=== PATIENT | male | born 1965 | race Hispanic/Latino ===

== ENCOUNTER 2024-09-29 14:13 | Inpatient (IN) | payer SELFPAY ==
[~2024-09-29] VITALS: Ht 167.6 cm; Wt 113.4 kg
[2024-09-29 15:19] LABS: BASOPHILS # (AUTO) 0.06 K/uL (0.00-0.20); BASOPHILS % (AUTO) 0.4 % (0.0-5.0); EOSINOPHILS # (AUTO) 0.06 K/uL (0.00-0.70); EOSINOPHILS % (AUTO) 0.4 % (0.0-8.0); IMMATURE GRANULOCYTE ABSOLUTE 0.35 K/uL (0-1); LYMPHOCYTES # (AUTO) 0.7 K/uL (1.0-4.8); LYMPHOCYTES % (AUTO) 3.8 % (21.0-51.0); MEAN CORPUSCULAR HEMOGLOBIN 33.6 pg (27.0-33.0); MEAN CORPUSCULAR HGB CONC 34.3 g/dL (32.0-36.0); MONOCYTES # (AUTO) 1.1 K/uL (0.1-1.0); MONOCYTES % (AUTO) 6.6 % (3.0-13.0); NEUTROPHILS # (AUTO) 14.7 K/uL (1.8-7.7); NEUTROPHILS % (AUTO) 86.7 % (40.0-77.0); PLATELET COUNT (AUTO) 152 K/uL (130-400); RED BLOOD CELL COUNT(AUTO) 3.57 MIL/uL (4.50-6.20); RED CELL DISTRIBUTION WIDTH 17.7 % (11.0-15.5); WHITE BLOOD COUNT (AUTO) 16.9 K/uL (4.8-10.8)
[2024-09-29 15:28] LABS: CREATININE 2.5 mg/dL (0.5-1.3); POTASSIUM 4.2 mmol/L (3.5-5.1)
[2024-09-29 15:32] LABS: ALBUMIN 2.2 g/dL (3.5-5.0); BILIRUBIN,TOTAL 6.4 mg/dL (0.2-1.0)
[2024-09-29 15:59] LABS: BAND NEUTROPHILS % (MANUAL) 10 % (0-2); EOSINOPHILS % (MANUAL) 1 % (1-6); LYMPHOCYTES % (MANUAL) 5 % (22-44); MAN.DIFF COMMENT-IMPRESSION MANUAL DIFFERENTIAL; MONOCYTES % (MANUAL) 8 % (2-9); PLATELET MORPHOLOGY COMMENT ADEQUATE; SEGMENTED NEUTROPHILS % 76 % (40-70); TOTAL CELLS COUNTED 100; WBC MORPHOLOGY CONSISTENT W/DIFF
--- NOTE | 2024-09-29 16:13 | ERN ---
General Chief Complaint: LOWER EXTREMITY EDEMA Stated Complaint: SWELLING Time Seen by MD: 14:17 Source: patient History of Present Illness Initial Comments PATIENT IS A 59-YEAR-OLD MALE COMING IN TO BE EVALUATED FOR ABDOMINAL DISTENTION. PATIENT STATES THAT HE WAS SENT OVER BY URGENT CARE FOR FURTHER EVALUATION OF ABDOMINAL DISTENTION AND SHORTNESS OF BREATH. Allergies: Coded Allergies: No Known Drug Allergies (Unverified Allergy, Unknown, 09/29/24) Past Medical History Past Medical History: Liver Disease Medical History Other: CIRROHSIS Past Surgical History: None ROS Dictation CONSTITUTIONAL: NO CHILLS, NO FEVER, NO WEAKNESS, NO DIAPHORESIS, NO MALAISE. HEAD/FACE: NO SIGNS OF TRAUMA. EENT: NO EYE PAIN, NO BLURRED VISION, NO TEARING, NO DOUBLE VISION, NO EAR PAIN, NO EAR DISCHARGE, NO NOSE PAIN, NO NASAL CONGESTION, NO THROAT PAIN, NO THROAT SWELLING, NO MOUTH PAIN. RESPIRATORY: NO COUGH, NO ORTHOPNEA, SOB, NO STRIDOR, NO WHEEZING. CARDIOVASCULAR: NO CHEST PAIN, NO EDEMA, NO PALPITATIONS, NO SYNCOPE. GASTROINTESTINAL/ABDOMINAL: ABDOMINAL PAIN, NO CONSTIPATION, NO DIARRHEA, NO NAUSEA, NO VOMITING. GENITOURINARY: NO ABNORMAL DISCHARGE, NO DYSURIA, NO FREQUENT URINATION, NO HEMATURIA. NO COMPLAINTS OF PAIN IN THE GENITALS. MUSCULOSKELETAL: NO BACK PAIN, NO GOUT, NO JOINT PAIN, NO JOINT SWELLING, NO MUSCLE PAIN, NO MUSCLE STIFFNESS, NO NECK PAIN. INTEGUMENTARY: NO CHANGE IN COLOR, NO CHANGE IN HAIR/NAILS, NO DRYNESS, NO LESION, NO LUMPS, NO RASH. NEUROLOGICAL/PSYCH: NO ANXIETY, NOT DEPRESSED, NO EMOTIONAL PROBLEM, NO HEADACHE, NO NUMBNESS, NO PRE-EXISTING DEFICIT, NO HISTORY OF SEIZURES, NO TREMORS, NO WEAKNESS. HEMATOLOGIC/LYMPHATIC: NOT ANEMIC, NO HISTORY OF BLOOD CLOTS, NO APPARENT BLEEDING, NO BRUISING, GLANDS NOT SWOLLEN. ALL SYSTEMS NEGATIVE, EXCEPT NOTED. Physical Exam Physical Exam Dictation VITAL SIGNS: REVIEWED. GENERAL APPEARANCE: ALERT, ORIENTED X3, NO ACUTE DISTRESS, OBESE. HEAD AND FACE: NON-TRAUMATIC. EYES: PERRL, PINK CONJUNCTIVAS, EYELID NO TRAUMA, ANTERIOR CHAMBER CLEAR. EARS: PINNAS INTACT AND NO SIGNS OF TRAUMA OR ERYTHEMA. EAR CANALS CLEAR AND NO DISCHARGE. TMS NO ERYTHEMA. NOSE: NO DISCHARGE, NO BLEEDING. OROPHARYNX: MOUTH NORMAL, TEETH NO CARIES, TONGUE PINK. PHARYNX CLEAR, NO ERYTHEMA. TONSILS NO EXUDATES, NO ABSCESSES NOTED. MUCOUS MEMBRANE MOIST. NECK: SUPPLE, NON-TENDER, NO THYROMEGALY, NO MASSES, NO JVD, NO BRUITS. BREAST: DEFERRED. CHEST: NO TENDERNESS, NO CREPITUS, NO PARADOXICAL MOVEMENT, NO RETRACTIONS. LUNGS: CLEAR, WELL-VENTILATED, SYMMETRIC, NO RALES, NO WHEEZING, NO RHONCHI, NO STRIDOR, GOOD BREATH SOUNDS BILATERALLY. HEART: REGULAR RATE, REGULAR RHYTHM, NO MURMUR, NO GALLOPS. VASCULAR: NO PERIPHERAL EDEMA. ABDOMEN: SOFT, POSITIVE BOWEL SOUNDS, DISTENDED, NO GUARDING, NTENDER, NO REBOUND, NO MASSES NO HEPATOMEGALY, NO SPLENOMEGALY, NO SILVA'S SIGN, NO HERNIAS. RECTAL: DEFERRED. GENITAL: DEFERRED. NEUROLOGICAL: NORMAL SPEECH, GROSS MOTOR FUNCTION INTACT, GROSS SENSORY FUNCTION INTACT. MUSCULOSKELETAL: NECK NONTENDER, FULL RANGE OF MOTION, BACK NONTENDER, FULL RANGE OF MOTION. EXTREMITIES: NONTENDER, FULL RANGE OF MOTION. SKIN: COLOR PINK, DRY, NO TURGOR, NO RASH, NO LACERATIONS, NO ABRASIONS, NO CONTUSIONS. LYMPHATICS: DEFERRED. Results Laboratory and Microbiology Lab and Micro Result Laboratory Tests Test 09/29/24 15:12 White Blood Count 16.9 K/uL (4.8-10.8) H Red Blood Count 3.57 MIL/uL (4.50-6.20) L Hemoglobin 12.0 g/dL (14.0-18.0) L Hematocrit 35.0 % (42-54) L Mean Corpuscular Volume 98.0 fL (79-99) Mean Corpuscular Hemoglobin 33.6 pg (27.0-33.0) H Mean Corpuscular Hemoglobin Concent 34.3 g/dL (32.0-36.0) Red Cell Distribution Width 17.7 % (11.0-15.5) H Platelet Count 152 K/uL (130-400) Mean Platelet Volume 9.6 fL (7.5-10.5) Immature Granulocyte % (Auto) 2.1 % (0-1) H Neutrophils (%) (Auto) 86.7 % (40.0-77.0) H Lymphocytes (%) (Auto) 3.8 % (21.0-51.0) L Monocytes (%) (Auto) 6.6 % (3.0-13.0) Eosinophils (%) (Auto) 0.4 % (0.0-8.0) Basophils (%) (Auto) 0.4 % (0.0-5.0) Neutrophils # (Auto) 14.7 K/uL (1.8-7.7) H Lymphocytes # (Auto) 0.7 K/uL (1.0-4.8) L Monocytes # (Auto) 1.1 K/uL (0.1-1.0) H Eosinophils # (Auto) 0.06 K/uL (0.00-0.70) Basophils # (Auto) 0.06 K/uL (0.00-0.20) Absolute Immature Granulocyte (auto 0.35 K/uL (0-1) Segmented Neutrophils % 76 % (40-70) H Band Neutrophils % 10 % (0-2) H Lymphocytes % (Manual) 5 % (22-44) L Monocytes % (Manual) 8 % (2-9) Eosinophils % (Manual) 1 % (1-6) Nucleated Red Blood Cells 0.0 % (0.0-0.19) Differential Comment MANUAL DIFFERENTIAL White Cell Morphology Comment CONSISTENT W/DIFF Platelet Morphology Comment ADEQUATE Red Blood Cell Morphology ANISO 1+ Sodium Level 133 mmol/L (136-145) L Potassium Level 4.2 mmol/L (3.5-5.1) Chloride Level 98 mmol/L (101-111) L Carbon Dioxide Level 22 mmol/L (21-32) Blood Urea Nitrogen 33 mg/dL (7-18) H Creatinine 2.5 mg/dL (0.5-1.3) H Glomerular Filtration Rate Calc 29 mL/min (>90) Random Glucose 113 mg/dL (70-105) H Total Calcium 8.6 mg/dL (8.5-10.1) Total Bilirubin 6.4 mg/dL (0.2-1.0) H Aspartate Amino Transf (AST/SGOT) 87 U/L (10-37) H Alanine Aminotransferase (ALT/SGPT) 29 U/L (12-78) Alkaline Phosphatase 175 U/L (50-136) H Total Protein 7.0 g/dL (6.0-8.3) Albumin 2.2 g/dL (3.5-5.0) L Labs Reviewed?: Yes MDM MDM: Differential diagnosis: Ascites, liver cirrhosis, shortness of breath Rationale: Tests considered and ordered secondary to shared decision making include: Previous outside records reviewed: Old ER visits. Risk of complication and/or morbidity or mortality of patient management: None Medications-Per medication reconciliation Need for hospitalization: Patient does meet criteria for hospitalization. Need for emergency major/minor surgery: No There are no social concerns with this patient. Prescription drug management Prescriptions will include symptomatic care Patient's prior external medical records from other ER visits were reviewed by me as indicated. Prior testing and results from previous visits were reviewed. Prior tests were taken into account with medical decision making and resource utilization, independent historian/historians were used to obtain complete medical history. I independently interpreted the test that were performed, results were reviewed by me and considered findings on radiology if ordered. Medical management and examination interpretation discussions were had by me with other qualified healthcare professionals as indicated for the patient's care. Patient is a 59-year-old gentleman coming in to be evaluated for abdominal distention shortness of breath. Patient has a history of liver cirrhosis in his here for paracentesis. Patient will be admitted under the care of hospitalist group for ongoing management. ED Course Orders Procedure Category Date Status Time Cbc With Differential LAB 09/29/24 Complete 14:31 Comprehensive LAB 09/29/24 Complete Metabolic Panel 14:31 Manual Differential LAB 09/29/24 Complete 15:12 Vital Signs Date Time Temp Pulse Resp B/P (MAP) Pulse Ox O2 Delivery O2 Flow Rate FiO2 09/29/24 14:15 98.6 101 20 153/84 98 Room Air* 0 21 09/29/24 14:15 97.2 104 18 175/86 99 Room Air 0 DX & DISP Disposition: Inpatient Decision to Admit Time: 17:17 Departure Impression: Primary Impression: Shortness of breath Additional Impressions: History of cirrhosis of liver, Ascites Condition: Stable Referrals: NONE (PCP) BRUNA PHILIP MD Sep 29, 2024 16:13
--- NOTE | 2024-09-29 16:38 | NUR ---
patient does not have home meds with him present at this time
[2024-09-29] MEDS ORDERED: ondanSETRON 4MG INJ IV PRN (17:30)
[2024-09-29] MEDS ORDERED: guaiFENesin-DM 200/20MG 10ML PO PRN (17:30)
[2024-09-29] MEDS ORDERED: NITROGLYCERIN 0.4 MG SL TAB SL PRN (17:30)
[2024-09-29] MEDS ORDERED: LACTULOSE 20 GM/30 ML UDCUP PO PRN ×2 (17:30→22:00)
[2024-09-29] MEDS: 0.9%NACL 1000ML 1,000 ML IV SCH (17:30)
[2024-09-29] MEDS ORDERED: hydrALAZine 20MG/ML VIAL IV PRN (17:30)
[2024-09-29] MEDS ORDERED: FAMOTIDINE 20MG VIAL IV PRN (17:30)
[2024-09-29] MEDS ORDERED: DiphenhydrAMINE HCL 50 MG/ML VIAL IV PRN (17:30)
[2024-09-29] MEDS ORDERED: cefTRIAXone 1G VIAL 2 GM in 0.9%NACL 100ML 100 ML IV SCH (17:30)
[2024-09-29] MEDS ORDERED: morPHINE 2 MG SYG IVP PRN (17:30)
[2024-09-29] MEDS ORDERED: MAG/ALUM/SIMETH 30 ML UDCUP PO PRN (17:30)
[2024-09-29] MEDS ORDERED: acetaMINOPHEN 325 MG TAB PO PRN ×2 (17:30)
[2024-09-29] MEDS ORDERED: GLUCAGON 1MG KIT 1 MG ML IM PRN (17:30)
[2024-09-29] MEDS ORDERED: DEXTROSE 50%-WATER 50 ML DISP.SYRIN IV PRN (17:30)
[2024-09-29] MEDS ORDERED: ketOROlac 15MG/ML VIAL (15MG/ML) IV PRN (17:30)
[2024-09-29] MEDS ORDERED: ZOLPidem TARTrate 5 MG TAB PO PRN (17:30)
[2024-09-29] MEDS: CEFTRIAXONE 2GM VIAL IVPB SCH (18:11)
--- NOTE | 2024-09-29 18:36 | NUR ---
REPORT GIVEN TO ANN OSWALD
--- NOTE | 2024-09-29 19:43 | HMCIMG ---
CHEST 1VW HISTORY: Congestion COMPARISON: None FINDINGS: A frontal projection of the chest was obtained. No acute pulmonary infiltrates is seen. The heart is borderline enlarged. Degenerative changes are seen. Elevation of right hemidiaphragm is seen. IMPRESSION: 1. No acute pulmonary infiltrate is seen.
--- NOTE | 2024-09-29 19:52 | HMCIMG ---
CT ABDOMEN/PELVIS W/O CONTRAST HISTORY: Ascites and cirrhosis COMPARISON: None TECHNIQUE: Multiple sequential axial images of the abdomen and pelvis were obtained from the dome of the diaphragm through symphysis pubis. Patient was not given contrast through intravenous route. Oral contrast was not given. FINDINGS: Tiny bilateral pleural effusions are seen. There is no evidence of parenchymal disease or pulmonary nodule of the visualized lower lungs. Degenerative changes of the thoracolumbar spine are present. The heart is not enlarged. Cirrhotic changes of the liver are noted. The liver has irregular contour. There is right hepatic mass measuring 9.2 x 8.1 cm. There is left renal atrophy. Liver measures 8.4 cm. Spleen is enlarged measuring 15 cm Spleen, adrenal glands and pancreas are unremarkable. There is no evidence of hydronephrosis bilaterally. No evidence of renal stone is seen. Fecal material is seen in the colon. There are normal size retroperitoneal and mesenteric lymph nodes. There is small ascites and anasarca. Atherosclerotic changes are present. Pelvic sidewalls are symmetric bilaterally. Bladder is well distended without wall thickening. IMPRESSION: 1. Cirrhotic liver with enlarged spleen . There is right hepatic mass measuring 9.2 x 8.1 cm. There is small ascites. Anasarca. CT was performed with one or more following dose reduction techniques: automated exposure control, adjustment of the mA and kv according to patient's size, or use of a iterative reconstruction technique.
[2024-09-29] MEDS: INSULIN humuLIN R 100 UNIT/ML 3ML SQ SCH (20:22)
[2024-09-29] MEDS: HEParin 5,000 UNIT VIAL SQ SCH (20:24)
--- NOTE | 2024-09-29 21:00 | NUR ---
MD VISIT FAIZAN AQUINO NATIONAL GUARD MEMBER TO SEE AND EXAMEN PATIENT AT BEDSIDE WITH ORDERS
--- NOTE | 2024-09-29 21:43 | HP ---
[facility] HISTORY AND PHYSICAL Date of Service: Sep 29, 2024 Time of Service: 21:25 PCP: Mona Durham in [place], Admitting: Dr Betancourt, Allergies: No Allergy Information Available, No Known Drug Allergies HISTORY OF PRESENT ILLNESS: [Patient is 59 years old male with a past medical history of liver cirrhosis, undiagnosed obstructive sleep apnea, who came to emergency department for evaluation of shortness of breaths on exertion, abdominal distention, bilateral lower extremities edema and swelling of scrotum. Patient stated that patient was in [facility] last Thanks2023 with similar symptoms but unfortunately doctors were not able to withdrawal any fluids from his belly. For the past about two three weeks patient become more short of breaths up to the point that yesterday and today he has been wheezing. He also has bilateral lower extremities edema plus four and scrotum swelling which went to the point that he is unable to walk anymore. Most recent vital signs temperature 99.1 pulse 97 respiration 20 blood pressure 135/82 patient is on room air satting 99%. WBC 16.9 hemoglobin 12 hematocrit 35 platelets 152. Sodium 133 potassium 4.2 CO2 22 BUN 33 creatinine 2.5 GFR 29 bilirubin 6.4 AST 87 ALT 29 albumin 2.[address] abdomen/pelvis shows cirrhosis liver with enlarged spleen. There is right hepatic mass measuring 9.2 x 8.1 cm. There small ascites. Anasarca. Chest x-ray showed no acute pulmonary infiltrate is seen. Patient will be admitted under hospitalist care for further evaluation/examination.] REVIEW OF SYSTEMS CONSTITUTIONAL: Denies fevers, chills, or night sweats. No unintentional weight loss reported. NEUROLOGICAL: Denies headache, amaurosis fugax, motor weakness, sensory deficit, vertigo/spinning sensation, gait abnormalities, or tremors. ENT: No hearing loss, otalgia, otorrhea, rhinitis, rhinorrhea, hoarseness, or sore throat. CARDIOVASCULAR: Denies any exertional angina, dyspnea on exertion, orthopnea, paroxysmal nocturnal dyspnea, palpitations, life-threatening arrhythmias, claudication. PULMONARY: Denies any cough, phlegm/sputum, hemoptysis, pleuritic chest pain. Complains of shortness of breath on exertion SLEEP: Denies morning headaches, daytime somnolence or napping. Denies difficulty falling asleep, staying asleep, waking from sleep. Denies knowledge of snoring. GASTROINTESTINAL: Denies any type of dysphagia to either liquids or solids. Denies nausea, vomiting, pyrosis, early satiety, diarrhea, constipation, or changes in stool consistency or caliber. Denies coffee-ground emesis, hematem esis, hematochezia, or melanotic stools. Complains of abdominal pain GENITOURINARY: Denies frequency, urgency, nocturia, hematuria or incontinence (Storage/Irritative symptoms.) Low urinary stream, straining to void, urinary intermittency or hesitancy, splitting of the voiding stream, terminal dribbling. ENDOCRINOLOGIC: Denies polyuria, polydipsia, polyphagia or heat/cold intolerances. HEMATOLOGIC: Denies thrombophilia/previous clots, or coagulopathy/bleeding disorders. ONCOLOGIC: Denies personal history of malignancy. DERMATOLOGIC: Denies rashes or pruritus. PSYCHIATRIC: Denies any suicidal or homicidal ideation. Denies hallucinations. PAST MEDICAL HISTORY: [ Liver cirrhosis, undiagnosed obstructive sleep apnea ] PAST SURGICAL HISTORY: [ None ] PAST SOCIAL HISTORY: [ Patient has a history of severe alcohol consumption 2 to 3 packs of beer a day. The patient denies smoking. Patient denies any drug illicit ] FAMILY HISTORY: [ Patient lives at home with the . Patient is independent ] Coded Allergies: No Known Drug Allergies (Unverified Allergy, Unknown, 09/29/24) PHYSICAL EXAM GENERAL APPEARANCE: The patient is awake, alert, and oriented, in no acute cardiopulmonary distress. NEUROLOGICAL: Cranial nerves II-XII grossly intact. Motor is 5/5 in bilateral upper and lower extremities proximal to distal. No sensory deficits. HEENT: Face is symmetric. Pupils are equal and reactive. Extraocular movements are intact. NECK: Supple. No JVD. No thyromegaly. No submental, submandibular, pre- /postauricular, occipital or supraclavicular lymphadenopathy. CHEST: Normal chest expansion. No Telemetry. LUNGS: Absence of any rales, rhonchi or any wheezing. CARDIOVASCULAR: Regular. S1 and S2 normal. No appreciable rubs, murmurs or gallops. ABDOMEN: Soft, nontender, and nondistended. There is no rebound, voluntary guarding, or rigidity. : Deferred. No Garnett. Severe scrotum swelling EXTREMITIES:and not cyanotic. No clubbing. Good capillary refill. Bilateral lower extremities edema plus four pitting SKIN: No skin breakdown. Vital Sign (Last 24 Hours) 09/29/24 16:00 Temp 99.1 Pulse 97 Resp 20 B/P (MAP) 135/82 Pulse Ox 99 O2 Delivery Room Air* O2 Flow Rate 0 FiO2 21 LABS: Laboratory: Test 09/29/24 20:16 09/29/24 15:12 Range/Units Whole Blood Glucose 102 70-110 MG/DL White Blood Count 16.9 H 4.8-10.8 K/uL Red Blood Count 3.57 L 4.50-6.20 MIL/uL Hemoglobin 12.0 L 14.0-18.0 g/dL Hematocrit 35.0 L 42-54 % Mean Corpuscular Volume 98.0 79-99 fL Mean Corpuscular Hemoglobin 33.6 H 27.0-33.0 pg Mean Corpuscular Hemoglobin Concent 34.3 32.0-36.0 g/dL Red Cell Distribution Width 17.7 H 11.0-15.5 % Platelet Count 152 130-400 K/uL Mean Platelet Volume 9.6 7.5-10.5 fL Immature Granulocyte % (Auto) 2.1 H 0-1 % Neutrophils (%) (Auto) 86.7 H 40.0-77.0 % Lymphocytes (%) (Auto) 3.8 L 21.0-51.0 % Monocytes (%) (Auto) 6.6 3.0-13.0 % Eosinophils (%) (Auto) 0.4 0.0-8.0 % Basophils (%) (Auto) 0.4 0.0-5.0 % Neutrophils # (Auto) 14.7 H 1.8-7.7 K/uL Lymphocytes # (Auto) 0.7 L 1.0-4.8 K/uL Monocytes # (Auto) 1.1 H 0.1-1.0 K/uL Eosinophils # (Auto) 0.06 0.00-0.70 K/uL Basophils # (Auto) 0.06 0.00-0.20 K/uL Absolute Immature Granulocyte (auto 0.35 0-1 K/uL Segmented Neutrophils % 76 H 40-70 % Band Neutrophils % 10 H 0-2 % Lymphocytes % (Manual) 5 L 22-44 % Monocytes % (Manual) 8 2-9 % Eosinophils % (Manual) 1 1-6 % Nucleated Red Blood Cells 0.0 0.0-0.19 % Differential Comment MANUAL DIFFERENTIAL White Cell Morphology Comment CONSISTENT W/DIFF Platelet Morphology Comment ADEQUATE Red Blood Cell Morphology ANISO 1+ Sodium Level 133 L 136-145 mmol/L Potassium Level 4.2 3.5-5.1 mmol/L Chloride Level 98 L 101-111 mmol/L Carbon Dioxide Level 22 21-32 mmol/L Blood Urea Nitrogen 33 H 7-18 mg/dL Creatinine 2.5 H 0.5-1.3 mg/dL Glomerular Filtration Rate Calc 29 >90 mL/min Random Glucose 113 H 70-105 mg/dL Total Calcium 8.6 8.5-10.1 mg/dL Total Bilirubin 6.4 H 0.2-1.0 mg/dL Aspartate Amino Transf (AST/SGOT) 87 H 10-37 U/L Alanine Aminotransferase (ALT/SGPT) 29 12-78 U/L Alkaline Phosphatase 175 H 50-136 U/L Total Protein 7.0 6.0-8.3 g/dL Albumin 2.2 L 3.5-5.0 g/dL Current Medications Medications (Trade) Dose Ordered Sig/Lionel Route PRN Reason Start Time Stop Time Status Last Admin Dose Admin Acetaminophen (TYLenol 325MG TAB) 650 mg Q4H PRN PO MILD PAIN (1-3) 09/29/24 17:30 10/29/24 17:29 Acetaminophen (TYLenol 325MG TAB) 650 mg Q6H PRN PO MILD PAIN (1-3) 09/29/24 17:30 09/29/24 17:41 DC Acetaminophen (TYLenol 325MG TAB) 650 mg Q6H PRN PO TEMPERATURE GREATER THAN 101.5 09/29/24 17:30 10/29/24 17:29 Al Hydroxide/Mg Hydroxide (MAALox PLUS 30ML) 30 ml Q6H PRN PO INDIGESTION 09/29/24 17:30 10/29/24 17:29 Ceftriaxone Sodium 2 gm/ Sodium Chloride 100 ml @ 200 mls/hr Q24H IV 09/29/24 17:30 09/29/24 17:44 DC Ceftriaxone Sodium (Rocephin 2gm Inj) 2 gm Q24H IVPB 09/29/24 18:00 10/09/24 17:59 09/29/24 18:11 2 GM Dextrose (D50w) 50 ml AD PRN IV HYPOGLYCEMIA PROTOCOL 09/29/24 17:30 10/29/24 17:29 Diphenhydramine HCl (BENAdryl INJ) 25 mg Q6H PRN IV SEVERE ITCHING/RASH 09/29/24 17:30 10/29/24 17:29 Famotidine (Pepcid 20mg Vial) 20 mg BID PRN IV NAUSEA/VOMITING 09/29/24 17:30 09/29/24 17:41 DC Famotidine (Pepcid 20mg Vial) 20 mg QODAY IV 09/30/24 09:00 10/30/24 08:59 Glucagon (Glucagon 1mg Kit) 1 mg AD PRN IM HYPOGLYCEMIA PROTOCOL 09/29/24 17:30 10/29/24 17:29 Guaifenesin/ Dextromethorphan (RobiTUSSin DM 200/20MG 10ML) 10 ml Q4H PRN PO COUGH 09/29/24 17:30 10/29/24 17:29 Heparin Sodium (Porcine) (HEParin 5,000 UNIT VIAL) 5,000 unit BID SQ 09/29/24 21:00 10/29/24 20:59 09/29/24 20:24 5,000 UNIT Hydralazine HCl (APRESOLine 20MG INJ) 10 mg Q6H PRN IV For:SBP above 160;DBP above 90 09/29/24 17:30 10/29/24 17:29 Insulin Human Regular (humuLIN R 100 UNIT/ML 3ML) INSULIN SLIDING SCAL... ACHS SQ 09/29/24 21:00 10/29/24 20:59 Ketorolac Tromethamine (toRADol) 15 mg Q8H PRN IV MODERATE PAIN (4-6) 09/29/24 17:30 10/04/24 17:29 Lactulose (Constulose 20gm/ 30ml Udcup) 20 gm BID PRN PO CONSTIPATION 09/29/24 17:30 10/29/24 17:29 Magnesium Sulfate 50 ml @ 0 mls/hr PROTOCOL PRN IV other 09/29/24 17:30 10/29/24 17:29 Morphine Sulfate (morPHINE 2MG SYG) 1 mg Q4H PRN IVP SEVERE PAIN (7-10) 09/29/24 17:30 10/06/24 17:29 Nitroglycerin (Nitrostat) 0.4 mg PROTOCOL PRN SL CHEST PAIN 09/29/24 17:30 10/29/24 17:29 Ondansetron HCl (zoFRAN 4MG INJ) 4 mg Q6H PRN IV NAUSEA/VOMITING 09/29/24 17:30 10/29/24 17:29 Sodium Chloride 1,000 ml @ 70 mls/hr [id number] IV 09/29/24 17:30 10/29/24 17:29 Zolpidem Tartrate (AmbIEN) 5 mg HS PRN PO INSOMNIA 09/29/24 17:30 10/29/24 17:29 DIAGNOSTICS / RADIOLOGY: [ ] ASSESSMENT: [ Acute hypoxic respiratory failure POA Severe liver cirrhosis requiring paracentesis POA Severe bilateral lower extremities edema POA Uncontrolled hypertension POA Acute kidney injury TNP POA Possible acute complicated cystitis POA Leukocytosis WBC 16.9 due to above POA Severe liver cirrhosis per CT abdomen/pelvis POA Right hepatic mass measuring 9.2 x 8.[address] abdomen/pelvis Small ascites per CT abdomen/pelvis POA Anasarca per CT abdomen/pelvis POA Multifactorial anemia POA Severe malnutrition POA Electrolyte imbalance hyponatremia Na 133 POA] PLAN: [ Admit to: Medical-surgical floor Consults: Commercial Lines Underwriter, field assembly supervisor, oncologist Antibiotics: Rocephin Tests: 2D echo, ultrasound scrotum, IR for thoracentesis NEURO: Minimize central acting medications as possible. Fall Precautions. Well lighted room through the day and minimize interruptions through the night to prevent acute delirium. PULMONARY: Chest x-ray negative Supplemental 02 as needed BiPAP as necessary, for respiratory distress Titrate Fio2 to keep Spo2 > or = 90% DuoNebs and CPT as needed IS hourly while awake for pulmonary hygiene Out of bed to chair as tolerated VAP Bundle Maintain aspiration precautions at all times CARDIOVASCULAR: 2D echo pending Follow hemodynamics. Vital signs per facility protocol GI & NUTRITION: CT abdomen/pelvis shows cirrhotic liver with enlarged spleen. There is right hepatic mass measuring 9.2 x 8.1 cm. There small ascites. Anasarca IR thoracentesis pending Continue nutritional support Aspirations precautions Prokinetic agents and laxatives as needed KIDNEYS & ELECTROLYTES: Strict monitoring of intake and output Daily weights Avoid nephrotoxic agents Monitor electrolytes and replace as needed Goal urine output of 30mL/hr or 0.5mL/kg/hr Medications to be dosed according to renal function. Avoid contrast if possible ENDOCRINE: Maintain blood glucose between 100-180 at all times. Insulin sliding scale for blood glucose management Hypoglycemia and hyperglycemia protocol in place INFECTIOUS DISEASE: Trend temperature, WBC and procalcitonin level Follow cultures, deescalate antibiotics as soon as possible. Panculture if new onset fever HEMATOLOGY & COAGULATION: Monitor H&H. Keep Hgb > 7 Transfuse 1 unit of PRBC for Hgb < 7 Transfuse 1 pack of platelets of platelets < 20, 000 Watch for any signs and symptoms of bleeding SKIN: Ultrasound scrotum pending Pressure ulcer prevention per facility protocol Specialty mattress as needed Treatment plan discussed with patient and family at the bedside Medications to be reconciled once obtained by patient and/or family and available to be reconciled in computer p.r.n. medication for pain nausea and vomiting Questions were answered We will continue to monitor the patient closely Field Specialist for disposition Rehab: PT/OT GI: PPI DVT: SCD's Code Status: Full Resuscitation Disposition: TBD Prognosis: Guarded ] ADVANCED CARE PLANNING 1. Which of the following were discussed? Hospice Care - Yes / No Therapeutic options - Yes / No Advance Directives - Yes / No Other discussions - 2. Discussed with who? Patient and at the bedside 3. Voluntary nature of this service was explained to the patient? Yes / No 4. Amount of time spent - _ more than 35 minutes 5. Reviewed by Physician? (if this service was performed by NPP) Yes / No ATTESTATION BY PHYSICIAN I have seen and examined the patient. I reviewed the documentation, medical decision making, and treatment plan as noted by the mid-level provider above. I agree with the findings and plan of care. NAVI BETANCOURT MD, [employer] PRODUCTION WORKER Sep 29, 2024 21:42
[2024-09-29] MEDS: furoSEMIDE 40MG VIAL IV SCH (22:27)
[2024-09-30] VITALS (18 sets, daily range): BP systolic 105–145; BP diastolic 57–75; PULSE 77–99; RESP 17–20; TEMP 98.1–100.1; O2SAT 99–100
--- NOTE | 2024-09-30 00:47 | HMCIMG ---
US SCROTUM & CONTENTS HISTORY: No additional history given. COMPARISON: None TECHNIQUE: Duplex scrotal ultrasound study was performed. FINDINGS: The right testes measures 3.4 x 2 x 2.2 cm. The left testes measures 3.4 x 2.2 x 2.1 cm. No evidence of intratesticular mass or abnormal calcification is seen. Normal flow is demonstrated in the testes and epididymides bilaterally. No hydroceles or varicocele is seen. There is scrotal wall edema with right measuring 2.4 cm and left measuring 2.6 cm in thickness. IMPRESSION: 1. No evidence of intratesticular mass is seen. 2. Normal flow is demonstrated of both testes. Scrotal wall swelling. Scrotal wall swelling
[2024-09-30 05:50] LABS: BASOPHILS # (AUTO) 0.06 K/uL (0.00-0.20); BASOPHILS % (AUTO) 0.4 % (0.0-5.0); EOSINOPHILS # (AUTO) 0.15 K/uL (0.00-0.70); EOSINOPHILS % (AUTO) 1.1 % (0.0-8.0); HEMATOCRIT 30.7 % (42-54); IMMATURE GRANULOCYTE ABSOLUTE 0.23 K/uL (0-1); LYMPHOCYTES # (AUTO) 0.6 K/uL (1.0-4.8); LYMPHOCYTES % (AUTO) 4.6 % (21.0-51.0); MEAN CORPUSCULAR HEMOGLOBIN 33.2 pg (27.0-33.0); MEAN CORPUSCULAR HGB CONC 34.2 g/dL (32.0-36.0); MEAN CORPUSCULAR VOLUME 97.2 fL (79-99); MONOCYTES # (AUTO) 1.2 K/uL (0.1-1.0); MONOCYTES % (AUTO) 8.9 % (3.0-13.0); NEUTROPHILS # (AUTO) 11.3 K/uL (1.8-7.7); NEUTROPHILS % (AUTO) 83.3 % (40.0-77.0); PLATELET COUNT (AUTO) 143 K/uL (130-400); RED BLOOD CELL COUNT(AUTO) 3.16 MIL/uL (4.50-6.20); RED CELL DISTRIBUTION WIDTH 17.6 % (11.0-15.5); WHITE BLOOD COUNT (AUTO) 13.6 K/uL (4.8-10.8)
[2024-09-30 06:06] LABS: INR 1.25 (0.85-1.15)
[2024-09-30 06:07] LABS: PARTIAL THROMBOPLASTIN TIME 41.1 SEC (26.3-35.5)
[2024-09-30 06:09] LABS: HEMOGLOBIN A1C 4.5 % (4.0-6.0)
[2024-09-30 06:18] LABS: ALBUMIN 1.9 g/dL (3.5-5.0); BILIRUBIN,DIRECT 3.6 mg/dL (0.0-0.3); BILIRUBIN,TOTAL 4.9 mg/dL (0.2-1.0); CREATININE 2.6 mg/dL (0.5-1.3); MAGNESIUM 1.9 mg/dL (1.80-2.40); POTASSIUM 3.9 mmol/L (3.5-5.1); TOTAL PROTEIN, SERUM 6.2 g/dL (6.0-8.3)
[2024-09-30] MEDS: FAMOTIDINE 20MG VIAL IV SCH (08:35)
--- NOTE | 2024-09-30 08:48 | CONS ---
GASTROENTEROLOGY CONSULTATION NOTE Date of Consultation: Sep 30, 2024 Time of Consultation: 08:48 History of Present Illness: This is a 59-year-old male with past medical history of cirrhosis and sleep apnea who presented due to shortness of breath on exertion and abdominal distention. He reported bilateral lower extremity edema and swelling to scrotum. Upon further evaluation a CT scan that revealed cirrhotic liver with enlarged spleen and a right hepatic mass measuring 9.2 x 0.1 cm with small ascites. Hemoglobin 10.5 with a platelet count of 143 and INR 1.25. Total bilirubin is 4.9 which has trended down, AST 69, ALT 22 and alkaline phos of 138. An albumin of 1.9. He is pending paracentesis and liver biopsy. Review of Systems: CONSTITUTIONAL: No malaise or change in sensation of wellbeing. ENMT: No rhinorrhea, otorrhea, sinus pain, ear ache. CARDIOVASCULAR: No angina, palpitations, orthopnea or paroxysmal dyspnea. RESPIRATORY: No SOB. GASTROINTESTINAL: No abdominal pain, nausea, vomiting, diarrhea, hematemesis, melena or change in the patient's habitual bowel movements consistency/number. GENITOURINARY: No dysuria, hematuria or change in bladder continence. MUSCULOSKELETAL: No new muscle pain or decrease in muscular strength. No new joint swelling, redness or tenderness. SKIN: No new rash. Past Medical History: PAST MEDICAL HISTORY: [ Liver cirrhosis, undiagnosed obstructive sleep apnea ] PAST SURGICAL HISTORY: [ None ] PAST SOCIAL HISTORY: [ Patient has a history of severe alcohol consumption 2 to 3 packs of beer a day. The patient denies smoking. Patient denies any drug illicit ] FAMILY HISTORY: [ Patient lives at home with the . Patient is independent ] Coded Allergies: No Known Drug Allergies (Unverified Allergy, Unknown, 09/29/24) Coded Allergies: No Known Drug Allergies (Unverified Allergy, Unknown, 09/29/24) Physical Exam: GEN: Awake, alert, oriented in person, time and place, and in no acute distress. HEENT: No sinus tenderness. Tympanic membranes were not examined. No rhinorrhea. Oral pharyngeal mucosa is pink, moist and within normal limits. Neck is supple with no cervical lymphadenopathy, thyromegaly or JVD. CHEST: Inspection, palpation and percussion of the chest were unremarkable. Lung auscultation revealed normal breath sounds bilaterally. CARDIAC: PMI is within normal limits. Heart sounds are regular. Normal S1, S2. No gallop or murmur. ABD: Soft, non-tender and not distended. No peritoneal signs on palpation. No organomegaly. Normal bowel sounds. EXT: No cyanosis or clubbing. No edema. SKIN: Intact. No rashes. JOINTS: No evidence of synovitis or acute arthritis. NEURO: Alert and oriented to name, place and person. Cranial nerve examination is unremarkable. No focal motor deficits. Normal speech. Gait is normal. Strength is normal. Vital Sign (Last 24 Hours) 09/29/24 09/30/24 22:45 07:55 Temp 98.8 Pulse 91 Resp 18 B/P (MAP) 125/69 Pulse Ox 100 O2 Delivery Room Air O2 Flow Rate 0 FiO2 21 Laboratory: [ ] Laboratory: Test 09/30/24 05:38 09/30/24 05:26 09/29/24 15:12 Range/Units White Blood Count 13.6 H 4.8-10.8 K/uL Red Blood Count 3.16 L 4.50-6.20 MIL/uL Hemoglobin 10.5 L 14.0-18.0 g/dL Hematocrit 30.7 L 42-54 % Mean Corpuscular Volume 97.2 79-99 fL Mean Corpuscular Hemoglobin 33.2 H 27.0-33.0 pg Mean Corpuscular Hemoglobin Concent 34.2 32.0-36.0 g/dL Red Cell Distribution Width 17.6 H 11.0-15.5 % Platelet Count 143 130-400 K/uL Mean Platelet Volume 9.8 7.5-10.5 fL Immature Granulocyte % (Auto) 1.7 H 0-1 % Neutrophils (%) (Auto) 83.3 H 40.0-77.0 % Lymphocytes (%) (Auto) 4.6 L 21.0-51.0 % Monocytes (%) (Auto) 8.9 3.0-13.0 % Eosinophils (%) (Auto) 1.1 0.0-8.0 % Basophils (%) (Auto) 0.4 0.0-5.0 % Neutrophils # (Auto) 11.3 H 1.8-7.7 K/uL Lymphocytes # (Auto) 0.6 L 1.0-4.8 K/uL Monocytes # (Auto) 1.2 H 0.1-1.0 K/uL Eosinophils # (Auto) 0.15 0.00-0.70 K/uL Basophils # (Auto) 0.06 0.00-0.20 K/uL Absolute Immature Granulocyte (auto 0.23 0-1 K/uL Nucleated Red Blood Cells 0.0 0.0-0.19 % Prothrombin Time 13.0 H 9.6-11.6 SEC Prothromb Time International Ratio 1.25 H 0.85-1.15 Activated Partial Thromboplast Time 41.1 H 26.3-35.5 SEC Sodium Level 134 L 136-145 mmol/L Potassium Level 3.9 3.5-5.1 mmol/L Chloride Level 98 L 101-111 mmol/L Carbon Dioxide Level 20 L 21-32 mmol/L Blood Urea Nitrogen 37 H 7-18 mg/dL Creatinine 2.6 H 0.5-1.3 mg/dL Glomerular Filtration Rate Calc 28 >90 mL/min Random Glucose 118 H 70-105 mg/dL Hemoglobin A1c 4.5 4.0-6.0 % Estimated Average Glucose (eAG) 82 70-126 mg/dL Lactic Acid Level 3.8 H 0.8-2.5 mmol/L Total Calcium 7.9 L 8.5-10.1 mg/dL Magnesium Level 1.90 1.80-2.40 mg/dL Total Bilirubin 4.9 #H 0.2-1.0 mg/dL Direct Bilirubin 3.6 H 0.0-0.3 mg/dL Aspartate Amino Transf (AST/SGOT) 69 H 10-37 U/L Alanine Aminotransferase (ALT/SGPT) 22 # 12-78 U/L Alkaline Phosphatase 138 H 50-136 U/L Ammonia 55 H 11-32 umol/L Total Creatine Kinase 54 21-232 U/L Total Protein 6.2 6.0-8.3 g/dL Albumin 1.9 L 3.5-5.0 g/dL Procalcitonin 12.01 H 0.05-0.5 ng/mL Whole Blood Glucose 111 H 70-110 MG/DL Segmented Neutrophils % 76 H 40-70 % Band Neutrophils % 10 H 0-2 % Lymphocytes % (Manual) 5 L 22-44 % Monocytes % (Manual) 8 2-9 % Eosinophils % (Manual) 1 1-6 % Differential Comment MANUAL DIFFERENTIAL White Cell Morphology Comment CONSISTENT W/DIFF Platelet Morphology Comment ADEQUATE Red Blood Cell Morphology ANISO 1+ Current Medications Medications (Trade) Dose Ordered Sig/Lionel Route PRN Reason Start Time Stop Time Status Last Admin Dose Admin Acetaminophen (TYLenol 325MG TAB) 650 mg Q4H PRN PO MILD PAIN (1-3) 09/29/24 17:30 10/29/24 17:29 Acetaminophen (TYLenol 325MG TAB) 650 mg Q6H PRN PO MILD PAIN (1-3) 09/29/24 17:30 09/29/24 17:41 DC Acetaminophen (TYLenol 325MG TAB) 650 mg Q6H PRN PO TEMPERATURE GREATER THAN 101.5 09/29/24 17:30 10/29/24 17:29 Al Hydroxide/Mg Hydroxide (MAALox PLUS 30ML) 30 ml Q6H PRN PO INDIGESTION 09/29/24 17:30 10/29/24 17:29 Ceftriaxone Sodium 2 gm/ Sodium Chloride 100 ml @ 200 mls/hr Q24H IV 09/29/24 17:30 09/29/24 17:44 DC Ceftriaxone Sodium (Rocephin 2gm Inj) 2 gm Q24H IVPB 09/29/24 18:00 10/09/24 17:59 09/29/24 18:11 2 GM Dextrose (D50w) 50 ml AD PRN IV HYPOGLYCEMIA PROTOCOL 09/29/24 17:30 10/29/24 17:29 Diphenhydramine HCl (BENAdryl INJ) 25 mg Q6H PRN IV SEVERE ITCHING/RASH 09/29/24 17:30 10/29/24 17:29 Famotidine (Pepcid 20mg Vial) 20 mg BID PRN IV NAUSEA/VOMITING 09/29/24 17:30 09/29/24 17:41 DC Famotidine (Pepcid 20mg Vial) 20 mg QODAY IV 09/30/24 09:00 10/30/24 08:59 09/30/24 08:35 20 MG Furosemide (LASix 40MG VIAL) 40 mg Q12H IV 09/29/24 22:00 10/29/24 21:59 09/30/24 08:36 40 MG Glucagon (Glucagon 1mg Kit) 1 mg AD PRN IM HYPOGLYCEMIA PROTOCOL 09/29/24 17:30 10/29/24 17:29 Guaifenesin/ Dextromethorphan (RobiTUSSin DM 200/20MG 10ML) 10 ml Q4H PRN PO COUGH 09/29/24 17:30 10/29/24 17:29 Heparin Sodium (Porcine) (HEParin 5,000 UNIT VIAL) 5,000 unit BID SQ 09/29/24 21:00 10/29/24 20:59 09/29/24 20:24 5,000 UNIT Hydralazine HCl (APRESOLine 20MG INJ) 10 mg Q6H PRN IV For:SBP above 160;DBP above 90 09/29/24 17:30 10/29/24 17:29 Insulin Human Regular (humuLIN R 100 UNIT/ML 3ML) INSULIN SLIDING SCAL... ACHS SQ 09/29/24 21:00 10/29/24 20:59 Ketorolac Tromethamine (toRADol) 15 mg Q8H PRN IV MODERATE PAIN (4-6) 09/29/24 17:30 10/04/24 17:29 Lactulose (Constulose 20gm/ 30ml Udcup) 20 gm BID PRN PO CONSTIPATION 09/29/24 17:30 10/29/24 17:29 Lactulose (Constulose 20gm/ 30ml Udcup) 20 gm BID PRN PO CONSTIPATION 09/29/24 22:00 09/29/24 21:34 DC Magnesium Sulfate 50 ml @ 0 mls/hr PROTOCOL PRN IV other 09/29/24 17:30 10/29/24 17:29 Morphine Sulfate (morPHINE 2MG SYG) 1 mg Q4H PRN IVP SEVERE PAIN (7-10) 09/29/24 17:30 10/06/24 17:29 Nitroglycerin (Nitrostat) 0.4 mg PROTOCOL PRN SL CHEST PAIN 09/29/24 17:30 10/29/24 17:29 Ondansetron HCl (zoFRAN 4MG INJ) 4 mg Q6H PRN IV NAUSEA/VOMITING 09/29/24 17:30 10/29/24 17:29 Sodium Chloride 1,000 ml @ 70 mls/hr [id number] IV 09/29/24 17:30 09/29/24 21:30 DC Zolpidem Tartrate (AmbIEN) 5 mg HS PRN PO INSOMNIA 09/29/24 17:30 10/29/24 17:29 Diagnostics / Radiology: [COPY/PASTE HERE IF NO REPORTS PLEASE DELETE SECTION] Assessment: Liver mass Ascites Cirrhosis Plan: Agree with liver biopsy Obtain AFP dynamic mri LEONORA BLEDSOE SENIOR WIND ENER[employer] CONSULTANT Sep 30, 2024 08:48
--- NOTE | 2024-09-30 09:39 | NUR ---
DCP: home with SW met with pt and Kathrin Ochoa [phone] at bedside. Pt currently resides in a mobile home with his in [place]. 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 Pt did not report any food, long-term, and/or utilities insecurities. Pt did not report having any DME at home and is able to complete ADLs independently. Pt. reports seeing doctors at [facility]. As per pt he sees different doctors the times that he goes. Pt reports using [facility] in [place] for any RX needs. At discharge will be assisting pt with transportation back home. Addendum: 09/30/24 at 0945 by ENOCH MEADOWS SS Amended: Links added.
--- NOTE | 2024-09-30 11:10 | PN ---
[facility] PROGRESS NOTE Date of Service: Sep 30, 2024 Time of Service: 10:57 SUBJECTIVE: 09/21-: Patient is a 59 year old M, with a PMH of liver cirrhosis and undiagnosed EDAUR, who presented to the ED with complaints of shortness of breath with exertion, abdominal distention, bilateral lower extremity edema, and swelling of scrotum. Patient states the scrotal swelling began one week ago and has been preventing him from walking. The patients CT abdomen/pelvis showed cirrhosis with enlarging spleen, and a right hepatic mass measuring 9.2 x 8.1 cm, small ascites. The patient is planned to get a paracentesis done today. The patient will be getting a liver biopsy tomorrow. Per GI, we will obtain AFP level. The patient complains of pain, rating it a 7/10 on the pain scale. The patient states he does not want to take Morphine. I spoke to pharmacy, and we agreed that the patient can receive 0.2 mg Dilaudid as needed every 6 hours for pain. The patient WBC count is 13.6, down from 16.9. Lactic acid 3.8. 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 We will continue to follow cardiology, oncology, and nephrology recommendations. REVIEW OF SYSTEMS CONSTITUTIONAL: Denies fevers, chills, or night sweats. No unintentional weight loss reported. NEUROLOGICAL: Denies headache, amaurosis fugax, motor weakness, sensory deficit, vertigo/spinning sensation, gait abnormalities, or tremors. ENT: No hearing loss, otalgia, otorrhea, rhinitis, rhinorrhea, hoarseness, or sore throat. CARDIOVASCULAR: Denies any exertional angina, dyspnea on exertion, orthopnea, paroxysmal nocturnal dyspnea, palpitations, life-threatening arrhythmias, claudication. PULMONARY: Denies any cough, phlegm/sputum, hemoptysis, pleuritic chest pain. Complains of shortness of breath on exertion SLEEP: Denies morning headaches, daytime somnolence or napping. Denies difficu lty falling asleep, staying asleep, waking from sleep. Denies knowledge of snoring. GASTROINTESTINAL: Denies any type of dysphagia to either liquids or solids. Denies nausea, vomiting, pyrosis, early satiety, diarrhea, constipation, or changes in stool consistency or caliber. Denies coffee-ground emesis, hematemesis, hematochezia, or melanotic stools. Complains of abdominal pain. GENITOURINARY: Denies frequency, urgency, nocturia, hematuria or incontinence (Storage/Irritative symptoms.) Low urinary stream, straining to void, urinary intermittency or hesitancy, splitting of the voiding stream, terminal dribbling. Complains of scrotal pain ENDOCRINOLOGIC: Denies polyuria, polydipsia, polyphagia or heat/cold intolerances. HEMATOLOGIC: Denies thrombophilia/previous clots, or coagulopathy/bleeding disorders. ONCOLOGIC: Denies personal history of malignancy. DERMATOLOGIC: Denies rashes or pruritus. PSYCHIATRIC: Denies any suicidal or homicidal ideation. Denies hallucinations. PHYSICAL EXAM GENERAL APPEARANCE: The patient is awake, alert, and oriented, in no acute cardiopulmonary distress. NEUROLOGICAL: Cranial nerves II-XII grossly intact. Motor is 5/5 in bilateral upper and lower extremities proximal to distal. No sensory deficits. HEENT: Face is symmetric. Pupils are equal and reactive. Extraocular movements are intact. NECK: Supple. No JVD. No thyromegaly. No submental, submandibular, pre- /postauricular, occipital or supraclavicular lymphadenopathy. CHEST: Normal chest expansion. No Telemetry. LUNGS: Absence of any rales, rhonchi or any wheezing. CARDIOVASCULAR: Regular. S1 and S2 normal. No appreciable rubs, murmurs or gallops. ABDOMEN: Soft, nontender, and nondistended. There is no rebound, voluntary guarding, or rigidity. : Deferred. No Garnett. Severe scrotum swelling EXTREMITIES:and not cyanotic. No clubbing. Good capillary refill. Bilateral lower extremities edema plus four pitting SKIN: No skin breakdown. Vital Signs (last 8hr) Date Time Temp Pulse Resp B/P (MAP) Pulse Ox O2 Delivery O2 Flow Rate FiO2 09/30/24 07:55 98.8 91 18 125/69 100 Room Air 21 09/30/24 07:40 100 Room Air* 0 21 09/30/24 04:00 99.1 99 20 130/75 95 Room Air 21 LABS: Laboratory: Test 09/30/24 09:30 09/30/24 05:38 09/30/24 05:26 09/29/24 15:12 Range/Units Lactic Acid Level 3.2 H 0.8-2.5 mmol/L White Blood Count 13.6 H 4.8-10.8 K/uL Red Blood Count 3.16 L 4.50-6.20 MIL/uL Hemoglobin 10.5 L 14.0-18.0 g/dL Hematocrit 30.7 L 42-54 % Mean Corpuscular Volume 97.2 79-99 fL Mean Corpuscular Hemoglobin 33.2 H 27.0-33.0 pg Mean Corpuscular Hemoglobin Concent 34.2 32.0-36.0 g/dL Red Cell Distribution Width 17.6 H 11.0-15.5 % Platelet Count 143 130-400 K/uL Mean Platelet Volume 9.8 7.5-10.5 fL Immature Granulocyte % (Auto) 1.7 H 0-1 % Neutrophils (%) (Auto) 83.3 H 40.0-77.0 % Lymphocytes (%) (Auto) 4.6 L 21.0-51.0 % Monocytes (%) (Auto) 8.9 3.0-13.0 % Eosinophils (%) (Auto) 1.1 0.0-8.0 % Basophils (%) (Auto) 0.4 0.0-5.0 % Neutrophils # (Auto) 11.3 H 1.8-7.7 K/uL Lymphocytes # (Auto) 0.6 L 1.0-4.8 K/uL Monocytes # (Auto) 1.2 H 0.1-1.0 K/uL Eosinophils # (Auto) 0.15 0.00-0.70 K/uL Basophils # (Auto) 0.06 0.00-0.20 K/uL Absolute Immature Granulocyte (auto 0.23 0-1 K/uL Nucleated Red Blood Cells 0.0 0.0-0.19 % Prothrombin Time 13.0 H 9.6-11.6 SEC Prothromb Time International Ratio 1.25 H 0.85-1.15 Activated Partial Thromboplast Time 41.1 H 26.3-35.5 SEC Sodium Level 134 L 136-145 mmol/L Potassium Level 3.9 3.5-5.1 mmol/L Chloride Level 98 L 101-111 mmol/L Carbon Dioxide Level 20 L 21-32 mmol/L Blood Urea Nitrogen 37 H 7-18 mg/dL Creatinine 2.6 H 0.5-1.3 mg/dL Glomerular Filtration Rate Calc 28 >90 mL/min Random Glucose 118 H 70-105 mg/dL Hemoglobin A1c 4.5 4.0-6.0 % Estimated Average Glucose (eAG) 82 70-126 mg/dL Total Calcium 7.9 L 8.5-10.1 mg/dL Magnesium Level 1.90 1.80-2.40 mg/dL Total Bilirubin 4.9 #H 0.2-1.0 mg/dL Direct Bilirubin 3.6 H 0.0-0.3 mg/dL Aspartate Amino Transf (AST/SGOT) 69 H 10-37 U/L Alanine Aminotransferase (ALT/SGPT) 22 # 12-78 U/L Alkaline Phosphatase 138 H 50-136 U/L Ammonia 55 H 11-32 umol/L Total Creatine Kinase 54 21-232 U/L Total Protein 6.2 6.0-8.3 g/dL Albumin 1.9 L 3.5-5.0 g/dL Procalcitonin 12.01 H 0.05-0.5 ng/mL Whole Blood Glucose 111 H 70-110 MG/DL Segmented Neutrophils % 76 H 40-70 % Band Neutrophils % 10 H 0-2 % Lymphocytes % (Manual) 5 L 22-44 % Monocytes % (Manual) 8 2-9 % Eosinophils % (Manual) 1 1-6 % Differential Comment MANUAL DIFFERENTIAL White Cell Morphology Comment CONSISTENT W/DIFF Platelet Morphology Comment ADEQUATE Red Blood Cell Morphology ANISO 1+ Current Medications Medications (Trade) Dose Ordered Sig/Lionel Route PRN Reason Start Time Stop Time Status Last Admin Dose Admin Acetaminophen (TYLenol 325MG TAB) 650 mg Q4H PRN PO MILD PAIN (1-3) 09/29/24 17:30 10/29/24 17:29 Acetaminophen (TYLenol 325MG TAB) 650 mg Q6H PRN PO MILD PAIN (1-3) 09/29/24 17:30 09/29/24 17:41 DC Acetaminophen (TYLenol 325MG TAB) 650 mg Q6H PRN PO TEMPERATURE GREATER THAN 101.5 09/29/24 17:30 10/29/24 17:29 Al Hydroxide/Mg Hydroxide (MAALox PLUS 30ML) 30 ml Q6H PRN PO INDIGESTION 09/29/24 17:30 10/29/24 17:29 Ceftriaxone Sodium 2 gm/ Sodium Chloride 100 ml @ 200 mls/hr Q24H IV 09/29/24 17:30 09/29/24 17:44 DC Ceftriaxone Sodium (Rocephin 2gm Inj) 2 gm Q24H IVPB 09/29/24 18:00 10/09/24 17:59 09/29/24 18:11 2 GM Dextrose (D50w) 50 ml AD PRN IV HYPOGLYCEMIA PROTOCOL 09/29/24 17:30 10/29/24 17:29 Diphenhydramine HCl (BENAdryl INJ) 25 mg Q6H PRN IV SEVERE ITCHING/RASH 09/29/24 17:30 10/29/24 17:29 Famotidine (Pepcid 20mg Vial) 20 mg BID PRN IV NAUSEA/VOMITING 09/29/24 17:30 09/29/24 17:41 DC Famotidine (Pepcid 20mg Vial) 20 mg QODAY IV 09/30/24 09:00 10/30/24 08:59 09/30/24 08:35 20 MG Furosemide (LASix 40MG VIAL) 40 mg Q12H IV 09/29/24 22:00 10/29/24 21:59 09/30/24 08:36 40 MG Glucagon (Glucagon 1mg Kit) 1 mg AD PRN IM HYPOGLYCEMIA PROTOCOL 09/29/24 17:30 10/29/24 17:29 Guaifenesin/ Dextromethorphan (RobiTUSSin DM 200/20MG 10ML) 10 ml Q4H PRN PO COUGH 09/29/24 17:30 10/29/24 17:29 Heparin Sodium (Porcine) (HEParin 5,000 UNIT VIAL) 5,000 unit BID SQ 09/29/24 21:00 10/29/24 20:59 09/29/24 20:24 5,000 UNIT Hydralazine HCl (APRESOLine 20MG INJ) 10 mg Q6H PRN IV For:SBP above 160;DBP above 90 09/29/24 17:30 10/29/24 17:29 Insulin Human Regular (humuLIN R 100 UNIT/ML 3ML) INSULIN SLIDING SCAL... ACHS SQ 09/29/24 21:00 10/29/24 20:59 Ketorolac Tromethamine (toRADol) 15 mg Q8H PRN IV MODERATE PAIN (4-6) 09/29/24 17:30 10/04/24 17:29 Lactulose (Constulose 20gm/ 30ml Udcup) 20 gm BID PRN PO CONSTIPATION 09/29/24 17:30 10/29/24 17:29 Lactulose (Constulose 20gm/ 30ml Udcup) 20 gm BID PRN PO CONSTIPATION 09/29/24 22:00 09/29/24 21:34 DC Magnesium Sulfate 50 ml @ 0 mls/hr PROTOCOL PRN IV other 09/29/24 17:30 10/29/24 17:29 Morphine Sulfate (morPHINE 2MG SYG) 1 mg Q4H PRN IVP SEVERE PAIN (7-10) 09/29/24 17:30 10/06/24 17:29 Nitroglycerin (Nitrostat) 0.4 mg PROTOCOL PRN SL CHEST PAIN 09/29/24 17:30 10/29/24 17:29 Ondansetron HCl (zoFRAN 4MG INJ) 4 mg Q6H PRN IV NAUSEA/VOMITING 09/29/24 17:30 10/29/24 17:29 Sodium Chloride 1,000 ml @ 70 mls/hr [id number] IV 09/29/24 17:30 09/29/24 21:30 DC Zolpidem Tartrate (AmbIEN) 5 mg HS PRN PO INSOMNIA 09/29/24 17:30 10/29/24 17:29 DIAGNOSTICS / RADIOLOGY: [place] [address] IMAGING REPORT Signed PATIENT: DARSHAN KINNEY MR#: [id number] : 1965 SEX: M AGE: 59 LOCATION: [facility]DH ORDER 34 STATUS: ADM IN REPORT#: [id number] SERVICE 33 REASON: swelling severe ORDERING PHYSICIAN: JONATHON GLORIA APRN PROCEDURE: SCROTUM - US SCROTUM & CONTENTS US SCROTUM & CONTENTS HISTORY: No additional history given. COMPARISON: None TECHNIQUE: Duplex scrotal ultrasound study was performed. FINDINGS: The right testes measures 3.4 x 2 x 2.2 cm. The left testes measures 3.4 x 2.2 x 2.1 cm. No evidence of intratesticular mass or abnormal calcification is seen. Normal flow is demonstrated in the testes and epididymides bilaterally. No hydroceles or varicocele is seen. There is scrotal wall edema with right measuring 2.4 cm and left measuring 2.6 cm in thickness. IMPRESSION: 1. No evidence of intratesticular mass is seen. 2. Normal flow is demonstrated of both testes. Scrotal wall swelling. Scrotal wall swelling DICTATED BY: SOHAIL CORONEL MD DATE: 09/30/2441 ELECTRONICALLY SIGNED BY: SOHAIL CORONEL MD DATE: 09/30/2446 [place] [address] [address] IMAGING REPORT Signed PATIENT: DARSHAN KINNEY MR#: [id number] : 1965 SEX: M AGE: 59 LOCATION: [facility] ORDER 32 STATUS: ADM IN [facility] REPORT#: [id number] SERVICE 26 REASON: congestion ORDERING PHYSICIAN: JONATHON GLORIA APRN PROCEDURE: CXR1VW - CHEST 1VW CHEST 1VW HISTORY: Congestion COMPARISON: None FINDINGS: A frontal projection of the chest was obtained. No acute pulmonary infiltrates is seen. The heart is borderline enlarged. Degenerative changes are seen. Elevation of right hemidiaphragm is seen. IMPRESSION: 1. No acute pulmonary infiltrate is seen. DICTATED BY: SOHAIL CORONEL MD DATE: 09/29/241938 ELECTRONICALLY SIGNED BY: SOHAIL CORONEL MD DATE: 09/29/241942 ASSESSMENT: [ Acute hypoxic respiratory failure POA Severe liver cirrhosis requiring paracentesis POA Severe bilateral lower extremities edema POA Uncontrolled hypertension POA Acute kidney injury TNP POA Possible acute complicated cystitis POA Leukocytosis WBC 16.9 due to above POA Severe liver cirrhosis per CT abdomen/pelvis POA Right hepatic mass measuring 9.2 x 8.[address] abdomen/pelvis Small ascites per CT abdomen/pelvis POA Anasarca per CT abdomen/pelvis POA Multifactorial anemia POA Severe malnutrition POA Electrolyte imbalance hyponatremia Na 133 POA] PLAN: Admit to: Medical-surgical floor Consults: [employer] Supervisor, bench loom weaver, oncologist Antibiotics: Rocephin Tests: 2D echo, ultrasound scrotum, IR for thoracentesis NEURO: Minimize central acting medications as possible. Fall Precautions. Well lighted room through the day and minimize interruptions through the night to prevent acute delirium. PULMONARY: Chest x-ray negative Supplemental 02 as needed BiPAP as necessary, for respiratory distress Titrate Fio2 to keep Spo2 > or = 90% DuoNebs and CPT as needed IS hourly while awake for pulmonary hygiene Out of bed to chair as tolerated VAP Bundle Maintain aspiration precautions at all times CARDIOVASCULAR: 2D echo pending Follow hemodynamics. Vital signs per facility protocol GI & NUTRITION: CT abdomen/pelvis shows cirrhotic liver with enlarged spleen. There is right hepatic mass measuring 9.2 x 8.1 cm. There small ascites. Anasarca IR thoracentesis pending Continue nutritional support Aspirations precautions Prokinetic agents and laxatives as needed KIDNEYS & ELECTROLYTES: Strict monitoring of intake and output Daily weights Avoid nephrotoxic agents Monitor electrolytes and replace as needed Goal urine output of 30mL/hr or 0.5mL/kg/hr Medications to be dosed according to renal function. Avoid contrast if possible ENDOCRINE: Maintain blood glucose between 100-180 at all times. Insulin sliding scale for blood glucose management Hypoglycemia and hyperglycemia protocol in place INFECTIOUS DISEASE: Trend temperature, WBC and procalcitonin level Follow cultures, deescalate antibiotics as soon as possible. Panculture if new onset fever HEMATOLOGY & COAGULATION: Monitor H&H. Keep Hgb > 7 Transfuse 1 unit of PRBC for Hgb < 7 Transfuse 1 pack of platelets of platelets < 20, 000 Watch for any signs and symptoms of bleeding SKIN: Ultrasound scrotum pending Pressure ulcer prevention per facility protocol Specialty mattress as needed Treatment plan discussed with patient and family at the bedside Medications to be reconciled once obtained by patient and/or family and available to be reconciled in computer p.r.n. medication for pain nausea and vomiting Questions were answered We will continue to monitor the patient closely Economic Analyst for disposition Rehab: PT/OT GI: PPI DVT: SCD's Code Status: Full Resuscitation Disposition: TBD Prognosis: Guarded This plan has been discussed and approved by my attending. FEDERICO SUNSHINE MD Sep 30, 2024 11:10
[2024-09-30] MEDS: acetaMINOPHEN 325 MG TAB PO PRN (11:30)
[2024-09-30] MEDS ORDERED: hydroMORPHone 0.5 MG SYG (0.5MG/0.5ML) IVP PRN (11:30)
--- NOTE | 2024-09-30 12:16 | CONS ---
REFERRING PHYSICIAN: Hospitalist. REASON FOR CONSULTATION: Liver mass. HISTORY OF PRESENT ILLNESS: A 59-year-old man with longstanding cirrhosis of liver, obstructive sleep apnea, who presents with worsening shortness of breath, abdominal distention, bilateral lower extremity edema, and scrotal edema. He said he was in [facility] last year in [facility], ascites. He has gotten worse and worse over the last few weeks. In the ER, he had a large hepatic tumor and was admitted by the hospitalist team. He is not clear if he has lost any weight or not. The gives a lot of the history. PAST MEDICAL HISTORY: Liver cirrhosis, obstructive sleep apnea. PAST SURGICAL HISTORY: Denies any surgical procedures. MEDICATIONS: See intake sheet. They were reviewed. ALLERGIES: None known. FAMILY HISTORY: Negative for malignancy. Negative for anemia. SOCIAL HISTORY: He lives with his , disabled, lives at home. He goes to a clinic in [place] for care. REVIEW OF SYSTEMS: HEENT: Negative. CARDIOVASCULAR: Short of breath. PULMONARY: Short of breath. GASTROINTESTINAL: Has ascites, abdominal pain. GENITOURINARY: Negative for hematuria or dysuria. NEUROLOGIC: He is awake. PHYSICAL EXAMINATION: GENERAL: Shows a pleasant man, looks older than stated age. VITAL SIGNS: Blood pressure 130/75, pulse 99, respirations 20. HEENT: Show muddy sclerae. NECK: Supple, without adenopathy or bruit. CHEST: Clear. ABDOMEN: Distended. There appears to be abdominal wall edema, definitely scrotal edema. EXTREMITIES: Bilateral leg edema. NEUROLOGIC: He is awake and responsive. LABORATORY DATA: CBC: WBC 16,000, hemoglobin 12, platelets 152,000. Chemistries: Sodium 134, potassium 3.9, chloride 98, bicarbonate 20, creatinine 2.6. His liver functions are normal. Total bilirubin 4.9, alkaline phosphatase 138. IMAGING: His CAT scan shows cirrhosis with a large hepatic mass, 9 x 8 cm. IMPRESSION: * Anasarca and edema. * Cirrhosis of liver, liver cancer, hepatoma most likely. * Failure to thrive. PLAN: CBC, chem profile, alpha fetoprotein. CT-guided liver biopsy of the mass. I discussed with him and his in some detail. Check his coags, PT, PTT. Address his renal failure. Creatinine 2.6. We will follow with you. TID: [id number] RECEIPT: [id number]
--- NOTE | 2024-09-30 12:45 | NUR ---
U/S GD PARACENTESIS PROCEDURE PERFORMED BY DR Amena CORONEL. PUNCTURE SITE RLQ AND PATIENT TOLERATED PROCEDURE WELL. TOTAL REMOVED 6 LITERS OF CLOUDY YELLOW FLUID. END OF PROCEDURE AT 1220. CATHETER REMOVED AND DRESSING APPLIED. NO BLEEDING NOTED. REPORT GIVEN TO CESAR BOYCE AND PATIENT TRANSPORTED TO [facility] VIA BED AT 1245. AAO X3 WITH NO C/O PAIN. SPECIMEN SENT TO LAB.
[2024-09-30] MEDS ORDERED: ALBUMIN (HUMAN) 25% 200 ML IV SCH (13:00)
--- NOTE | 2024-09-30 13:00 | NUR ---
Held for liver biopsy, PT to follow
--- NOTE | 2024-09-30 13:14 | HMCSR ---
APPROVED REPORT EXAM: Two-dimensional and M-mode echocardiogram with Doppler and color Doppler. INDICATION ICD: Congestive heart failure 2D Dimensions RVDd3.8 cmLVEF(%)60.5 (>50%)LVEF(%, simp.)67 % IVSd0.7 (0.7-1.1cm)FS(%)32 %LA ESV INDEX (BP)30.44 mL/m2 LVDd5.0 (3.8-5.6cm)LA (2D)4.5 (1.6-4.0cm) PWd0.8 (0.7-1.1cm)Ao Root(2D)3.1 (2.0-3.7cm) IVSs1.1 cmLVOT diam2.1 (1.8-2.4cm) LVDs3.4 (2.5-4.0cm) PWs1.1 cm Deformation Strain Apical 4-20.0 % Apical 2-24.0 % Apical 3-24.0 % Global Strain-23.0 % M-Mode Dimensions EPSS1.0 cm LA (MM)5.0 (1.6-4.0cm) Ao Root(MM)3.2 (2.0-3.7cm) Aortic Valve AoV Vmax2.1 m/Helga Peak GR18.5 mmHgLVOT Vmax1.6 m/s AoV VTI0.4 mAo Mean GR10.5 mmHgLVOT VTI0.28 m JANIE (VMAX)2.4 cm2AVA (VTI) 2.4 cm2 Mitral Valve MV E Vmax78.4 cm/sDECEL Urak681 ms MV A Vmax85.6 cm/sP 1/2 T31 ms E/A ratio0.9MVA (PHT)7.0 cm2 TDI E/E' Medial7.8 Medial E' Peak V10.00 cm/s Pulmonary Valve PV Vmax1.3 m/s Tricuspid Valve TR Vmax2.8 m/sRAP (EST) 8 rgUcCINP42.4 mmHg TR Peak GR30.4 mmHg Left Ventricle The left ventricle is normal size. GLS -23.0%. There is normal left ventricular wall thickness. LVEF is 60-65%. 3D volume EF 67%. The left ventricular diastolic function is normal. Right Ventricle The right ventricle is normal size. The right ventricular systolic function is normal. Atria The left atrium size is normal. The right atrium is technically difficult to measure due to Large rig ht atrial mass present, clinically appears as myxoma. Aortic Valve Aortic valve is trileaflet mildly thickened. No aortic regurgitation is present. There is no aortic v alvular stenosis. Mitral Valve The mitral valve is normal in structure. There is no mitral valve regurgitation noted. There is no mi tral valve stenosis. Tricuspid Valve The tricuspid valve is normal in structure. There is mild tricuspid valve regurgitation noted. Pulmonic Valve The pulmonary valve is normal in structure. There is trace of pulmonic valvular regurgitation. Great Vessels The aortic root is normal in size. IVC is not well visualized. Pericardium There is no pericardial effusion. Other Information Quality : Adequate Conclusion The left ventricle is normal size. LVEF is 60-65%. 3D volume EF 67%. The left ventricular diastolic function is normal. The right ventricle is normal size. The right ventricular systolic function is normal. The left atrium size is normal. The right atrium is technically difficult to measure due to Large right atrial mass present, clinic ally appears as myxoma. There is mild tricuspid valve regurgitation noted. There is mild tricuspid valve regurgitation noted. RVSP 35 mm Hg. There is no pericardial effusion.
[2024-09-30] MEDS: ALBUMIN HUMAN 25% 200 ML IV SCH (13:28)
--- NOTE | 2024-09-30 14:22 | CONS ---
NEPHROLOGY CONSULTATION NOTE Date/Time Patient Seen: Sep 30, 2024 [id number] Reason for Consultation: Liver cirrhosis, renal failure HISTORY OF PRESENT ILLNESS: This is a 59-year-old male with a past medical history of liver cirrhosis, diagnosed obstructive sleep apnea. He presented to the emergency with complaints of shortness of breath on exertion, abdominal distention, bilateral lower extremity edema and scrotal swelling. CT of the abdomen and pelvis showed cirrhotic liver with enlarged spleen. Right hepatic mass measuring 9.2 x 8.1 cm. There is small ascites. Anasarca Echocardiogram showed LVEF of 60-65%. 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 S/p paracentesis with 6 L removed. He was noted with worsening renal failure We have been consulted for renal failure Renal function remains elevated Electrolytes are stable. He was seen in the medical floor, in no acute distress No family at the bedside Prognosis remains guarded REVIEW OF SYSTEMS: GENERAL: Positive for shortness of breath, lower extremity edema and abdominal distention NEUROLOGIC: Negative for any blurry vision, blind spots, double vision, facial asymmetry, dysphagia, dysarthria, hemiparesis, hemisensory deficits, vertigo, ataxia. HEENT: Negative for any head trauma, neck trauma, neck stiffness, photophobia, phonophobia, sinusitis, rhinitis. CARDIAC: Negative for any chest pain, dyspnea on exertion, paroxysmal nocturnal dyspnea, peripheral edema. PULMONARY: Negative for any shortness of breath, wheezing, COPD, or TB exposure. GASTROINTESTINAL: Negative for any abdominal pain, nausea, vomiting, bright red blood per rectum, melena. GENITOURINARY: Negative for any dysuria, hematuria, incontinence. INTEGUMENTARY: Negative for any rashes, cuts, insect bites. RHEUMATOLOGIC: Negative for any joint pains, photosensitive rashes, history of vasculitis or kidney problems. HEMATOLOGIC: Negative for any abnormal bruising, frequent infections or bleeding. PAST MEDICAL HISTORY: Liver cirrhosis PAST SURGICAL HISTORY: Denies any past surgical history PAST SOCIAL HISTORY: History of alcohol consumption FAMILY HISTORY: Noncontributory PHYSICAL EXAM: GENERAL: Alert and oriented x 3. No acute distress. Well-nourished. EYES: EOMI. Anicteric. HENT: Moist mucous membranes. No scleral icterus. No cervical lymphadenopathy. LUNGS: Clear to auscultation bilaterally. No accessory muscle use. CARDIOVASCULAR: Regular rate and rhythm. No murmur. No JVD. ABDOMEN: Soft, non-tender and non-distended. No palpable masses. EXTREMITIES: 2+ edema. Non-tender. SKIN: No rashes or lesions. Warm. NEUROLOGIC: No focal neurological deficits. CN II-XII grossly intact, but not individually tested. PSYCHIATRIC: Cooperative. Appropriate mood and affect. MEDICATIONS: [ ] Current Medications Medications (Trade) Dose Ordered Sig/Lionel Route PRN Reason Start Time Stop Time Status Last Admin Dose Admin Acetaminophen (TYLenol 325MG TAB) 650 mg Q4H PRN PO MILD PAIN (1-3) 09/29/24 17:30 10/29/24 17:29 09/30/24 11:30 650 MG Acetaminophen (TYLenol 325MG TAB) 650 mg Q6H PRN PO MILD PAIN (1-3) 09/29/24 17:30 09/29/24 17:41 DC Acetaminophen (TYLenol 325MG TAB) 650 mg Q6H PRN PO TEMPERATURE GREATER THAN 101.5 09/29/24 17:30 10/29/24 17:29 Al Hydroxide/Mg Hydroxide (MAALox PLUS 30ML) 30 ml Q6H PRN PO INDIGESTION 09/29/24 17:30 10/29/24 17:29 Albumin Human 200 ml @ 0 mls/hr AD IV 09/30/24 13:00 09/30/24 13:18 DC Albumin Human 200 ml @ 0 mls/hr AD IV 09/30/24 13:30 10/01/24 12:59 09/30/24 13:28 0 MLS/HR Ceftriaxone Sodium 2 gm/ Sodium Chloride 100 ml @ 200 mls/hr Q24H IV 09/29/24 17:30 09/29/24 17:44 DC Ceftriaxone Sodium (Rocephin 2gm Inj) 2 gm Q24H IVPB 09/29/24 18:00 10/09/24 17:59 09/29/24 18:11 2 GM Dextrose (D50w) 50 ml AD PRN IV HYPOGLYCEMIA PROTOCOL 09/29/24 17:30 10/29/24 17:29 Diphenhydramine HCl (BENAdryl INJ) 25 mg Q6H PRN IV SEVERE ITCHING/RASH 09/29/24 17:30 10/29/24 17:29 Famotidine (Pepcid 20mg Vial) 20 mg BID PRN IV NAUSEA/VOMITING 09/29/24 17:30 09/29/24 17:41 DC Famotidine (Pepcid 20mg Vial) 20 mg QODAY IV 09/30/24 09:00 10/30/24 08:59 09/30/24 08:35 20 MG Furosemide (LASix 40MG VIAL) 40 mg Q12H IV 09/29/24 22:00 10/29/24 21:59 09/30/24 08:36 40 MG Glucagon (Glucagon 1mg Kit) 1 mg AD PRN IM HYPOGLYCEMIA PROTOCOL 09/29/24 17:30 10/29/24 17:29 Guaifenesin/ Dextromethorphan (RobiTUSSin DM 200/20MG 10ML) 10 ml Q4H PRN PO COUGH 09/29/24 17:30 10/29/24 17:29 Heparin Sodium (Porcine) (HEParin 5,000 UNIT VIAL) 5,000 unit BID SQ 09/29/24 21:00 10/29/24 20:59 09/29/24 20:24 5,000 UNIT Hydralazine HCl (APRESOLine 20MG INJ) 10 mg Q6H PRN IV For:SBP above 160;DBP above 90 09/29/24 17:30 10/29/24 17:29 Hydromorphone HCl (DiLAUDid 0.5MG INJ) 0.2 mg Q6H PRN IVP SEVERE PAIN (7-10) 09/30/24 11:30 10/05/24 11:29 Insulin Human Regular (humuLIN R 100 UNIT/ML 3ML) INSULIN SLIDING SCAL... ACHS SQ 09/29/24 21:00 10/29/24 20:59 Ketorolac Tromethamine (toRADol) 15 mg Q8H PRN IV MODERATE PAIN (4-6) 09/29/24 17:30 10/04/24 17:29 Lactulose (Constulose 20gm/ 30ml Udcup) 20 gm BID PRN PO CONSTIPATION 09/29/24 17:30 10/29/24 17:29 Lactulose (Constulose 20gm/ 30ml Udcup) 20 gm BID PRN PO CONSTIPATION 09/29/24 22:00 09/29/24 21:34 DC Magnesium Sulfate 50 ml @ 0 mls/hr PROTOCOL PRN IV other 09/29/24 17:30 10/29/24 17:29 Morphine Sulfate (morPHINE 2MG SYG) 1 mg Q4H PRN IVP SEVERE PAIN (7-10) 09/29/24 17:30 09/30/24 11:27 DC Nitroglycerin (Nitrostat) 0.4 mg PROTOCOL PRN SL CHEST PAIN 09/29/24 17:30 10/29/24 17:29 Ondansetron HCl (zoFRAN 4MG INJ) 4 mg Q6H PRN IV NAUSEA/VOMITING 09/29/24 17:30 10/29/24 17:29 Sodium Chloride 1,000 ml @ 70 mls/hr [id number] IV 09/29/24 17:30 09/29/24 21:30 DC Zolpidem Tartrate (AmbIEN) 5 mg HS PRN PO INSOMNIA 09/29/24 17:30 10/29/24 17:29 Vital Signs (last 8hr) Date Time Temp Pulse Resp B/P (MAP) Pulse Ox O2 Delivery O2 Flow Rate FiO2 09/30/24 11:11 100.0 91 18 122/72 100 Room Air 21 09/30/24 07:55 98.8 91 18 125/69 100 Room Air 21 09/30/24 07:40 100 Room Air* 0 21 DIAGNOSTICS / RADIOLOGY: REASON: chf ORDERING PHYSICIAN: JONATHON GLORIA APRN PROCEDURE: ECHO CMP - ECHO 2-D COMPLETE APPROVED REPORT EXAM: Two-dimensional and M-mode echocardiogram with Doppler and color Doppler. INDICATION ICD: Congestive heart failure 2D Dimensions RVDd 3.8 cm LVEF(%) 60.5 (>50%) LVEF(%, simp.) 67 % IVSd 0.7 (0.7-1.1cm) FS(%) 32 % LA ESV INDEX (BP) 30.44 mL/m2 LVDd 5.0 (3.8-5.6cm) LA (2D) 4.5 (1.6-4.0cm) PWd 0.8 (0.7-1.1cm) Ao Root(2D) 3.1 (2.0-3.7cm) IVSs 1.1 cm LVOT diam 2.1 (1.8-2.4cm) LVDs 3.4 (2.5-4.0cm) PWs 1.1 cm Deformation Strain Apical 4 -20.0 % Apical 2 -24.0 % Apical 3 -24.0 % Global Strain -23.0 % M-Mode Dimensions EPSS 1.0 cm LA (MM) 5.0 (1.6-4.0cm) Ao Root(MM) 3.2 (2.0-3.7cm) Aortic Valve AoV Vmax 2.1 m/s Ao Peak GR 18.5 mmHg LVOT Vmax 1.6 m/s AoV VTI 0.4 m Ao Mean GR 10.5 mmHg LVOT VTI 0.28 m JANIE (VMAX) 2.4 cm2 JANIE (VTI) 2.4 cm2 Mitral Valve MV E Vmax 78.4 cm/s DECEL Time 160 ms MV A Vmax 85.6 cm/s P 1/2 T 31 ms E/A ratio 0.9 MVA (PHT) 7.0 cm2 TDI E/E' Medial 7.8 Medial E' Peak V 10.00 cm/s Pulmonary Valve PV Vmax 1.3 m/s Tricuspid Valve TR Vmax 2.8 m/s RAP (EST) 8 mmHg RVSP 38.4 mmHg TR Peak GR 30.4 mmHg Left Ventricle The left ventricle is normal size. GLS -23.0%. There is normal left ventricular wall thickness. LVEF is 60-65%. 3D volume EF 67%. The left ventricular diastolic function is normal. Right Ventricle The right ventricle is normal size. The right ventricular systolic function is normal. Atria The left atrium size is normal. The right atrium is technically difficult to measure due to Large right atrial mass present, clinically appears as myxoma. Aortic Valve Aortic valve is trileaflet mildly thickened. No aortic regurgitation is present. There is no aortic valvular stenosis. Mitral Valve The mitral valve is normal in structure. There is no mitral valve regurgitation noted. There is no mitral valve stenosis. Tricuspid Valve The tricuspid valve is normal in structure. There is mild tricuspid valve regurgitation noted. Pulmonic Valve The pulmonary valve is normal in structure. There is trace of pulmonic valvular regurgitation. Great Vessels The aortic root is normal in size. IVC is not well visualized. Pericardium There is no pericardial effusion. Other Information Quality : Adequate Conclusion The left ventricle is normal size. LVEF is 60-65%. 3D volume EF 67%. The left ventricular diastolic function is normal. The right ventricle is normal size. The right ventricular systolic function is normal. The left atrium size is normal. The right atrium is technically difficult to measure due to Large right atrial mass present, clinically appears as myxoma. There is mild tricuspid valve regurgitation noted. There is mild tricuspid valve regurgitation noted. RVSP 35 mm Hg. There is no pericardial effusion. DICTATED BY: DAMIR NAYLOR MD DATE: 09/30/24907 REASON: swelling severe ORDERING PHYSICIAN: JONATHON GLORIA ON SITE NURSE PROCEDURE: SCROTUM - US SCROTUM & CONTENTS US SCROTUM & CONTENTS HISTORY: No additional history given. COMPARISON: None TECHNIQUE: Duplex scrotal ultrasound study was performed. FINDINGS: The right testes measures 3.4 x 2 x 2.2 cm. The left testes measures 3.4 x 2.2 x 2.1 cm. No evidence of intratesticular mass or abnormal calcification is seen. Normal flow is demonstrated in the testes and epididymides bilaterally. No hydroceles or varicocele is seen. There is scrotal wall edema with right measuring 2.4 cm and left measuring 2.6 cm in thickness. IMPRESSION: 1. No evidence of intratesticular mass is seen. 2. Normal flow is demonstrated of both testes. Scrotal wall swelling. Scrotal wall swelling DICTATED BY: SOHAIL CORONEL MD DATE: 09/30/24 0042 REASON: congestion ORDERING PHYSICIAN: JONATHON GLORIA APRN PROCEDURE: CXR1VW - CHEST 1VW CHEST 1VW HISTORY: Congestion COMPARISON: None FINDINGS: A frontal projection of the chest was obtained. No acute pulmonary infiltrates is seen. The heart is borderline enlarged. Degenerative changes are seen. Elevation of right hemidiaphragm is seen. IMPRESSION: 1. No acute pulmonary infiltrate is seen. DICTATED BY: SOHAIL CORONEL MD DATE: 09/29/24 193 REASON: ascities, cirrhosis ORDERING PHYSICIAN: JONATHON GLORIA APRN PROCEDURE: ABD PEL WO - CT ABDOMEN/PELVIS W/O CONTRAST CT ABDOMEN/PELVIS W/O CONTRAST HISTORY: Ascites and cirrhosis COMPARISON: None TECHNIQUE: Multiple sequential axial images of the abdomen and pelvis were obtained from the dome of the diaphragm through symphysis pubis. Patient was not given contrast through intravenous route. Oral contrast was not given. FINDINGS: Tiny bilateral pleural effusions are seen. There is no evidence of parenchymal disease or pulmonary nodule of the visualized lower lungs. Degenerative changes of the thoracolumbar spine are present. The heart is not enlarged. Cirrhotic changes of the liver are noted. The liver has irregular contour. There is right hepatic mass measuring 9.2 x 8.1 cm. There is left renal atrophy. Liver measures 8.4 cm. Spleen is enlarged measuring 15 cm Spleen, adrenal glands and pancreas are unremarkable. There is no evidence of hydronephrosis bilaterally. No evidence of renal stone is seen. Fecal material is seen in the colon. There are normal size retroperitoneal and mesenteric lymph nodes. There is small ascites and anasarca. Atherosclerotic changes are present. Pelvic sidewalls are symmetric bilaterally. Bladder is well distended without wall thickening. IMPRESSION: 1. Cirrhotic liver with enlarged spleen . There is right hepatic mass measuring 9.2 x 8.1 cm. There is small ascites. Anasarca. CT was performed with one or more following dose reduction techniques: automated exposure control, adjustment of the mA and kv according to patient's size, or use of a iterative reconstruction technique. DICTATED BY: SOHAIL CORONEL MD DATE: 09/29/241944 LABORATORY: [ ] Hematology Labs: Test 09/30/24 05:38 09/29/24 15:12 Range/Units White Blood Count 13.6 H 4.8-10.8 K/uL Red Blood Count 3.16 L 4.50-6.20 MIL/uL Hemoglobin 10.5 L 14.0-18.0 g/dL Hematocrit 30.7 L 42-54 % Mean Corpuscular Volume 97.2 79-99 fL Mean Corpuscular Hemoglobin 33.2 H 27.0-33.0 pg Mean Corpuscular Hemoglobin Concent 34.2 32.0-36.0 g/dL Red Cell Distribution Width 17.6 H 11.0-15.5 % Platelet Count 143 130-400 K/uL Mean Platelet Volume 9.8 7.5-10.5 fL Immature Granulocyte % (Auto) 1.7 H 0-1 % Neutrophils (%) (Auto) 83.3 H 40.0-77.0 % Lymphocytes (%) (Auto) 4.6 L 21.0-51.0 % Monocytes (%) (Auto) 8.9 3.0-13.0 % Eosinophils (%) (Auto) 1.1 0.0-8.0 % Basophils (%) (Auto) 0.4 0.0-5.0 % Neutrophils # (Auto) 11.3 H 1.8-7.7 K/uL Lymphocytes # (Auto) 0.6 L 1.0-4.8 K/uL Monocytes # (Auto) 1.2 H 0.1-1.0 K/uL Eosinophils # (Auto) 0.15 0.00-0.70 K/uL Basophils # (Auto) 0.06 0.00-0.20 K/uL Absolute Immature Granulocyte (auto 0.23 0-1 K/uL Nucleated Red Blood Cells 0.0 0.0-0.19 % Segmented Neutrophils % 76 H 40-70 % Band Neutrophils % 10 H 0-2 % Lymphocytes % (Manual) 5 L 22-44 % Monocytes % (Manual) 8 2-9 % Eosinophils % (Manual) 1 1-6 % Differential Comment MANUAL DIFFERENTIAL White Cell Morphology Comment CONSISTENT W/DIFF Platelet Morphology Comment ADEQUATE Red Blood Cell Morphology ANISO 1+ Chemistry Labs: Test 09/30/24 11:03 09/30/24 09:30 09/30/24 05:38 Range/Units Whole Blood Glucose 113 H 70-110 MG/DL Lactic Acid Level 3.2 H 0.8-2.5 mmol/L Sodium Level 134 L 136-145 mmol/L Potassium Level 3.9 3.5-5.1 mmol/L Chloride Level 98 L 101-111 mmol/L Carbon Dioxide Level 20 L 21-32 mmol/L Blood Urea Nitrogen 37 H 7-18 mg/dL Creatinine 2.6 H 0.5-1.3 mg/dL Glomerular Filtration Rate Calc 28 >90 mL/min Random Glucose 118 H 70-105 mg/dL Hemoglobin A1c 4.5 4.0-6.0 % Estimated Average Glucose (eAG) 82 70-126 mg/dL Total Calcium 7.9 L 8.5-10.1 mg/dL Magnesium Level 1.90 1.80-2.40 mg/dL Total Bilirubin 4.9 #H 0.2-1.0 mg/dL Direct Bilirubin 3.6 H 0.0-0.3 mg/dL Aspartate Amino Transf (AST/SGOT) 69 H 10-37 U/L Alanine Aminotransferase (ALT/SGPT) 22 # 12-78 U/L Alkaline Phosphatase 138 H 50-136 U/L Ammonia 55 H 11-32 umol/L Total Creatine Kinase 54 21-232 U/L Total Protein 6.2 6.0-8.3 g/dL Albumin 1.9 L 3.5-5.0 g/dL Procalcitonin 12.01 H 0.05-0.5 ng/mL Coagulation Labs: Test 09/30/24 05:38 Range/Units Prothrombin Time 13.0 H 9.6-11.6 SEC Prothromb Time International Ratio 1.25 H 0.85-1.15 Activated Partial Thromboplast Time 41.1 H 26.3-35.5 SEC ASSESSMENT: Acute kidney injury Anemia Acute hypoxic respiratory failure POA Severe liver cirrhosis requiring paracentesis POA Severe bilateral lower extremities edema POA Uncontrolled hypertension POA Possible acute complicated cystitis POA Leukocytosis WBC 16.9 due to above POA Severe liver cirrhosis per CT abdomen/pelvis POA Right hepatic mass measuring 9.2 x 8.[address] abdomen/pelvis Small ascites per CT abdomen/pelvis POA Anasarca per CT abdomen/pelvis POA Multifactorial anemia POA Severe malnutrition POA Electrolyte imbalance hyponatremia Na 133 POA PLAN: Labs, diagnostic, radiologic exams reviewed and interpreted by myself and supervising physician. We have reviewed external records in detail Continue with diuretics Start [id number] g IV q.8 hours x6 doses Start octreotide 100 mg subQ q.8 hours Start Nephro-Rema and thiamine daily Obtain UA, urine electrolytes, urine creatinine, urine osmolality Require close monitoring of renal function and electrolytes Order CBC, CMP, uric acid, TSH, complete iron panel, ferritin and electrolytes in am IV iron/Epogen as needed Continue with antibiotics Renal diabetic diet BiPAP as necessary, for respiratory distress IV pressors as needed Monitor blood pressure adjust medication doses as needed Avoid hypotensive episodes May use Dilaudid 0.5 mg IV every 6 hours as needed for severe pain Monitor blood sugars Strict intake, output, and daily weight should be monitored Please renally adjust medications Avoid nephrotoxic and nonsteroidal drugs Avoid contrast if possible Will continue to monitor renal function, anemia, electrolytes Treatment plan discussed with patient Questions were answered We have discussed with the other team physicians in detail about the care plan We will continue to monitor the patient closely Thank you for allowing us to participate in the care of this patient ATTESTATION BY PHYSICIAN I have seen and examined the patient. I reviewed the documentation, medical decision making, and treatment plan as noted by the mid-level provider above. I agree with the findings and plan of care. ALEJANDRA BARR MD, ELIZABETH FNP Sep 30, 2024 14:22 ALEJANDRA BARR MD Sep 30, 2024 22:22
--- NOTE | 2024-09-30 15:13 | NUR ---
Nutritional Note: Pt denied N/V, NKFA, problems chewing/swallowing, MVI qd, recent PCP visit, and recent wt loss. Pt reported 50% PO d/t not liking food, good appetite, last BM 09/30, UBW 235lbs. Pt agreeable to Ensure Plus in Vanilla BID and Prostat Jello qd lunch tray to increase calories and protein. Pt BMI at UBW is 37.9, increase of 25 lbs d/t fluid retention, not on fluid restriction. Pt at risk for PCM due to pitting edema. Recommendations -Continue heart healthy diet -Order Prostat Jello 30 ml qd for lunch tray -Order Ensure Plus BID w/ am and dinner -Monitor PO intake -Encourage PO intake as able -Monitor electrolytes -Replenish electrolytes per protocol - Monitor fluid intake, fluid restriction per MD -Monitor wts -Reweigh as able -Consider MVI QD -Recommend Pt to follow up with PCP -Monitor care goals RD to follow + available for consult per protocol Dietetic Student, Edita Sahni Addendum: 09/30/24 at [address] Amended: Links added.
--- NOTE | 2024-09-30 15:30 | CONS ---
[facility] CARDIOLOGY CONSULTATION REPORT Cardiology consultation note dictated for Suzanne Pool MD Date Patient Seen: Sep 30, 2024 Reason for Consultation: Right atrial mass History of Present Illness: This is a 59-year-old male with a past medical history of alcohol consumption of 2-3 packs of beer per day, liver cirrhosis and CKD stage IV who presented to the ED with complaints of worsening shortness of breath, abdominal distention, bilateral lower extremity edema, and scrotal edema for the last 2-3 weeks. Laboratories revealed leukocytosis and fever of 100 F. Cardiology was made aware of a large right atrial mass that was seen during the patient's echocardiogram performed today on 09/30/2024. 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 Also of concern, is the right hepatic mass measuring 9.2 x 8.[address] cm found on the CT of the abdomen. Chest x-ray revealed an elevated right hemidiaphragm. The patient underwent a paracentesis today on 09/30/24 with 6L removed. A liver biopsy and AFP marker is pending. Past Medical History: As per HPI and summarized below Past Surgical History: None Family History: Noncontributory. Social History: The patient lives with his . Habits: The patient denies tobacco or illicit drug use, but admits to drinking 2-3 packs of beer per day. Home Meds: None Current Meds: Current Medications Medications Dose Ordered Sig/Lionel Start Time Stop Time Status Last Admin Insulin Human Regular INSULIN SLIDING SCAL... ACHS 09/29/24 21:00 10/29/24 20:59 Dextrose 50 ml AD PRN 09/29/24 17:30 10/29/24 17:29 Glucagon 1 mg AD PRN 09/29/24 17:30 10/29/24 17:29 Magnesium Sulfate 50 ml @ 0 mls/hr PROTOCOL PRN 09/29/24 17:30 10/29/24 17:29 Diphenhydramine HCl 25 mg Q6H PRN 09/29/24 17:30 10/29/24 17:29 Acetaminophen 650 mg Q6H PRN 09/29/24 17:30 10/29/24 17:29 Acetaminophen 650 mg Q4H PRN 09/29/24 17:30 10/29/24 17:29 09/30/24 11:30 Ondansetron HCl 4 mg Q6H PRN 09/29/24 17:30 10/29/24 17:29 Zolpidem Tartrate 5 mg HS PRN 09/29/24 17:30 10/29/24 17:29 Al Hydroxide/Mg Hydroxide 30 ml Q6H PRN 09/29/24 17:30 10/29/24 17:29 Lactulose 20 gm BID PRN 09/29/24 17:30 10/29/24 17:29 Nitroglycerin 0.4 mg PROTOCOL PRN 09/29/24 17:30 10/29/24 17:29 Guaifenesin/ Dextromethorphan 10 ml Q4H PRN 09/29/24 17:30 10/29/24 17:29 Heparin Sodium (Porcine) 5,000 unit BID 09/29/24 21:00 10/29/24 20:59 09/29/24 20:24 Ketorolac Tromethamine 15 mg Q8H PRN 09/29/24 17:30 10/04/24 17:29 Hydralazine HCl 10 mg Q6H PRN 09/29/24 17:30 10/29/24 17:29 Famotidine 20 mg QODAY 09/30/24 09:00 10/30/24 08:59 09/30/24 08:35 Ceftriaxone Sodium 2 gm Q24H 09/29/24 18:00 10/09/24 17:59 09/29/24 18:11 Furosemide 40 mg Q12H 09/29/24 22:00 10/29/24 21:59 09/30/24 08:36 Hydromorphone HCl 0.2 mg Q6H PRN 09/30/24 11:30 10/05/24 11:29 Albumin Human 50 ml @ 0 mls/hr Q8H6 09/30/24 22:00 10/02/24 14:01 Octreotide Acetate 100 mcg Q8H6 09/30/24 22:00 10/30/24 21:59 Thiamine HCl 100 mg DAILY 10/01/24 09:00 10/31/24 08:59 Vitamin B Complex/ Vit C/Folic Acid 1 cap DAILY 10/01/24 09:00 10/31/24 08:59 Review of Systems: CONST: No fever, fatigue, or weight changes. Admits to generalized edema. EYES: No recent vision problems. ENT: No congestion, ear pain, or sore throat. C/V: No chest pain or palpitations. RESP: No cough, congestion, wheezing or shortness of breath. GI: No abdominal pain, nausea, vomiting, constipation, or diarrhea. : Admits to scrotal edema. SKIN: No rash. NEURO: No headache, focal numbness or weakness, dizziness, or seizures. PSYCH: No depression or anxiety. HEME: No abnormal bruising or bleeding. LYMPH: No swollen glands. Physical Examination: GENERAL: No acute distress. Anasarca. Frail, chronically ill-appearing. HEAD: Normal with no signs of head trauma. EYES: PERRLA, EOMI, Icterus noted. ENT: Hearing grossly intact, normal oropharynx. NECK: Supple without JVD. There is no tenderness, lymphadenopathy, or masses. No thyromegaly. Normal carotid upstrokes without bruits. LUNGS: Clear breath sounds bilaterally. No wheezes, or rhonchi. HEART: Normal rate and rhythm. Normal S1 and S2 without murmurs, gallop or rub. VASC: BLE with 4+ edema unable to palpate DP pulses. ABD: Bowel sounds normal, soft, nontender, no masses, no organomegaly. No audible bruits. : Not examined LYMPH: No lymphadenopathy noted. EXT: No clubbing, cyanosis or edema. SKIN: No rashes or lesions noted. NEURO: Awake, alert, and oriented x3. No focal sensory or strength deficits noted. Vital Signs (last 8hr) Date Time Temp Pulse Resp B/P (MAP) Pulse Ox O2 Delivery O2 Flow Rate FiO2 09/30/24 11:11 100.0 91 18 122/72 100 Room Air 21 09/30/24 07:55 98.8 91 18 125/69 100 Room Air 21 09/30/24 07:40 100 Room Air* 0 21 Laboratory: Hematology Labs: Test 09/30/24 05:38 09/29/24 15:12 Range/Units White Blood Count 13.6 H 4.8-10.8 K/uL Red Blood Count 3.16 L 4.50-6.20 MIL/uL Hemoglobin 10.5 L 14.0-18.0 g/dL Hematocrit 30.7 L 42-54 % Mean Corpuscular Volume 97.2 79-99 fL Mean Corpuscular Hemoglobin 33.2 H 27.0-33.0 pg Mean Corpuscular Hemoglobin Concent 34.2 32.0-36.0 g/dL Red Cell Distribution Width 17.6 H 11.0-15.5 % Platelet Count 143 130-400 K/uL Mean Platelet Volume 9.8 7.5-10.5 fL Immature Granulocyte % (Auto) 1.7 H 0-1 % Neutrophils (%) (Auto) 83.3 H 40.0-77.0 % Lymphocytes (%) (Auto) 4.6 L 21.0-51.0 % Monocytes (%) (Auto) 8.9 3.0-13.0 % Eosinophils (%) (Auto) 1.1 0.0-8.0 % Basophils (%) (Auto) 0.4 0.0-5.0 % Neutrophils # (Auto) 11.3 H 1.8-7.7 K/uL Lymphocytes # (Auto) 0.6 L 1.0-4.8 K/uL Monocytes # (Auto) 1.2 H 0.1-1.0 K/uL Eosinophils # (Auto) 0.15 0.00-0.70 K/uL Basophils # (Auto) 0.06 0.00-0.20 K/uL Absolute Immature Granulocyte (auto 0.23 0-1 K/uL Nucleated Red Blood Cells 0.0 0.0-0.19 % Segmented Neutrophils % 76 H 40-70 % Band Neutrophils % 10 H 0-2 % Lymphocytes % (Manual) 5 L 22-44 % Monocytes % (Manual) 8 2-9 % Eosinophils % (Manual) 1 1-6 % Differential Comment MANUAL DIFFERENTIAL White Cell Morphology Comment CONSISTENT W/DIFF Platelet Morphology Comment ADEQUATE Red Blood Cell Morphology ANISO 1+ Chemistry Labs: Test 09/30/24 11:03 09/30/24 09:30 09/30/24 05:38 Range/Units Whole Blood Glucose 113 H 70-110 MG/DL Lactic Acid Level 3.2 H 0.8-2.5 mmol/L Sodium Level 134 L 136-145 mmol/L Potassium Level 3.9 3.5-5.1 mmol/L Chloride Level 98 L 101-111 mmol/L Carbon Dioxide Level 20 L 21-32 mmol/L Blood Urea Nitrogen 37 H 7-18 mg/dL Creatinine 2.6 H 0.5-1.3 mg/dL Glomerular Filtration Rate Calc 28 >90 mL/min Random Glucose 118 H 70-105 mg/dL Hemoglobin A1c 4.5 4.0-6.0 % Estimated Average Glucose (eAG) 82 70-126 mg/dL Total Calcium 7.9 L 8.5-10.1 mg/dL Magnesium Level 1.90 1.80-2.40 mg/dL Total Bilirubin 4.9 #H 0.2-1.0 mg/dL Direct Bilirubin 3.6 H 0.0-0.3 mg/dL Aspartate Amino Transf (AST/SGOT) 69 H 10-37 U/L Alanine Aminotransferase (ALT/SGPT) 22 # 12-78 U/L Alkaline Phosphatase 138 H 50-136 U/L Ammonia 55 H 11-32 umol/L Total Creatine Kinase 54 21-232 U/L Total Protein 6.2 6.0-8.3 g/dL Albumin 1.9 L 3.5-5.0 g/dL Procalcitonin 12.01 H 0.05-0.5 ng/mL Coagulation Labs: Test 09/30/24 05:38 Range/Units Prothrombin Time 13.0 H 9.6-11.6 SEC Prothromb Time International Ratio 1.25 H 0.85-1.15 Activated Partial Thromboplast Time 41.1 H 26.3-35.5 SEC Diagnostics / Radiology: 2D echo on 09/30/2024 Conclusion The left ventricle is normal size. LVEF is 60-65%. 3D volume EF 67%. The left ventricular diastolic function is normal. The right ventricle is normal size. The right ventricular systolic function is normal. The left atrium size is normal. The right atrium is technically difficult to measure due to Large right atrial mass present, clinically appears as myxoma. There is mild tricuspid valve regurgitation noted. There is mild tricuspid valve regurgitation noted. RVSP 35 mm Hg. There is no pericardial effusion. DICTATED BY: SUZANNE POOL MD DATE: 09/30/24 0908 Impression and Plan: Right atrial mass, clinically appears as a myxoma Right hepatic mass measuring 9.2 x 8.1 cm Liver cirrhosis s/p paracentesis on 09/30/2024 with 6 L removed Transaminitis Leukocytosis Anasarca Alcohol consumption of 2-3 packs of beer per day CKD stage IV Right atrial mass, clinically appears as a myxoma vs metastatic cancer -Consult cardiovascular surgery for recommendations -The patient is pending a liver biopsy and AFP marker -Oncology following, f/u paracentesis fluid pathology for malignant markers MARCIO REEDER Sep 30, 2024 15:30 SUZANNE POOL MD Sep 30, 2024 17:31
--- NOTE | 2024-09-30 15:40 | HMCIMG ---
US ABDOMINAL PARACENTESIS IR HISTORY: Ascites COMPARISON: None TECHNIQUE: Informed consent was obtained. Risks and benefits were explained to the patient. A timeout was performed. Patient was prepped and draped in a sterile fashion. Local anesthetics was given as required. Under ultrasound guidance, ascites fluid was localized. Paracentesis was performed. 6 L of fluid was aspirated. FINDINGS: Less than 2 cc blood loss is noted. Patient tolerated procedure without complication. Patient left the department in good condition. IMPRESSION: 1. Uncomplicated ultrasound-guided paracentesis.
[2024-09-30 17:33] LABS: BODY FLUID RBC 9 /cu. mm.; BODY FLUID WBC 231 /cu. mm.
[2024-09-30 17:41] LABS: BF LYMPHOCYTE 9 %; BF MACROPHAGE 27; BF MESOTHELIAL 10 %; BF OTHER CELLS 2; BF TOTAL CELLS COUNTED 100
[2024-09-30 17:47] LABS: APPEARANCE BODY FLUID CLEAR (CLEAR); COLOR,BODY FLUID YELLOW (LT YELLOW); SPECIMENTYPE,BODY FLUID ASCITES; TOTAL VOLUME,BODY FLUID 6000 mL
--- NOTE | 2024-09-30 21:39 | PN ---
SUBJECTIVE: The patient is a 59-year-old male with history of sleep apnea and liver cirrhosis, reportedly due to heavy drinking in the past. The patient has known cirrhosis as well as a known liver mass, which according to the has never been biopsied. The patient presented to the hospital with dyspnea on exertion, ascites and swollen legs. The patient did have paracentesis with removal of 6 liters of fluid. Due to his shortness of breath, the Cardiology was consulted and an echocardiogram was performed, which revealed a large mass in the right atrium, it was thought to be a myxoma. CT scan of the abdomen and pelvis revealed a 9.2 x 8.1 cm within the liver. ____ 13.6, hemoglobin 7.5, platelet count 143,000. INR is 1.35. His total bilirubin is 4.9. His BUN is 37, creatinine is 2.6. OBJECTIVE: VITAL SIGNS: Reveal temperature of 100.0, blood pressure is 122/72, pulse is 91, respirations are 18, oxygen saturation 100% on room air. HEENT: Reveals normocephalic, atraumatic. He has some mild scleral icterus. HEART: S1, S2 and regular. LUNGS: Unlabored at rest. ABDOMEN: Reveals positive bowel sounds with a positive fluid wave. EXTREMITIES: His lower extremities are extremely edematous with pitting edema. ASSESSMENT AND PLAN: * Right atrial mass. I suspect this might be metastasis to his liver mass, however, his myxoma cannot be ruled out. Given his liver disease, the patient is not a candidate for open heart surgery. * Liver mass. Hematology has been consulted. I suspect the patient will need liver biopsy for tissue diagnosis. TID: [id number] RECEIPT: [id number]
[2024-09-30] MEDS: octREOtide aceTATe 100 MCG/ML AMP SQ SCH (21:41)
[2024-09-30] MEDS: ALBUMIN (HUMAN) 25% 50 ML IV SCH (21:42)
[2024-09-30 21:50] LABS: APPEARANCE,URINE CLEAR (CLEAR); BILIRUBIN,URINE NEGATIVE (NEGATIVE); COLOR,URINE YELLOW (YELLOW); GLUCOSE, URINE (UA) NEGATIVE (NEGATIVE); KETONES,URINE NEGATIVE (NEGATIVE); LEUKOCYTE ESTERASE ,URINE NEGATIVE Leu/uL (NEGATIVE); NITRATE,URINE NEGATIVE (NEGATIVE); OCCULT BLOOD,URINE NEGATIVE (NEGATIVE); PROTEIN,URINE NEGATIVE (NEGATIVE); UROBILINOGEN,URINE 0.2 mg/dL (0.2-1.0)
[2024-09-30 21:56] LABS: ADD UA MICROSCOPIC NO
[2024-09-30 22:15] LABS: CHLORIDE,URINE RANDOM 37 mmol/L (110-250); CREATININE,URINE RANDOM 139.96 mg/dL (30-135); POTASSIUM,URINE RANDOM 32 mmol/L (25-125); SODIUM,URINE RANDOM < 13 mmol/l (40-220)
[2024-10-01] VITALS (13 sets, daily range): BP systolic 101–129; BP diastolic 58–76; PULSE 72–83; RESP 16–20; TEMP 97.5–99; O2SAT 100
[2024-10-01 05:42] LABS: BASOPHILS # (AUTO) 0.04 K/uL (0.00-0.20); BASOPHILS % (AUTO) 0.4 % (0.0-5.0); EOSINOPHILS # (AUTO) 0.49 K/uL (0.00-0.70); EOSINOPHILS % (AUTO) 4.9 % (0.0-8.0); HEMATOCRIT 28.8 % (42-54); IMMATURE GRANULOCYTE ABSOLUTE 0.17 K/uL (0-1); LYMPHOCYTES # (AUTO) 0.7 K/uL (1.0-4.8); LYMPHOCYTES % (AUTO) 6.6 % (21.0-51.0); MEAN CORPUSCULAR HEMOGLOBIN 33.3 pg (27.0-33.0); MEAN CORPUSCULAR HGB CONC 34.4 g/dL (32.0-36.0); MONOCYTES # (AUTO) 1.1 K/uL (0.1-1.0); NEUTROPHILS # (AUTO) 7.6 K/uL (1.8-7.7); NEUTROPHILS % (AUTO) 75.4 % (40.0-77.0); PLATELET COUNT (AUTO) 119 K/uL (130-400); RED BLOOD CELL COUNT(AUTO) 2.97 MIL/uL (4.50-6.20); RED CELL DISTRIBUTION WIDTH 17.5 % (11.0-15.5); WHITE BLOOD COUNT (AUTO) 10.1 K/uL (4.8-10.8)
[2024-10-01 05:54] LABS: % IRON SATURATION 41.5 % (30-44)
[2024-10-01 06:23] LABS: ALBUMIN 2.2 g/dL (3.5-5.0); BILIRUBIN,TOTAL 4.2 mg/dL (0.2-1.0); CREATININE 2.8 mg/dL (0.5-1.3); MAGNESIUM 1.8 mg/dL (1.80-2.40); PHOSPHORUS 3.4 mg/dL (2.5-4.9); POTASSIUM 3.8 mmol/L (3.5-5.1); THYROID STIMULATING HORMONE 3.39 uIU/mL (0.36-3.74); TOTAL PROTEIN, SERUM 5.9 g/dL (6.0-8.3); URIC ACID 9.1 mg/dL (2.6-7.2)
--- NOTE | 2024-10-01 08:03 | PN ---
GASTROENTEROLOGY PROGRESS NOTE Date of Visit: Oct 01, 2024 Time of Visit: 08:03 Events / Notes: [ ] Review of Systems: CONSTITUTIONAL: No malaise or change in sensation of wellbeing. ENMT: No rhinorrhea, otorrhea, sinus pain, ear ache. CARDIOVASCULAR: No angina, palpitations, orthopnea or paroxysmal dyspnea. RESPIRATORY: No SOB. GASTROINTESTINAL: No abdominal pain, nausea, vomiting, diarrhea, hematemesis, melena or change in the patient's habitual bowel movements consistency/number. GENITOURINARY: No dysuria, hematuria or change in bladder continence. MUSCULOSKELETAL: No new muscle pain or decrease in muscular strength. No new joint swelling, redness or tenderness. SKIN: No new rash. Physical Exam: GEN: Awake, alert, oriented in person, time and place, and in no acute distress. HEENT: No sinus tenderness. Tympanic membranes were not examined. No rhinorrhea. Oral pharyngeal mucosa is pink, moist and within normal limits. Neck is supple with no cervical lymphadenopathy, thyromegaly or JVD. CHEST: Inspection, palpation and percussion of the chest were unremarkable. Lung auscultation revealed normal breath sounds bilaterally. CARDIAC: PMI is within normal limits. Heart sounds are regular. Normal S1, S2. No gallop or murmur. ABD: Soft, non-tender and not distended. No peritoneal signs on palpation. No organomegaly. Normal bowel sounds. EXT: No cyanosis or clubbing. No edema. SKIN: Intact. No rashes. JOINTS: No evidence of synovitis or acute arthritis. NEURO: Alert and oriented to name, place and person. Cranial nerve examination is unremarkable. No focal motor deficits. Normal speech. Gait is normal. Strength is normal. Laboratory: [ ] Laboratory: Test 10/01/24 06:01 10/01/24 05:15 09/30/24 21:30 09/30/24 12:00 Range/Units Whole Blood Glucose 86 70-110 MG/DL White Blood Count 10.1 # 4.8-10.8 K/uL Red Blood Count 2.97 L 4.50-6.20 MIL/uL Hemoglobin 9.9 L 14.0-18.0 g/dL Hematocrit 28.8 L 42-54 % Mean Corpuscular Volume 97.0 79-99 fL Mean Corpuscular Hemoglobin 33.3 H 27.0-33.0 pg Mean Corpuscular Hemoglobin Concent 34.4 32.0-36.0 g/dL Red Cell Distribution Width 17.5 H 11.0-15.5 % Platelet Count 119 L 130-400 K/uL Mean Platelet Volume 10.3 7.5-10.5 fL Immature Granulocyte % (Auto) 1.7 H 0-1 % Neutrophils (%) (Auto) 75.4 40.0-77.0 % Lymphocytes (%) (Auto) 6.6 L 21.0-51.0 % Monocytes (%) (Auto) 11.0 3.0-13.0 % Eosinophils (%) (Auto) 4.9 0.0-8.0 % Basophils (%) (Auto) 0.4 0.0-5.0 % Neutrophils # (Auto) 7.6 1.8-7.7 K/uL Lymphocytes # (Auto) 0.7 L 1.0-4.8 K/uL Monocytes # (Auto) 1.1 H 0.1-1.0 K/uL Eosinophils # (Auto) 0.49 0.00-0.70 K/uL Basophils # (Auto) 0.04 0.00-0.20 K/uL Absolute Immature Granulocyte (auto 0.17 0-1 K/uL Nucleated Red Blood Cells 0.0 0.0-0.19 % Sodium Level 133 L 136-145 mmol/L Potassium Level 3.8 3.5-5.1 mmol/L Chloride Level 100 L 101-111 mmol/L Carbon Dioxide Level 22 21-32 mmol/L Blood Urea Nitrogen 42 H 7-18 mg/dL Creatinine 2.8 H 0.5-1.3 mg/dL Glomerular Filtration Rate Calc 25 >90 mL/min Random Glucose 102 70-105 mg/dL Uric Acid 9.1 H 2.6-7.2 mg/dL Total Calcium 7.8 L 8.5-10.1 mg/dL Phosphorus Level 3.4 2.5-4.9 mg/dL Magnesium Level 1.80 1.80-2.40 mg/dL Iron Level 47 L 65-175 mcg/dL Total Iron Binding Capacity 113 L 250-450 mcg/dL Percent Iron Saturation 41.5 30-44 % Ferritin 906 H 30-400 ng/mL Total Bilirubin 4.2 H 0.2-1.0 mg/dL Aspartate Amino Transf (AST/SGOT) 57 H 10-37 U/L Alanine Aminotransferase (ALT/SGPT) 19 12-78 U/L Alkaline Phosphatase 120 50-136 U/L Total Protein 5.9 L 6.0-8.3 g/dL Albumin 2.2 L 3.5-5.0 g/dL Thyroid Stimulating Hormone (TSH) 3.39 0.36-3.74 uIU/mL Urine Color YELLOW YELLOW Urine Appearance CLEAR CLEAR Urine pH 5.0 5.0-8.0 Urine Specific [place] 1.013 1.001-1.031 Urine Protein NEGATIVE NEGATIVE mg/dL Urine Glucose (UA) NEGATIVE NEGATIVE mg/dL Urine Ketones NEGATIVE NEGATIVE mg/dL Urine Occult Blood NEGATIVE NEGATIVE Urine Nitrate NEGATIVE NEGATIVE Urine Bilirubin NEGATIVE NEGATIVE mg/dL Urine Urobilinogen 0.2 0.2-1.0 mg/dL Urine Leukocyte Esterase NEGATIVE NEGATIVE Rodolfo/uL Urine Random Creatinine 139.96 H 30-135 mg/dL Urine Random Sodium < 13 L 40-220 mmol/l Urine Random Potassium 32 25-125 mmol/L Urine Random Chloride 37 L 110-250 mmol/L Body Fluid Source ASCITES Body Fluid Volume 6000 mL Body Fluid Color YELLOW LT YELLOW Body Fluid Supernatant Appearance CLEAR CLEAR Body Fluid WBC 231 /cu. mm. Body Fluid RBC 9 /cu. mm. Body Fluid Neutrophils 52.0 % Body Fluid Lymphocytes 9 % Body Fluid Macrophages (%) 27 Body Fluid Mesothelial Cells (%) 10 % Body Fluid Other Cells (%) 2 Test 09/30/24 09:30 09/30/24 05:38 09/29/24 15:12 Range/Units Lactic Acid Level 3.2 H 0.8-2.5 mmol/L Tumor Marker Alpha Fetoprotein 511.0 H 0.0-8.4 ng/mL Prothrombin Time 13.0 H 9.6-11.6 SEC Prothromb Time International Ratio 1.25 H 0.85-1.15 Activated Partial Thromboplast Time 41.1 H 26.3-35.5 SEC Hemoglobin A1c 4.5 4.0-6.0 % Estimated Average Glucose (eAG) 82 70-126 mg/dL Direct Bilirubin 3.6 H 0.0-0.3 mg/dL Ammonia 55 H 11-32 umol/L Total Creatine Kinase 54 21-232 U/L Procalcitonin 12.01 H 0.05-0.5 ng/mL Segmented Neutrophils % 76 H 40-70 % Band Neutrophils % 10 H 0-2 % Lymphocytes % (Manual) 5 L 22-44 % Monocytes % (Manual) 8 2-9 % Eosinophils % (Manual) 1 1-6 % Differential Comment MANUAL DIFFERENTIAL White Cell Morphology Comment CONSISTENT W/DIFF Platelet Morphology Comment ADEQUATE Red Blood Cell Morphology ANISO 1+ Current Medications Medications (Trade) Dose Ordered Sig/Lionel Route PRN Reason Start Time Stop Time Status Last Admin Dose Admin Acetaminophen (TYLenol 325MG TAB) 650 mg Q4H PRN PO MILD PAIN (1-3) 09/29/24 17:30 10/29/24 17:29 09/30/24 11:30 650 MG Acetaminophen (TYLenol 325MG TAB) 650 mg Q6H PRN PO MILD PAIN (1-3) 09/29/24 17:30 09/29/24 17:41 DC Acetaminophen (TYLenol 325MG TAB) 650 mg Q6H PRN PO TEMPERATURE GREATER THAN 101.5 09/29/24 17:30 10/29/24 17:29 Al Hydroxide/Mg Hydroxide (MAALox PLUS 30ML) 30 ml Q6H PRN PO INDIGESTION 09/29/24 17:30 10/29/24 17:29 Albumin Human 50 ml @ 0 mls/hr Q8H6 IV 09/30/24 22:00 10/02/24 14:01 10/01/24 05:59 100 MLS/HR Albumin Human 200 ml @ 0 mls/hr AD IV 09/30/24 13:00 09/30/24 13:18 DC Albumin Human 200 ml @ 0 mls/hr AD IV 09/30/24 13:30 09/30/24 14:18 DC 09/30/24 13:28 0 MLS/HR Ceftriaxone Sodium 2 gm/ Sodium Chloride 100 ml @ 200 mls/hr Q24H IV 09/29/24 17:30 09/29/24 17:44 DC Ceftriaxone Sodium (Rocephin 2gm Inj) 2 gm Q24H IVPB 09/29/24 18:00 10/09/24 17:59 09/30/24 18:35 2 GM Dextrose (D50w) 50 ml AD PRN IV HYPOGLYCEMIA PROTOCOL 09/29/24 17:30 10/29/24 17:29 Diphenhydramine HCl (BENAdryl INJ) 25 mg Q6H PRN IV SEVERE ITCHING/RASH 09/29/24 17:30 10/29/24 17:29 Famotidine (Pepcid 20mg Vial) 20 mg BID PRN IV NAUSEA/VOMITING 09/29/24 17:30 09/29/24 17:41 DC Famotidine (Pepcid 20mg Vial) 20 mg QODAY IV 09/30/24 09:00 10/30/24 08:59 09/30/24 08:35 20 MG Furosemide (LASix 40MG VIAL) 40 mg Q12H IV 09/29/24 22:00 10/29/24 21:59 09/30/24 21:41 40 MG Glucagon (Glucagon 1mg Kit) 1 mg AD PRN IM HYPOGLYCEMIA PROTOCOL 09/29/24 17:30 10/29/24 17:29 Guaifenesin/ Dextromethorphan (RobiTUSSin DM 200/20MG 10ML) 10 ml Q4H PRN PO COUGH 09/29/24 17:30 10/29/24 17:29 Heparin Sodium (Porcine) (HEParin 5,000 UNIT VIAL) 5,000 unit BID SQ 09/29/24 21:00 10/29/24 20:59 09/30/24 20:07 5,000 UNIT Hydralazine HCl (APRESOLine 20MG INJ) 10 mg Q6H PRN IV For:SBP above 160;DBP above 90 09/29/24 17:30 10/29/24 17:29 Hydromorphone HCl (DiLAUDid 0.5MG INJ) 0.2 mg Q6H PRN IVP SEVERE PAIN (7-10) 09/30/24 11:30 10/05/24 11:29 Insulin Human Regular (humuLIN R 100 UNIT/ML 3ML) INSULIN SLIDING SCAL... ACHS SQ 09/29/24 21:00 10/29/24 20:59 Ketorolac Tromethamine (toRADol) 15 mg Q8H PRN IV MODERATE PAIN (4-6) 09/29/24 17:30 10/04/24 17:29 Lactulose (Constulose 20gm/ 30ml Udcup) 20 gm BID PRN PO CONSTIPATION 09/29/24 17:30 10/29/24 17:29 Lactulose (Constulose 20gm/ 30ml Udcup) 20 gm BID PRN PO CONSTIPATION 09/29/24 22:00 09/29/24 21:34 DC Magnesium Sulfate 50 ml @ 0 mls/hr PROTOCOL PRN IV other 09/29/24 17:30 10/29/24 17:29 Morphine Sulfate (morPHINE 2MG SYG) 1 mg Q4H PRN IVP SEVERE PAIN (7-10) 09/29/24 17:30 09/30/24 11:27 DC Nitroglycerin (Nitrostat) 0.4 mg PROTOCOL PRN SL CHEST PAIN 09/29/24 17:30 10/29/24 17:29 Octreotide Acetate (SandoSTATIN) 100 mcg Q8H6 SQ 09/30/24 22:00 10/30/24 21:59 10/01/24 05:59 100 MCG Ondansetron HCl (zoFRAN 4MG INJ) 4 mg Q6H PRN IV NAUSEA/VOMITING 09/29/24 17:30 10/29/24 17:29 Sodium Chloride 1,000 ml @ 70 mls/hr [id number] IV 09/29/24 17:30 09/29/24 21:30 DC Thiamine HCl (Vitamin B-1) 100 mg DAILY IVP 10/01/24 09:00 10/31/24 08:59 Vitamin B Complex/ Vit C/Folic Acid (Nephrovite Tablet) 1 cap DAILY PO 10/01/24 09:00 10/31/24 08:59 Zolpidem Tartrate (AmbIEN) 5 mg HS PRN PO INSOMNIA 09/29/24 17:30 10/29/24 17:29 Diagnostics / Radiology: [COPY/PASTE HERE IF NO REPORTS PLEASE DELETE SECTION] Assessment: Liver mass Ascites Cirrhosis Plan: Agree with liver biopsy Obtain AFP dynamic mri LEONORA BLEDSOE [employer] Oct 01, 2024 08:03
--- NOTE | 2024-10-01 08:39 | PN ---
[facility] CARDIOLOGY PROGRESS NOTE Date Patient Seen: Oct 01, 2024 Time of Visit: 08:37 Interval History: [patient not a candidate for open heart surgery, pending tissue biopsy of hepatic mass for malignancy workup ] Physical Examination: GENERAL: [No acute distress.] HEAD: [Normal with no signs of head trauma.] EYES: [PERRLA, EOMI, conjunctiva and sclera normal.] ENT: [Hearing grossly intact, normal oropharynx.] NECK: [Supple without JVD. There is no tenderness, lymphadenopathy, or masses. No thyromegaly. Normal carotid upstrokes without bruits.] LUNGS: [Clear breath sounds bilaterally. There are right basilar rales one third of the way up the chest. No wheezes, or rhonchi.] HEART: [Normal rate and rhythm. Normal S1 and S2 without mumurs, gallop or rub.] VASC: [Peripheral pulses +2 bilaterally.] ABD: [Bowel sounds normal, soft, nontender, no masses, no organomegaly. No audible bruits.] : [Not examined] LYMPH: [No lymphadenopathy noted.] EXT: [No clubbing, cyanosis or edema.] SKIN: [No rashes or lesions noted.] NEURO: [Awake, alert, and oriented x3. No focal sensory or strength deficits noted.] Laboratory: [ ] Hematology Labs: Test 10/01/24 05:15 09/29/24 15:12 Range/Units White Blood Count 10.1 # 4.8-10.8 K/uL Red Blood Count 2.97 L 4.50-6.20 MIL/uL Hemoglobin 9.9 L 14.0-18.0 g/dL Hematocrit 28.8 L 42-54 % Mean Corpuscular Volume 97.0 79-99 fL Mean Corpuscular Hemoglobin 33.3 H 27.0-33.0 pg Mean Corpuscular Hemoglobin Concent 34.4 32.0-36.0 g/dL Red Cell Distribution Width 17.5 H 11.0-15.5 % Platelet Count 119 L 130-400 K/uL Mean Platelet Volume 10.3 7.5-10.5 fL Immature Granulocyte % (Auto) 1.7 H 0-1 % Neutrophils (%) (Auto) 75.4 40.0-77.0 % Lymphocytes (%) (Auto) 6.6 L 21.0-51.0 % Monocytes (%) (Auto) 11.0 3.0-13.0 % Eosinophils (%) (Auto) 4.9 0.0-8.0 % Basophils (%) (Auto) 0.4 0.0-5.0 % Neutrophils # (Auto) 7.6 1.8-7.7 K/uL Lymphocytes # (Auto) 0.7 L 1.0-4.8 K/uL Monocytes # (Auto) 1.1 H 0.1-1.0 K/uL Eosinophils # (Auto) 0.49 0.00-0.70 K/uL Basophils # (Auto) 0.04 0.00-0.20 K/uL Absolute Immature Granulocyte (auto 0.17 0-1 K/uL Nucleated Red Blood Cells 0.0 0.0-0.19 % Segmented Neutrophils % 76 H 40-70 % Band Neutrophils % 10 H 0-2 % Lymphocytes % (Manual) 5 L 22-44 % Monocytes % (Manual) 8 2-9 % Eosinophils % (Manual) 1 1-6 % Differential Comment MANUAL DIFFERENTIAL White Cell Morphology Comment CONSISTENT W/DIFF Platelet Morphology Comment ADEQUATE Red Blood Cell Morphology ANISO 1+ Chemistry Labs: Test 10/01/24 06:01 10/01/24 05:15 09/30/24 09:30 09/30/24 05:38 Range/Units Whole Blood Glucose 86 70-110 MG/DL Sodium Level 133 L 136-145 mmol/L Potassium Level 3.8 3.5-5.1 mmol/L Chloride Level 100 L 101-111 mmol/L Carbon Dioxide Level 22 21-32 mmol/L Blood Urea Nitrogen 42 H 7-18 mg/dL Creatinine 2.8 H 0.5-1.3 mg/dL Glomerular Filtration Rate Calc 25 >90 mL/min Random Glucose 102 70-105 mg/dL Uric Acid 9.1 H 2.6-7.2 mg/dL Total Calcium 7.8 L 8.5-10.1 mg/dL Phosphorus Level 3.4 2.5-4.9 mg/dL Magnesium Level 1.80 1.80-2.40 mg/dL Iron Level 47 L 65-175 mcg/dL Total Iron Binding Capacity 113 L 250-450 mcg/dL Percent Iron Saturation 41.5 30-44 % Ferritin 906 H 30-400 ng/mL Total Bilirubin 4.2 H 0.2-1.0 mg/dL Aspartate Amino Transf (AST/SGOT) 57 H 10-37 U/L Alanine Aminotransferase (ALT/SGPT) 19 12-78 U/L Alkaline Phosphatase 120 50-136 U/L Total Protein 5.9 L 6.0-8.3 g/dL Albumin 2.2 L 3.5-5.0 g/dL Thyroid Stimulating Hormone (TSH) 3.39 0.36-3.74 uIU/mL Lactic Acid Level 3.2 H 0.8-2.5 mmol/L Tumor Marker Alpha Fetoprotein 511.0 H 0.0-8.4 ng/mL Hemoglobin A1c 4.5 4.0-6.0 % Estimated Average Glucose (eAG) 82 70-126 mg/dL Direct Bilirubin 3.6 H 0.0-0.3 mg/dL Ammonia 55 H 11-32 umol/L Total Creatine Kinase 54 21-232 U/L Procalcitonin 12.01 H 0.05-0.5 ng/mL Coagulation Labs: Test 09/30/24 05:38 Range/Units Prothrombin Time 13.0 H 9.6-11.6 SEC Prothromb Time International Ratio 1.25 H 0.85-1.15 Activated Partial Thromboplast Time 41.1 H 26.3-35.5 SEC Diagnostics / Radiology: [Copy/Paste Echos/Imaging Report here] Impression and Plan: [Right atrial mass, clinically appears as a myxoma Right hepatic mass measuring 9.2 x 8.1 cm Liver cirrhosis s/p paracentesis on 09/30/2024 with 6 L removed Transaminitis Leukocytosis Anasarca Alcohol consumption of 2-3 packs of beer per day CKD stage IV Right atrial mass, clinically appears as a myxoma vs metastatic cancer -Consulted cardiovascular surgery and patient is not a candidate for surgical resection due to hepatic mass -The patient is pending a liver biopsy and AFP marker -Oncology following, f/u paracentesis fluid pathology for malignant markers Will follow along pending formal recs from Oncology and goals of care Suzanne Pool MD ] SUZANNE POOL MD Oct 01, 2024 08:39
[2024-10-01] MEDS: Vitamin B Complex/Vit C/Folic Acid PO SCH (09:00)
[2024-10-01] MEDS: THIAMINE HCL 100 MG/ML 2ML VIAL IVP SCH (09:25)
--- NOTE | 2024-10-01 09:52 | PN ---
LOCATION: 423 SUBJECTIVE: The patient did well overnight. Unfortunately, they fed him yesterday, did not get his liver biopsy. He is awake, alert, had 6 liters of fluid removed by paracentesis. 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 Cheung of Cardiovascular, recommended not doing any kind of heart surgery. I agree with that. PHYSICAL EXAMINATION: GENERAL: Shows a pleasant man. VITAL SIGNS: Blood pressure 105/66, pulse 77, respirations 18. HEENT: Benign. NECK: Supple. He is jaundiced. CHEST: Showed decreased breath sounds. ABDOMEN: Distended with ascites. GENITOURINARY: He has got scrotal edema. EXTREMITIES: Show edema. NEUROLOGIC: He is awake and oriented. IMPRESSION: Cirrhosis of the liver, advanced; ascites; liver mass consistent with hepatoma; right atrial myxoma. The patient is in bad shape. PLAN: He and his agree with a CT-guided biopsy, tissue diagnosis, alpha fetoprotein. Continue to follow. TID: [id number] RECEIPT: [id number]
--- NOTE | 2024-10-01 11:00 | NUR ---
PT follow up: Patient refused PT today stating his legs are too swollen.
[2024-10-01] MEDS ORDERED: MIDAZOLAM HCL 1 MG/ML 2ML VIAL ONE (12:14)
[2024-10-01] MEDS ORDERED: FENTanyl CITRate PF 50 MCG/1 ML 2ML VIAL ONE (12:14)
--- NOTE | 2024-10-01 12:44 | PN ---
[facility] PROGRESS NOTE Date of Service: Oct 01, 2024 Time of Service: 12:37 SUBJECTIVE: 09/30: Patient is a 59 year old M, with a PMH of liver cirrhosis and undiagnosed EDUAR, who presented to the ED with complaints of shortness of breath with exertion, abdominal distention, bilateral lower extremity edema, and swelling of scrotum. Patient states the scrotal swelling began one week ago and has been preventing him from walking. The patients CT abdomen/pelvis showed cirrhosis with enlarging spleen, and a right hepatic mass measuring 9.2 x 8.1 cm, small ascites. The patient is planned to get a paracentesis done today. The patient will be getting a liver biopsy tomorrow. Per GI, we will obtain AFP level. The patient complains of pain, rating it a 7/10 on the pain scale. The patient states he does not want to take Morphine. I spoke to pharmacy, and we agreed that the patient can receive 0.2 mg Dilaudid as needed every 6 hours for pain. The patient WBC count is 13.6, down from 16.9. Lactic acid 3.8. 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 We will continue to follow cardiology, oncology, and nephrology recommendations. 10/01: Patient was seen this morning at bedside. Patient is doing well. Patient denies chest pain, shortness of breath, nausea, vomiting, fever, chills, abdominal pain. The patient will receive scrotal support to aid in the management of swelling. The Patient will be getting a liver biopsy done today. Patient had a paracentesis done yesterday, where 6 L of ascitic fluid was removed. Cultures are pending. 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 We will wait for liver biopsy results, and AFP levels. Patients Creatinine is 2.8, up from 2.6. BUN is 42, up from 37. We will continue to appreciate Cardiology, Nephrology, and Oncology recommendations. REVIEW OF SYSTEMS CONSTITUTIONAL: Denies fevers, chills, or night sweats. No unintentional weight loss reported. NEUROLOGICAL: Denies headache, amaurosis fugax, motor weakness, sensory deficit, vertigo/spinning sensation, gait abnormalities, or tremors. ENT: No hearing loss, otalgia, otorrhea, rhinitis, rhinorrhea, hoarseness, or sore throat. CARDIOVASCULAR: Denies any exertional angina, dyspnea on exertion, orthopnea, paroxysmal nocturnal dyspnea, palpitations, life-threatening arrhythmias, claudication. PULMONARY: Denies any cough, phlegm/sputum, hemoptysis, pleuritic chest pain. Complains of shortness of breath on exertion SLEEP: Denies morning headaches, daytime somnolence or napping. Denies difficulty falling asleep, staying asleep, waking from sleep. Denies knowledge of snoring. GASTROINTESTINAL: Denies any type of dysphagia to either liquids or solids. Denies nausea, vomiting, pyrosis, early satiety, diarrhea, constipation, or changes in stool consistency or caliber. Denies coffee-ground emesis, hematemesis, hematochezia, or melanotic stools. Complains of abdominal pain. GENITOURINARY: Denies frequency, urgency, nocturia, hematuria or incontinence ( Storage/Irritative symptoms.) Low urinary stream, straining to void, urinary intermittency or hesitancy, splitting of the voiding stream, terminal dribbling. Complains of scrotal pain ENDOCRINOLOGIC: Denies polyuria, polydipsia, polyphagia or heat/cold intolerances. HEMATOLOGIC: Denies thrombophilia/previous clots, or coagulopathy/bleeding disorders. ONCOLOGIC: Denies personal history of malignancy. DERMATOLOGIC: Denies rashes or pruritus. PSYCHIATRIC: Denies any suicidal or homicidal ideation. Denies hallucinations. PHYSICAL EXAM GENERAL APPEARANCE: The patient is awake, alert, and oriented, in no acute cardiopulmonary distress. NEUROLOGICAL: Cranial nerves II-XII grossly intact. Motor is 5/5 in bilateral upper and lower extremities proximal to distal. No sensory deficits. HEENT: Face is symmetric. Pupils are equal and reactive. Extraocular movements are intact. NECK: Supple. No JVD. No thyromegaly. No submental, submandibular, pre- /postauricular, occipital or supraclavicular lymphadenopathy. CHEST: Normal chest expansion. No Telemetry. LUNGS: Absence of any rales, rhonchi or any wheezing. CARDIOVASCULAR: Regular. S1 and S2 normal. No appreciable rubs, murmurs or gallops. ABDOMEN: Soft, nontender, and nondistended. There is no rebound, voluntary guarding, or rigidity. : Deferred. No Garnett. Severe scrotum swelling EXTREMITIES:and not cyanotic. No clubbing. Good capillary refill. Bilateral lower extremities edema plus four pitting SKIN: No skin breakdown. Vital Signs (last 8hr) Date Time Temp Pulse Resp B/P (MAP) Pulse Ox O2 Delivery O2 Flow Rate FiO2 10/01/24 11:42 97.5 74 16 107/63 100 Room Air 10/01/24 08:08 98.4 74 18 117/66 100 Room Air LABS: Laboratory: Test 10/01/24 06:01 10/01/24 05:15 09/30/24 21:30 09/30/24 12:00 Range/Units Whole Blood Glucose 86 70-110 MG/DL White Blood Count 10.1 # 4.8-10.8 K/uL Red Blood Count 2.97 L 4.50-6.20 MIL/uL Hemoglobin 9.9 L 14.0-18.0 g/dL Hematocrit 28.8 L 42-54 % Mean Corpuscular Volume 97.0 79-99 fL Mean Corpuscular Hemoglobin 33.3 H 27.0-33.0 pg Mean Corpuscular Hemoglobin Concent 34.4 32.0-36.0 g/dL Red Cell Distribution Width 17.5 H 11.0-15.5 % Platelet Count 119 L 130-400 K/uL Mean Platelet Volume 10.3 7.5-10.5 fL Immature Granulocyte % (Auto) 1.7 H 0-1 % Neutrophils (%) (Auto) 75.4 40.0-77.0 % Lymphocytes (%) (Auto) 6.6 L 21.0-51.0 % Monocytes (%) (Auto) 11.0 3.0-13.0 % Eosinophils (%) (Auto) 4.9 0.0-8.0 % Basophils (%) (Auto) 0.4 0.0-5.0 % Neutrophils # (Auto) 7.6 1.8-7.7 K/uL Lymphocytes # (Auto) 0.7 L 1.0-4.8 K/uL Monocytes # (Auto) 1.1 H 0.1-1.0 K/uL Eosinophils # (Auto) 0.49 0.00-0.70 K/uL Basophils # (Auto) 0.04 0.00-0.20 K/uL Absolute Immature Granulocyte (auto 0.17 0-1 K/uL Nucleated Red Blood Cells 0.0 0.0-0.19 % Sodium Level 133 L 136-145 mmol/L Potassium Level 3.8 3.5-5.1 mmol/L Chloride Level 100 L 101-111 mmol/L Carbon Dioxide Level 22 21-32 mmol/L Blood Urea Nitrogen 42 H 7-18 mg/dL Creatinine 2.8 H 0.5-1.3 mg/dL Glomerular Filtration Rate Calc 25 >90 mL/min Random Glucose 102 70-105 mg/dL Uric Acid 9.1 H 2.6-7.2 mg/dL Total Calcium 7.8 L 8.5-10.1 mg/dL Phosphorus Level 3.4 2.5-4.9 mg/dL Magnesium Level 1.80 1.80-2.40 mg/dL Iron Level 47 L 65-175 mcg/dL Total Iron Binding Capacity 113 L 250-450 mcg/dL Percent Iron Saturation 41.5 30-44 % Ferritin 906 H 30-400 ng/mL Total Bilirubin 4.2 H 0.2-1.0 mg/dL Aspartate Amino Transf (AST/SGOT) 57 H 10-37 U/L Alanine Aminotransferase (ALT/SGPT) 19 12-78 U/L Alkaline Phosphatase 120 50-136 U/L Total Protein 5.9 L 6.0-8.3 g/dL Albumin 2.2 L 3.5-5.0 g/dL Thyroid Stimulating Hormone (TSH) 3.39 0.36-3.74 uIU/mL Urine Color YELLOW YELLOW Urine Appearance CLEAR CLEAR Urine pH 5.0 5.0-8.0 Urine Specific Warren[place] 1.013 1.001-1.031 Urine Protein NEGATIVE NEGATIVE mg/dL Urine Glucose (UA) NEGATIVE NEGATIVE mg/dL Urine Ketones NEGATIVE NEGATIVE mg/dL Urine Occult Blood NEGATIVE NEGATIVE Urine Nitrate NEGATIVE NEGATIVE Urine Bilirubin NEGATIVE NEGATIVE mg/dL Urine Urobilinogen 0.2 0.2-1.0 mg/dL Urine Leukocyte Esterase NEGATIVE NEGATIVE Rodolfo/uL Urine Random Creatinine 139.96 H 30-135 mg/dL Urine Random Sodium < 13 L 40-220 mmol/l Urine Random Potassium 32 25-125 mmol/L Urine Random Chloride 37 L 110-250 mmol/L Body Fluid Source ASCITES Body Fluid Volume 6000 mL Body Fluid Color YELLOW LT YELLOW Body Fluid Supernatant Appearance CLEAR CLEAR Body Fluid WBC 231 /cu. mm. Body Fluid RBC 9 /cu. mm. Body Fluid Neutrophils 52.0 % Body Fluid Lymphocytes 9 % Body Fluid Macrophages (%) 27 Body Fluid Mesothelial Cells (%) 10 % Body Fluid Other Cells (%) 2 Test 09/30/24 09:30 09/30/24 05:38 09/29/24 15:12 Range/Units Lactic Acid Level 3.2 H 0.8-2.5 mmol/L Tumor Marker Alpha Fetoprotein 511.0 H 0.0-8.4 ng/mL Prothrombin Time 13.0 H 9.6-11.6 SEC Prothromb Time International Ratio 1.25 H 0.85-1.15 Activated Partial Thromboplast Time 41.1 H 26.3-35.5 SEC Hemoglobin A1c 4.5 4.0-6.0 % Estimated Average Glucose (eAG) 82 70-126 mg/dL Direct Bilirubin 3.6 H 0.0-0.3 mg/dL Ammonia 55 H 11-32 umol/L Total Creatine Kinase 54 21-232 U/L Procalcitonin 12.01 H 0.05-0.5 ng/mL Segmented Neutrophils % 76 H 40-70 % Band Neutrophils % 10 H 0-2 % Lymphocytes % (Manual) 5 L 22-44 % Monocytes % (Manual) 8 2-9 % Eosinophils % (Manual) 1 1-6 % Differential Comment MANUAL DIFFERENTIAL White Cell Morphology Comment CONSISTENT W/DIFF Platelet Morphology Comment ADEQUATE Red Blood Cell Morphology ANISO 1+ Current Medications Medications (Trade) Dose Ordered Sig/Lionel Route PRN Reason Start Time Stop Time Status Last Admin Dose Admin Acetaminophen (TYLenol 325MG TAB) 650 mg Q4H PRN PO MILD PAIN (1-3) 09/29/24 17:30 10/29/24 17:29 09/30/24 11:30 650 MG Acetaminophen (TYLenol 325MG TAB) 650 mg Q6H PRN PO MILD PAIN (1-3) 09/29/24 17:30 09/29/24 17:41 DC Acetaminophen (TYLenol 325MG TAB) 650 mg Q6H PRN PO TEMPERATURE GREATER THAN 101.5 09/29/24 17:30 10/29/24 17:29 Al Hydroxide/Mg Hydroxide (MAALox PLUS 30ML) 30 ml Q6H PRN PO INDIGESTION 09/29/24 17:30 10/29/24 17:29 Albumin Human 50 ml @ 0 mls/hr Q8H6 IV 09/30/24 22:00 10/02/24 14:01 10/01/24 05:59 100 MLS/HR Albumin Human 200 ml @ 0 mls/hr AD IV 09/30/24 13:00 09/30/24 13:18 DC Albumin Human 200 ml @ 0 mls/hr AD IV 09/30/24 13:30 09/30/24 14:18 DC 09/30/24 13:28 0 MLS/HR Ceftriaxone Sodium 2 gm/ Sodium Chloride 100 ml @ 200 mls/hr Q24H IV 09/29/24 17:30 09/29/24 17:44 DC Ceftriaxone Sodium (Rocephin 2gm Inj) 2 gm Q24H IVPB 09/29/24 18:00 10/09/24 17:59 09/30/24 18:35 2 GM Dextrose (D50w) 50 ml AD PRN IV HYPOGLYCEMIA PROTOCOL 09/29/24 17:30 10/29/24 17:29 Diphenhydramine HCl (BENAdryl INJ) 25 mg Q6H PRN IV SEVERE ITCHING/RASH 09/29/24 17:30 10/29/24 17:29 Famotidine (Pepcid 20mg Vial) 20 mg BID PRN IV NAUSEA/VOMITING 09/29/24 17:30 09/29/24 17:41 DC Famotidine (Pepcid 20mg Vial) 20 mg QODAY IV 09/30/24 09:00 10/30/24 08:59 09/30/24 08:35 20 MG Furosemide (LASix 40MG VIAL) 40 mg Q12H IV 09/29/24 22:00 10/29/24 21:59 10/01/24 09:25 40 MG Glucagon (Glucagon 1mg Kit) 1 mg AD PRN IM HYPOGLYCEMIA PROTOCOL 09/29/24 17:30 10/29/24 17:29 Guaifenesin/ Dextromethorphan (RobiTUSSin DM 200/20MG 10ML) 10 ml Q4H PRN PO COUGH 09/29/24 17:30 10/29/24 17:29 Heparin Sodium (Porcine) (HEParin 5,000 UNIT VIAL) 5,000 unit BID SQ 09/29/24 21:00 10/29/24 20:59 09/30/24 20:07 5,000 UNIT Hydralazine HCl (APRESOLine 20MG INJ) 10 mg Q6H PRN IV For:SBP above 160;DBP above 90 09/29/24 17:30 10/29/24 17:29 Hydromorphone HCl (DiLAUDid 0.5MG INJ) 0.2 mg Q6H PRN IVP SEVERE PAIN (7-10) 09/30/24 11:30 10/05/24 11:29 Insulin Human Regular (humuLIN R 100 UNIT/ML 3ML) INSULIN SLIDING SCAL... ACHS SQ 09/29/24 21:00 10/29/24 20:59 Ketorolac Tromethamine (toRADol) 15 mg Q8H PRN IV MODERATE PAIN (4-6) 09/29/24 17:30 10/04/24 17:29 Lactulose (Constulose 20gm/ 30ml Udcup) 20 gm BID PRN PO CONSTIPATION 09/29/24 17:30 10/29/24 17:29 Lactulose (Constulose 20gm/ 30ml Udcup) 20 gm BID PRN PO CONSTIPATION 09/29/24 22:00 09/29/24 21:34 DC Magnesium Sulfate 50 ml @ 0 mls/hr PROTOCOL PRN IV other 09/29/24 17:30 10/29/24 17:29 Morphine Sulfate (morPHINE 2MG SYG) 1 mg Q4H PRN IVP SEVERE PAIN (7-10) 09/29/24 17:30 09/30/24 11:27 DC Nitroglycerin (Nitrostat) 0.4 mg PROTOCOL PRN SL CHEST PAIN 09/29/24 17:30 10/29/24 17:29 Octreotide Acetate (SandoSTATIN) 100 mcg Q8H6 SQ 09/30/24 22:00 10/30/24 21:59 10/01/24 05:59 100 MCG Ondansetron HCl (zoFRAN 4MG INJ) 4 mg Q6H PRN IV NAUSEA/VOMITING 09/29/24 17:30 10/29/24 17:29 Sodium Chloride 1,000 ml @ 70 mls/hr [id number] IV 09/29/24 17:30 09/29/24 21:30 DC Thiamine HCl (Vitamin B-1) 100 mg DAILY IVP 10/01/24 09:00 10/31/24 08:59 10/01/24 09:25 100 MG Vitamin B Complex/ Vit C/Folic Acid (Nephrovite Tablet) 1 cap DAILY PO 10/01/24 09:00 10/31/24 08:59 Zolpidem Tartrate (AmbIEN) 5 mg HS PRN PO INSOMNIA 09/29/24 17:30 10/29/24 17:29 DIAGNOSTICS / RADIOLOGY: [place] [id number] [id number] IMAGING REPORT Signed PATIENT: DARSHAN KINNEY MR#: [id number] : 1965 SEX: M AGE: 59 LOCATION: FORMERLY [facility], 1928–1983 ORDER 32 [facility]: [facility] REPORT#: [id number] SERVICE [id number] REASON: chf ORDERING PHYSICIAN: JONATHON GLORIA APRN PROCEDURE: ECHO CMP - ECHO 2-D COMPLETE APPROVED REPORT EXAM: Two-dimensional and M-mode echocardiogram with Doppler and color Doppler. INDICATION ICD: Congestive heart failure 2D Dimensions RVDd 3.8 cm LVEF(%) 60.5 (>50%) LVEF(%, simp.) 67 % IVSd 0.7 (0.7-1.1cm) FS(%) 32 % LA ESV INDEX (BP) 30.44 mL/m2 LVDd 5.0 (3.8-5.6cm) LA (2D) 4.5 (1.6-4.0cm) PWd 0.8 (0.7-1.1cm) Ao Root(2D) 3.1 (2.0-3.7cm) IVSs 1.1 cm LVOT diam 2.1 (1.8-2.4cm) LVDs 3.4 (2.5-4.0cm) PWs 1.1 cm Deformation Strain Apical 4 -20.0 % Apical 2 -24.0 % Apical 3 -24.0 % Global Strain -23.0 % M-Mode Dimensions EPSS 1.0 cm LA (MM) 5.0 (1.6-4.0cm) Ao Root(MM) 3.2 (2.0-3.7cm) Aortic Valve AoV Vmax 2.1 m/s Ao Peak GR 18.5 mmHg LVOT Vmax 1.6 m/s AoV VTI 0.4 m Ao Mean GR 10.5 mmHg LVOT VTI 0.28 m JANIE (VMAX) 2.4 cm2 JANIE (VTI) 2.4 cm2 Mitral Valve MV E Vmax 78.4 cm/s DECEL Time 160 ms MV A Vmax 85.6 cm/s P 1/2 T 31 ms E/A ratio 0.9 MVA (PHT) 7.0 cm2 TDI E/E' Medial 7.8 Medial E' Peak V 10.00 cm/s Pulmonary Valve PV Vmax 1.3 m/s Tricuspid Valve TR Vmax 2.8 m/s RAP (EST) 8 mmHg RVSP 38.4 mmHg TR Peak GR 30.4 mmHg Left Ventricle The left ventricle is normal size. GLS -23.0%. There is normal left ventricular wall thickness. LVEF is 60-65%. 3D volume EF 67%. The left ventricular diastolic function is normal. Right Ventricle The right ventricle is normal size. The right ventricular systolic function is normal. Atria The left atrium size is normal. The right atrium is technically difficult to measure due to Large right atrial mass present, clinically appears as myxoma. Aortic Valve Aortic valve is trileaflet mildly thickened. No aortic regurgitation is present. There is no aortic valvular stenosis. Mitral Valve The mitral valve is normal in structure. There is no mitral valve regurgitation noted. There is no mitral valve stenosis. Tricuspid Valve The tricuspid valve is normal in structure. There is mild tricuspid valve regurgitation noted. Pulmonic Valve The pulmonary valve is normal in structure. There is trace of pulmonic valvular regurgitation. Great Vessels The aortic root is normal in size. IVC is not well visualized. Pericardium There is no pericardial effusion. Other Information Quality : Adequate Conclusion The left ventricle is normal size. LVEF is 60-65%. 3D volume EF 67%. The left ventricular diastolic function is normal. The right ventricle is normal size. The right ventricular systolic function is normal. The left atrium size is normal. The right atrium is technically difficult to measure due to Large right atrial mass present, clinically appears as myxoma. There is mild tricuspid valve regurgitation noted. There is mild tricuspid valve regurgitation noted. RVSP 35 mm Hg. There is no pericardial effusion. DICTATED BY: DAMIR NAYLOR MD DATE: 09/30/24 0908 ELECTRONICALLY SIGNED BY: DAMIR NAYLOR MD DATE: 09/30/24 13[address] [place] [id number] [id number] IMAGING REPORT Signed PATIENT: DARSHAN KINNEY MR#: [id number] : 1965 SEX: M AGE: 59 LOCATION: [facility]DH ORDER 0801 STATUS: ADM IN REPORT#: [id number] SERVICE 08 REASON: ASCITES ORDERING PHYSICIAN: JONATHON GLORIA ENTERPRISE MOBILITY ARCHITECT PROCEDURE: PARA ABD - US ABDOMINAL PARACENTESIS IR US ABDOMINAL PARACENTESIS IR HISTORY: Ascites COMPARISON: None TECHNIQUE: Informed consent was obtained. Risks and benefits were explained to the patient. A timeout was performed. Patient was prepped and draped in a sterile fashion. Local anesthetics was given as required. Under ultrasound guidance, ascites fluid was localized. Paracentesis was performed. 6 L of fluid was aspirated. FINDINGS: Less than 2 cc blood loss is noted. Patient tolerated procedure without complication. Patient left the department in good condition. IMPRESSION: 1. Uncomplicated ultrasound-guided paracentesis. DICTATED BY: SOHAIL CORONEL MD DATE: 09/30/24 1536 ELECTRONICALLY SIGNED BY: SOHAIL CORONEL MD DATE: 09/30/24 15[address] [place] [id number] [id number] IMAGING REPORT Signed PATIENT: DARSHAN KINNEY MR#: [id number] : 1965 SEX: M AGE: 59 LOCATION: 4DH ORDER 34 STATUS: ADM IN REPORT#: [id number] SERVICE 33 REASON: swelling severe ORDERING PHYSICIAN: JONATHON GLORIA ENTERPRISE MOBILITY ARCHITECT PROCEDURE: SCROTUM - US SCROTUM & CONTENTS US SCROTUM & CONTENTS HISTORY: No additional history given. COMPARISON: None TECHNIQUE: Duplex scrotal ultrasound study was performed. FINDINGS: The right testes measures 3.4 x 2 x 2.2 cm. The left testes measures 3.4 x 2.2 x 2.1 cm. No evidence of intratesticular mass or abnormal calcification is seen. Normal flow is demonstrated in the testes and epididymides bilaterally. No hydroceles or varicocele is seen. There is scrotal wall edema with right measuring 2.4 cm and left measuring 2.6 cm in thickness. IMPRESSION: 1. No evidence of intratesticular mass is seen. 2. Normal flow is demonstrated of both testes. Scrotal wall swelling. Scrotal wall swelling DICTATED BY: SOHAIL CORONEL MD DATE: 09/30/2441 ELECTRONICALLY SIGNED BY: SOHAIL CORONEL MD DATE: 09/30/2446 ASSESSMENT: [ Acute hypoxic respiratory failure POA Severe liver cirrhosis requiring paracentesis POA Severe bilateral lower extremities edema POA Uncontrolled hypertension POA Acute kidney injury TNP POA Possible acute complicated cystitis POA Leukocytosis WBC 16.9 due to above POA Severe liver cirrhosis per CT abdomen/pelvis POA Right hepatic mass measuring 9.2 x 8.[address] abdomen/pelvis Small ascites per CT abdomen/pelvis POA Anasarca per CT abdomen/pelvis POA Multifactorial anemia POA Severe malnutrition POA Electrolyte imbalance hyponatremia Na 133 POA] PLAN: Admit to: Medical-surgical floor Consults: Tar Leveler, beverage inspection machine tender, oncologist, value advisor Antibiotics: Rocephin Tests: 2D echo, ultrasound scrotum, IR for thoracentesis, liver biopsy NEURO: Minimize central acting medications as possible. Fall Precautions. Well lighted room through the day and minimize interruptions through the night to prevent acute delirium. 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 Follow hemodynamics. Vital signs per facility protocol GI & NUTRITION: CT abdomen/pelvis shows cirrhotic liver with enlarged spleen. There is right hepatic mass measuring 9.2 x 8.1 cm. There small ascites. Anasarca IR thoracentesis pending Liver biopsy to be done today. We will follow up with results. AFP level will be obtained today. Continue nutritional support Aspirations precautions Prokinetic agents and laxatives as needed KIDNEYS & ELECTROLYTES: Strict monitoring of intake and output Daily weights Avoid nephrotoxic agents Monitor electrolytes and replace as needed Goal urine output of 30mL/hr or 0.5mL/kg/hr Medications to be dosed according to renal function. Avoid contrast if possible Continue to follow nephrology recommendations ENDOCRINE: Maintain blood glucose between 100-180 at all times. Insulin sliding scale for blood glucose management Hypoglycemia and hyperglycemia protocol in place INFECTIOUS DISEASE: Trend temperature, WBC and procalcitonin level Follow cultures, deescalate antibiotics as soon as possible. HEMATOLOGY & COAGULATION: Monitor H&H. Keep Hgb > 7 Transfuse 1 unit of PRBC for Hgb < 7 Transfuse 1 pack of platelets of platelets < 20, 000 Watch for any signs and symptoms of bleeding SKIN: Ultrasound scrotum showed scrotal wall swelling. Pressure ulcer prevention per facility protocol Specialty mattress as needed Treatment plan discussed with patient and family at the bedside Medications to be reconciled once obtained by patient and/or family and available to be reconciled in computer p.r.n. medication for pain nausea and vomiting Questions were answered We will continue to monitor the patient closely Air Quality Manager for disposition Rehab: PT/OT GI: PPI DVT: SCD's This plan has been discussed and approved by my attending. FEDERICO SUNSHINE MD Oct 01, 2024 12:44
--- NOTE | 2024-10-01 12:45 | NUR ---
U/S GD LIVER MASS BX TOLERATED PROCEDURE. PERFORMED BY DR SPEARS. [facility] SITE TO TO [facility]. X5 SPECIMEN REMOVED AND SENT TO LAB. FLOSEAL INJECTED AT END OF SPECIMEN REMOVAL. END OF PROCEDURE AT 1235. DRESSING DRY AND INTACT. NO BLEEDING NOTED. REPORT GIVEN TO AUSTEN GUERRERO. DENIES PAIN. A&O. TRANSPORTED TO [facility] VIA BED.
--- NOTE | 2024-10-01 13:00 | PN ---
NEPHROLOGY PROGRESS NOTE Date/Time Patient Seen: Oct 01, 2024 SUBJECTIVE: This is a 59-year-old male with a past medical history of liver cirrhosis, diagnosed obstructive sleep apnea. He presented to the emergency with complaints of shortness of breath on exertion, abdominal distention, bilateral lower extremity edema and scrotal swelling. CT of the abdomen and pelvis showed cirrhotic liver with enlarged spleen. Right hepatic mass measuring 9.2 x 8.1 cm. There is small ascites. Anasarca Echocardiogram showed LVEF of 60-65%. 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 S/p paracentesis with 6 L removed. He was noted with worsening renal failure We have been consulted for renal failure Renal function remains elevated Electrolytes are stable. He continues on albumin and octreotide. S/p liver biopsy. He was seen in the medical floor, in no acute distress Family at the bedside Prognosis remains guarded REVIEW OF SYSTEMS: GENERAL: Positive for shortness of breath, lower extremity edema and abdominal distention NEUROLOGIC: Negative for any blurry vision, blind spots, double vision, facial asymmetry, dysphagia, dysarthria, hemiparesis, hemisensory deficits, vertigo, ataxia. HEENT: Negative for any head trauma, neck trauma, neck stiffness, photophobia, phonophobia, sinusitis, rhinitis. CARDIAC: Negative for any chest pain, dyspnea on exertion, paroxysmal nocturnal dyspnea, peripheral edema. PULMONARY: Negative for any shortness of breath, wheezing, COPD, or TB exposure. GASTROINTESTINAL: Negative for any abdominal pain, nausea, vomiting, bright red blood per rectum, melena. GENITOURINARY: Negative for any dysuria, hematuria, incontinence. INTEGUMENTARY: Negative for any rashes, cuts, insect bites. RHEUMATOLOGIC: Negative for any joint pains, photosensitive rashes, history of vasculitis or kidney problems. HEMATOLOGIC: Negative for any abnormal bruising, frequent infections or bleeding. PHYSICAL EXAM: GENERAL: Alert and oriented x 3. No acute distress. Well-nourished. EYES: EOMI. Anicteric. HENT: Moist mucous membranes. No scleral icterus. No cervical lymphadenopathy. LUNGS: Clear to auscultation bilaterally. No accessory muscle use. CARDIOVASCULAR: Regular rate and rhythm. No murmur. No JVD. ABDOMEN: Soft, non-tender and non-distended. No palpable masses. EXTREMITIES: 2+ edema. Non-tender. SKIN: No rashes or lesions. Warm. NEUROLOGIC: No focal neurological deficits. CN II-XII grossly intact, but not individually tested. PSYCHIATRIC: Cooperative. Appropriate mood and affect. LABORATORY: [ ] Hematology Labs: Test 10/01/24 05:15 09/29/24 15:12 Range/Units White Blood Count 10.1 # 4.8-10.8 K/uL Red Blood Count 2.97 L 4.50-6.20 MIL/uL Hemoglobin 9.9 L 14.0-18.0 g/dL Hematocrit 28.8 L 42-54 % Mean Corpuscular Volume 97.0 79-99 fL Mean Corpuscular Hemoglobin 33.3 H 27.0-33.0 pg Mean Corpuscular Hemoglobin Concent 34.4 32.0-36.0 g/dL Red Cell Distribution Width 17.5 H 11.0-15.5 % Platelet Count 119 L 130-400 K/uL Mean Platelet Volume 10.3 7.5-10.5 fL Immature Granulocyte % (Auto) 1.7 H 0-1 % Neutrophils (%) (Auto) 75.4 40.0-77.0 % Lymphocytes (%) (Auto) 6.6 L 21.0-51.0 % Monocytes (%) (Auto) 11.0 3.0-13.0 % Eosinophils (%) (Auto) 4.9 0.0-8.0 % Basophils (%) (Auto) 0.4 0.0-5.0 % Neutrophils # (Auto) 7.6 1.8-7.7 K/uL Lymphocytes # (Auto) 0.7 L 1.0-4.8 K/uL Monocytes # (Auto) 1.1 H 0.1-1.0 K/uL Eosinophils # (Auto) 0.49 0.00-0.70 K/uL Basophils # (Auto) 0.04 0.00-0.20 K/uL Absolute Immature Granulocyte (auto 0.17 0-1 K/uL Nucleated Red Blood Cells 0.0 0.0-0.19 % Segmented Neutrophils % 76 H 40-70 % Band Neutrophils % 10 H 0-2 % Lymphocytes % (Manual) 5 L 22-44 % Monocytes % (Manual) 8 2-9 % Eosinophils % (Manual) 1 1-6 % Differential Comment MANUAL DIFFERENTIAL White Cell Morphology Comment CONSISTENT W/DIFF Platelet Morphology Comment ADEQUATE Red Blood Cell Morphology ANISO 1+ Chemistry Labs: Test 10/01/24 06:01 10/01/24 05:15 09/30/24 09:30 09/30/24 05:38 Range/Units Whole Blood Glucose 86 70-110 MG/DL Sodium Level 133 L 136-145 mmol/L Potassium Level 3.8 3.5-5.1 mmol/L Chloride Level 100 L 101-111 mmol/L Carbon Dioxide Level 22 21-32 mmol/L Blood Urea Nitrogen 42 H 7-18 mg/dL Creatinine 2.8 H 0.5-1.3 mg/dL Glomerular Filtration Rate Calc 25 >90 mL/min Random Glucose 102 70-105 mg/dL Uric Acid 9.1 H 2.6-7.2 mg/dL Total Calcium 7.8 L 8.5-10.1 mg/dL Phosphorus Level 3.4 2.5-4.9 mg/dL Magnesium Level 1.80 1.80-2.40 mg/dL Iron Level 47 L 65-175 mcg/dL Total Iron Binding Capacity 113 L 250-450 mcg/dL Percent Iron Saturation 41.5 30-44 % Ferritin 906 H 30-400 ng/mL Total Bilirubin 4.2 H 0.2-1.0 mg/dL Aspartate Amino Transf (AST/SGOT) 57 H 10-37 U/L Alanine Aminotransferase (ALT/SGPT) 19 12-78 U/L Alkaline Phosphatase 120 50-136 U/L Total Protein 5.9 L 6.0-8.3 g/dL Albumin 2.2 L 3.5-5.0 g/dL Thyroid Stimulating Hormone (TSH) 3.39 0.36-3.74 uIU/mL Lactic Acid Level 3.2 H 0.8-2.5 mmol/L Tumor Marker Alpha Fetoprotein 511.0 H 0.0-8.4 ng/mL Hemoglobin A1c 4.5 4.0-6.0 % Estimated Average Glucose (eAG) 82 70-126 mg/dL Direct Bilirubin 3.6 H 0.0-0.3 mg/dL Ammonia 55 H 11-32 umol/L Total Creatine Kinase 54 21-232 U/L Procalcitonin 12.01 H 0.05-0.5 ng/mL Coagulation Labs: Test 09/30/24 05:38 Range/Units Prothrombin Time 13.0 H 9.6-11.6 SEC Prothromb Time International Ratio 1.25 H 0.85-1.15 Activated Partial Thromboplast Time 41.1 H 26.3-35.5 SEC DIAGNOSTICS / RADIOLOGY: REASON: chf ORDERING PHYSICIAN: JONATHON GLORIA APRN PROCEDURE: ECHO [facility] - ECHO 2-D COMPLETE APPROVED REPORT EXAM: Two-dimensional and M-mode echocardiogram with Doppler and color Doppler. INDICATION ICD: Congestive heart failure 2D Dimensions RVDd 3.8 cm LVEF(%) 60.5 (>50%) LVEF(%, simp.) 67 % IVSd 0.7 (0.7-1.1cm) FS(%) 32 % LA ESV INDEX (BP) 30.44 mL/m2 LVDd 5.0 (3.8-5.6cm) LA (2D) 4.5 (1.6-4.0cm) PWd 0.8 (0.7-1.1cm) Ao Root(2D) 3.1 (2.0-3.7cm) IVSs 1.1 cm LVOT diam 2.1 (1.8-2.4cm) LVDs 3.4 (2.5-4.0cm) PWs 1.1 cm Deformation Strain Apical 4 -20.0 % Apical 2 -24.0 % Apical 3 -24.0 % Global Strain -23.0 % M-Mode Dimensions EPSS 1.0 cm LA (MM) 5.0 (1.6-4.0cm) Ao Root(MM) 3.2 (2.0-3.7cm) Aortic Valve AoV Vmax 2.1 m/s Ao Peak GR 18.5 mmHg LVOT Vmax 1.6 m/s AoV VTI 0.4 m Ao Mean GR 10.5 mmHg LVOT VTI 0.28 m JANIE (VMAX) 2.4 cm2 JANIE (VTI) 2.4 cm2 Mitral Valve MV E Vmax 78.4 cm/s DECEL Time 160 ms MV A Vmax 85.6 cm/s P 1/2 T 31 ms E/A ratio 0.9 MVA (PHT) 7.0 cm2 TDI E/E' Medial 7.8 Medial E' Peak V 10.00 cm/s Pulmonary Valve PV Vmax 1.3 m/s Tricuspid Valve TR Vmax 2.8 m/s RAP (EST) 8 mmHg RVSP 38.4 mmHg TR Peak GR 30.4 mmHg Left Ventricle The left ventricle is normal size. GLS -23.0%. There is normal left ventricular wall thickness. LVEF is 60-65%. 3D volume EF 67%. The left ventricular diastolic function is normal. Right Ventricle The right ventricle is normal size. The right ventricular systolic function is normal. Atria The left atrium size is normal. The right atrium is technically difficult to measure due to Large right atrial mass present, clinically appears as myxoma. Aortic Valve Aortic valve is trileaflet mildly thickened. No aortic regurgitation is present. There is no aortic valvular stenosis. Mitral Valve The mitral valve is normal in structure. There is no mitral valve regurgitation noted. There is no mitral valve stenosis. Tricuspid Valve The tricuspid valve is normal in structure. There is mild tricuspid valve regurg itation noted. Pulmonic Valve The pulmonary valve is normal in structure. There is trace of pulmonic valvular regurgitation. Great Vessels The aortic root is normal in size. IVC is not well visualized. Pericardium There is no pericardial effusion. Other Information Quality : Adequate Conclusion The left ventricle is normal size. LVEF is 60-65%. 3D volume EF 67%. The left ventricular diastolic function is normal. The right ventricle is normal size. The right ventricular systolic function is normal. The left atrium size is normal. The right atrium is technically difficult to measure due to Large right atrial mass present, clinically appears as myxoma. There is mild tricuspid valve regurgitation noted. There is mild tricuspid valve regurgitation noted. RVSP 35 mm Hg. There is no pericardial effusion. DICTATED BY: DAMIR NAYLOR MD DATE: 09/30/24 0908 REASON: swelling severe ORDERING PHYSICIAN: JONATHON GLORIA APRN PROCEDURE: SCROTUM - US SCROTUM & CONTENTS US SCROTUM & CONTENTS HISTORY: No additional history given. COMPARISON: None TECHNIQUE: Duplex scrotal ultrasound study was performed. FINDINGS: The right testes measures 3.4 x 2 x 2.2 cm. The left testes measures 3.4 x 2.2 x 2.1 cm. No evidence of intratesticular mass or abnormal calcification is seen. Normal flow is demonstrated in the testes and epididymides bilaterally. No hydroceles or varicocele is seen. There is scrotal wall edema with right measuring 2.4 cm and left measuring 2.6 cm in thickness. IMPRESSION: 1. No evidence of intratesticular mass is seen. 2. Normal flow is demonstrated of both testes. Scrotal wall swelling. Scrotal wall swelling DICTATED BY: SOHAIL CORONEL MD DATE: 09/30/24 0042 REASON: congestion ORDERING PHYSICIAN: JONATHON GLORIA BAR CAPTAIN PROCEDURE: CXR1VW - CHEST 1VW CHEST 1VW HISTORY: Congestion COMPARISON: None FINDINGS: A frontal projection of the chest was obtained. No acute pulmonary infiltrates is seen. The heart is borderline enlarged. Degenerative changes are seen. Elevation of right hemidiaphragm is seen. IMPRESSION: 1. No acute pulmonary infiltrate is seen. DICTATED BY: SOHAIL CORONEL MD DATE: 09/29/24 1939 REASON: ascities, cirrhosis ORDERING PHYSICIAN: JONATHON GLORIA BAR CAPTAIN PROCEDURE: ABD PEL WO - CT ABDOMEN/PELVIS W/O CONTRAST CT ABDOMEN/PELVIS W/O CONTRAST HISTORY: Ascites and cirrhosis COMPARISON: None TECHNIQUE: Multiple sequential axial images of the abdomen and pelvis were obtained from the dome of the diaphragm through symphysis pubis. Patient was not given contrast through intravenous route. Oral contrast was not given. FINDINGS: Tiny bilateral pleural effusions are seen. There is no evidence of parenchymal disease or pulmonary nodule of the visualized lower lungs. Degenerative changes of the thoracolumbar spine are present. The heart is not enlarged. Cirrhotic changes of the liver are noted. The liver has irregular contour. There is right hepatic mass measuring 9.2 x 8.1 cm. There is left renal atrophy. Liver measures 8.4 cm. Spleen is enlarged measuring 15 cm Spleen, adrenal glands and pancreas are unremarkable. There is no evidence of hydronephrosis bilaterally. No evidence of renal stone is seen. Fecal material is seen in the colon. There are normal size retroperitoneal and mesenteric lymph nodes. There is small ascites and anasarca. Atherosclerotic changes are present. Pelvic sidewalls are symmetric bilaterally. Bladder is well distended without wall thickening. IMPRESSION: 1. Cirrhotic liver with enlarged spleen . There is right hepatic mass measuring 9.2 x 8.1 cm. There is small ascites. Anasarca. CT was performed with one or more following dose reduction techniques: automated exposure control, adjustment of the mA and kv according to patient's size, or use of a iterative reconstruction technique. DICTATED BY: SOHAIL CORONEL MD DATE: 09/29/241944 ASSESSMENT: Acute kidney injury Anemia Acute hypoxic respiratory failure POA Severe liver cirrhosis requiring paracentesis POA Severe bilateral lower extremities edema POA Uncontrolled hypertension POA Possible acute complicated cystitis POA Leukocytosis WBC 16.9 due to above POA Severe liver cirrhosis per CT abdomen/pelvis POA Right hepatic mass measuring 9.2 x 8.[address] abdomen/pelvis Small ascites per CT abdomen/pelvis POA Anasarca per CT abdomen/pelvis POA Multifactorial anemia POA Severe malnutrition POA Electrolyte imbalance hyponatremia Na 133 POA PLAN: Labs, diagnostic, radiologic exams reviewed and interpreted by myself and supervising physician. We have reviewed external records in detail Continue with diuretics Continue with octreotide and albumin Follow up on liver biopsy results Require close monitoring of renal function and electrolytes Order CBC, CMP, ferritin and electrolytes in am Continue with antibiotics Renal diabetic diet BiPAP as necessary, for respiratory distress Monitor blood pressure adjust medication doses as needed Avoid hypotensive episodes May use Dilaudid 0.5 mg IV every 6 hours as needed for severe pain Monitor blood sugars Strict intake, output, and daily weight should be monitored Please renally adjust medications Avoid nephrotoxic and nonsteroidal drugs Avoid contrast if possible Will continue to monitor renal function, anemia, electrolytes Treatment plan discussed with patient Questions were answered We have discussed with the other team physicians in detail about the care plan We will continue to monitor the patient closely ATTESTATION BY PHYSICIAN I have seen and examined the patient. I reviewed the documentation, medical decision making, and treatment plan as noted by the mid-level provider above. I agree with the findings and plan of care. ALEJANDRA BARR MD, [facility] Oct 01, 2024 13:00
[2024-10-01 16:21] LABS: HEPATITIS A IGM ANTIBODY Non-Reactive (Nonreactive); HEPATITIS B CORE IGM ANTIBODY Non-Reactive (Negative); HEPATITIS B SURFACE ANTIGEN Non-Reactive (Nonreactive); HEPATITIS C ANTIBODY Non-Reactive (Nonreactive)
[2024-10-01] MEDS: MAGNESIUM 2GM PREMIX 50ML 50 ML IV PRN (17:37)
[2024-10-02] VITALS (8 sets, daily range): BP systolic 100–109; BP diastolic 53–65; PULSE 71–78; RESP 17–21; TEMP 98.1–99.6; O2SAT 100
[2024-10-02 06:01] LABS: HEMATOCRIT 29.7 % (42-54); MEAN CORPUSCULAR HEMOGLOBIN 32.8 pg (27.0-33.0); MEAN CORPUSCULAR VOLUME 96.4 fL (79-99); PLATELET COUNT (AUTO) 116 K/uL (130-400); RED BLOOD CELL COUNT(AUTO) 3.08 MIL/uL (4.50-6.20); RED CELL DISTRIBUTION WIDTH 17.3 % (11.0-15.5); WHITE BLOOD COUNT (AUTO) 8.4 K/uL (4.8-10.8)
[2024-10-02 06:17] LABS: ALBUMIN 2.3 g/dL (3.5-5.0); BILIRUBIN,TOTAL 3.4 mg/dL (0.2-1.0); CREATININE 2.9 mg/dL (0.5-1.3); MAGNESIUM 2.1 mg/dL (1.80-2.40); PHOSPHORUS 3.3 mg/dL (2.5-4.9); POTASSIUM 3.5 mmol/L (3.5-5.1); TOTAL PROTEIN, SERUM 5.7 g/dL (6.0-8.3)
[2024-10-02 07:03] LABS: BAND NEUTROPHILS % (MANUAL) 1 % (0-2); EOSINOPHILS % (MANUAL) 5 % (1-6); LYMPHOCYTES % (MANUAL) 7 % (22-44); METAMYELOCYTES % 1 % (0-0); MONOCYTES % (MANUAL) 9 % (2-9); REACTIVE LYMPHOCYTES 1 % (0-0); SEGMENTED NEUTROPHILS % 76 % (40-70); TOTAL CELLS COUNTED 100
[2024-10-02 07:04] LABS: MAN.DIFF COMMENT-IMPRESSION MANUAL DIFFERENTIAL; PLATELET MORPHOLOGY COMMENT DECREASED
--- NOTE | 2024-10-02 09:47 | PN ---
[facility] CARDIOLOGY PROGRESS NOTE Date Patient Seen: Oct 02, 2024 Time of Visit: 09:33 Interval History: This is a 59-year-old male with a past medical history of chronic alcohol abuse,liver cirrhosis and CKD stage IV with estimated GFR of 24 who presented to the ED with complaints of worsening shortness of breath, abdominal distention, bilateral lower extremity edema, and scrotal edema for the last 2-3 weeks. He also had evidence of anasarca. 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 He was evaluated by Dr. Howard Cheung who felt the patient was not a surgical candidate given findings of a right hepatic mass concerning for malignancy. He has been evaluated by Oncology and liver biopsy is currently pending. In addition he underwent large volume paracentesis removing 6 L on 09/30/2024. He continues on IV diuretic therapy and continues with anasarca. Creatinine has been stable. He offers no orthopnea or PND. In addition he offers no complaints of chest pain. Physical Examination: GENERAL: No acute distress. HEAD: Normal with no signs of head trauma. EYES: PERRLA, EOMI, conjunctiva and sclera are icteric. NECK: There is JVD 2 fingerbreadths below the angle of the jaw. There is no tenderness, lymphadenopathy, or masses. No thyromegaly. Normal carotid upstrokes without bruits. LUNGS: Diminished breath sounds at the bases bilaterally. HEART: Normal rate and rhythm. Normal S1 and S2 without murmurs, gallop or rub. ABD: There is anasarca up to the mid back, there also varicose veins noted throughout the abdominal area VASC: Peripheral pulses are difficult to palpate given his lower extremity edema. EXT: There is at least 3 to 4+ edema up into the thighs bilaterally. NEURO: Awake, alert, and oriented x3. No focal neurological deficits noted. Laboratory: Hematology Labs: Test 10/02/24 05:18 10/01/24 05:15 Range/Units White Blood Count 8.4 4.8-10.8 K/uL Red Blood Count 3.08 L 4.50-6.20 MIL/uL Hemoglobin 10.1 L 14.0-18.0 g/dL Hematocrit 29.7 L 42-54 % Mean Corpuscular Volume 96.4 79-99 fL Mean Corpuscular Hemoglobin 32.8 27.0-33.0 pg Mean Corpuscular Hemoglobin Concent 34.0 32.0-36.0 g/dL Red Cell Distribution Width 17.3 H 11.0-15.5 % Platelet Count 116 L 130-400 K/uL Mean Platelet Volume 10.7 H 7.5-10.5 fL Segmented Neutrophils % 76 H 40-70 % Band Neutrophils % 1 0-2 % Lymphocytes % (Manual) 7 L 22-44 % Monocytes % (Manual) 9 2-9 % Eosinophils % (Manual) 5 1-6 % Metamyelocytes % 1 H 0-0 % Nucleated Red Blood Cells 0.0 0.0-0.19 % Differential Comment MANUAL DIFFERENTIAL Reactive Lymphocytes 1 H 0-0 % White Cell Morphology Comment Platelet Morphology Comment DECREASED Red Blood Cell Morphology See comments Immature Granulocyte % (Auto) 1.7 H 0-1 % Neutrophils (%) (Auto) 75.4 40.0-77.0 % Lymphocytes (%) (Auto) 6.6 L 21.0-51.0 % Monocytes (%) (Auto) 11.0 3.0-13.0 % Eosinophils (%) (Auto) 4.9 0.0-8.0 % Basophils (%) (Auto) 0.4 0.0-5.0 % Neutrophils # (Auto) 7.6 1.8-7.7 K/uL Lymphocytes # (Auto) 0.7 L 1.0-4.8 K/uL Monocytes # (Auto) 1.1 H 0.1-1.0 K/uL Eosinophils # (Auto) 0.49 0.00-0.70 K/uL Basophils # (Auto) 0.04 0.00-0.20 K/uL Absolute Immature Granulocyte (auto 0.17 0-1 K/uL Chemistry Labs: Test 10/02/24 05:18 10/02/24 05:04 10/01/24 05:15 Range/Units Sodium Level 135 L 136-145 mmol/L Potassium Level 3.5 3.5-5.1 mmol/L Chloride Level 101 101-111 mmol/L Carbon Dioxide Level 22 21-32 mmol/L Blood Urea Nitrogen 46 H 7-18 mg/dL Creatinine 2.9 H 0.5-1.3 mg/dL Glomerular Filtration Rate Calc 24 >90 mL/min Random Glucose 113 H 70-105 mg/dL Total Calcium 8.0 L 8.5-10.1 mg/dL Phosphorus Level 3.3 2.5-4.9 mg/dL Magnesium Level 2.10 1.80-2.40 mg/dL Total Bilirubin 3.4 H 0.2-1.0 mg/dL Aspartate Amino Transf (AST/SGOT) 70 H 10-37 U/L Alanine Aminotransferase (ALT/SGPT) 19 12-78 U/L Alkaline Phosphatase 115 50-136 U/L Total Protein 5.7 L 6.0-8.3 g/dL Albumin 2.3 L 3.5-5.0 g/dL Whole Blood Glucose 108 70-110 MG/DL Uric Acid 9.1 H 2.6-7.2 mg/dL Iron Level 47 L 65-175 mcg/dL Total Iron Binding Capacity 113 L 250-450 mcg/dL Percent Iron Saturation 41.5 30-44 % Ferritin 906 H 30-400 ng/mL Thyroid Stimulating Hormone (TSH) 3.39 0.36-3.74 uIU/mL Diagnostics / Radiology: CT ABDOMEN/PELVIS W/O CONTRAST : FINDINGS: Tiny bilateral pleural effusions are seen. There is no evidence of parenchymal disease or pulmonary nodule of the visualized lower lungs. Degenerative changes of the thoracolumbar spine are present. The heart is not enlarged. Cirrhotic changes of the liver are noted. The liver has irregular contour. There is right hepatic mass measuring 9.2 x 8.1 cm. There is left renal atrophy. Liver measures 8.4 cm. Spleen is enlarged measuring 15 cm Spleen, adrenal glands and pancreas are unremarkable. There is no evidence of hydronephrosis bilaterally. No evidence of renal stone is seen. Fecal material is seen in the colon. There are normal size retroperitoneal and mesenteric lymph nodes. There is small ascites and anasarca. Atherosclerotic changes are present. Pelvic sidewalls are symmetric bilaterally. Bladder is well distended without wall thickening. IMPRESSION: 1. Cirrhotic liver with enlarged spleen . There is right hepatic mass measuring 9.2 x 8.1 cm. There is small ascites. Anasarca. 2D echo on 09/30/2024: Conclusion The left ventricle is normal size. LVEF is 60-65%. 3D volume EF 67%. The left ventricular diastolic function is normal. The right ventricle is normal size. The right ventricular systolic function is normal. The left atrium size is normal. The right atrium is technically difficult to measure due to Large right atrial mass present, clinically appears as myxoma. There is mild tricuspid valve regurgitation noted. There is mild tricuspid valve regurgitation noted. RVSP 35 mm Hg. There is no pericardial effusion. 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 Howard Cheung and is not a candidate for surgery given his liver mass Right hepatic mass measuring 9.2 x 8.1 cm: Liver cirrhosis s/p paracentesis on 09/30/2024 with 6 L removed: -liver biopsy has been done with results pending -Dr. Sharif is following with alpha-fetoprotein markers also pending Anasarca Chronic kidney disease stage 4 with estimated GFR of 24: -continue diuretic therapy -daily weights and efforts at accurate intake and output Chronic Alcohol abuse Normal LVEF of 60-65% by 2D echocardiogram 09/30/2024 PHYSICIAN ATTESTATION OF PHYSICIAN RN DIABETES DOCUMENTATION: I attest that I was physically present for the hazel portions of the service and evaluated the patient with the Physician Digital Content Coordinator, and I reviewed and discussed the case with the Physician Digital Content Coordinator and made modifications to the Physician Digital Content Coordinator's findings and plans of care as documented above ALIYAH SALTER Oct 02, 2024 09:47 MERY GIRARD MD Oct 03, 2024 17:45
[2024-10-02] MEDS: miDODRine HCL 5 MG TABLET PO SCH (13:19)
--- NOTE | 2024-10-02 18:28 | PN ---
[facility] PROGRESS NOTE Date of Service: Oct 02, 2024 Time of Service: 18:26 SUBJECTIVE: 09/30: Patient is a 59 year old M, with a PMH of liver cirrhosis and undiagnosed EDUAR, who presented to the ED with complaints of shortness of breath with exertion, abdominal distention, bilateral lower extremity edema, and swelling of scrotum. Patient states the scrotal swelling began one week ago and has been preventing him from walking. The patients CT abdomen/pelvis showed cirrhosis with enlarging spleen, and a right hepatic mass measuring 9.2 x 8.1 cm, small ascites. The patient is planned to get a paracentesis done today. The patient will be getting a liver biopsy tomorrow. Per GI, we will obtain AFP level. The patient complains of pain, rating it a 7/10 on the pain scale. The patient states he does not want to take Morphine. I spoke to pharmacy, and we agreed that the patient can receive 0.2 mg Dilaudid as needed every 6 hours for pain. The patient WBC count is 13.6, down from 16.9. Lactic acid 3.8. 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 We will continue to follow cardiology, oncology, and nephrology recommendations. 10/01: Patient was seen this morning at bedside. Patient is doing well. Patient denies chest pain, shortness of breath, nausea, vomiting, fever, chills, abdominal pain. The patient will receive scrotal support to aid in the management of swelling. The Patient will be getting a liver biopsy done today. Patient had a paracentesis done yesterday, where 6 L of ascitic fluid was removed. Cultures are pending. 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 We will wait for liver biopsy results, and AFP levels. Patients Creatinine is 2.8, up from 2.6. BUN is 42, up from 37. We will continue to appreciate Cardiology, Nephrology, and Oncology recommendations. 10/02/2024. Patient seen and examined along with RN. No new complaints. Continues to be on diuretics started on midodrine and Sandostatin. Biopsy resul ts are pending. REVIEW OF SYSTEMS CONSTITUTIONAL: Denies fevers, chills, or night sweats. No unintentional weight loss reported. NEUROLOGICAL: Denies headache, amaurosis fugax, motor weakness, sensory deficit, vertigo/spinning sensation, gait abnormalities, or tremors. ENT: No hearing loss, otalgia, otorrhea, rhinitis, rhinorrhea, hoarseness, or sore throat. CARDIOVASCULAR: Denies any exertional angina, dyspnea on exertion, orthopnea, paroxysmal nocturnal dyspnea, palpitations, life-threatening arrhythmias, lurdes ication. PULMONARY: Denies any cough, phlegm/sputum, hemoptysis, pleuritic chest pain. Complains of shortness of breath on exertion SLEEP: Denies morning headaches, daytime somnolence or napping. Denies difficulty falling asleep, staying asleep, waking from sleep. Denies knowledge of snoring. GASTROINTESTINAL: Denies any type of dysphagia to either liquids or solids. Denies nausea, vomiting, pyrosis, early satiety, diarrhea, constipation, or changes in stool consistency or caliber. Denies coffee-ground emesis, hematemesis, hematochezia, or melanotic stools. Complains of abdominal pain. GENITOURINARY: Denies frequency, urgency, nocturia, hematuria or incontinence (Storage/Irritative symptoms.) Low urinary stream, straining to void, urinary intermittency or hesitancy, splitting of the voiding stream, terminal dribbling. Complains of scrotal pain ENDOCRINOLOGIC: Denies polyuria, polydipsia, polyphagia or heat/cold intolerances. HEMATOLOGIC: Denies thrombophilia/previous clots, or coagulopathy/bleeding disorders. ONCOLOGIC: Denies personal history of malignancy. DERMATOLOGIC: Denies rashes or pruritus. PSYCHIATRIC: Denies any suicidal or homicidal ideation. Denies hallucinations. PHYSICAL EXAM GENERAL APPEARANCE: The patient is awake, alert, and oriented, in no acute cardiopulmonary distress. NEUROLOGICAL: Cranial nerves II-XII grossly intact. Motor is 5/5 in bilateral upper and lower extremities proximal to distal. No sensory deficits. HEENT: Face is symmetric. Pupils are equal and reactive. Extraocular movements are intact. NECK: Supple. No JVD. No thyromegaly. No submental, submandibular, pre- /postauricular, occipital or supraclavicular lymphadenopathy. CHEST: Normal chest expansion. No Telemetry. LUNGS: Absence of any rales, rhonchi or any wheezing. CARDIOVASCULAR: Regular. S1 and S2 normal. No appreciable rubs, murmurs or gallops. ABDOMEN: Soft, nontender, and nondistended. There is no rebound, voluntary guarding, or rigidity. : Deferred. No [place]ett. Severe scrotum swelling EXTREMITIES:and not cyanotic. No clubbing. Good capillary refill. Bilateral lower extremities edema plus four pitting SKIN: No skin breakdown. Vital Signs (last 8hr) Date Time Temp Pulse Resp B/P (MAP) Pulse Ox O2 Delivery O2 Flow Rate FiO2 10/02/24 17:29 98.1 74 18 106/62 100 Room Air 10/02/24 11:49 98.4 71 18 109/63 100 Room Air LABS: Laboratory: Test 10/02/24 15:47 10/02/24 05:18 10/01/24 05:15 09/30/24 21:30 Range/Units Whole Blood Glucose 114 H 70-110 MG/DL White Blood Count 8.4 4.8-10.8 K/uL Red Blood Count 3.08 L 4.50-6.20 MIL/uL Hemoglobin 10.1 L 14.0-18.0 g/dL Hematocrit 29.7 L 42-54 % Mean Corpuscular Volume 96.4 79-99 fL Mean Corpuscular Hemoglobin 32.8 27.0-33.0 pg Mean Corpuscular Hemoglobin Concent 34.0 32.0-36.0 g/dL Red Cell Distribution Width 17.3 H 11.0-15.5 % Platelet Count 116 L 130-400 K/uL Mean Platelet Volume 10.7 H 7.5-10.5 fL Segmented Neutrophils % 76 H 40-70 % Band Neutrophils % 1 0-2 % Lymphocytes % (Manual) 7 L 22-44 % Monocytes % (Manual) 9 2-9 % Eosinophils % (Manual) 5 1-6 % Metamyelocytes % 1 H 0-0 % Nucleated Red Blood Cells 0.0 0.0-0.19 % Differential Comment MANUAL DIFFERENTIAL Reactive Lymphocytes 1 H 0-0 % White Cell Morphology Comment Platelet Morphology Comment DECREASED Red Blood Cell Morphology See comments Sodium Level 135 L 136-145 mmol/L Potassium Level 3.5 3.5-5.1 mmol/L Chloride Level 101 101-111 mmol/L Carbon Dioxide Level 22 21-32 mmol/L Blood Urea Nitrogen 46 H 7-18 mg/dL Creatinine 2.9 H 0.5-1.3 mg/dL Glomerular Filtration Rate Calc 24 >90 mL/min Random Glucose 113 H 70-105 mg/dL Total Calcium 8.0 L 8.5-10.1 mg/dL Phosphorus Level 3.3 2.5-4.9 mg/dL Magnesium Level 2.10 1.80-2.40 mg/dL Total Bilirubin 3.4 H 0.2-1.0 mg/dL Aspartate Amino Transf (AST/SGOT) 70 H 10-37 U/L Alanine Aminotransferase (ALT/SGPT) 19 12-78 U/L Alkaline Phosphatase 115 50-136 U/L Total Protein 5.7 L 6.0-8.3 g/dL Albumin 2.3 L 3.5-5.0 g/dL Immature Granulocyte % (Auto) 1.7 H 0-1 % Neutrophils (%) (Auto) 75.4 40.0-77.0 % Lymphocytes (%) (Auto) 6.6 L 21.0-51.0 % Monocytes (%) (Auto) 11.0 3.0-13.0 % Eosinophils (%) (Auto) 4.9 0.0-8.0 % Basophils (%) (Auto) 0.4 0.0-5.0 % Neutrophils # (Auto) 7.6 1.8-7.7 K/uL Lymphocytes # (Auto) 0.7 L 1.0-4.8 K/uL Monocytes # (Auto) 1.1 H 0.1-1.0 K/uL Eosinophils # (Auto) 0.49 0.00-0.70 K/uL Basophils # (Auto) 0.04 0.00-0.20 K/uL Absolute Immature Granulocyte (auto 0.17 0-1 K/uL Uric Acid 9.1 H 2.6-7.2 mg/dL Iron Level 47 L 65-175 mcg/dL Total Iron Binding Capacity 113 L 250-450 mcg/dL Percent Iron Saturation 41.5 30-44 % Ferritin 906 H 30-400 ng/mL Thyroid Stimulating Hormone (TSH) 3.39 0.36-3.74 uIU/mL Hepatitis A IgM Antibody Non-Reactive Nonreactive Hepatitis B Surface Antigen. Non-Reactive Nonreactive Hepatitis B Core IgM Antibody Non-Reactive Negative Hepatitis C Antibody Non-Reactive Nonreactive Urine Color YELLOW YELLOW Urine Appearance CLEAR CLEAR Urine pH 5.0 5.0-8.0 Urine Specific [place] 1.013 1.001-1.031 Urine Protein NEGATIVE NEGATIVE mg/dL Urine Glucose (UA) NEGATIVE NEGATIVE mg/dL Urine Ketones NEGATIVE NEGATIVE mg/dL Urine Occult Blood NEGATIVE NEGATIVE Urine Nitrate NEGATIVE NEGATIVE Urine Bilirubin NEGATIVE NEGATIVE mg/dL Urine Urobilinogen 0.2 0.2-1.0 mg/dL Urine Leukocyte Esterase NEGATIVE NEGATIVE Rodolfo/uL Urine Osmolality 346 50-1200 mOsm/kg Urine Random Creatinine 139.96 H 30-135 mg/dL Urine Random Sodium < 13 L 40-220 mmol/l Urine Random Potassium 32 25-125 mmol/L Urine Random Chloride 37 L 110-250 mmol/L Current Medications Medications (Trade) Dose Ordered Sig/Lionel Route PRN Reason Start Time Stop Time Status Last Admin Dose Admin Acetaminophen (TYLenol 325MG TAB) 650 mg Q4H PRN PO MILD PAIN (1-3) 09/29/24 17:30 10/29/24 17:29 09/30/24 11:30 650 MG Acetaminophen (TYLenol 325MG TAB) 650 mg Q6H PRN PO MILD PAIN (1-3) 09/29/24 17:30 09/29/24 17:41 DC Acetaminophen (TYLenol 325MG TAB) 650 mg Q6H PRN PO TEMPERATURE GREATER THAN 101.5 09/29/24 17:30 10/29/24 17:29 Al Hydroxide/Mg Hydroxide (MAALox PLUS 30ML) 30 ml Q6H PRN PO INDIGESTION 09/29/24 17:30 10/29/24 17:29 Albumin Human 50 ml @ 0 mls/hr Q8H6 IV 09/30/24 22:00 10/02/24 14:01 DC 10/02/24 13:19 100 MLS/HR Albumin Human 200 ml @ 0 mls/hr AD IV 09/30/24 13:00 09/30/24 13:18 DC Albumin Human 200 ml @ 0 mls/hr AD IV 09/30/24 13:30 09/30/24 14:18 DC 09/30/24 13:28 0 MLS/HR Ceftriaxone Sodium 2 gm/ Sodium Chloride 100 ml @ 200 mls/hr Q24H IV 09/29/24 17:30 09/29/24 17:44 DC Ceftriaxone Sodium (Rocephin 2gm Inj) 2 gm Q24H IVPB 09/29/24 18:00 10/09/24 17:59 10/02/24 17:57 2 GM Dextrose (D50w) 50 ml AD PRN IV HYPOGLYCEMIA PROTOCOL 09/29/24 17:30 10/29/24 17:29 Diphenhydramine HCl (BENAdryl INJ) 25 mg Q6H PRN IV SEVERE ITCHING/RASH 09/29/24 17:30 10/29/24 17:29 Famotidine (Pepcid 20mg Vial) 20 mg BID PRN IV NAUSEA/VOMITING 09/29/24 17:30 09/29/24 17:41 DC Famotidine (Pepcid 20mg Vial) 20 mg QODAY IV 09/30/24 09:00 10/30/24 08:59 10/02/24 08:23 20 MG Furosemide (LASix 40MG TAB) 40 mg BID PO 10/02/24 21:00 11/01/24 20:59 Furosemide (LASix 40MG VIAL) 40 mg Q12H IV 09/29/24 22:00 10/02/24 10:49 DC 10/02/24 10:36 40 MG Glucagon (Glucagon 1mg Kit) 1 mg AD PRN IM HYPOGLYCEMIA PROTOCOL 09/29/24 17:30 10/29/24 17:29 Guaifenesin/ Dextromethorphan (RobiTUSSin DM 200/20MG 10ML) 10 ml Q4H PRN PO COUGH 09/29/24 17:30 10/29/24 17:29 Heparin Sodium (Porcine) (HEParin 5,000 UNIT VIAL) 5,000 unit BID SQ 09/29/24 21:00 10/29/24 20:59 09/30/24 20:07 5,000 UNIT Hydralazine HCl (APRESOLine 20MG INJ) 10 mg Q6H PRN IV For:SBP above 160;DBP above 90 09/29/24 17:30 10/29/24 17:29 Hydromorphone HCl (DiLAUDid 0.5MG INJ) 0.2 mg Q6H PRN IVP SEVERE PAIN (7-10) 09/30/24 11:30 10/05/24 11:29 Insulin Human Regular (humuLIN R 100 UNIT/ML 3ML) INSULIN SLIDING SCAL... ACHS SQ 09/29/24 21:00 10/29/24 20:59 Ketorolac Tromethamine (toRADol) 15 mg Q8H PRN IV MODERATE PAIN (4-6) 09/29/24 17:30 10/02/24 11:47 DC Lactulose (Constulose 20gm/ 30ml Udcup) 20 gm BID PRN PO CONSTIPATION 09/29/24 17:30 10/29/24 17:29 Lactulose (Constulose 20gm/ 30ml Udcup) 20 gm BID PRN PO CONSTIPATION 09/29/24 22:00 09/29/24 21:34 DC Magnesium Sulfate 50 ml @ 0 mls/hr PROTOCOL PRN IV other 09/29/24 17:30 10/29/24 17:29 10/01/24 17:37 25 MLS/HR Midodrine (PROAMatine 5 MG TABLET) 5 mg TID PO 10/02/24 14:00 11/01/24 13:59 10/02/24 13:19 5 MG Morphine Sulfate (morPHINE 2MG SYG) 1 mg Q4H PRN IVP SEVERE PAIN (7-10) 09/29/24 17:30 09/30/24 11:27 DC Nitroglycerin (Nitrostat) 0.4 mg PROTOCOL PRN SL CHEST PAIN 09/29/24 17:30 10/29/24 17:29 Octreotide Acetate (SandoSTATIN) 100 mcg Q8H6 SQ 09/30/24 22:00 10/30/24 21:59 10/02/24 13:19 100 MCG Ondansetron HCl (zoFRAN 4MG INJ) 4 mg Q6H PRN IV NAUSEA/VOMITING 09/29/24 17:30 10/29/24 17:29 Sodium Chloride 1,000 ml @ 70 mls/hr [id number] IV 09/29/24 17:30 09/29/24 21:30 DC Thiamine HCl (Vitamin B-1) 100 mg DAILY IVP 10/01/24 09:00 10/31/24 08:59 10/02/24 08:23 100 MG Vitamin B Complex/ Vit C/Folic Acid (Nephrovite Tablet) 1 cap DAILY PO 10/01/24 09:00 10/31/24 08:59 10/02/24 08:24 1 CAP Zolpidem Tartrate (AmbIEN) 5 mg HS PRN PO INSOMNIA 09/29/24 17:30 10/29/24 17:29 DIAGNOSTICS / RADIOLOGY: [ ] ASSESSMENT: [ Acute hypoxic respiratory failure POA Severe liver cirrhosis requiring paracentesis POA Severe bilateral lower extremities edema POA Uncontrolled hypertension POA Acute kidney injury TNP POA Possible acute complicated cystitis POA Leukocytosis WBC 16.9 due to above POA Severe liver cirrhosis per CT abdomen/pelvis POA Right hepatic mass measuring 9.2 x 8.[address] abdomen/pelvis Small ascites per CT abdomen/pelvis POA Anasarca per CT abdomen/pelvis POA Multifactorial anemia POA Severe malnutrition POA Electrolyte imbalance hyponatremia Na 133 POA] PLAN: Consults: [place] [place], medical staff assistant, oncologist, 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 Fall Precautions. Well lighted room through the day and minimize interruptions through the night to prevent acute delirium. 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 Follow hemodynamics. Vital signs per facility protocol GI & NUTRITION: CT abdomen/pelvis shows cirrhotic liver with enlarged spleen. There is right hepatic mass measuring 9.2 x 8.1 cm. There small ascites. Anasarca IR thoracentesis pending Liver biopsy to be done today. We will follow up with results. AFP level will be obtained today. Continue nutritional support Aspirations precautions Prokinetic agents and laxatives as needed KIDNEYS & ELECTROLYTES: Likely has hepatorenal syndrome on midodrine octreotide and albumin per Nephrology. Strict monitoring of intake and output Daily weights Avoid nephrotoxic agents Monitor electrolytes and replace as needed Goal urine output of 30mL/hr or 0.5mL/kg/hr Medications to be dosed according to renal function. Avoid contrast if possible Continue to follow nephrology recommendations ENDOCRINE: Maintain blood glucose between 100-180 at all times. Insulin sliding scale for blood glucose management Hypoglycemia and hyperglycemia protocol in place INFECTIOUS DISEASE: Trend temperature, WBC and procalcitonin level Follow cultures, deescalate antibiotics as soon as possible. HEMATOLOGY & COAGULATION: Monitor H&H. Keep Hgb > 7 Transfuse 1 unit of PRBC for Hgb < 7 Transfuse 1 pack of platelets of platelets < 20, 000 Watch for any signs and symptoms of bleeding SKIN: Ultrasound scrotum showed scrotal wall swelling. Pressure ulcer prevention per facility protocol Specialty mattress as needed Treatment plan discussed with patient and family at the bedside Rehab: PT/OT GI: PPI DVT: SCD's ELIAZAR AWAD MD Oct 02, 2024 18:28
--- NOTE | 2024-10-02 18:40 | PN ---
Patient states that abdominal distention is better, still has significant scrotal swelling. Physical examination: Patient is disheveled, chronically ill-looking. He is not in any distress. HEENT. Head is atraumatic, pupils are reactive to light, extraocular muscles are intact. Neck. Supple, no lymphadenopathy. Chest. Decreased air entry bilateral lung bases. No wheezing rales or crackles. Heart. S1-S2 regular, systolic murmur is present. Abdomen. Distended, bowel sounds are present. Engorged veins are present on the anterior abdominal wall. No tenderness was elicited. Massive scrotal edema and penile edema seen. Extremities. 3+ bilateral pitting edema. Neurological exam. Patient is alert and oriented x3, no focal neurological deficit. Labs: CBC, chemistry, AFP was reviewed. 1. Cirrhosis. 2. Large hepatic mass. 3. Ascites. 4. Elevated AFP. With the above AFP, large mass and cirrhosis, this is confirming the diagnosis of HCC. However pathology is pending. Continue to diurese as tolerated.q Vitals/Labs Vital Signs Date Time Temp Pulse Resp B/P (MAP) Pulse Ox O2 Delivery O2 Flow Rate FiO2 10/02/24 17:29 98.1 74 18 106/62 100 Room Air 10/02/24 07:40 0 21 Laboratory Tests 10/02/24 05:18 Medications Current Medications Insulin Human Regular INSULIN SLIDING SCAL... ACHS SQ; Start 09/29/24 at 21:00; Stop 10/29/24 at 20:59 Dextrose 50 ml AD PRN IV; Start 09/29/24 at 17:30; Stop 10/29/24 at 17:29 Glucagon 1 mg AD PRN IM; Start 09/29/24 at 17:30; Stop 10/29/24 at 17:29 Magnesium Sulfate 50 ml @ 0 mls/hr PROTOCOL PRN IV Last administered on 10/01/24at 17:37; Start 09/29/24 at 17:30; Stop 10/29/24 at 17:29 Diphenhydramine HCl 25 mg Q6H PRN IV; Start 09/29/24 at 17:30; Stop 10/29/24 at 17:29 Acetaminophen 650 mg Q6H PRN PO; Start 09/29/24 at 17:30; Stop 10/29/24 at 17:29 Acetaminophen 650 mg Q4H PRN PO Last administered on 09/30/24at 11:30; Start 09/29/24 at 17:30; Stop 10/29/24 at 17:29 Ondansetron HCl 4 mg Q6H PRN IV; Start 09/29/24 at 17:30; Stop 10/29/24 at 17:29 Zolpidem Tartrate 5 mg HS PRN PO; Start 09/29/24 at 17:30; Stop 10/29/24 at 17:29 Al Hydroxide/Mg Hydroxide 30 ml Q6H PRN PO; Start 09/29/24 at 17:30; Stop 10/29/24 at 17:29 Lactulose 20 gm BID PRN PO; Start 09/29/24 at 17:30; Stop 10/29/24 at 17:29 Nitroglycerin 0.4 mg PROTOCOL PRN SL; Start 09/29/24 at 17:30; Stop 10/29/24 at 17:29 Guaifenesin/ Dextromethorphan 10 ml Q4H PRN PO; Start 09/29/24 at 17:30; Stop 10/29/24 at 17:29 Famotidine 20 mg BID PRN IV; Start 09/29/24 at 17:30; Stop 09/29/24 at 17:41; Status DC Heparin Sodium (Porcine) 5,000 unit BID SQ Last administered on 09/30/24at 20:07; Start 09/29/24 at 21:00; Stop 10/29/24 at 20:59 Acetaminophen 650 mg Q6H PRN PO; Start 09/29/24 at 17:30; Stop 09/29/24 at 17:41; Status DC Ketorolac Tromethamine 15 mg Q8H PRN IV; Start 09/29/24 at 17:30; Stop 10/02/24 at 11:47; Status DC Morphine Sulfate 1 mg Q4H PRN IVP; Start 09/29/24 at 17:30; Stop 09/30/24 at 11:27; Status DC Sodium Chloride 1,000 ml @ 70 mls/hr [id number] IV; Start 09/29/24 at 17:30; Stop 09/29/24 at 21:30; Status DC Ceftriaxone Sodium 2 gm/ Sodium Chloride 100 ml @ 200 mls/hr Q24H IV; Start 09/29/24 at 17:30; Stop 09/29/24 at 17:44; Status DC Hydralazine HCl 10 mg Q6H PRN IV; Start 09/29/24 at 17:30; Stop 10/29/24 at 17:29 Famotidine 20 mg QODAY IV Last administered on 10/02/24at 08:23; Start 09/30/24 at 09:00; Stop 10/30/24 at 08:59 Ceftriaxone Sodium 2 gm Q24H IVPB Last administered on 10/02/24at 17:57; Start 09/29/24 at 18:00; Stop 10/09/24 at 17:59 Furosemide 40 mg Q12H IV Last administered on 10/02/24at 10:36; Start 09/29/24 at 22:00; Stop 10/02/24 at 10:49; Status DC Lactulose 20 gm BID PRN PO; Start 09/29/24 at 22:00; Stop 09/29/24 at 21:34; Status DC Hydromorphone HCl 0.2 mg Q6H PRN IVP; Start 09/30/24 at 11:30; Stop 10/05/24 at 11:29 Albumin Human 200 ml @ 0 mls/hr AD IV; Start 09/30/24 at 13:00; Stop 09/30/24 at 13:18; Status DC Albumin Human 200 ml @ 0 mls/hr AD IV Last administered on 09/30/24at 13:28; Start 09/30/24 at 13:30; Stop 09/30/24 at 14:18; Status DC Albumin Human 50 ml @ 0 mls/hr Q8H6 IV Last administered on 10/02/24at 13:19; Start 09/30/24 at 22:00; Stop 10/02/24 at 14:01; Status DC Octreotide Acetate 100 mcg Q8H6 SQ Last administered on 10/02/24at 13:19; Start 09/30/24 at 22:00; Stop 10/30/24 at 21:59 Thiamine HCl 100 mg DAILY IVP Last administered on 10/02/24at 08:23; Start 10/01/24 at 09:00; Stop 10/31/24 at 08:59 Vitamin B Complex/ Vit C/Folic Acid 1 cap DAILY PO Last administered on 10/02/24at 08:24; Start 10/01/24 at 09:00; Stop 10/31/24 at 08:59 Fentanyl Citrate 100 mcg STK-MED ONCE .ROUTE; Start 10/01/24 at 12:14; Stop 10/01/24 at 12:16; Status DC Midazolam HCl 2 mg STK-MED ONCE .ROUTE; Start 10/01/24 at 12:14; Stop 10/01/24 at 12:16; Status DC Furosemide 40 mg BID PO; Start 10/02/24 at 21:00; Stop 11/01/24 at 20:59 Midodrine 5 mg TID PO Last administered on 10/02/24at 13:19; Start 10/02/24 at 14:00; Stop 11/01/24 at 13:59 LORE CHANG MD Oct 02, 2024 18:40
[2024-10-02] MEDS: furoSEMIDE 40 MG TABLET PO SCH (21:09)
--- NOTE | 2024-10-02 22:36 | PN ---
FOLLOWUP PROGRESS NOTE SUBJECTIVE: A 59-year-old male with history of known cirrhosis. He initially presented with acute on chronic renal dysfunction. The patient's creatinine continues to be elevated. The patient is status post paracentesis. The patient also status post liver biopsy, results of which are all pending. He is being seen as a followup visit for all of the above. REVIEW OF SYSTEMS: GENERAL: He is feeling weak and tired. HEENT: No change in vision. No change in hearing. No nasal discharge. No sore throat. CARDIOVASCULAR: There is no current chest pain or palpitations. PULMONARY: Shortness of breath is improved. GASTROINTESTINAL: The patient is tolerating a diet. MUSCULOSKELETAL: Complains of weakness. PHYSICAL EXAMINATION: VITAL SIGNS: Blood pressure is 102/57, pulse in the 70s, afebrile. GENERAL: He is a chronically ill male, elderly, lying in bed on medical floor. HEENT: Head is atraumatic. Pupils equal, roving to light. Oropharynx is without exudate. Nares clear. NECK: There is no JVP. There is no thyromegaly, no mass. CARDIOVASCULAR: Regular. There is no S3, S4 gallop. LUNGS: Coarse with equal thoracic movement. ABDOMEN: Soft, nondistended, nontender. EXTREMITIES: He has got minimal edema. LABORATORY DATA: Sodium 135, potassium 3.5, BUN 46, creatinine is 2.9. Hemoglobin 10, hematocrit 29. IMPRESSION: * Acute on chronic renal failure. * Cirrhosis. * Volume overload. * Hypotension. PLAN: The patient's Lasix will be switched to oral form. The patient will be started on midodrine 5 mg p.o. t.i.d. for the relative hypotension. The patient needs to avoid all nonsteroidal medications. We will continue to follow closely. All labs will be repeated in the morning. Biopsy results are all pending. TID: [id number] RECEIPT: [id number]
[2024-10-03] VITALS (8 sets, daily range): BP systolic 103–119; BP diastolic 57–66; PULSE 68–74; RESP 17–20; TEMP 97.6–98.6; O2SAT 100
[2024-10-03 06:06] LABS: BASOPHILS # (AUTO) 0.06 K/uL (0.00-0.20); BASOPHILS % (AUTO) 0.6 % (0.0-5.0); EOSINOPHILS # (AUTO) 0.58 K/uL (0.00-0.70); EOSINOPHILS % (AUTO) 6.1 % (0.0-8.0); HEMATOCRIT 29.7 % (42-54); IMMATURE GRANULOCYTE ABSOLUTE 0.31 K/uL (0-1); LYMPHOCYTES # (AUTO) 0.9 K/uL (1.0-4.8); LYMPHOCYTES % (AUTO) 9.9 % (21.0-51.0); MEAN CORPUSCULAR HEMOGLOBIN 33.2 pg (27.0-33.0); MEAN CORPUSCULAR HGB CONC 34.3 g/dL (32.0-36.0); MEAN CORPUSCULAR VOLUME 96.7 fL (79-99); MONOCYTES # (AUTO) 1.3 K/uL (0.1-1.0); MONOCYTES % (AUTO) 13.3 % (3.0-13.0); NEUTROPHILS # (AUTO) 6.4 K/uL (1.8-7.7); NEUTROPHILS % (AUTO) 66.9 % (40.0-77.0); PLATELET COUNT (AUTO) 105 K/uL (130-400); RED BLOOD CELL COUNT(AUTO) 3.07 MIL/uL (4.50-6.20); RED CELL DISTRIBUTION WIDTH 17.3 % (11.0-15.5); WHITE BLOOD COUNT (AUTO) 9.5 K/uL (4.8-10.8)
[2024-10-03 06:23] LABS: INR 1.24 (0.85-1.15); PROTHROMBIN TIME 12.9 SEC (9.6-11.6)
[2024-10-03 06:30] LABS: ALBUMIN 2.3 g/dL (3.5-5.0); BILIRUBIN,TOTAL 3.4 mg/dL (0.2-1.0); CREATININE 2.6 mg/dL (0.5-1.3); POTASSIUM 3.2 mmol/L (3.5-5.1); TOTAL PROTEIN, SERUM 5.6 g/dL (6.0-8.3)
[2024-10-03 06:38] LABS: B-TYPE NATRIURETIC PEPTIDE 106 pg/mL (0-100)
--- NOTE | 2024-10-03 09:47 | PN ---
[facility] CARDIOLOGY PROGRESS NOTE Date Patient Seen: Oct 03, 2024 Time of Visit: 09:44 Interval History: This is a 59-year-old male with a past medical history of chronic alcohol abuse,liver cirrhosis and CKD stage IV with estimated GFR of 24 who presented to the ED with complaints of worsening shortness of breath, abdominal distention, bilateral lower extremity edema, and scrotal edema for the last 2-3 weeks. He also had evidence of anasarca. 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 He was evaluated by Dr. Howard Cheung who felt the patient was not a surgical candidate given findings of a right hepatic mass concerning for malignancy. He underwent large volume paracentesis removing 6 L on 09/30/2024. He continues on IV diuretic therapy and continues with anasarca. Creatinine has been stable. He has been evaluated by Oncology and liver biopsy is currently pending, but AFP tumor marker was elevated at 511, with his clinical course concerning for hepatocellular carcinoma He offers no orthopnea or PND. In addition he offers no complaints of chest pain. Physical Examination: GENERAL: No acute distress. HEAD: Normal with no signs of head trauma. EYES: PERRLA, EOMI, conjunctiva and sclera are icteric. NECK: There is JVD 2 fingerbreadths below the angle of the jaw. There is no tenderness, lymphadenopathy, or masses. No thyromegaly. Normal carotid upstrokes without bruits. LUNGS: Diminished breath sounds at the bases bilaterally. HEART: Normal rate and rhythm. Normal S1 and S2 without murmurs, gallop or rub. ABD: There is anasarca up to the mid back, there also varicose veins noted throughout the abdominal area VASC: Peripheral pulses are difficult to palpate given his lower extremity edema. EXT: There is at least 3 to 4+ edema up into the thighs bilaterally. NEURO: Awake, alert, and oriented x3. No focal neurological deficits noted. Laboratory: Hematology Labs: Test 10/03/24 05:28 10/02/24 05:18 Range/Units White Blood Count 9.5 4.8-10.8 K/uL Red Blood Count 3.07 L 4.50-6.20 MIL/uL Hemoglobin 10.2 L 14.0-18.0 g/dL Hematocrit 29.7 L 42-54 % Mean Corpuscular Volume 96.7 79-99 fL Mean Corpuscular Hemoglobin 33.2 H 27.0-33.0 pg Mean Corpuscular Hemoglobin Concent 34.3 32.0-36.0 g/dL Red Cell Distribution Width 17.3 H 11.0-15.5 % Platelet Count 105 L 130-400 K/uL Mean Platelet Volume 10.6 H 7.5-10.5 fL Immature Granulocyte % (Auto) 3.2 H 0-1 % Neutrophils (%) (Auto) 66.9 40.0-77.0 % Lymphocytes (%) (Auto) 9.9 L 21.0-51.0 % Monocytes (%) (Auto) 13.3 H 3.0-13.0 % Eosinophils (%) (Auto) 6.1 0.0-8.0 % Basophils (%) (Auto) 0.6 0.0-5.0 % Neutrophils # (Auto) 6.4 1.8-7.7 K/uL Lymphocytes # (Auto) 0.9 L 1.0-4.8 K/uL Monocytes # (Auto) 1.3 H 0.1-1.0 K/uL Eosinophils # (Auto) 0.58 0.00-0.70 K/uL Basophils # (Auto) 0.06 0.00-0.20 K/uL Absolute Immature Granulocyte (auto 0.31 0-1 K/uL Nucleated Red Blood Cells 0.0 0.0-0.19 % Segmented Neutrophils % 76 H 40-70 % Band Neutrophils % 1 0-2 % Lymphocytes % (Manual) 7 L 22-44 % Monocytes % (Manual) 9 2-9 % Eosinophils % (Manual) 5 1-6 % Metamyelocytes % 1 H 0-0 % Differential Comment MANUAL DIFFERENTIAL Reactive Lymphocytes 1 H 0-0 % White Cell Morphology Comment Platelet Morphology Comment DECREASED Red Blood Cell Morphology See comments Chemistry Labs: Test 10/03/24 05:28 10/02/24 05:18 Range/Units Sodium Level 142 136-145 mmol/L Potassium Level 3.2 L 3.5-5.1 mmol/L Chloride Level 106 101-111 mmol/L Carbon Dioxide Level 23 21-32 mmol/L Blood Urea Nitrogen 47 H 7-18 mg/dL Creatinine 2.6 H 0.5-1.3 mg/dL Glomerular Filtration Rate Calc 28 >90 mL/min Whole Blood Glucose 105 70-110 MG/DL Random Glucose 106 H 70-105 mg/dL Total Calcium 8.0 L 8.5-10.1 mg/dL Total Bilirubin 3.4 H 0.2-1.0 mg/dL Aspartate Amino Transf (AST/SGOT) 69 H 10-37 U/L Alanine Aminotransferase (ALT/SGPT) 19 12-78 U/L Alkaline Phosphatase 126 50-136 U/L B-Type Natriuretic Peptide 106 H 0-100 pg/mL Total Protein 5.6 L 6.0-8.3 g/dL Albumin 2.3 L 3.5-5.0 g/dL Phosphorus Level 3.3 2.5-4.9 mg/dL Magnesium Level 2.10 1.80-2.40 mg/dL Coagulation Labs: Test 10/03/24 05:28 Range/Units Prothrombin Time 12.9 H 9.6-11.6 SEC Prothromb Time International Ratio 1.24 H 0.85-1.15 Diagnostics / Radiology: CT ABDOMEN/PELVIS W/O CONTRAST : FINDINGS: Tiny bilateral pleural effusions are seen. There is no evidence of parenchymal disease or pulmonary nodule of the visualized lower lungs. Degenerative changes of the thoracolumbar spine are present. The heart is not enlarged. Cirrhotic changes of the liver are noted. The liver has irregular contour. There is right hepatic mass measuring 9.2 x 8.1 cm. There is left renal atrophy. Liver measures 8.4 cm. Spleen is enlarged measuring 15 cm Spleen, adrenal glands and pancreas are unremarkable. There is no evidence of hydronephrosis bilaterally. No evidence of renal stone is seen. Fecal material is seen in the colon. There are normal size retroperitoneal and mesenteric lymph nodes. There is small ascites and anasarca. Atherosclerotic changes are present. Pelvic sidewalls are symmetric bilaterally. Bladder is well distended without wall thickening. IMPRESSION: 1. Cirrhotic liver with enlarged spleen . There is right hepatic mass measuring 9.2 x 8.1 cm. There is small ascites. Anasarca. 2D echo on 09/30/2024: Conclusion The left ventricle is normal size. LVEF is 60-65%. 3D volume EF 67%. The left ventricular diastolic function is normal. The right ventricle is normal size. The right ventricular systolic function is normal. The left atrium size is normal. The right atrium is technically difficult to measure due to Large right atrial mass present, clinically appears as myxoma. There is mild tricuspid valve regurgitation noted. There is mild tricuspid valve regurgitation noted. RVSP 35 mm Hg. There is no pericardial effusion. 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 Sharif is following Anasarca Chronic kidney disease stage 4 with estimated GFR of 24: -continue diuretic therapy -daily weights and efforts at accurate intake and output Chronic Alcohol abuse Normal LVEF of 60-65% by 2D echocardiogram 09/30/2024 PHYSICIAN ATTESTATION OF PHYSICIAN HOT SHOT DOCUMENTATION: I attest that I was physically present for the hazel portions of the service and evaluated the patient with the Physician Manager Shell, and I reviewed and discussed the case with the Physician Manager Shell and made modifications to the Physician Manager Shell's findings and plans of care as documented above ALIYAH SALTER Oct 03, 2024 09:47 MERY GIRARD MD Oct 03, 2024 17:44
--- NOTE | 2024-10-03 11:26 | PN ---
Patient states that abdominal distention is better, still has significant scrotal swelling. Physical examination: Patient is disheveled, chronically ill-looking. He is not in any distress. HEENT. Head is atraumatic, pupils are reactive to light, extraocular muscles are intact. Neck. Supple, no lymphadenopathy. Chest. Decreased air entry bilateral lung bases. No wheezing rales or crackles. Heart. S1-S2 regular, systolic murmur is present. Abdomen. Distended, bowel sounds are present. Engorged veins are present on the anterior abdominal wall. No tenderness was elicited. Massive scrotal edema and penile edema seen. Extremities. 3+ bilateral pitting edema. Neurological exam. Patient is alert and oriented x3, no focal neurological deficit. Labs: CBC, chemistry reviewed. 1. Cirrhosis. 2. Large hepatic mass. 3. Ascites. 4. Elevated AFP. With the above AFP, large hepatic mass and cirrhosis, this is confirming the diagnosis of HCC. However pathology is pending. Continue to diurese as tolerated. Vitals/Labs Vital Signs Date Time Temp Pulse Resp B/P (MAP) Pulse Ox O2 Delivery O2 Flow Rate FiO2 10/03/24 07:51 97.9 72 18 105/62 100 Room Air 21 10/02/24 20:00 0 Laboratory Tests 10/03/24 05:28 Medications Current Medications Insulin Human Regular INSULIN SLIDING SCAL... ACHS SQ; Start 09/29/24 at 21:00; Stop 10/29/24 at 20:59 Dextrose 50 ml AD PRN IV; Start 09/29/24 at 17:30; Stop 10/29/24 at 17:29 Glucagon 1 mg AD PRN IM; Start 09/29/24 at 17:30; Stop 10/29/24 at 17:29 Magnesium Sulfate 50 ml @ 0 mls/hr PROTOCOL PRN IV Last administered on 10/01/24at 17:37; Start 09/29/24 at 17:30; Stop 10/29/24 at 17:29 Diphenhydramine HCl 25 mg Q6H PRN IV; Start 09/29/24 at 17:30; Stop 10/29/24 at 17:29 Acetaminophen 650 mg Q6H PRN PO; Start 09/29/24 at 17:30; Stop 10/29/24 at 17:29 Acetaminophen 650 mg Q4H PRN PO Last administered on 09/30/24at 11:30; Start 09/29/24 at 17:30; Stop 10/29/24 at 17:29 Ondansetron HCl 4 mg Q6H PRN IV; Start 09/29/24 at 17:30; Stop 10/29/24 at 17:29 Zolpidem Tartrate 5 mg HS PRN PO; Start 09/29/24 at 17:30; Stop 10/29/24 at 17:29 Al Hydroxide/Mg Hydroxide 30 ml Q6H PRN PO; Start 09/29/24 at 17:30; Stop 10/29/24 at 17:29 Lactulose 20 gm BID PRN PO; Start 09/29/24 at 17:30; Stop 10/29/24 at 17:29 Nitroglycerin 0.4 mg PROTOCOL PRN SL; Start 09/29/24 at 17:30; Stop 10/29/24 at 17:29 Guaifenesin/ Dextromethorphan 10 ml Q4H PRN PO; Start 09/29/24 at 17:30; Stop 10/29/24 at 17:29 Famotidine 20 mg BID PRN IV; Start 09/29/24 at 17:30; Stop 09/29/24 at 17:41; Status DC Heparin Sodium (Porcine) 5,000 unit BID SQ Last administered on 10/02/24at 21:09; Start 09/29/24 at 21:00; Stop 10/29/24 at 20:59 Acetaminophen 650 mg Q6H PRN PO; Start 09/29/24 at 17:30; Stop 09/29/24 at 17:41; Status DC Ketorolac Tromethamine 15 mg Q8H PRN IV; Start 09/29/24 at 17:30; Stop 10/02/24 at 11:47; Status DC Morphine Sulfate 1 mg Q4H PRN IVP; Start 09/29/24 at 17:30; Stop 09/30/24 at 11:27; Status DC Sodium Chloride 1,000 ml @ 70 mls/hr [id number] IV; Start 09/29/24 at 17:30; Stop 09/29/24 at 21:30; Status DC Ceftriaxone Sodium 2 gm/ Sodium Chloride 100 ml @ 200 mls/hr Q24H IV; Start 09/29/24 at 17:30; Stop 09/29/24 at 17:44; Status DC Hydralazine HCl 10 mg Q6H PRN IV; Start 09/29/24 at 17:30; Stop 10/29/24 at 17:29 Famotidine 20 mg QODAY IV Last administered on 10/02/24at 08:23; Start 09/30/24 at 09:00; Stop 10/30/24 at 08:59 Ceftriaxone Sodium 2 gm Q24H IVPB Last administered on 10/02/24at 17:57; Start 09/29/24 at 18:00; Stop 10/09/24 at 17:59 Furosemide 40 mg Q12H IV Last administered on 10/02/24at 10:36; Start 09/29/24 at 22:00; Stop 10/02/24 at 10:49; Status DC Lactulose 20 gm BID PRN PO; Start 09/29/24 at 22:00; Stop 09/29/24 at 21:34; Status DC Hydromorphone HCl 0.2 mg Q6H PRN IVP; Start 09/30/24 at 11:30; Stop 10/05/24 at 11:29 Albumin Human 200 ml @ 0 mls/hr AD IV; Start 09/30/24 at 13:00; Stop 09/30/24 at 13:18; Status DC Albumin Human 200 ml @ 0 mls/hr AD IV Last administered on 09/30/24at 13:28; Start 09/30/24 at 13:30; Stop 09/30/24 at 14:18; Status DC Albumin Human 50 ml @ 0 mls/hr Q8H6 IV Last administered on 10/02/24at 13:19; Start 09/30/24 at 22:00; Stop 10/02/24 at 14:01; Status DC Octreotide Acetate 100 mcg Q8H6 SQ Last administered on 10/03/24at 06:06; Start 09/30/24 at 22:00; Stop 10/30/24 at 21:59 Thiamine HCl 100 mg DAILY IVP Last administered on 10/03/24at 08:44; Start 10/01/24 at 09:00; Stop 10/31/24 at 08:59 Vitamin B Complex/ Vit C/Folic Acid 1 cap DAILY PO Last administered on 10/03/24at 08:44; Start 10/01/24 at 09:00; Stop 10/31/24 at 08:59 Fentanyl Citrate 100 mcg STK-MED ONCE .ROUTE; Start 10/01/24 at 12:14; Stop 10/01/24 at 12:16; Status DC Midazolam HCl 2 mg STK-MED ONCE .ROUTE; Start 10/01/24 at 12:14; Stop 10/01/24 at 12:16; Status DC Furosemide 40 mg BID PO Last administered on 10/03/24at 08:44; Start 10/02/24 at 21:00; Stop 11/01/24 at 20:59 Midodrine 5 mg TID PO Last administered on 10/03/24at 08:44; Start 10/02/24 at 14:00; Stop 11/01/24 at 13:59 LORE CHANG MD Oct 03, 2024 11:26
[2024-10-03 12:03] LABS: APPEARANCE,URINE CLEAR (CLEAR); BILIRUBIN,URINE NEGATIVE (NEGATIVE); COLOR,URINE YELLOW (YELLOW); GLUCOSE, URINE (UA) NEGATIVE (NEGATIVE); KETONES,URINE NEGATIVE (NEGATIVE); LEUKOCYTE ESTERASE ,URINE 25 Leu/uL (NEGATIVE); MUCUS,URINE RARE LPF (None Seen); NITRATE,URINE NEGATIVE (NEGATIVE); PH,URINE 5.5 (5.0-8.0); PROTEIN,URINE NEGATIVE (NEGATIVE); SQUAMOUS EPITHELIAL CELL,UR RARE /HPF (0-2); UROBILINOGEN,URINE 0.2 mg/dL (0.2-1.0)
--- NOTE | 2024-10-03 13:36 | PN ---
[facility] PROGRESS NOTE Date of Service: Oct 03, 2024 Time of Service: 13:34 SUBJECTIVE: 09/30: Patient is a 59 year old M, with a PMH of liver cirrhosis and undiagnosed EDUAR, who presented to the ED with complaints of shortness of breath with exertion, abdominal distention, bilateral lower extremity edema, and swelling of scrotum. Patient states the scrotal swelling began one week ago and has been preventing him from walking. The patients CT abdomen/pelvis showed cirrhosis with enlarging spleen, and a right hepatic mass measuring 9.2 x 8.1 cm, small ascites. The patient is planned to get a paracentesis done today. The patient will be getting a liver biopsy tomorrow. Per GI, we will obtain AFP level. The patient complains of pain, rating it a 7/10 on the pain scale. The patient states he does not want to take Morphine. I spoke to pharmacy, and we agreed that the patient can receive 0.2 mg Dilaudid as needed every 6 hours for pain. The patient WBC count is 13.6, down from 16.9. Lactic acid 3.8. 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 We will continue to follow cardiology, oncology, and nephrology recommendations. 10/01: Patient was seen this morning at bedside. Patient is doing well. Patient denies chest pain, shortness of breath, nausea, vomiting, fever, chills, abdominal pain. The patient will receive scrotal support to aid in the management of swelling. The Patient will be getting a liver biopsy done today. Patient had a paracentesis done yesterday, where 6 L of ascitic fluid was removed. Cultures are pending. 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 We will wait for liver biopsy results, and AFP levels. Patients Creatinine is 2.8, up from 2.6. BUN is 42, up from 37. We will continue to appreciate Cardiology, Nephrology, and Oncology recommendations. 10/02/2024. Patient seen and examined along with RN. No new complaints. Continues to be on diuretics started on midodrine and Sandostatin. Biopsy resul ts are pending. 10/03/24 : pt seen and examined along with rn , no new complaints creatine stable REVIEW OF SYSTEMS CONSTITUTIONAL: Denies fevers, chills, or night sweats. No unintentional weight loss reported. NEUROLOGICAL: Denies headache, amaurosis fugax, motor weakness, sensory deficit, vertigo/spinning sensation, gait abnormalities, or tremors. ENT: No hearing loss, otalgia, otorrhea, rhinitis, rhinorrhea, hoarseness, or sore throat. CARDIOVASCULAR: Denies any exertional angina, dyspnea on exertion, orthopnea, paroxysmal nocturnal dyspnea, palpitations, life-threatening arrhythmias, claudication. PULMONARY: Denies any cough, phlegm/sputum, hemoptysis, pleuritic chest pain. Complains of shortness of breath on exertion SLEEP: Denies morning headaches, daytime somnolence or napping. Denies difficulty falling asleep, staying asleep, waking from sleep. Denies knowledge of snoring. GASTROINTESTINAL: Denies any type of dysphagia to either liquids or solids. Denies nausea, vomiting, pyrosis, early satiety, diarrhea, constipation, or changes in stool consistency or caliber. Denies coffee-ground emesis, hematemesis, hematochezia, or melanotic stools. Complains of abdominal pain. GENITOURINARY: Denies frequency, urgency, nocturia, hematuria or incontinence (Storage/Irritative symptoms.) Low urinary stream, straining to void, urinary intermittency or hesitancy, splitting of the voiding stream, terminal dribbling. Complains of scrotal pain ENDOCRINOLOGIC: Denies polyuria, polydipsia, polyphagia or heat/cold intolerances. HEMATOLOGIC: Denies thrombophilia/previous clots, or coagulopathy/bleeding disorders. ONCOLOGIC: Denies personal history of malignancy. DERMATOLOGIC: Denies rashes or pruritus. PSYCHIATRIC: Denies any suicidal or homicidal ideation. Denies hallucinations. PHYSICAL EXAM GENERAL APPEARANCE: The patient is awake, alert, and oriented, in no acute cardiopulmonary distress. NEUROLOGICAL: Cranial nerves II-XII grossly intact. Motor is 5/5 in bilateral upper and lower extremities proximal to distal. No sensory deficits. HEENT: Face is symmetric. Pupils are equal and reactive. Extraocular movements are intact. NECK: Supple. No JVD. No thyromegaly. No submental, submandibular, pre-/p ostauricular, occipital or supraclavicular lymphadenopathy. CHEST: Normal chest expansion. No Telemetry. LUNGS: Absence of any rales, rhonchi or any wheezing. CARDIOVASCULAR: Regular. S1 and S2 normal. No appreciable rubs, murmurs or gallops. ABDOMEN: Soft, nontender, and nondistended. There is no rebound, voluntary guarding, or rigidity. : Deferred. No [place]. Severe scrotum swelling EXTREMITIES:and not cyanotic. No clubbing. Good capillary refill. Bilateral lower extremities edema plus four pitting SKIN: No skin breakdown. Vital Signs (last 8hr) Date Time Temp Pulse Resp B/P (MAP) Pulse Ox O2 Delivery O2 Flow Rate FiO2 10/03/24 12:00 98.1 71 20 119/66 100 Room Air 21 10/03/24 07:51 97.9 72 18 105/62 100 Room Air 21 10/03/24 07:40 100 Room Air* 0 21 LABS: Laboratory: Test 10/03/24 11:27 10/03/24 05:28 10/02/24 05:18 Range/Units Urine Color YELLOW YELLOW Urine Appearance CLEAR CLEAR Urine pH 5.5 5.0-8.0 Urine Specific [place] 1.011 1.001-1.031 Urine Protein NEGATIVE NEGATIVE mg/dL Urine Glucose (UA) NEGATIVE NEGATIVE mg/dL Urine Ketones NEGATIVE NEGATIVE mg/dL Urine Occult Blood +- (TRACE) H NEGATIVE Urine Nitrate NEGATIVE NEGATIVE Urine Bilirubin NEGATIVE NEGATIVE mg/dL Urine Urobilinogen 0.2 0.2-1.0 mg/dL Urine Leukocyte Esterase 25 H NEGATIVE [place]fo/uL Urine RBC None 0-1 /HPF Urine WBC 2-5 H 0-1 /HPF Urine Squamous Epithelial Cells RARE 0-2 /HPF Urine Bacteria None None Seen /HPF Urine Hyaline Casts 2-5 H 0-1 /LPF /LPF Whole Blood Glucose 110 70-110 MG/DL White Blood Count 9.5 4.8-10.8 K/uL Red Blood Count 3.07 L 4.50-6.20 MIL/uL Hemoglobin 10.2 L 14.0-18.0 g/dL Hematocrit 29.7 L 42-54 % Mean Corpuscular Volume 96.7 79-99 fL Mean Corpuscular Hemoglobin 33.2 H 27.0-33.0 pg Mean Corpuscular Hemoglobin Concent 34.3 32.0-36.0 g/dL Red Cell Distribution Width 17.3 H 11.0-15.5 % Platelet Count 105 L 130-400 K/uL Mean Platelet Volume 10.6 H 7.5-10.5 fL Immature Granulocyte % (Auto) 3.2 H 0-1 % Neutrophils (%) (Auto) 66.9 40.0-77.0 % Lymphocytes (%) (Auto) 9.9 L 21.0-51.0 % Monocytes (%) (Auto) 13.3 H 3.0-13.0 % Eosinophils (%) (Auto) 6.1 0.0-8.0 % Basophils (%) (Auto) 0.6 0.0-5.0 % Neutrophils # (Auto) 6.4 1.8-7.7 K/uL Lymphocytes # (Auto) 0.9 L 1.0-4.8 K/uL Monocytes # (Auto) 1.3 H 0.1-1.0 K/uL Eosinophils # (Auto) 0.58 0.00-0.70 K/uL Basophils # (Auto) 0.06 0.00-0.20 K/uL Absolute Immature Granulocyte (auto 0.31 0-1 K/uL Nucleated Red Blood Cells 0.0 0.0-0.19 % Prothrombin Time 12.9 H 9.6-11.6 SEC Prothromb Time International Ratio 1.24 H 0.85-1.15 Sodium Level 142 136-145 mmol/L Potassium Level 3.2 L 3.5-5.1 mmol/L Chloride Level 106 101-111 mmol/L Carbon Dioxide Level 23 21-32 mmol/L Blood Urea Nitrogen 47 H 7-18 mg/dL Creatinine 2.6 H 0.5-1.3 mg/dL Glomerular Filtration Rate Calc 28 >90 mL/min Random Glucose 106 H 70-105 mg/dL Total Calcium 8.0 L 8.5-10.1 mg/dL Total Bilirubin 3.4 H 0.2-1.0 mg/dL Aspartate Amino Transf (AST/SGOT) 69 H 10-37 U/L Alanine Aminotransferase (ALT/SGPT) 19 12-78 U/L Alkaline Phosphatase 126 50-136 U/L B-Type Natriuretic Peptide 106 H 0-100 pg/mL Total Protein 5.6 L 6.0-8.3 g/dL Albumin 2.3 L 3.5-5.0 g/dL Segmented Neutrophils % 76 H 40-70 % Band Neutrophils % 1 0-2 % Lymphocytes % (Manual) 7 L 22-44 % Monocytes % (Manual) 9 2-9 % Eosinophils % (Manual) 5 1-6 % Metamyelocytes % 1 H 0-0 % Differential Comment MANUAL DIFFERENTIAL Reactive Lymphocytes 1 H 0-0 % White Cell Morphology Comment Platelet Morphology Comment DECREASED Red Blood Cell Morphology See comments Phosphorus Level 3.3 2.5-4.9 mg/dL Magnesium Level 2.10 1.80-2.40 mg/dL Current Medications Medications (Trade) Dose Ordered Sig/Lionel Route PRN Reason Start Time Stop Time Status Last Admin Dose Admin Acetaminophen (TYLenol 325MG TAB) 650 mg Q4H PRN PO MILD PAIN (1-3) 09/29/24 17:30 10/29/24 17:29 09/30/24 11:30 650 MG Acetaminophen (TYLenol 325MG TAB) 650 mg Q6H PRN PO MILD PAIN (1-3) 09/29/24 17:30 09/29/24 17:41 DC Acetaminophen (TYLenol 325MG TAB) 650 mg Q6H PRN PO TEMPERATURE GREATER THAN 101.5 09/29/24 17:30 10/29/24 17:29 Al Hydroxide/Mg Hydroxide (MAALox PLUS 30ML) 30 ml Q6H PRN PO INDIGESTION 09/29/24 17:30 10/29/24 17:29 Albumin Human 50 ml @ 0 mls/hr Q8H6 IV 09/30/24 22:00 10/02/24 14:01 DC 10/02/24 13:19 100 MLS/HR Albumin Human 200 ml @ 0 mls/hr AD IV 09/30/24 13:00 09/30/24 13:18 DC Albumin Human 200 ml @ 0 mls/hr AD IV 09/30/24 13:30 09/30/24 14:18 DC 09/30/24 13:28 0 MLS/HR Ceftriaxone Sodium 2 gm/ Sodium Chloride 100 ml @ 200 mls/hr Q24H IV 09/29/24 17:30 09/29/24 17:44 DC Ceftriaxone Sodium (Rocephin 2gm Inj) 2 gm Q24H IVPB 09/29/24 18:00 10/09/24 17:59 10/02/24 17:57 2 GM Dextrose (D50w) 50 ml AD PRN IV HYPOGLYCEMIA PROTOCOL 09/29/24 17:30 10/29/24 17:29 Diphenhydramine HCl (BENAdryl INJ) 25 mg Q6H PRN IV SEVERE ITCHING/RASH 09/29/24 17:30 10/29/24 17:29 Famotidine (Pepcid 20mg Vial) 20 mg BID PRN IV NAUSEA/VOMITING 09/29/24 17:30 09/29/24 17:41 DC Famotidine (Pepcid 20mg Vial) 20 mg QODAY IV 09/30/24 09:00 10/30/24 08:59 10/02/24 08:23 20 MG Furosemide (LASix 40MG TAB) 40 mg BID PO 10/02/24 21:00 11/01/24 20:59 10/03/24 08:44 40 MG Furosemide (LASix 40MG VIAL) 40 mg Q12H IV 09/29/24 22:00 10/02/24 10:49 DC 10/02/24 10:36 40 MG Glucagon (Glucagon 1mg Kit) 1 mg AD PRN IM HYPOGLYCEMIA PROTOCOL 09/29/24 17:30 10/29/24 17:29 Guaifenesin/ Dextromethorphan (RobiTUSSin DM 200/20MG 10ML) 10 ml Q4H PRN PO COUGH 09/29/24 17:30 10/29/24 17:29 Heparin Sodium (Porcine) (HEParin 5,000 UNIT VIAL) 5,000 unit BID SQ 09/29/24 21:00 10/29/24 20:59 10/02/24 21:09 5,000 UNIT Hydralazine HCl (APRESOLine 20MG INJ) 10 mg Q6H PRN IV For:SBP above 160;DBP above 90 09/29/24 17:30 10/29/24 17:29 Hydromorphone HCl (DiLAUDid 0.5MG INJ) 0.2 mg Q6H PRN IVP SEVERE PAIN (7-10) 09/30/24 11:30 10/05/24 11:29 Insulin Human Regular (humuLIN R 100 UNIT/ML 3ML) INSULIN SLIDING SCAL... ACHS SQ 09/29/24 21:00 10/29/24 20:59 Ketorolac Tromethamine (toRADol) 15 mg Q8H PRN IV MODERATE PAIN (4-6) 09/29/24 17:30 10/02/24 11:47 DC Lactulose (Constulose 20gm/ 30ml Udcup) 20 gm BID PRN PO CONSTIPATION 09/29/24 17:30 10/29/24 17:29 Lactulose (Constulose 20gm/ 30ml Udcup) 20 gm BID PRN PO CONSTIPATION 09/29/24 22:00 09/29/24 21:34 DC Magnesium Sulfate 50 ml @ 0 mls/hr PROTOCOL PRN IV other 09/29/24 17:30 10/29/24 17:29 10/01/24 17:37 25 MLS/HR Midodrine (PROAMatine 5 MG TABLET) 5 mg TID PO 10/02/24 14:00 11/01/24 13:59 10/03/24 08:44 5 MG Morphine Sulfate (morPHINE 2MG SYG) 1 mg Q4H PRN IVP SEVERE PAIN (7-10) 09/29/24 17:30 09/30/24 11:27 DC Nitroglycerin (Nitrostat) 0.4 mg PROTOCOL PRN SL CHEST PAIN 09/29/24 17:30 10/29/24 17:29 Octreotide Acetate (SandoSTATIN) 100 mcg Q8H6 SQ 09/30/24 22:00 10/30/24 21:59 10/03/24 06:06 100 MCG Ondansetron HCl (zoFRAN 4MG INJ) 4 mg Q6H PRN IV NAUSEA/VOMITING 09/29/24 17:30 10/29/24 17:29 Sodium Chloride 1,000 ml @ 70 mls/hr [id number] IV 09/29/24 17:30 09/29/24 21:30 DC Thiamine HCl (Vitamin B-1) 100 mg DAILY IVP 10/01/24 09:00 10/31/24 08:59 10/03/24 08:44 100 MG Vitamin B Complex/ Vit C/Folic Acid (Nephrovite Tablet) 1 cap DAILY PO 10/01/24 09:00 10/31/24 08:59 10/03/24 08:44 1 CAP Zolpidem Tartrate (AmbIEN) 5 mg HS PRN PO INSOMNIA 09/29/24 17:30 10/29/24 17:29 DIAGNOSTICS / RADIOLOGY: [ ] ASSESSMENT: [ Acute hypoxic respiratory failure POA Severe liver cirrhosis requiring paracentesis POA Severe bilateral lower extremities edema POA Uncontrolled hypertension POA Acute kidney injury TNP POA Possible acute complicated cystitis POA Leukocytosis WBC 16.9 due to above POA Severe liver cirrhosis per CT abdomen/pelvis POA Right hepatic mass measuring 9.2 x 8.[address] abdomen/pelvis Small ascites per CT abdomen/pelvis POA Anasarca per CT abdomen/pelvis POA Multifactorial anemia POA Severe malnutrition POA Electrolyte imbalance hyponatremia Na 133 POA] PLAN: Consults: Certified Travel Counselor, decorative engraver, oncologist, systems analyst engineer Antibiotics: Rocephin Tests: 2D echo, ultrasound scrotum, IR for thoracentesis, liver biopsy NEURO: Minimize central acting medications as possible. Fall Precautions. Well lighted room through the day and minimize interruptions through the night to prevent acute delirium. 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 Follow hemodynamics. Vital signs per facility protocol GI & NUTRITION: CT abdomen/pelvis shows cirrhotic liver with enlarged spleen. There is right hepatic mass measuring 9.2 x 8.1 cm. There small ascites. Anasarca IR thoracentesis pending Liver biopsy to be done today. We will follow up with results. AFP level will be obtained today. Continue nutritional support Aspirations precautions Prokinetic agents and laxatives as needed KIDNEYS & ELECTROLYTES: Likely has hepatorenal syndrome on midodrine octreotide and albumin per Nephrology. Strict monitoring of intake and output Daily weights Avoid nephrotoxic agents Monitor electrolytes and replace as needed Goal urine output of 30mL/hr or 0.5mL/kg/hr Medications to be dosed according to renal function. Avoid contrast if possible Continue to follow nephrology recommendations ENDOCRINE: Maintain blood glucose between 100-180 at all times. Insulin sliding scale for blood glucose management Hypoglycemia and hyperglycemia protocol in place INFECTIOUS DISEASE: Trend temperature, WBC and procalcitonin level Follow cultures, deescalate antibiotics as soon as possible. HEMATOLOGY & COAGULATION: Monitor H&H. Keep Hgb > 7 Transfuse 1 unit of PRBC for Hgb < 7 Transfuse 1 pack of platelets of platelets < 20, 000 Watch for any signs and symptoms of bleeding SKIN: Ultrasound scrotum showed scrotal wall swelling. Pressure ulcer prevention per facility protocol Specialty mattress as needed Treatment plan discussed with patient and family at the bedside Rehab: PT/OT GI: PPI DVT: SCD's ELIAZAR AWAD MD Oct 03, 2024 13:36
--- NOTE | 2024-10-03 14:05 | HMCIMG ---
US BIOPSY LIVER IR REASON: LIVER MASS COMPARISON: None TECHNIQUE: Ultrasound-guided of right lobe hepatic mass. FINDINGS: Ultrasound demonstrates a large right lower lobe hepatic mass. PROCEDURE: Informed consent obtained from patient following explanation of risk, benefits, complications. Timeout performed by radiology nursing staff. Patient received intravenous titrated doses of Versed and fentanyl administered by radiology nursing personnel with continuous monitoring of the vital signs. 10 mL of 1% lidocaine subcutaneous was administered for local anesthesia. Under direct ultrasound guidance, needle was advanced into the right lobe of liver hepatic mass. A total of 5 specimen obtained with 18-gauge core biopsy. Needle removed. Hemostasis obtained with direct pressure. Sterile dressing applied. Patient tolerated procedure well without evidence of complication. IMPRESSION: Ultrasound-guided biopsy of right lobe liver mass.
[2024-10-03] MEDS: PoTASSium chloRIDE 20MEQ ER 20 MEQ ERTAB PO ONE (15:28)
--- NOTE | 2024-10-03 22:02 | PN ---
FOLLOWUP PROGRESS NOTE SUBJECTIVE: A 59-year-old male with history of diabetes mellitus and hypertension. He has a history of cirrhosis. He initially presented and found to have significant renal dysfunction. The patient was found to have underlying cirrhosis and a liver mass. The patient is status post biopsy of the mass. Pathology is pending. The patient with significant renal dysfunction consistent with his underlying cirrhosis. The patient was started on midodrine and he is being seen as a followup visit for all of the above. REVIEW OF SYSTEMS: GENERAL: He is feeling weak and tired. HEENT: No change in vision. No change in hearing. CARDIOVASCULAR: There is no current chest pain or palpitations. PULMONARY: Shortness of breath. GASTROINTESTINAL: Tolerating a diet. MUSCULOSKELETAL: Complains of weakness. PHYSICAL EXAMINATION: VITAL SIGNS: Blood pressure 105/62, pulse in the 70s, afebrile. GENERAL: Chronically ill male, much older than appearing. HEENT: Head is atraumatic. Pupils equal, roving to light. Oropharynx is without exudate. Nares clear. NECK: There is no JVP. There is no thyromegaly, no mass. CARDIOVASCULAR: Regular. There is no S3, S4 gallop. LUNGS: Coarse with equal thoracic movement. ABDOMEN: Soft, nondistended, nontender. EXTREMITIES: Reveal no clubbing, no cyanosis. NEUROLOGIC: He is awake. He is alert. LABORATORY DATA: Sodium 135, BUN 46, creatinine is 2.9. Hemoglobin 10, hematocrit 29. IMPRESSION: * Acute on chronic renal failure. * Cirrhosis. * History of liver mass. * Hypotension. PLAN: The patient's creatinine has remained fairly stable. The patient was started on midodrine for his underlying hypotension. We will continue to follow closely. The patient is being seen by Oncology. Biopsy reports are pending and we will follow closely. TID: [id number] RECEIPT: [id number]
[2024-10-04] VITALS (7 sets, daily range): BP systolic 103–109; BP diastolic 52–64; PULSE 67–74; RESP 17–20; TEMP 97.9–98.3; O2SAT 99–100
--- NOTE | 2024-10-04 07:36 | PN ---
SUBJECTIVE: The patient remained stable over the weekend. He has scrotal swelling. He is awake, alert. He is eating. The biopsy is pending. REVIEW OF SYSTEMS: Negative. PHYSICAL EXAMINATION: GENERAL: Shows a middle-aged man. VITAL SIGNS: 103/58, 74, 20. HEENT: Benign. CHEST: Clear. HEART: Regular rate and rhythm. ABDOMEN: Distended with ascites. GENITOURINARY: He has got massive scrotal edema. EXTREMITIES: Show 3+ pitting edema. NEUROLOGIC: Alert and oriented. LABORATORY DATA: Reviewed. CBC, WBC 9.5, hemoglobin 10, platelets 105,000. Creatinine 2.6. IMPRESSION: * Advanced cirrhosis of liver. * Hepatoma. * Ascites. * Renal failure. PLAN: Continue management per the primary team. Once he is discharged, send him to our clinic, we will be happy to treat the hepatoma. He will be treated with targeted therapies such as Y90. We will follow with you. TID: [id number] RECEIPT: [id number]
--- NOTE | 2024-10-04 09:23 | PN ---
[facility] CARDIOLOGY PROGRESS NOTE Date Patient Seen: Oct 04, 2024 Time of Visit: 09:16 Interval History: This is a 59-year-old male with a past medical history of chronic alcohol abuse,liver cirrhosis and CKD stage IV with estimated GFR of 24 who presented to the ED with complaints of worsening shortness of breath, abdominal distention, bilateral lower extremity edema, and scrotal edema for the last 2-3 weeks. He also had evidence of anasarca. 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 Howard Cheung who felt the patient was not a surgical candidate given findings of a right hepatic mass concerning for malignancy. He underwent large volume paracentesis removing 6 L on 09/30/2024. He continues on IV diuretic therapy and continues with anasarca. Creatinine has been stable. He has been evaluated by Oncology and liver biopsy is currently pending, but AFP tumor marker was elevated at 511, with his clinical course concerning for hepatocellular carcinoma He offers no orthopnea or PND. In addition he offers no complaints of chest pain. Physical Examination: GENERAL: No acute distress. HEAD: Normal with no signs of head trauma. EYES: PERRLA, EOMI, conjunctiva and sclera are icteric. NECK: There is JVD 2 fingerbreadths below the angle of the jaw. There is no tenderness, lymphadenopathy, or masses. No thyromegaly. Normal carotid upstrokes without bruits. LUNGS: Diminished breath sounds at the bases bilaterally. HEART: Normal rate and rhythm. Normal S1 and S2 without murmurs, gallop or rub. ABD: There is anasarca up to the mid back, there also varicose veins noted thro ughout the abdominal area VASC: Peripheral pulses are difficult to palpate given his lower extremity edema. EXT: There is at least 3 to 4+ edema up into the thighs bilaterally. NEURO: Awake, alert, and oriented x3. No focal neurological deficits noted. Laboratory: Hematology Labs: Test 10/03/24 05:28 Range/Units White Blood Count 9.5 4.8-10.8 K/uL Red Blood Count 3.07 L 4.50-6.20 MIL/uL Hemoglobin 10.2 L 14.0-18.0 g/dL Hematocrit 29.7 L 42-54 % Mean Corpuscular Volume 96.7 79-99 fL Mean Corpuscular Hemoglobin 33.2 H 27.0-33.0 pg Mean Corpuscular Hemoglobin Concent 34.3 32.0-36.0 g/dL Red Cell Distribution Width 17.3 H 11.0-15.5 % Platelet Count 105 L 130-400 K/uL Mean Platelet Volume 10.6 H 7.5-10.5 fL Immature Granulocyte % (Auto) 3.2 H 0-1 % Neutrophils (%) (Auto) 66.9 40.0-77.0 % Lymphocytes (%) (Auto) 9.9 L 21.0-51.0 % Monocytes (%) (Auto) 13.3 H 3.0-13.0 % Eosinophils (%) (Auto) 6.1 0.0-8.0 % Basophils (%) (Auto) 0.6 0.0-5.0 % Neutrophils # (Auto) 6.4 1.8-7.7 K/uL Lymphocytes # (Auto) 0.9 L 1.0-4.8 K/uL Monocytes # (Auto) 1.3 H 0.1-1.0 K/uL Eosinophils # (Auto) 0.58 0.00-0.70 K/uL Basophils # (Auto) 0.06 0.00-0.20 K/uL Absolute Immature Granulocyte (auto 0.31 0-1 K/uL Nucleated Red Blood Cells 0.0 0.0-0.19 % Chemistry Labs: Test 10/04/24 05:03 10/03/24 05:28 Range/Units Whole Blood Glucose 88 70-110 MG/DL Sodium Level 142 136-145 mmol/L Potassium Level 3.2 L 3.5-5.1 mmol/L Chloride Level 106 101-111 mmol/L Carbon Dioxide Level 23 21-32 mmol/L Blood Urea Nitrogen 47 H 7-18 mg/dL Creatinine 2.6 H 0.5-1.3 mg/dL Glomerular Filtration Rate Calc 28 >90 mL/min Random Glucose 106 H 70-105 mg/dL Total Calcium 8.0 L 8.5-10.1 mg/dL Total Bilirubin 3.4 H 0.2-1.0 mg/dL Aspartate Amino Transf (AST/SGOT) 69 H 10-37 U/L Alanine Aminotransferase (ALT/SGPT) 19 12-78 U/L Alkaline Phosphatase 126 50-136 U/L B-Type Natriuretic Peptide 106 H 0-100 pg/mL Total Protein 5.6 L 6.0-8.3 g/dL Albumin 2.3 L 3.5-5.0 g/dL Coagulation Labs: Test 10/03/24 05:28 Range/Units Prothrombin Time 12.9 H 9.6-11.6 SEC Prothromb Time International Ratio 1.24 H 0.85-1.15 Diagnostics / Radiology: CT ABDOMEN/PELVIS W/O CONTRAST : FINDINGS: Tiny bilateral pleural effusions are seen. There is no evidence of parenchymal disease or pulmonary nodule of the visualized lower lungs. Degenerative changes of the thoracolumbar spine are present. The heart is not enlarged. Cirrhotic changes of the liver are noted. The liver has irregular contour. There is right hepatic mass measuring 9.2 x 8.1 cm. There is left renal atrophy. Liver measures 8.4 cm. Spleen is enlarged measuring 15 cm Spleen, adrenal glands and pancreas are unremarkable. There is no evidence of hydronephrosis bilaterally. No evidence of renal stone is seen. Fecal material is seen in the colon. There are normal size retroperitoneal and mesenteric lymph nodes. There is small ascites and anasarca. Atherosclerotic changes are present. Pelvic sidewalls are symmetric bilaterally. Bladder is well distended without wall thickening. IMPRESSION: 1. Cirrhotic liver with enlarged spleen . There is right hepatic mass measuring 9.2 x 8.1 cm. There is small ascites. Anasarca. 2D echo on 09/30/2024: Conclusion The left ventricle is normal size. LVEF is 60-65%. 3D volume EF 67%. The left ventricular diastolic function is normal. The right ventricle is normal size. The right ventricular systolic function is normal. The left atrium size is normal. The right atrium is technically difficult to measure due to Large right atrial mass present, clinically appears as myxoma. There is mild tricuspid valve regurgitation noted. There is mild tricuspid valve regurgitation noted. RVSP 35 mm Hg. There is no pericardial effusion. 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 Howard Cheung and is not a candidate for surgery given his liver mass -cardiology will sign off and re-evaluate upon request. Right hepatic mass measuring 9.2 x 8.1 cm: Liver cirrhosis s/p paracentesis on 09/30/2024 with 6 L removed: -liver biopsy has been done, and reports pending this morning 10/04/2024 -Dr. Sharif is following with alpha-fetoprotein markers also pending Anasarca Chronic kidney disease stage 4 with estimated GFR of 24: -continue diuretic therapy -daily weights and efforts at accurate intake and output Comorbidities: Chronic Alcohol abuse Normal LVEF of 60-65% by 2D echocardiogram 09/30/2024 EMRY GIRARD MD Oct 04, 2024 09:23
--- NOTE | 2024-10-04 09:49 | PN ---
GASTROENTEROLOGY PROGRESS NOTE Date of Visit: Oct 04, 2024 Time of Visit: 09:48 Events / Notes: [ ] Review of Systems: CONSTITUTIONAL: No malaise or change in sensation of wellbeing. ENMT: No rhinorrhea, otorrhea, sinus pain, ear ache. CARDIOVASCULAR: No angina, palpitations, orthopnea or paroxysmal dyspnea. RESPIRATORY: No SOB. GASTROINTESTINAL: No abdominal pain, nausea, vomiting, diarrhea, hematemesis, melena or change in the patient's habitual bowel movements consistency/number. GENITOURINARY: No dysuria, hematuria or change in bladder continence. MUSCULOSKELETAL: No new muscle pain or decrease in muscular strength. No new joint swelling, redness or tenderness. SKIN: No new rash. Physical Exam: GEN: Awake, alert, oriented in person, time and place, and in no acute distress. HEENT: No sinus tenderness. Tympanic membranes were not examined. No rhinorrhea. Oral pharyngeal mucosa is pink, moist and within normal limits. Neck is supple with no cervical lymphadenopathy, thyromegaly or JVD. CHEST: Inspection, palpation and percussion of the chest were unremarkable. Lung auscultation revealed normal breath sounds bilaterally. CARDIAC: PMI is within normal limits. Heart sounds are regular. Normal S1, S2. No gallop or murmur. ABD: Soft, non-tender and not distended. No peritoneal signs on palpation. No organomegaly. Normal bowel sounds. EXT: No cyanosis or clubbing. No edema. SKIN: Intact. No rashes. JOINTS: No evidence of synovitis or acute arthritis. NEURO: Alert and oriented to name, place and person. Cranial nerve examination is unremarkable. No focal motor deficits. Normal speech. Gait is normal. Strength is normal. Vital Signs (last 8hr) Date Time Temp Pulse Resp B/P (MAP) Pulse Ox O2 Delivery O2 Flow Rate FiO2 10/04/24 07:59 98.1 72 17 109/64 99 Room Air 21 10/04/24 03:38 98.2 74 20 103/58 100 Room Air Laboratory: [ ] Laboratory: Test 10/04/24 05:03 10/03/24 11:27 10/03/24 05:28 Range/Units Whole Blood Glucose 88 70-110 MG/DL Urine Color YELLOW YELLOW Urine Appearance CLEAR CLEAR Urine pH 5.5 5.0-8.0 Urine Specific [place] 1.011 1.001-1.031 Urine Protein NEGATIVE NEGATIVE mg/dL Urine Glucose (UA) NEGATIVE NEGATIVE mg/dL Urine Ketones NEGATIVE NEGATIVE mg/dL Urine Occult Blood +- (TRACE) H NEGATIVE Urine Nitrate NEGATIVE NEGATIVE Urine Bilirubin NEGATIVE NEGATIVE mg/dL Urine Urobilinogen 0.2 0.2-1.0 mg/dL Urine Leukocyte Esterase 25 H NEGATIVE Rodolfo/uL Urine RBC None 0-1 /HPF Urine WBC 2-5 H 0-1 /HPF Urine Squamous Epithelial Cells RARE 0-2 /HPF Urine Bacteria None None Seen /HPF Urine Hyaline Casts 2-5 H 0-1 /LPF /LPF White Blood Count 9.5 4.8-10.8 K/uL Red Blood Count 3.07 L 4.50-6.20 MIL/uL Hemoglobin 10.2 L 14.0-18.0 g/dL Hematocrit 29.7 L 42-54 % Mean Corpuscular Volume 96.7 79-99 fL Mean Corpuscular Hemoglobin 33.2 H 27.0-33.0 pg Mean Corpuscular Hemoglobin Concent 34.3 32.0-36.0 g/dL Red Cell Distribution Width 17.3 H 11.0-15.5 % Platelet Count 105 L 130-400 K/uL Mean Platelet Volume 10.6 H 7.5-10.5 fL Immature Granulocyte % (Auto) 3.2 H 0-1 % Neutrophils (%) (Auto) 66.9 40.0-77.0 % Lymphocytes (%) (Auto) 9.9 L 21.0-51.0 % Monocytes (%) (Auto) 13.3 H 3.0-13.0 % Eosinophils (%) (Auto) 6.1 0.0-8.0 % Basophils (%) (Auto) 0.6 0.0-5.0 % Neutrophils # (Auto) 6.4 1.8-7.7 K/uL Lymphocytes # (Auto) 0.9 L 1.0-4.8 K/uL Monocytes # (Auto) 1.3 H 0.1-1.0 K/uL Eosinophils # (Auto) 0.58 0.00-0.70 K/uL Basophils # (Auto) 0.06 0.00-0.20 K/uL Absolute Immature Granulocyte (auto 0.31 0-1 K/uL Nucleated Red Blood Cells 0.0 0.0-0.19 % Prothrombin Time 12.9 H 9.6-11.6 SEC Prothromb Time International Ratio 1.24 H 0.85-1.15 Sodium Level 142 136-145 mmol/L Potassium Level 3.2 L 3.5-5.1 mmol/L Chloride Level 106 101-111 mmol/L Carbon Dioxide Level 23 21-32 mmol/L Blood Urea Nitrogen 47 H 7-18 mg/dL Creatinine 2.6 H 0.5-1.3 mg/dL Glomerular Filtration Rate Calc 28 >90 mL/min Random Glucose 106 H 70-105 mg/dL Total Calcium 8.0 L 8.5-10.1 mg/dL Total Bilirubin 3.4 H 0.2-1.0 mg/dL Aspartate Amino Transf (AST/SGOT) 69 H 10-37 U/L Alanine Aminotransferase (ALT/SGPT) 19 12-78 U/L Alkaline Phosphatase 126 50-136 U/L B-Type Natriuretic Peptide 106 H 0-100 pg/mL Total Protein 5.6 L 6.0-8.3 g/dL Albumin 2.3 L 3.5-5.0 g/dL Current Medications Medications (Trade) Dose Ordered Sig/Lionel Route PRN Reason Start Time Stop Time Status Last Admin Dose Admin Acetaminophen (TYLenol 325MG TAB) 650 mg Q4H PRN PO MILD PAIN (1-3) 09/29/24 17:30 10/29/24 17:29 09/30/24 11:30 650 MG Acetaminophen (TYLenol 325MG TAB) 650 mg Q6H PRN PO MILD PAIN (1-3) 09/29/24 17:30 09/29/24 17:41 DC Acetaminophen (TYLenol 325MG TAB) 650 mg Q6H PRN PO TEMPERATURE GREATER THAN 101.5 09/29/24 17:30 10/29/24 17:29 Al Hydroxide/Mg Hydroxide (MAALox PLUS 30ML) 30 ml Q6H PRN PO INDIGESTION 09/29/24 17:30 10/29/24 17:29 Albumin Human 50 ml @ 0 mls/hr Q8H6 IV 09/30/24 22:00 10/02/24 14:01 DC 10/02/24 13:19 100 MLS/HR Albumin Human 200 ml @ 0 mls/hr AD IV 09/30/24 13:00 09/30/24 13:18 DC Albumin Human 200 ml @ 0 mls/hr AD IV 09/30/24 13:30 09/30/24 14:18 DC 09/30/24 13:28 0 MLS/HR Ceftriaxone Sodium 2 gm/ Sodium Chloride 100 ml @ 200 mls/hr Q24H IV 09/29/24 17:30 09/29/24 17:44 DC Ceftriaxone Sodium (Rocephin 2gm Inj) 2 gm Q24H IVPB 09/29/24 18:00 10/09/24 17:59 10/03/24 18:36 2 GM Dextrose (D50w) 50 ml AD PRN IV HYPOGLYCEMIA PROTOCOL 09/29/24 17:30 10/29/24 17:29 Diphenhydramine HCl (BENAdryl INJ) 25 mg Q6H PRN IV SEVERE ITCHING/RASH 09/29/24 17:30 10/29/24 17:29 Famotidine (Pepcid 20mg Vial) 20 mg BID PRN IV NAUSEA/VOMITING 09/29/24 17:30 09/29/24 17:41 DC Famotidine (Pepcid 20mg Vial) 20 mg QODAY IV 09/30/24 09:00 10/30/24 08:59 10/04/24 09:10 20 MG Furosemide (LASix 40MG TAB) 40 mg BID PO 10/02/24 21:00 11/01/24 20:59 10/04/24 09:10 40 MG Furosemide (LASix 40MG VIAL) 40 mg Q12H IV 09/29/24 22:00 10/02/24 10:49 DC 10/02/24 10:36 40 MG Glucagon (Glucagon 1mg Kit) 1 mg AD PRN IM HYPOGLYCEMIA PROTOCOL 09/29/24 17:30 10/29/24 17:29 Guaifenesin/ Dextromethorphan (RobiTUSSin DM 200/20MG 10ML) 10 ml Q4H PRN PO COUGH 09/29/24 17:30 10/29/24 17:29 Heparin Sodium (Porcine) (HEParin 5,000 UNIT VIAL) 5,000 unit BID SQ 09/29/24 21:00 10/29/24 20:59 10/04/24 09:11 5,000 UNIT Hydralazine HCl (APRESOLine 20MG INJ) 10 mg Q6H PRN IV For:SBP above 160;DBP above 90 09/29/24 17:30 10/29/24 17:29 Hydromorphone HCl (DiLAUDid 0.5MG INJ) 0.2 mg Q6H PRN IVP SEVERE PAIN (7-10) 09/30/24 11:30 10/05/24 11:29 Insulin Human Regular (humuLIN R 100 UNIT/ML 3ML) INSULIN SLIDING SCAL... ACHS SQ 09/29/24 21:00 10/29/24 20:59 Ketorolac Tromethamine (toRADol) 15 mg Q8H PRN IV MODERATE PAIN (4-6) 09/29/24 17:30 10/02/24 11:47 DC Lactulose (Constulose 20gm/ 30ml Udcup) 20 gm BID PRN PO CONSTIPATION 09/29/24 17:30 10/29/24 17:29 Lactulose (Constulose 20gm/ 30ml Udcup) 20 gm BID PRN PO CONSTIPATION 09/29/24 22:00 09/29/24 21:34 DC Magnesium Sulfate 50 ml @ 0 mls/hr PROTOCOL PRN IV other 09/29/24 17:30 10/29/24 17:29 10/01/24 17:37 25 MLS/HR Midodrine (PROAMatine 5 MG TABLET) 5 mg TID PO 10/02/24 14:00 11/01/24 13:59 10/04/24 09:09 5 MG Morphine Sulfate (morPHINE 2MG SYG) 1 mg Q4H PRN IVP SEVERE PAIN (7-10) 09/29/24 17:30 09/30/24 11:27 DC Nitroglycerin (Nitrostat) 0.4 mg PROTOCOL PRN SL CHEST PAIN 09/29/24 17:30 10/29/24 17:29 Octreotide Acetate (SandoSTATIN) 100 mcg Q8H6 SQ 09/30/24 22:00 10/30/24 21:59 10/04/24 06:39 100 MCG Ondansetron HCl (zoFRAN 4MG INJ) 4 mg Q6H PRN IV NAUSEA/VOMITING 09/29/24 17:30 10/29/24 17:29 Sodium Chloride 1,000 ml @ 70 mls/hr [id number] IV 09/29/24 17:30 09/29/24 21:30 DC Thiamine HCl (Vitamin B-1) 100 mg DAILY IVP 10/01/24 09:00 10/31/24 08:59 10/04/24 09:10 100 MG Vitamin B Complex/ Vit C/Folic Acid (Nephrovite Tablet) 1 cap DAILY PO 10/01/24 09:00 10/31/24 08:59 10/04/24 09:10 1 CAP Zolpidem Tartrate (AmbIEN) 5 mg HS PRN PO INSOMNIA 09/29/24 17:30 10/29/24 17:29 Diagnostics / Radiology: [COPY/PASTE HERE IF NO REPORTS PLEASE DELETE SECTION] Assessment: Liver mass Ascites Cirrhosis Plan: Agree with liver biopsy Obtain AFP dynamic mri LEON[employer]A [employer] Oct 04, 2024 09:48
--- NOTE | 2024-10-04 13:02 | PN ---
NEPHROLOGY PROGRESS NOTE Date/Time Patient Seen: Oct 04, 2024 SUBJECTIVE: This is a 59-year-old male with a past medical history of liver cirrhosis, diagnosed obstructive sleep apnea. He presented to the emergency with complaints of shortness of breath on exertion, abdominal distention, bilateral lower extremity edema and scrotal swelling. CT of the abdomen and pelvis showed cirrhotic liver with enlarged spleen. Right hepatic mass measuring 9.2 x 8.1 cm. There is small ascites. Anasarca Echocardiogram showed LVEF of 60-65%. 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 S/p paracentesis with 6 L removed. He was noted with worsening renal failure We have been consulted for renal failure Renal function is improving Electrolytes are stable. He continues on albumin and octreotide. S/p liver biopsy, pending pathology results He was seen in the medical floor, in no acute distress Family at the bedside Prognosis remains guarded REVIEW OF SYSTEMS: GENERAL: Positive for shortness of breath, lower extremity edema and abdominal distention NEUROLOGIC: Negative for any blurry vision, blind spots, double vision, facial asymmetry, dysphagia, dysarthria, hemiparesis, hemisensory deficits, vertigo, ataxia. HEENT: Negative for any head trauma, neck trauma, neck stiffness, photophobia, phonophobia, sinusitis, rhinitis. CARDIAC: Negative for any chest pain, dyspnea on exertion, paroxysmal nocturnal dyspnea, peripheral edema. PULMONARY: Negative for any shortness of breath, wheezing, COPD, or TB exposure. GASTROINTESTINAL: Negative for any abdominal pain, nausea, vomiting, bright red blood per rectum, melena. GENITOURINARY: Negative for any dysuria, hematuria, incontinence. INTEGUMENTARY: Negative for any rashes, cuts, insect bites. RHEUMATOLOGIC: Negative for any joint pains, photosensitive rashes, history of vasculitis or kidney problems. HEMATOLOGIC: Negative for any abnormal bruising, frequent infections or bleeding. PHYSICAL EXAM: GENERAL: Alert and oriented x 3. No acute distress. Well-nourished. EYES: EOMI. Anicteric. HENT: Moist mucous membranes. No scleral icterus. No cervical lymphadenopathy. LUNGS: Clear to auscultation bilaterally. No accessory muscle use. CARDIOVASCULAR: Regular rate and rhythm. No murmur. No JVD. ABDOMEN: Soft, non-tender and non-distended. No palpable masses. EXTREMITIES: 2+ edema. Non-tender. SKIN: No rashes or lesions. Warm. NEUROLOGIC: No focal neurological deficits. CN II-XII grossly intact, but not individually tested. PSYCHIATRIC: Cooperative. Appropriate mood and affect. LABORATORY: [ ] Hematology Labs: Test 10/03/24 05:28 Range/Units White Blood Count 9.5 4.8-10.8 K/uL Red Blood Count 3.07 L 4.50-6.20 MIL/uL Hemoglobin 10.2 L 14.0-18.0 g/dL Hematocrit 29.7 L 42-54 % Mean Corpuscular Volume 96.7 79-99 fL Mean Corpuscular Hemoglobin 33.2 H 27.0-33.0 pg Mean Corpuscular Hemoglobin Concent 34.3 32.0-36.0 g/dL Red Cell Distribution Width 17.3 H 11.0-15.5 % Platelet Count 105 L 130-400 K/uL Mean Platelet Volume 10.6 H 7.5-10.5 fL Immature Granulocyte % (Auto) 3.2 H 0-1 % Neutrophils (%) (Auto) 66.9 40.0-77.0 % Lymphocytes (%) (Auto) 9.9 L 21.0-51.0 % Monocytes (%) (Auto) 13.3 H 3.0-13.0 % Eosinophils (%) (Auto) 6.1 0.0-8.0 % Basophils (%) (Auto) 0.6 0.0-5.0 % Neutrophils # (Auto) 6.4 1.8-7.7 K/uL Lymphocytes # (Auto) 0.9 L 1.0-4.8 K/uL Monocytes # (Auto) 1.3 H 0.1-1.0 K/uL Eosinophils # (Auto) 0.58 0.00-0.70 K/uL Basophils # (Auto) 0.06 0.00-0.20 K/uL Absolute Immature Granulocyte (auto 0.31 0-1 K/uL Nucleated Red Blood Cells 0.0 0.0-0.19 % Chemistry Labs: Test 10/04/24 11:18 10/03/24 05:28 Range/Units Whole Blood Glucose 138 #H 70-110 MG/DL Sodium Level 142 136-145 mmol/L Potassium Level 3.2 L 3.5-5.1 mmol/L Chloride Level 106 101-111 mmol/L Carbon Dioxide Level 23 21-32 mmol/L Blood Urea Nitrogen 47 H 7-18 mg/dL Creatinine 2.6 H 0.5-1.3 mg/dL Glomerular Filtration Rate Calc 28 >90 mL/min Random Glucose 106 H 70-105 mg/dL Total Calcium 8.0 L 8.5-10.1 mg/dL Total Bilirubin 3.4 H 0.2-1.0 mg/dL Aspartate Amino Transf (AST/SGOT) 69 H 10-37 U/L Alanine Aminotransferase (ALT/SGPT) 19 12-78 U/L Alkaline Phosphatase 126 50-136 U/L B-Type Natriuretic Peptide 106 H 0-100 pg/mL Total Protein 5.6 L 6.0-8.3 g/dL Albumin 2.3 L 3.5-5.0 g/dL Coagulation Labs: Test 10/03/24 05:28 Range/Units Prothrombin Time 12.9 H 9.6-11.6 SEC Prothromb Time International Ratio 1.24 H 0.85-1.15 DIAGNOSTICS / RADIOLOGY: REASON: LIVER MASS ORDERING PHYSICIAN: RONEN LINTON MD PROCEDURE: BX LIVER - US BIOPSY LIVER IR US BIOPSY LIVER IR REASON: LIVER MASS COMPARISON: None TECHNIQUE: Ultrasound-guided of right lobe hepatic mass. FINDINGS: Ultrasound demonstrates a large right lower lobe hepatic mass. PROCEDURE: Informed consent obtained from patient following explanation of risk, benefits, complications. Timeout performed by radiology nursing staff. Patient received intravenous titrated doses of Versed and fentanyl administered by radiology nursing personnel with continuous monitoring of the vital signs. 10 mL of 1% lidocaine subcutaneous was administered for local anesthesia. Under direct ultrasound guidance, needle was advanced into the right lobe of liver hepatic mass. A total of 5 specimen obtained with 18-gauge core biopsy. Needle removed. Hemostasis obtained with direct pressure. Sterile dressing applied. Patient tolerated procedure well without evidence of complication. IMPRESSION: Ultrasound-guided biopsy of right lobe liver mass. DICTATED BY: BENITO SPEARS DO DATE: 10/03/24 1400 REASON: chf ORDERING PHYSICIAN: JONATHON GLORIA APRN PROCEDURE: ECHO CMP - ECHO 2-D COMPLETE APPROVED REPORT EXAM: Two-dimensional and M-mode echocardiogram with Doppler and color Doppler. INDICATION ICD: Congestive heart failure 2D Dimensions RVDd 3.8 cm LVEF(%) 60.5 (>50%) LVEF(%, simp.) 67 % IVSd 0.7 (0.7-1.1cm) FS(%) 32 % LA ESV INDEX (BP) 30.44 mL/m2 LVDd 5.0 (3.8-5.6cm) LA (2D) 4.5 (1.6-4.0cm) PWd 0.8 (0.7-1.1cm) Ao Root(2D) 3.1 (2.0-3.7cm) IVSs 1.1 cm LVOT diam 2.1 (1.8-2.4cm) LVDs 3.4 (2.5-4.0cm) PWs 1.1 cm Deformation Strain Apical 4 -20.0 % Apical 2 -24.0 % Apical 3 -24.0 % Global Strain -23.0 % M-Mode Dimensions EPSS 1.0 cm LA (MM) 5.0 (1.6-4.0cm) Ao Root(MM) 3.2 (2.0-3.7cm) Aortic Valve AoV Vmax 2.1 m/s Ao Peak GR 18.5 mmHg LVOT Vmax 1.6 m/s AoV VTI 0.4 m Ao Mean GR 10.5 mmHg LVOT VTI 0.28 m JANIE (VMAX) 2.4 cm2 JANIE (VTI) 2.4 cm2 Mitral Valve MV E Vmax 78.4 cm/s DECEL Time 160 ms MV A Vmax 85.6 cm/s P 1/2 T 31 ms E/A ratio 0.9 MVA (PHT) 7.0 cm2 TDI E/E' Medial 7.8 Medial E' Peak V 10.00 cm/s Pulmonary Valve PV Vmax 1.3 m/s Tricuspid Valve TR Vmax 2.8 m/s RAP (EST) 8 mmHg RVSP 38.4 mmHg TR Peak GR 30.4 mmHg Left Ventricle The left ventricle is normal size. GLS -23.0%. There is normal left ventricular wall thickness. LVEF is 60-65%. 3D volume EF 67%. The left ventricular diastolic function is normal. Right Ventricle The right ventricle is normal size. The right ventricular systolic function is normal. Atria The left atrium size is normal. The right atrium is technically difficult to measure due to Large right atrial mass present, clinically appears as myxoma. Aortic Valve Aortic valve is trileaflet mildly thickened. No aortic regurgitation is present. There is no aortic valvular stenosis. Mitral Valve The mitral valve is normal in structure. There is no mitral valve regurgitation noted. There is no mitral valve stenosis. Tricuspid Valve The tricuspid valve is normal in structure. There is mild tricuspid valve regurgitation noted. Pulmonic Valve The pulmonary valve is normal in structure. There is trace of pulmonic valvular regurgitation. Great Vessels The aortic root is normal in size. IVC is not well visualized. Pericardium There is no pericardial effusion. Other Information Quality : Adequate Conclusion The left ventricle is normal size. LVEF is 60-65%. 3D volume EF 67%. The left ventricular diastolic function is normal. The right ventricle is normal size. The right ventricular systolic function is normal. The left atrium size is normal. The right atrium is technically difficult to measure due to Large right atrial mass present, clinically appears as myxoma. There is mild tricuspid valve regurgitation noted. There is mild tricuspid valve regurgitation noted. RVSP 35 mm Hg. There is no pericardial effusion. DICTATED BY: DAMIR NAYLOR MD DATE: 09/30/24 0908 REASON: swelling severe ORDERING PHYSICIAN: JONATHON GLORIA APRN PROCEDURE: SCROTUM - US SCROTUM & CONTENTS US SCROTUM & CONTENTS HISTORY: No additional history given. COMPARISON: None TECHNIQUE: Duplex scrotal ultrasound study was performed. FINDINGS: The right testes measures 3.4 x 2 x 2.2 cm. The left testes measures 3.4 x 2.2 x 2.1 cm. No evidence of intratesticular mass or abnormal calcification is seen. Normal flow is demonstrated in the testes and epididymides bilaterally. No hydroceles or varicocele is seen. There is scrotal wall edema with right measuring 2.4 cm and left measuring 2.6 cm in thickness. IMPRESSION: 1. No evidence of intratesticular mass is seen. 2. Normal flow is demonstrated of both testes. Scrotal wall swelling. Scrotal wall swelling DICTATED BY: SOHAIL CORONEL MD DATE: 09/30/24 0042 REASON: congestion ORDERING PHYSICIAN: OFIARA,JONATHON B HUC PROCEDURE: CXR1VW - CHEST 1VW CHEST 1VW HISTORY: Congestion COMPARISON: None FINDINGS: A frontal projection of the chest was obtained. No acute pulmonary infiltrates is seen. The heart is borderline enlarged. Degenerative changes are seen. Elevation of right hemidiaphragm is seen. IMPRESSION: 1. No acute pulmonary infiltrate is seen. DICTATED BY: SOHAIL CORONEL MD DATE: 09/29/241938 REASON: ascities, cirrhosis ORDERING PHYSICIAN: JONATHON GLORIA HUC PROCEDURE: ABD PEL WO - CT ABDOMEN/PELVIS W/O CONTRAST CT ABDOMEN/PELVIS W/O CONTRAST HISTORY: Ascites and cirrhosis COMPARISON: None TECHNIQUE: Multiple sequential axial images of the abdomen and pelvis were obtained from the dome of the diaphragm through symphysis pubis. Patient was not given contrast through intravenous route. Oral contrast was not given. FINDINGS: Tiny bilateral pleural effusions are seen. There is no evidence of parenchymal disease or pulmonary nodule of the visualized lower lungs. Degenerative changes of the thoracolumbar spine are present. The heart is not enlarged. Cirrhotic changes of the liver are noted. The liver has irregular contour. There is right hepatic mass measuring 9.2 x 8.1 cm. There is left renal atrophy. Liver measures 8.4 cm. Spleen is enlarged measuring 15 cm Spleen, adrenal glands and pancreas are unremarkable. There is no evidence of hydronephrosis bilaterally. No evidence of renal stone is seen. Fecal material is seen in the colon. There are normal size retroperitoneal and mesenteric lymph nodes. There is small ascites and anasarca. Atherosclerotic changes are present. Pelvic sidewalls are symmetric bilaterally. Bladder is well distended without wall thickening. IMPRESSION: 1. Cirrhotic liver with enlarged spleen . There is right hepatic mass measuring 9.2 x 8.1 cm. There is small ascites. Anasarca. CT was performed with one or more following dose reduction techniques: automated exposure control, adjustment of the mA and kv according to patient's size, or use of a iterative reconstruction technique. DICTATED BY: SOHAIL CORONEL MD DATE: 09/29/241944 ASSESSMENT: Acute kidney injury Anemia Acute hypoxic respiratory failure POA Severe liver cirrhosis requiring paracentesis POA Severe bilateral lower extremities edema POA Uncontrolled hypertension POA Possible acute complicated cystitis POA Leukocytosis WBC 16.9 due to above POA Severe liver cirrhosis per CT abdomen/pelvis POA Right hepatic mass measuring 9.2 x 8.[address] abdomen/pelvis Small ascites per CT abdomen/pelvis POA Anasarca per CT abdomen/pelvis POA Multifactorial anemia POA Severe malnutrition POA Electrolyte imbalance hyponatremia Na 133 POA PLAN: Labs, diagnostic, radiologic exams reviewed and interpreted by myself and supervising physician. We have reviewed external records in detail Continue with diuretics and octreotide Follow up on liver biopsy results Require close monitoring of renal function and electrolytes Order CBC, CMP, and electrolytes in am Continue with antibiotics Renal diabetic diet BiPAP as necessary, for respiratory distress Monitor blood pressure adjust medication doses as needed Avoid hypotensive episodes May use Dilaudid 0.5 mg IV every 6 hours as needed for severe pain Monitor blood sugars Strict intake, output, and daily weight should be monitored Please renally adjust medications Avoid nephrotoxic and nonsteroidal drugs Avoid contrast if possible Will continue to monitor renal function, anemia, electrolytes Treatment plan discussed with patient Questions were answered We have discussed with the other team physicians in detail about the care plan We will continue to monitor the patient closely ATTESTATION BY PHYSICIAN I have seen and examined the patient. I reviewed the documentation, medical decision making, and treatment plan as noted by the mid-level provider above. I agree with the findings and plan of care. ALEJANDRA BARR MD, [facility] [employer] Oct 04, 2024 13:02
--- NOTE | 2024-10-04 13:17 | PN ---
[facility] PROGRESS NOTE Date of Service: Oct 04, 2024 Time of Service: :10 SUBJECTIVE: 09/30: Patient is a 59 year old M, with a PMH of liver cirrhosis and undiagnosed EDUAR, who presented to the ED with complaints of shortness of breath with exertion, abdominal distention, bilateral lower extremity edema, and swelling of scrotum. Patient states the scrotal swelling began one week ago and has been preventing him from walking. The patients CT abdomen/pelvis showed cirrhosis with enlarging spleen, and a right hepatic mass measuring 9.2 x 8.1 cm, small ascites. The patient is planned to get a paracentesis done today. The patient will be getting a liver biopsy tomorrow. Per GI, we will obtain AFP level. The patient complains of pain, rating it a 7/10 on the pain scale. The patient states he does not want to take Morphine. I spoke to pharmacy, and we agreed that the patient can receive 0.2 mg Dilaudid as needed every 6 hours for pain. The patient WBC count is 13.6, down from 16.9. Lactic acid 3.8. 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 We will continue to follow cardiology, oncology, and nephrology recommendations. 10/01: Patient was seen this morning at bedside. Patient is doing well. Patient denies chest pain, shortness of breath, nausea, vomiting, fever, chills, abdominal pain. The patient will receive scrotal support to aid in the management of swelling. The Patient will be getting a liver biopsy done today. Patient had a paracentesis done yesterday, where 6 L of ascitic fluid was removed. Cultures are pending. 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 We will wait for liver biopsy results, and AFP levels. Patients Creatinine is 2.8, up from 2.6. BUN is 42, up from 37. We will continue to appreciate Cardiology, Nephrology, and Oncology recommendations. 10/02/2024. Patient seen and examined along with RN. No new complaints. Continues to be on diuretics started on midodrine and Sandostatin. Biopsy resul ts are pending. 10/03/24 : pt seen and examined along with rn , no new complaints creatine stable 10/04/24: Patient was seen this morning at bedside. We will obtain a urine protein creatinine ratio. Patient continues to be on oral diuretics, midodrine, and Sandostatin. Biopsy results are pending. Patient to follow Dr. Meade for treatment of hepatoma outpatient. We will continue to follow nephrology and Oncology recommendations. REVIEW OF SYSTEMS CONSTITUTIONAL: Denies fevers, chills, or night sweats. No unintentional weight loss reported. NEUROLOGICAL: Denies headache, amaurosis fugax, motor weakness, sensory deficit, vertigo/spinning sensation, gait abnormalities, or tremors. ENT: No hearing loss, otalgia, otorrhea, rhinitis, rhinorrhea, hoarseness, or sore throat. CARDIOVASCULAR: Denies any exertional angina, dyspnea on exertion, orthopnea, paroxysmal nocturnal dyspnea, palpitations, life-threatening arrhythmias, claudication. PULMONARY: Denies any cough, phlegm/sputum, hemoptysis, pleuritic chest pain. Complains of shortness of breath on exertion SLEEP: Denies morning headaches, daytime somnolence or napping. Denies difficulty falling asleep, staying asleep, waking from sleep. Denies knowledge of snoring. GASTROINTESTINAL: Denies any type of dysphagia to either liquids or solids. D enies nausea, vomiting, pyrosis, early satiety, diarrhea, constipation, or changes in stool consistency or caliber. Denies coffee-ground emesis, hematemesis, hematochezia, or melanotic stools. Complains of abdominal pain. GENITOURINARY: Denies frequency, urgency, nocturia, hematuria or incontinence (Storage/Irritative symptoms.) Low urinary stream, straining to void, urinary intermittency or hesitancy, splitting of the voiding stream, terminal dribbling. Complains of scrotal pain ENDOCRINOLOGIC: Denies polyuria, polydipsia, polyphagia or heat/cold intolerances. HEMATOLOGIC: Denies thrombophilia/previous clots, or coagulopathy/bleeding disorders. ONCOLOGIC: Denies personal history of malignancy. DERMATOLOGIC: Denies rashes or pruritus. PSYCHIATRIC: Denies any suicidal or homicidal ideation. Denies hallucinations. PHYSICAL EXAM GENERAL APPEARANCE: The patient is awake, alert, and oriented, in no acute cardiopulmonary distress. NEUROLOGICAL: Cranial nerves II-XII grossly intact. Motor is 5/5 in bilateral upper and lower extremities proximal to distal. No sensory deficits. HEENT: Face is symmetric. Pupils are equal and reactive. Extraocular movements are intact. NECK: Supple. No JVD. No thyromegaly. No submental, submandibular, pre- /postauricular, occipital or supraclavicular lymphadenopathy. CHEST: Normal chest expansion. No Telemetry. LUNGS: Absence of any rales, rhonchi or any wheezing. CARDIOVASCULAR: Regular. S1 and S2 normal. No appreciable rubs, murmurs or gallops. ABDOMEN: Soft, nontender, and nondistended. There is no rebound, voluntary guarding, or rigidity. : Deferred. No [place]. Severe scrotum swelling EXTREMITIES:and not cyanotic. No clubbing. Good capillary refill. Bilateral lower extremities edema plus four pitting SKIN: No skin breakdown. Vital Signs (last 8hr) Date Time Temp Pulse Resp B/P (MAP) Pulse Ox O2 Delivery O2 Flow Rate FiO2 10/04/24 11:38 97.9 67 19 104/56 100 Room Air 21 10/04/24 07:59 98.1 72 17 109/64 99 Room Air 21 LABS: Laboratory: Test 10/04/24 11:18 10/03/24 11:27 10/03/24 05:28 Range/Units Whole Blood Glucose 138 #H 70-110 MG/DL Urine Color YELLOW YELLOW Urine Appearance CLEAR CLEAR Urine pH 5.5 5.0-8.0 Urine Specific [place] 1.011 1.001-1.031 Urine Protein NEGATIVE NEGATIVE mg/dL Urine Glucose (UA) NEGATIVE NEGATIVE mg/dL Urine Ketones NEGATIVE NEGATIVE mg/dL Urine Occult Blood +- (TRACE) H NEGATIVE Urine Nitrate NEGATIVE NEGATIVE Urine Bilirubin NEGATIVE NEGATIVE mg/dL Urine Urobilinogen 0.2 0.2-1.0 mg/dL Urine Leukocyte Esterase 25 H NEGATIVE Rodolfo/uL Urine RBC None 0-1 /HPF Urine WBC 2-5 H 0-1 /HPF Urine Squamous Epithelial Cells RARE 0-2 /HPF Urine Bacteria None None Seen /HPF Urine Hyaline Casts 2-5 H 0-1 /LPF /LPF White Blood Count 9.5 4.8-10.8 K/uL Red Blood Count 3.07 L 4.50-6.20 MIL/uL Hemoglobin 10.2 L 14.0-18.0 g/dL Hematocrit 29.7 L 42-54 % Mean Corpuscular Volume 96.7 79-99 fL Mean Corpuscular Hemoglobin 33.2 H 27.0-33.0 pg Mean Corpuscular Hemoglobin Concent 34.3 32.0-36.0 g/dL Red Cell Distribution Width 17.3 H 11.0-15.5 % Platelet Count 105 L 130-400 K/uL Mean Platelet Volume 10.6 H 7.5-10.5 fL Immature Granulocyte % (Auto) 3.2 H 0-1 % Neutrophils (%) (Auto) 66.9 40.0-77.0 % Lymphocytes (%) (Auto) 9.9 L 21.0-51.0 % Monocytes (%) (Auto) 13.3 H 3.0-13.0 % Eosinophils (%) (Auto) 6.1 0.0-8.0 % Basophils (%) (Auto) 0.6 0.0-5.0 % Neutrophils # (Auto) 6.4 1.8-7.7 K/uL Lymphocytes # (Auto) 0.9 L 1.0-4.8 K/uL Monocytes # (Auto) 1.3 H 0.1-1.0 K/uL Eosinophils # (Auto) 0.58 0.00-0.70 K/uL Basophils # (Auto) 0.06 0.00-0.20 K/uL Absolute Immature Granulocyte (auto 0.31 0-1 K/uL Nucleated Red Blood Cells 0.0 0.0-0.19 % Prothrombin Time 12.9 H 9.6-11.6 SEC Prothromb Time International Ratio 1.24 H 0.85-1.15 Sodium Level 142 136-145 mmol/L Potassium Level 3.2 L 3.5-5.1 mmol/L Chloride Level 106 101-111 mmol/L Carbon Dioxide Level 23 21-32 mmol/L Blood Urea Nitrogen 47 H 7-18 mg/dL Creatinine 2.6 H 0.5-1.3 mg/dL Glomerular Filtration Rate Calc 28 >90 mL/min Random Glucose 106 H 70-105 mg/dL Total Calcium 8.0 L 8.5-10.1 mg/dL Total Bilirubin 3.4 H 0.2-1.0 mg/dL Aspartate Amino Transf (AST/SGOT) 69 H 10-37 U/L Alanine Aminotransferase (ALT/SGPT) 19 12-78 U/L Alkaline Phosphatase 126 50-136 U/L B-Type Natriuretic Peptide 106 H 0-100 pg/mL Total Protein 5.6 L 6.0-8.3 g/dL Albumin 2.3 L 3.5-5.0 g/dL Current Medications Medications (Trade) Dose Ordered Sig/Lionel Route PRN Reason Start Time Stop Time Status Last Admin Dose Admin Acetaminophen (TYLenol 325MG TAB) 650 mg Q4H PRN PO MILD PAIN (1-3) 09/29/24 17:30 10/29/24 17:29 09/30/24 11:30 650 MG Acetaminophen (TYLenol 325MG TAB) 650 mg Q6H PRN PO MILD PAIN (1-3) 09/29/24 17:30 09/29/24 17:41 DC Acetaminophen (TYLenol 325MG TAB) 650 mg Q6H PRN PO TEMPERATURE GREATER THAN 101.5 09/29/24 17:30 10/29/24 17:29 Al Hydroxide/Mg Hydroxide (MAALox PLUS 30ML) 30 ml Q6H PRN PO INDIGESTION 09/29/24 17:30 10/29/24 17:29 Albumin Human 50 ml @ 0 mls/hr Q8H6 IV 09/30/24 22:00 10/02/24 14:01 DC 10/02/24 13:19 100 MLS/HR Albumin Human 200 ml @ 0 mls/hr AD IV 09/30/24 13:00 09/30/24 13:18 DC Albumin Human 200 ml @ 0 mls/hr AD IV 09/30/24 13:30 09/30/24 14:18 DC 09/30/24 13:28 0 MLS/HR Ceftriaxone Sodium 2 gm/ Sodium Chloride 100 ml @ 200 mls/hr Q24H IV 09/29/24 17:30 09/29/24 17:44 DC Ceftriaxone Sodium (Rocephin 2gm Inj) 2 gm Q24H IVPB 09/29/24 18:00 10/09/24 17:59 10/03/24 18:36 2 GM Dextrose (D50w) 50 ml AD PRN IV HYPOGLYCEMIA PROTOCOL 09/29/24 17:30 10/29/24 17:29 Diphenhydramine HCl (BENAdryl INJ) 25 mg Q6H PRN IV SEVERE ITCHING/RASH 09/29/24 17:30 10/29/24 17:29 Famotidine (Pepcid 20mg Vial) 20 mg BID PRN IV NAUSEA/VOMITING 09/29/24 17:30 09/29/24 17:41 DC Famotidine (Pepcid 20mg Vial) 20 mg QODAY IV 09/30/24 09:00 10/30/24 08:59 10/04/24 09:10 20 MG Furosemide (LASix 40MG TAB) 40 mg BID PO 10/02/24 21:00 11/01/24 20:59 10/04/24 09:10 40 MG Furosemide (LASix 40MG VIAL) 40 mg Q12H IV 09/29/24 22:00 10/02/24 10:49 DC 10/02/24 10:36 40 MG Glucagon (Glucagon 1mg Kit) 1 mg AD PRN IM HYPOGLYCEMIA PROTOCOL 09/29/24 17:30 10/29/24 17:29 Guaifenesin/ Dextromethorphan (RobiTUSSin DM 200/20MG 10ML) 10 ml Q4H PRN PO COUGH 09/29/24 17:30 10/29/24 17:29 Heparin Sodium (Porcine) (HEParin 5,000 UNIT VIAL) 5,000 unit BID SQ 09/29/24 21:00 10/29/24 20:59 10/04/24 09:11 5,000 UNIT Hydralazine HCl (APRESOLine 20MG INJ) 10 mg Q6H PRN IV For:SBP above 160;DBP above 90 09/29/24 17:30 10/29/24 17:29 Hydromorphone HCl (DiLAUDid 0.5MG INJ) 0.2 mg Q6H PRN IVP SEVERE PAIN (7-10) 09/30/24 11:30 10/05/24 11:29 Insulin Human Regular (humuLIN R 100 UNIT/ML 3ML) INSULIN SLIDING SCAL... ACHS SQ 09/29/24 21:00 10/29/24 20:59 Ketorolac Tromethamine (toRADol) 15 mg Q8H PRN IV MODERATE PAIN (4-6) 09/29/24 17:30 10/02/24 11:47 DC Lactulose (Constulose 20gm/ 30ml Udcup) 20 gm BID PRN PO CONSTIPATION 09/29/24 17:30 10/29/24 17:29 Lactulose (Constulose 20gm/ 30ml Udcup) 20 gm BID PRN PO CONSTIPATION 09/29/24 22:00 09/29/24 21:34 DC Magnesium Sulfate 50 ml @ 0 mls/hr PROTOCOL PRN IV other 09/29/24 17:30 10/29/24 17:29 10/01/24 17:37 25 MLS/HR Midodrine (PROAMatine 5 MG TABLET) 5 mg TID PO 10/02/24 14:00 11/01/24 13:59 10/04/24 09:09 5 MG Morphine Sulfate (morPHINE 2MG SYG) 1 mg Q4H PRN IVP SEVERE PAIN (7-10) 09/29/24 17:30 09/30/24 11:27 DC Nitroglycerin (Nitrostat) 0.4 mg PROTOCOL PRN SL CHEST PAIN 09/29/24 17:30 10/29/24 17:29 Octreotide Acetate (SandoSTATIN) 100 mcg Q8H6 SQ 09/30/24 22:00 10/30/24 21:59 10/04/24 06:39 100 MCG Ondansetron HCl (zoFRAN 4MG INJ) 4 mg Q6H PRN IV NAUSEA/VOMITING 09/29/24 17:30 10/29/24 17:29 Sodium Chloride 1,000 ml @ 70 mls/hr [id number] IV 09/29/24 17:30 09/29/24 21:30 DC Thiamine HCl (Vitamin B-1) 100 mg DAILY IVP 10/01/24 09:00 10/31/24 08:59 10/04/24 09:10 100 MG Vitamin B Complex/ Vit C/Folic Acid (Nephrovite Tablet) 1 cap DAILY PO 10/01/24 09:00 10/31/24 08:59 10/04/24 09:10 1 CAP Zolpidem Tartrate (AmbIEN) 5 mg HS PRN PO INSOMNIA 09/29/24 17:30 10/29/24 17:29 DIAGNOSTICS / RADIOLOGY: [facility] [address] [place] [id number] IMAGING REPORT Signed PATIENT: DARSHAN KINNEY MR#: [id number] : 1965 SEX: M AGE: 59 LOCATION: 4DH ORDER 2 [facility]US: [facility] REPORT#: [id number] SERVICE 1200 REASON: LIVER MASS ORDERING PHYSICIAN: RONEN LINTON MD PROCEDURE: BX LIVER - US BIOPSY LIVER IR US BIOPSY LIVER IR REASON: LIVER MASS COMPARISON: None TECHNIQUE: Ultrasound-guided of right lobe hepatic mass. FINDINGS: Ultrasound demonstrates a large right lower lobe hepatic mass. PROCEDURE: Informed consent obtained from patient following explanation of risk, benefits, complications. Timeout performed by radiology nursing staff. Patient received intravenous titrated doses of Versed and fentanyl administered by radiology nursing personnel with continuous monitoring of the vital signs. 10 mL of 1% lidocaine subcutaneous was administered for local anesthesia. Under direct ultrasound guidance, needle was advanced into the right lobe of liver hepatic mass. A total of 5 specimen obtained with 18-gauge core biopsy. Needle removed. Hemostasis obtained with direct pressure. Sterile dressing applied. Patient tolerated procedure well without evidence of complication. IMPRESSION: Ultrasound-guided biopsy of right lobe liver mass. DICTATED BY: BENITO SPEARS DO DATE: 10/03/24 1400 ELECTRONICALLY SIGNED BY: BENITO SPEARS DO DATE: 10/03/24 1405 ASSESSMENT: Acute hypoxic respiratory failure POA Severe liver cirrhosis requiring paracentesis POA Severe bilateral lower extremities edema POA Uncontrolled hypertension POA Acute kidney injury TNP POA Possible acute complicated cystitis POA Leukocytosis WBC 16.9 due to above POA Severe liver cirrhosis per CT abdomen/pelvis POA Right hepatic mass measuring 9.2 x 8.[address] abdomen/pelvis Small ascites per CT abdomen/pelvis POA Anasarca per CT abdomen/pelvis POA Multifactorial anemia POA Severe malnutrition POA Electrolyte imbalance hyponatremia Na 133 POA] PLAN: Consults: Hydrometer Finisher, coal cager, oncologist, peat shredder tender Antibiotics: Rocephin Tests: 2D echo, ultrasound scrotum, IR for thoracentesis, liver biopsy NEURO: Minimize central acting medications as possible. Fall Precautions. Well lighted room through the day and minimize interruptions through the night to prevent acute delirium. 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 Follow hemodynamics. Vital signs per facility protocol GI & NUTRITION: CT abdomen/pelvis shows cirrhotic liver with enlarged spleen. There is right hepatic mass measuring 9.2 x 8.1 cm. There small ascites. Anasarca IR thoracentesis removed 6L ascitic fluid. Cultures pending. Liver biopsy complete. We will follow up with biopsy results. AFP level elevated. Patient will follow Dr. Meade outpatient for treatment of Hepatoma. Aspirations precautions KIDNEYS & ELECTROLYTES: Likely has hepatorenal syndrome- on midodrine, octreotide, and albumin per Nephrology. Urine protein/ creatinine ratio to be obtained. Strict monitoring of intake and output Daily weights Avoid nephrotoxic agents Monitor electrolytes and replace as needed Goal urine output of 30mL/hr or 0.5mL/kg/hr Medications to be dosed according to renal function. Avoid contrast if possible Continue to follow nephrology recommendations ENDOCRINE: Maintain blood glucose between 100-180 at all times. Insulin sliding scale for blood glucose management Hypoglycemia and hyperglycemia protocol in place INFECTIOUS DISEASE: Trend temperature, WBC and procalcitonin level Follow cultures, deescalate antibiotics as soon as possible. HEMATOLOGY & COAGULATION: Monitor H&H. Keep Hgb > 7 Transfuse 1 unit of PRBC for Hgb < 7 Transfuse 1 pack of platelets of platelets < 20, 000 Watch for any signs and symptoms of bleeding SKIN: Ultrasound scrotum showed scrotal wall swelling. Pressure ulcer prevention per facility protocol Specialty mattress as needed Treatment plan discussed with patient and family at the bedside Rehab: PT/OT GI: PPI DVT: SCD's FEDERICO SUNSHINE MD Oct 04, 2024 13:16
[2024-10-05] VITALS (7 sets, daily range): BP systolic 103–137; BP diastolic 53–80; PULSE 66–85; RESP 18–20; TEMP 97.5–98.5; O2SAT 100
[2024-10-05 06:06] LABS: BASOPHILS # (AUTO) 0.09 K/uL (0.00-0.20); BASOPHILS % (AUTO) 0.7 % (0.0-5.0); EOSINOPHILS % (AUTO) 7.7 % (0.0-8.0); HEMATOCRIT 30.8 % (42-54); IMMATURE GRANULOCYTE ABSOLUTE 0.74 K/uL (0-1); LYMPHOCYTES # (AUTO) 1.3 K/uL (1.0-4.8); LYMPHOCYTES % (AUTO) 9.9 % (21.0-51.0); MEAN CORPUSCULAR HEMOGLOBIN 33.2 pg (27.0-33.0); MEAN CORPUSCULAR HGB CONC 33.8 g/dL (32.0-36.0); MEAN CORPUSCULAR VOLUME 98.4 fL (79-99); MONOCYTES # (AUTO) 1.2 K/uL (0.1-1.0); MONOCYTES % (AUTO) 9.1 % (3.0-13.0); NEUTROPHILS # (AUTO) 8.7 K/uL (1.8-7.7); NEUTROPHILS % (AUTO) 66.9 % (40.0-77.0); PLATELET COUNT (AUTO) 108 K/uL (130-400); RED BLOOD CELL COUNT(AUTO) 3.13 MIL/uL (4.50-6.20); RED CELL DISTRIBUTION WIDTH 17.6 % (11.0-15.5); WHITE BLOOD COUNT (AUTO) 12.9 K/uL (4.8-10.8)
[2024-10-05 06:13] LABS: BILIRUBIN,TOTAL 3.5 mg/dL (0.2-1.0); CREATININE 2.5 mg/dL (0.5-1.3); TOTAL PROTEIN, SERUM 5.5 g/dL (6.0-8.3)
--- NOTE | 2024-10-05 08:30 | PN ---
GASTROENTEROLOGY PROGRESS NOTE Date of Visit: Oct 05, 2024 Time of Visit: 08:30 Events / Notes: [No acute events overnight. patient is s/p liver biopsy. Review of Systems: CONSTITUTIONAL: No malaise or change in sensation of wellbeing. ENMT: No rhinorrhea, otorrhea, sinus pain, ear ache. CARDIOVASCULAR: No angina, palpitations, orthopnea or paroxysmal dyspnea. RESPIRATORY: No SOB. GASTROINTESTINAL: No abdominal pain, nausea, vomiting, diarrhea, hematemesis, melena or change in the patient's habitual bowel movements consistency/number. GENITOURINARY: No dysuria, hematuria or change in bladder continence. MUSCULOSKELETAL: No new muscle pain or decrease in muscular strength. No new joint swelling, redness or tenderness. SKIN: No new rash. Physical Exam: GEN: Awake, alert, oriented in person, time and place, and in no acute distress. HEENT: No sinus tenderness. Tympanic membranes were not examined. No rhinorrhea. Oral pharyngeal mucosa is pink, moist and within normal limits. Neck is supple with no cervical lymphadenopathy, thyromegaly or JVD. CHEST: Inspection, palpation and percussion of the chest were unremarkable. Lung auscultation revealed normal breath sounds bilaterally. CARDIAC: PMI is within normal limits. Heart sounds are regular. Normal S1, S2. No gallop or murmur. ABD: Soft, non-tender and not distended. No peritoneal signs on palpation. No organomegaly. Normal bowel sounds. EXT: No cyanosis or clubbing. No edema. SKIN: Intact. No rashes. JOINTS: No evidence of synovitis or acute arthritis. NEURO: Alert and oriented to name, place and person. Cranial nerve examination is unremarkable. No focal motor deficits. Normal speech. Gait is normal. Strength is normal. Vital Signs (last 8hr) Date Time Temp Pulse Resp B/P (MAP) Pulse Ox O2 Delivery O2 Flow Rate FiO2 10/05/24 08:00 97.9 71 20 103/57 99 Room Air 21 10/05/24 04:00 97.9 85 18 137/80 99 Room Air Laboratory: [ ] Laboratory: Test 10/05/24 05:27 10/05/24 05:08 10/03/24 11:27 Range/Units White Blood Count 12.9 H 4.8-10.8 K/uL Red Blood Count 3.13 L 4.50-6.20 MIL/uL Hemoglobin 10.4 L 14.0-18.0 g/dL Hematocrit 30.8 L 42-54 % Mean Corpuscular Volume 98.4 79-99 fL Mean Corpuscular Hemoglobin 33.2 H 27.0-33.0 pg Mean Corpuscular Hemoglobin Concent 33.8 32.0-36.0 g/dL Red Cell Distribution Width 17.6 H 11.0-15.5 % Platelet Count 108 L 130-400 K/uL Mean Platelet Volume 10.4 7.5-10.5 fL Immature Granulocyte % (Auto) 5.7 H 0-1 % Neutrophils (%) (Auto) 66.9 40.0-77.0 % Lymphocytes (%) (Auto) 9.9 L 21.0-51.0 % Monocytes (%) (Auto) 9.1 3.0-13.0 % Eosinophils (%) (Auto) 7.7 0.0-8.0 % Basophils (%) (Auto) 0.7 0.0-5.0 % Neutrophils # (Auto) 8.7 H 1.8-7.7 K/uL Lymphocytes # (Auto) 1.3 1.0-4.8 K/uL Monocytes # (Auto) 1.2 H 0.1-1.0 K/uL Eosinophils # (Auto) 1.00 H 0.00-0.70 K/uL Basophils # (Auto) 0.09 0.00-0.20 K/uL Absolute Immature Granulocyte (auto 0.74 0-1 K/uL Nucleated Red Blood Cells 0.0 0.0-0.19 % Sodium Level 144 136-145 mmol/L Potassium Level 3.0 *L 3.5-5.1 mmol/L Chloride Level 107 101-111 mmol/L Carbon Dioxide Level 27 21-32 mmol/L Blood Urea Nitrogen 46 H 7-18 mg/dL Creatinine 2.5 H 0.5-1.3 mg/dL Glomerular Filtration Rate Calc 29 >90 mL/min Random Glucose 96 70-105 mg/dL Total Calcium 7.8 L 8.5-10.1 mg/dL Magnesium Level 1.70 L 1.80-2.40 mg/dL Total Bilirubin 3.5 H 0.2-1.0 mg/dL Aspartate Amino Transf (AST/SGOT) 84 H 10-37 U/L Alanine Aminotransferase (ALT/SGPT) 23 12-78 U/L Alkaline Phosphatase 142 H 50-136 U/L Total Protein 5.5 L 6.0-8.3 g/dL Albumin 2.0 L 3.5-5.0 g/dL Whole Blood Glucose 93 70-110 MG/DL Urine Color YELLOW YELLOW Urine Appearance CLEAR CLEAR Urine pH 5.5 5.0-8.0 Urine Specific [place] 1.011 1.001-1.031 Urine Protein NEGATIVE NEGATIVE mg/dL Urine Glucose (UA) NEGATIVE NEGATIVE mg/dL Urine Ketones NEGATIVE NEGATIVE mg/dL Urine Occult Blood +- (TRACE) H NEGATIVE Urine Nitrate NEGATIVE NEGATIVE Urine Bilirubin NEGATIVE NEGATIVE mg/dL Urine Urobilinogen 0.2 0.2-1.0 mg/dL Urine Leukocyte Esterase 25 H NEGATIVE Rodolfo/uL Urine RBC None 0-1 /HPF Urine WBC 2-5 H 0-1 /HPF Urine Squamous Epithelial Cells RARE 0-2 /HPF Urine Bacteria None None Seen /HPF Urine Hyaline Casts 2-5 H 0-1 /LPF /LPF Current Medications Medications (Trade) Dose Ordered Sig/Lionel Route PRN Reason Start Time Stop Time Status Last Admin Dose Admin Acetaminophen (TYLenol 325MG TAB) 650 mg Q4H PRN PO MILD PAIN (1-3) 09/29/24 17:30 10/29/24 17:29 09/30/24 11:30 650 MG Acetaminophen (TYLenol 325MG TAB) 650 mg Q6H PRN PO MILD PAIN (1-3) 09/29/24 17:30 09/29/24 17:41 DC Acetaminophen (TYLenol 325MG TAB) 650 mg Q6H PRN PO TEMPERATURE GREATER THAN 101.5 09/29/24 17:30 10/29/24 17:29 Al Hydroxide/Mg Hydroxide (MAALox PLUS 30ML) 30 ml Q6H PRN PO INDIGESTION 09/29/24 17:30 10/29/24 17:29 Albumin Human 50 ml @ 0 mls/hr Q8H6 IV 09/30/24 22:00 10/02/24 14:01 DC 10/02/24 13:19 100 MLS/HR Albumin Human 200 ml @ 0 mls/hr AD IV 09/30/24 13:00 09/30/24 13:18 DC Albumin Human 200 ml @ 0 mls/hr AD IV 09/30/24 13:30 09/30/24 14:18 DC 09/30/24 13:28 0 MLS/HR Ceftriaxone Sodium 2 gm/ Sodium Chloride 100 ml @ 200 mls/hr Q24H IV 09/29/24 17:30 09/29/24 17:44 DC Ceftriaxone Sodium (Rocephin 2gm Inj) 2 gm Q24H IVPB 09/29/24 18:00 10/09/24 17:59 10/04/24 18:35 2 GM Dextrose (D50w) 50 ml AD PRN IV HYPOGLYCEMIA PROTOCOL 09/29/24 17:30 10/29/24 17:29 Diphenhydramine HCl (BENAdryl INJ) 25 mg Q6H PRN IV SEVERE ITCHING/RASH 09/29/24 17:30 10/29/24 17:29 Famotidine (Pepcid 20mg Vial) 20 mg BID PRN IV NAUSEA/VOMITING 09/29/24 17:30 09/29/24 17:41 DC Famotidine (Pepcid 20mg Vial) 20 mg QODAY IV 09/30/24 09:00 10/30/24 08:59 10/04/24 09:10 20 MG Furosemide (LASix 40MG TAB) 40 mg BID PO 10/02/24 21:00 11/01/24 20:59 10/04/24 21:26 40 MG Furosemide (LASix 40MG VIAL) 40 mg Q12H IV 09/29/24 22:00 10/02/24 10:49 DC 10/02/24 10:36 40 MG Glucagon (Glucagon 1mg Kit) 1 mg AD PRN IM HYPOGLYCEMIA PROTOCOL 09/29/24 17:30 10/29/24 17:29 Guaifenesin/ Dextromethorphan (RobiTUSSin DM 200/20MG 10ML) 10 ml Q4H PRN PO COUGH 09/29/24 17:30 10/29/24 17:29 Heparin Sodium (Porcine) (HEParin 5,000 UNIT VIAL) 5,000 unit BID SQ 09/29/24 21:00 10/29/24 20:59 10/04/24 21:38 5,000 UNIT Hydralazine HCl (APRESOLine 20MG INJ) 10 mg Q6H PRN IV For:SBP above 160;DBP above 90 09/29/24 17:30 10/29/24 17:29 Hydromorphone HCl (DiLAUDid 0.5MG INJ) 0.2 mg Q6H PRN IVP SEVERE PAIN (7-10) 09/30/24 11:30 10/05/24 11:29 Insulin Human Regular (humuLIN R 100 UNIT/ML 3ML) INSULIN SLIDING SCAL... ACHS SQ 09/29/24 21:00 10/29/24 20:59 Ketorolac Tromethamine (toRADol) 15 mg Q8H PRN IV MODERATE PAIN (4-6) 09/29/24 17:30 10/02/24 11:47 DC Lactulose (Constulose 20gm/ 30ml Udcup) 20 gm BID PRN PO CONSTIPATION 09/29/24 17:30 10/29/24 17:29 Lactulose (Constulose 20gm/ 30ml Udcup) 20 gm BID PRN PO CONSTIPATION 09/29/24 22:00 09/29/24 21:34 DC Magnesium Sulfate 50 ml @ 0 mls/hr PROTOCOL PRN IV other 09/29/24 17:30 10/29/24 17:29 10/01/24 17:37 25 MLS/HR Midodrine (PROAMatine 5 MG TABLET) 5 mg TID PO 10/02/24 14:00 11/01/24 13:59 10/04/24 21:26 5 MG Morphine Sulfate (morPHINE 2MG SYG) 1 mg Q4H PRN IVP SEVERE PAIN (7-10) 09/29/24 17:30 09/30/24 11:27 DC Nitroglycerin (Nitrostat) 0.4 mg PROTOCOL PRN SL CHEST PAIN 09/29/24 17:30 10/29/24 17:29 Octreotide Acetate (SandoSTATIN) 100 mcg Q8H6 SQ 09/30/24 22:00 10/30/24 21:59 10/05/24 06:27 100 MCG Ondansetron HCl (zoFRAN 4MG INJ) 4 mg Q6H PRN IV NAUSEA/VOMITING 09/29/24 17:30 10/29/24 17:29 Sodium Chloride 1,000 ml @ 70 mls/hr [id number] IV 09/29/24 17:30 09/29/24 21:30 DC Thiamine HCl (Vitamin B-1) 100 mg DAILY IVP 10/01/24 09:00 10/31/24 08:59 10/04/24 09:10 100 MG Vitamin B Complex/ Vit C/Folic Acid (Nephrovite Tablet) 1 cap DAILY PO 10/01/24 09:00 10/31/24 08:59 10/04/24 09:10 1 CAP Zolpidem Tartrate (AmbIEN) 5 mg HS PRN PO INSOMNIA 09/29/24 17:30 10/29/24 17:29 Diagnostics / Radiology: [COPY/PASTE HERE IF NO REPORTS PLEASE DELETE SECTION] Assessment: Liver mass Ascites Cirrhosis Plan: Await biopsy results Follow oncology recommendations LEONORA BLEDSOE [employer]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
--- NOTE | 2024-10-05 08:51 | PN ---
[facility] PROGRESS NOTE Date of Service: Oct 05, 2024 Time of Service: 08:47 SUBJECTIVE: 09/30: Patient is a 59 year old M, with a PMH of liver cirrhosis and undiagnosed EDUAR, who presented to the ED with complaints of shortness of breath with exertion, abdominal distention, bilateral lower extremity edema, and swelling of scrotum. Patient states the scrotal swelling began one week ago and has been preventing him from walking. The patients CT abdomen/pelvis showed cirrhosis with enlarging spleen, and a right hepatic mass measuring 9.2 x 8.1 cm, small ascites. The patient is planned to get a paracentesis done today. The patient will be getting a liver biopsy tomorrow. Per GI, we will obtain AFP level. The patient complains of pain, rating it a 7/10 on the pain scale. The patient states he does not want to take Morphine. I spoke to pharmacy, and we agreed that the patient can receive 0.2 mg Dilaudid as needed every 6 hours for pain. The patient WBC count is 13.6, down from 16.9. Lactic acid 3.8. 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 We will continue to follow cardiology, oncology, and nephrology recommendations. 10/01: Patient was seen this morning at bedside. Patient is doing well. Patient denies chest pain, shortness of breath, nausea, vomiting, fever, chills, abdominal pain. The patient will receive scrotal support to aid in the management of swelling. The Patient will be getting a liver biopsy done today. Patient had a paracentesis done yesterday, where 6 L of ascitic fluid was removed. Cultures are pending. 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 We will wait for liver biopsy results, and AFP levels. Patients Creatinine is 2.8, up from 2.6. BUN is 42, up from 37. We will continue to appreciate Cardiology, Nephrology, and Oncology recommendations. 10/02/2024. Patient seen and examined along with RN. No new complaints. Continues to be on diuretics started on midodrine and Sandostatin. Biopsy resul ts are pending. 10/03/24 : pt seen and examined along with rn , no new complaints creatine stable 10/04/24: Patient was seen this morning at bedside. We will obtain a urine protein creatinine ratio. Patient continues to be on oral diuretics, midodrine, and Sandostatin. Biopsy results are pending. Patient to follow Dr. Meade for treatment of hepatoma outpatient. We will continue to follow nephrology and Oncology recommendations. 10/05/24: Patient was seen this morning at bedside. Patient continued on oral diuretics, midodrine, and Sandostatin. Biopsy results are still pending. Patient will follow Dr. Sheri newby work outpatient for treatment of hepatoma. Patient's potassium this morning was 3.0, with a magnesium of 1.7. I ordered 20 mEq of oral potassium replacement, due to patient's decreased GFR, and we will be rechecking the CMP in 4 hours. Potassium levels will be monitored and adjusted accordingly. Patient's WBC count increased to 12.9 from 9.5. Patient's scrotum is erythematous and warm to the touch. We will begin treatment for scrotal cellulitis with Flagyl, Vancomycin pharmacy dosed, and cefepime. Chest x-ray will be obtained due to leukocytosis. We will continue to monitor the patient. We will continue to follow Nephrology, GI, and Oncology recommendations. REVIEW OF SYSTEMS CONSTITUTIONAL: Denies fevers, chills, or night sweats. No unintentional weight loss reported. NEUROLOGICAL: Denies headache, amaurosis fugax, motor weakness, sensory deficit, vertigo/spinning sensation, gait abnormalities, or tremors. ENT: No hearing loss, otalgia, otorrhea, rhinitis, rhinorrhea, hoarseness, or sore throat. CARDIOVASCULAR: Denies any exertional angina, dyspnea on exertion, orthopnea, paroxysmal nocturnal dyspnea, palpitations, life-threatening arrhythmias, claudication. PULMONARY: Denies any cough, phlegm/sputum, hemoptysis, pleuritic chest pain. Complains of shortness of breath on exertion SLEEP: Denies morning headaches, daytime somnolence or napping. Denies difficulty falling asleep, staying asleep, waking from sleep. Denies knowledge of snoring. GASTROINTESTINAL: Denies any type of dysphagia to either liquids or solids. Denies nausea, vomiting, pyrosis, early satiety, diarrhea, constipation, or changes in stool consistency or caliber. Denies coffee-ground emesis, hematemesis, hematochezia, or melanotic stools. Complains of abdominal pain. GENITOURINARY: Denies frequency, urgency, nocturia, hematuria or incontinence (Storage/Irritative symptoms.) Low urinary stream, straining to void, urinary intermittency or hesitancy, splitting of the voiding stream, terminal dribbling. Complains of scrotal pain ENDOCRINOLOGIC: Denies polyuria, polydipsia, polyphagia or heat/cold intolerances. HEMATOLOGIC: Denies thrombophilia/previous clots, or coagulopathy/bleeding disorders. ONCOLOGIC: Denies personal history of malignancy. DERMATOLOGIC: Denies rashes or pruritus. PSYCHIATRIC: Denies any suicidal or homicidal ideation. Denies hallucinations. PHYSICAL EXAM GENERAL APPEARANCE: The patient is awake, alert, and oriented, in no acute cardiopulmonary distress. NEUROLOGICAL: Cranial nerves II-XII grossly intact. Motor is 5/5 in bilateral upper and lower extremities proximal to distal. No sensory deficits. HEENT: Face is symmetric. Pupils are equal and reactive. Extraocular movements are intact. NECK: Supple. No JVD. No thyromegaly. No submental, submandibular, pre- /postauricular, occipital or supraclavicular lymphadenopathy. CHEST: Normal chest expansion. No Telemetry. LUNGS: Absence of any rales, rhonchi or any wheezing. CARDIOVASCULAR: Regular. S1 and S2 normal. No appreciable rubs, murmurs or gallops. ABDOMEN: Soft, nontender, and nondistended. There is no rebound, voluntary guarding, or rigidity. : Deferred. No Garnett. Severe scrotum swelling EXTREMITIES:and not cyanotic. No clubbing. Good capillary refill. Bilateral lower extremities edema plus four pitting SKIN: No skin breakdown. Vital Signs (last 8hr) Date Time Temp Pulse Resp B/P (MAP) Pulse Ox O2 Delivery O2 Flow Rate FiO2 10/05/24 08:00 97.9 71 20 103/57 99 Room Air 21 10/05/24 04:00 97.9 85 18 137/80 99 Room Air LABS: Laboratory: Test 10/05/24 05:27 10/05/24 05:08 10/03/24 11:27 Range/Units White Blood Count 12.9 H 4.8-10.8 K/uL Red Blood Count 3.13 L 4.50-6.20 MIL/uL Hemoglobin 10.4 L 14.0-18.0 g/dL Hematocrit 30.8 L 42-54 % Mean Corpuscular Volume 98.4 79-99 fL Mean Corpuscular Hemoglobin 33.2 H 27.0-33.0 pg Mean Corpuscular Hemoglobin Concent 33.8 32.0-36.0 g/dL Red Cell Distribution Width 17.6 H 11.0-15.5 % Platelet Count 108 L 130-400 K/uL Mean Platelet Volume 10.4 7.5-10.5 fL Immature Granulocyte % (Auto) 5.7 H 0-1 % Neutrophils (%) (Auto) 66.9 40.0-77.0 % Lymphocytes (%) (Auto) 9.9 L 21.0-51.0 % Monocytes (%) (Auto) 9.1 3.0-13.0 % Eosinophils (%) (Auto) 7.7 0.0-8.0 % Basophils (%) (Auto) 0.7 0.0-5.0 % Neutrophils # (Auto) 8.7 H 1.8-7.7 K/uL Lymphocytes # (Auto) 1.3 1.0-4.8 K/uL Monocytes # (Auto) 1.2 H 0.1-1.0 K/uL Eosinophils # (Auto) 1.00 H 0.00-0.70 K/uL Basophils # (Auto) 0.09 0.00-0.20 K/uL Absolute Immature Granulocyte (auto 0.74 0-1 K/uL Nucleated Red Blood Cells 0.0 0.0-0.19 % Sodium Level 144 136-145 mmol/L Potassium Level 3.0 *L 3.5-5.1 mmol/L Chloride Level 107 101-111 mmol/L Carbon Dioxide Level 27 21-32 mmol/L Blood Urea Nitrogen 46 H 7-18 mg/dL Creatinine 2.5 H 0.5-1.3 mg/dL Glomerular Filtration Rate Calc 29 >90 mL/min Random Glucose 96 70-105 mg/dL Total Calcium 7.8 L 8.5-10.1 mg/dL Magnesium Level 1.70 L 1.80-2.40 mg/dL Total Bilirubin 3.5 H 0.2-1.0 mg/dL Aspartate Amino Transf (AST/SGOT) 84 H 10-37 U/L Alanine Aminotransferase (ALT/SGPT) 23 12-78 U/L Alkaline Phosphatase 142 H 50-136 U/L Total Protein 5.5 L 6.0-8.3 g/dL Albumin 2.0 L 3.5-5.0 g/dL Whole Blood Glucose 93 70-110 MG/DL Urine Color YELLOW YELLOW Urine Appearance CLEAR CLEAR Urine pH 5.5 5.0-8.0 Urine Specific [place] 1.011 1.001-1.031 Urine Protein NEGATIVE NEGATIVE mg/dL Urine Glucose (UA) NEGATIVE NEGATIVE mg/dL Urine Ketones NEGATIVE NEGATIVE mg/dL Urine Occult Blood +- (TRACE) H NEGATIVE Urine Nitrate NEGATIVE NEGATIVE Urine Bilirubin NEGATIVE NEGATIVE mg/dL Urine Urobilinogen 0.2 0.2-1.0 mg/dL Urine Leukocyte Esterase 25 H NEGATIVE Rodolfo/uL Urine RBC None 0-1 /HPF Urine WBC 2-5 H 0-1 /HPF Urine Squamous Epithelial Cells RARE 0-2 /HPF Urine Bacteria None None Seen /HPF Urine Hyaline Casts 2-5 H 0-1 /LPF /LPF Current Medications Medications (Trade) Dose Ordered Sig/Lionel Route PRN Reason Start Time Stop Time Status Last Admin Dose Admin Acetaminophen (TYLenol 325MG TAB) 650 mg Q4H PRN PO MILD PAIN (1-3) 09/29/24 17:30 10/29/24 17:29 09/30/24 11:30 650 MG Acetaminophen (TYLenol 325MG TAB) 650 mg Q6H PRN PO MILD PAIN (1-3) 09/29/24 17:30 09/29/24 17:41 DC Acetaminophen (TYLenol 325MG TAB) 650 mg Q6H PRN PO TEMPERATURE GREATER THAN 101.5 09/29/24 17:30 10/29/24 17:29 Al Hydroxide/Mg Hydroxide (MAALox PLUS 30ML) 30 ml Q6H PRN PO INDIGESTION 09/29/24 17:30 10/29/24 17:29 Albumin Human 50 ml @ 0 mls/hr Q8H6 IV 09/30/24 22:00 10/02/24 14:01 DC 10/02/24 13:19 100 MLS/HR Albumin Human 200 ml @ 0 mls/hr AD IV 09/30/24 13:00 09/30/24 13:18 DC Albumin Human 200 ml @ 0 mls/hr AD IV 09/30/24 13:30 09/30/24 14:18 DC 09/30/24 13:28 0 MLS/HR Ceftriaxone Sodium 2 gm/ Sodium Chloride 100 ml @ 200 mls/hr Q24H IV 09/29/24 17:30 09/29/24 17:44 DC Ceftriaxone Sodium (Rocephin 2gm Inj) 2 gm Q24H IVPB 09/29/24 18:00 10/09/24 17:59 10/04/24 18:35 2 GM Dextrose (D50w) 50 ml AD PRN IV HYPOGLYCEMIA PROTOCOL 09/29/24 17:30 10/29/24 17:29 Diphenhydramine HCl (BENAdryl INJ) 25 mg Q6H PRN IV SEVERE ITCHING/RASH 09/29/24 17:30 10/29/24 17:29 Famotidine (Pepcid 20mg Vial) 20 mg BID PRN IV NAUSEA/VOMITING 09/29/24 17:30 09/29/24 17:41 DC Famotidine (Pepcid 20mg Vial) 20 mg QODAY IV 09/30/24 09:00 10/30/24 08:59 10/04/24 09:10 20 MG Furosemide (LASix 40MG TAB) 40 mg BID PO 10/02/24 21:00 11/01/24 20:59 10/04/24 21:26 40 MG Furosemide (LASix 40MG VIAL) 40 mg Q12H IV 09/29/24 22:00 10/02/24 10:49 DC 10/02/24 10:36 40 MG Glucagon (Glucagon 1mg Kit) 1 mg AD PRN IM HYPOGLYCEMIA PROTOCOL 09/29/24 17:30 10/29/24 17:29 Guaifenesin/ Dextromethorphan (RobiTUSSin DM 200/20MG 10ML) 10 ml Q4H PRN PO COUGH 09/29/24 17:30 10/29/24 17:29 Heparin Sodium (Porcine) (HEParin 5,000 UNIT VIAL) 5,000 unit BID SQ 09/29/24 21:00 10/29/24 20:59 10/04/24 21:38 5,000 UNIT Hydralazine HCl (APRESOLine 20MG INJ) 10 mg Q6H PRN IV For:SBP above 160;DBP above 90 09/29/24 17:30 10/29/24 17:29 Hydromorphone HCl (DiLAUDid 0.5MG INJ) 0.2 mg Q6H PRN IVP SEVERE PAIN (7-10) 09/30/24 11:30 10/05/24 11:29 Insulin Human Regular (humuLIN R 100 UNIT/ML 3ML) INSULIN SLIDING SCAL... ACHS SQ 09/29/24 21:00 10/29/24 20:59 Ketorolac Tromethamine (toRADol) 15 mg Q8H PRN IV MODERATE PAIN (4-6) 09/29/24 17:30 10/02/24 11:47 DC Lactulose (Constulose 20gm/ 30ml Udcup) 20 gm BID PRN PO CONSTIPATION 09/29/24 17:30 10/29/24 17:29 Lactulose (Constulose 20gm/ 30ml Udcup) 20 gm BID PRN PO CONSTIPATION 09/29/24 22:00 09/29/24 21:34 DC Magnesium Sulfate 50 ml @ 0 mls/hr PROTOCOL PRN IV other 09/29/24 17:30 10/29/24 17:29 10/01/24 17:37 25 MLS/HR Midodrine (PROAMatine 5 MG TABLET) 5 mg TID PO 10/02/24 14:00 11/01/24 13:59 10/04/24 21:26 5 MG Morphine Sulfate (morPHINE 2MG SYG) 1 mg Q4H PRN IVP SEVERE PAIN (7-10) 09/29/24 17:30 09/30/24 11:27 DC Nitroglycerin (Nitrostat) 0.4 mg PROTOCOL PRN SL CHEST PAIN 09/29/24 17:30 10/29/24 17:29 Octreotide Acetate (SandoSTATIN) 100 mcg Q8H6 SQ 09/30/24 22:00 10/30/24 21:59 10/05/24 06:27 100 MCG Ondansetron HCl (zoFRAN 4MG INJ) 4 mg Q6H PRN IV NAUSEA/VOMITING 09/29/24 17:30 10/29/24 17:29 Sodium Chloride 1,000 ml @ 70 mls/hr [id number] IV 09/29/24 17:30 09/29/24 21:30 DC Thiamine HCl (Vitamin B-1) 100 mg DAILY IVP 10/01/24 09:00 10/31/24 08:59 10/04/24 09:10 100 MG Vitamin B Complex/ Vit C/Folic Acid (Nephrovite Tablet) 1 cap DAILY PO 10/01/24 09:00 10/31/24 08:59 10/04/24 09:10 1 CAP Zolpidem Tartrate (AmbIEN) 5 mg HS PRN PO INSOMNIA 09/29/24 17:30 10/29/24 17:29 DIAGNOSTICS / RADIOLOGY: [facility] [address] [place] [address] IMAGING REPORT Signed PATIENT: DARSHAN KINNEY MR#: [id number] : 1965 SEX: M AGE: 59 LOCATION: [facility] ORDER 2 STATUS: ADM IN [facility] REPORT#: [id number] SERVICE 1200 REASON: LIVER MASS ORDERING PHYSICIAN: RONEN LINTON MD PROCEDURE: BX LIVER - US BIOPSY LIVER IR US BIOPSY LIVER IR REASON: LIVER MASS COMPARISON: None TECHNIQUE: Ultrasound-guided of right lobe hepatic mass. FINDINGS: Ultrasound demonstrates a large right lower lobe hepatic mass. PROCEDURE: Informed consent obtained from patient following explanation of risk, benefits, complications. Timeout performed by radiology nursing staff. Patient received intravenous titrated doses of Versed and fentanyl administered by radiology nursing personnel with continuous monitoring of the vital signs. 10 mL of 1% lidocaine subcutaneous was administered for local anesthesia. Under direct ultrasound guidance, needle was advanced into the right lobe of liver hepatic mass. A total of 5 specimen obtained with 18-gauge core biopsy. Needle removed. Hemostasis obtained with direct pressure. Sterile dressing applied. Patient tolerated procedure well without evidence of complication. IMPRESSION: Ultrasound-guided biopsy of right lobe liver mass. DICTATED BY: BENITO SPEARS DO DATE: 10/03/24 1400 ELECTRONICALLY SIGNED BY: BENITO SPEARS DO DATE: 10/03/24 1405 ASSESSMENT: Acute hypoxic respiratory failure POA Severe liver cirrhosis requiring paracentesis POA Severe bilateral lower extremities edema POA Uncontrolled hypertension POA Acute kidney injury TNP POA Possible acute complicated cystitis POA Leukocytosis WBC 16.9 due to above POA Severe liver cirrhosis per CT abdomen/pelvis POA Right hepatic mass measuring 9.2 x 8.[address] abdomen/pelvis Small ascites per CT abdomen/pelvis POA Anasarca per CT abdomen/pelvis POA Multifactorial anemia POA Severe malnutrition POA Electrolyte imbalance hyponatremia Na 133 POA] PLAN: Consults: Horse Farm Manager, it investment/portfolio manager, oncologist, intelligence operations Antibiotics: Rocephin Tests: 2D echo, ultrasound scrotum, IR for thoracentesis, liver biopsy NEURO: Minimize central acting medications as possible. Fall Precautions. Well lighted room through the day and minimize interruptions through the night to prevent acute delirium. 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 Follow hemodynamics. Vital signs per facility protocol GI & NUTRITION: CT abdomen/pelvis shows cirrhotic liver with enlarged spleen. There is right hepatic mass measuring 9.2 x 8.1 cm. There small ascites. Anasarca IR thoracentesis removed 6L ascitic fluid. Cultures pending. Liver biopsy complete. We will follow up with biopsy results. AFP level elevated. Patient will follow Dr. Meade outpatient for treatment of Hepatoma. Aspirations precautions KIDNEYS & ELECTROLYTES: Likely has hepatorenal syndrome- on midodrine, octreotide, and albumin per Nephrology. Urine protein/ creatinine ratio to be obtained. Strict monitoring of intake and output Daily weights Avoid nephrotoxic agents Monitor electrolytes and replace as needed Goal urine output of 30mL/hr or 0.5mL/kg/hr Medications to be dosed according to renal function. Avoid contrast if possible Continue to follow nephrology recommendations Potassium 3.0. We will continue to monitor Potassium and replace as needed. ENDOCRINE: Maintain blood glucose between 100-180 at all times. Insulin sliding scale for blood glucose management Hypoglycemia and hyperglycemia protocol in place INFECTIOUS DISEASE: Trend temperature, WBC and procalcitonin level Follow cultures, deescalate antibiotics as soon as possible. HEMATOLOGY & COAGULATION: Monitor H&H. Keep Hgb > 7 Transfuse 1 unit of PRBC for Hgb < 7 Transfuse 1 pack of platelets of platelets < 20, 000 Watch for any signs and symptoms of bleeding SKIN: Ultrasound scrotum showed scrotal wall swelling. Pressure ulcer prevention per facility protocol Specialty mattress as needed Scrotum appears erythematous and warm to the touch. Started Flagyl, Vancomycin dosed by pharmacy, Cefepime for scrotal cellulitis and leukocytosis. Treatment plan discussed with patient and family at the bedside Rehab: PT/OT GI: PPI DVT: SCD's FEDERICO SUNSHINE MD Oct 05, 2024 08:51
[2024-10-05] MEDS: PoTASSium chloRIDE 20MEQ ER 20 MEQ ERTAB PO ONE (10:06)
[2024-10-05 11:59] LABS: ALBUMIN 2.1 g/dL (3.5-5.0); BILIRUBIN,TOTAL 3.7 mg/dL (0.2-1.0); CREATININE 2.6 mg/dL (0.5-1.3); TOTAL PROTEIN, SERUM 5.9 g/dL (6.0-8.3)
[2024-10-05] MEDS ORDERED: ZYVOX 600 MG TAB PO SCH (12:00)
[2024-10-05] MEDS: VANCOMYCIN 2GM/500 ML BAG 500 ML IV ONE (12:30)
[2024-10-05] MEDS ORDERED: VANCOMYCIN PROTOCOL PER PHARMACY IV SCH (12:30)
[2024-10-05] MEDS: ceFEPime HCL 2 GM VIAL IVPB SCH (13:15)
--- NOTE | 2024-10-05 13:25 | HMCIMG ---
PA AND LATERAL CHEST RADIOGRAPH INDICATION: leukocytosis- evaluate for infectious source COMPARISON: 10/09/2024 FINDINGS: Heart size is normal. The pulmonary vascularity and william appear normal. No abnormal pulmonary parenchymal opacity or consolidation identified. Right hemidiaphragm remains slightly elevated. No significant pleural effusion noted. No pneumothorax detected. IMPRESSION: No radiographic evidence for any acute cardiopulmonary process.
--- NOTE | 2024-10-05 13:28 | PN ---
NEPHROLOGY PROGRESS NOTE Date/Time Patient Seen: Oct 05, 2024 SUBJECTIVE: This is a 59-year-old male with a past medical history of liver cirrhosis, diagnosed obstructive sleep apnea. He presented to the emergency with complaints of shortness of breath on exertion, abdominal distention, bilateral lower extremity edema and scrotal swelling. CT of the abdomen and pelvis showed cirrhotic liver with enlarged spleen. Right hepatic mass measuring 9.2 x 8.1 cm. There is small ascites. Anasarca Echocardiogram showed LVEF of 60-65%. 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 S/p paracentesis with 6 L removed. He was noted with worsening renal failure We have been consulted for renal failure Renal function remains elevated Electrolytes are stable. He continues on albumin and octreotide. S/p liver biopsy, pending pathology results Continue with leukocytosis He was started on Flagyl, vancomycin and cefepime for scrotal cellulitis. He was seen in the medical floor, in no acute distress Family at the bedside Prognosis remains guarded REVIEW OF SYSTEMS: GENERAL: Positive for shortness of breath, lower extremity edema and abdominal distention NEUROLOGIC: Negative for any blurry vision, blind spots, double vision, facial asymmetry, dysphagia, dysarthria, hemiparesis, hemisensory deficits, vertigo, ataxia. HEENT: Negative for any head trauma, neck trauma, neck stiffness, photophobia, phonophobia, sinusitis, rhinitis. CARDIAC: Negative for any chest pain, dyspnea on exertion, paroxysmal nocturnal dyspnea, peripheral edema. PULMONARY: Negative for any shortness of breath, wheezing, COPD, or TB exposure. GASTROINTESTINAL: Negative for any abdominal pain, nausea, vomiting, bright red blood per rectum, melena. GENITOURINARY: Negative for any dysuria, hematuria, incontinence. INTEGUMENTARY: Negative for any rashes, cuts, insect bites. RHEUMATOLOGIC: Negative for any joint pains, photosensitive rashes, history of vasculitis or kidney problems. HEMATOLOGIC: Negative for any abnormal bruising, frequent infections or bleeding. PHYSICAL EXAM: GENERAL: Alert and oriented x 3. No acute distress. Well-nourished. EYES: EOMI. Anicteric. HENT: Moist mucous membranes. No scleral icterus. No cervical lymphadenopathy. LUNGS: Clear to auscultation bilaterally. No accessory muscle use. CARDIOVASCULAR: Regular rate and rhythm. No murmur. No JVD. ABDOMEN: Soft, non-tender and non-distended. No palpable masses. EXTREMITIES: 2+ edema. Non-tender. SKIN: No rashes or lesions. Warm. NEUROLOGIC: No focal neurological deficits. CN II-XII grossly intact, but not individually tested. PSYCHIATRIC: Cooperative. Appropriate mood and affect. LABORATORY: [ ] Hematology Labs: Test 10/05/24 05:27 Range/Units White Blood Count 12.9 H 4.8-10.8 K/uL Red Blood Count 3.13 L 4.50-6.20 MIL/uL Hemoglobin 10.4 L 14.0-18.0 g/dL Hematocrit 30.8 L 42-54 % Mean Corpuscular Volume 98.4 79-99 fL Mean Corpuscular Hemoglobin 33.2 H 27.0-33.0 pg Mean Corpuscular Hemoglobin Concent 33.8 32.0-36.0 g/dL Red Cell Distribution Width 17.6 H 11.0-15.5 % Platelet Count 108 L 130-400 K/uL Mean Platelet Volume 10.4 7.5-10.5 fL Immature Granulocyte % (Auto) 5.7 H 0-1 % Neutrophils (%) (Auto) 66.9 40.0-77.0 % Lymphocytes (%) (Auto) 9.9 L 21.0-51.0 % Monocytes (%) (Auto) 9.1 3.0-13.0 % Eosinophils (%) (Auto) 7.7 0.0-8.0 % Basophils (%) (Auto) 0.7 0.0-5.0 % Neutrophils # (Auto) 8.7 H 1.8-7.7 K/uL Lymphocytes # (Auto) 1.3 1.0-4.8 K/uL Monocytes # (Auto) 1.2 H 0.1-1.0 K/uL Eosinophils # (Auto) 1.00 H 0.00-0.70 K/uL Basophils # (Auto) 0.09 0.00-0.20 K/uL Absolute Immature Granulocyte (auto 0.74 0-1 K/uL Nucleated Red Blood Cells 0.0 0.0-0.19 % Chemistry Labs: Test 10/05/24 11:40 10/05/24 11:19 10/05/24 05:27 Range/Units Sodium Level 142 136-145 mmol/L Potassium Level 3.0 *L 3.5-5.1 mmol/L Chloride Level 106 101-111 mmol/L Carbon Dioxide Level 27 21-32 mmol/L Blood Urea Nitrogen 47 H 7-18 mg/dL Creatinine 2.6 H 0.5-1.3 mg/dL Glomerular Filtration Rate Calc 28 >90 mL/min Random Glucose 156 #H 70-105 mg/dL Total Calcium 7.9 L 8.5-10.1 mg/dL Total Bilirubin 3.7 H 0.2-1.0 mg/dL Aspartate Amino Transf (AST/SGOT) 92 H 10-37 U/L Alanine Aminotransferase (ALT/SGPT) 26 12-78 U/L Alkaline Phosphatase 144 H 50-136 U/L C-Reactive Protein, Quantitative 55.90 H 0.5-3.0 mg/L Total Protein 5.9 L 6.0-8.3 g/dL Albumin 2.1 L 3.5-5.0 g/dL Procalcitonin 6.55 H 0.05-0.5 ng/mL Whole Blood Glucose 146 #H 70-110 MG/DL Magnesium Level 1.70 L 1.80-2.40 mg/dL DIAGNOSTICS / RADIOLOGY: REASON: leukocytosis- evaluate for infectious source ORDERING PHYSICIAN: FEDERICO SUNSHINE MD PROCEDURE: CXR2VW - CHEST 2VWS PA AND LATERAL CHEST RADIOGRAPH INDICATION: leukocytosis- evaluate for infectious source COMPARISON: 10/09/2024 FINDINGS: Heart size is normal. The pulmonary vascularity and william appear normal. No abnormal pulmonary parenchymal opacity or consolidation identified. Right hemidiaphragm remains slightly elevated. No significant pleural effusion noted. No pneumothorax detected. IMPRESSION: No radiographic evidence for any acute cardiopulmonary process. DICTATED BY: VIRGINIA JEFFERY MD DATE: 10/05/24 1321 REASON: LIVER MASS ORDERING PHYSICIAN: RONEN LINTON MD PROCEDURE: BX LIVER - US BIOPSY LIVER IR US BIOPSY LIVER IR REASON: LIVER MASS COMPARISON: None TECHNIQUE: Ultrasound-guided of right lobe hepatic mass. FINDINGS: Ultrasound demonstrates a large right lower lobe hepatic mass. PROCEDURE: Informed consent obtained from patient following explanation of risk, benefits, complications. Timeout performed by radiology nursing staff. Patient received intravenous titrated doses of Versed and fentanyl administered by radiology nursing personnel with continuous monitoring of the vital signs. 10 mL of 1% lidocaine subcutaneous was administered for local anesthesia. Under direct ultrasound guidance, needle was advanced into the right lobe of liver hepatic mass. A total of 5 specimen obtained with 18-gauge core biopsy. Needle removed. Hemostasis obtained with direct pressure. Sterile dressing applied. Patient tolerated procedure well without evidence of complication. IMPRESSION: Ultrasound-guided biopsy of right lobe liver mass. DICTATED BY: BENITO SPEARS DO DATE: 10/03/24 1400 REASON: chf ORDERING PHYSICIAN: JONATHON GLORIA APRN PROCEDURE: ECHO CMP - ECHO 2-D COMPLETE APPROVED REPORT EXAM: Two-dimensional and M-mode echocardiogram with Doppler and color Doppler. INDICATION ICD: Congestive heart failure 2D Dimensions RVDd 3.8 cm LVEF(%) 60.5 (>50%) LVEF(%, simp.) 67 % IVSd 0.7 (0.7-1.1cm) FS(%) 32 % LA ESV INDEX (BP) 30.44 mL/m2 LVDd 5.0 (3.8-5.6cm) LA (2D) 4.5 (1.6-4.0cm) PWd 0.8 (0.7-1.1cm) Ao Root(2D) 3.1 (2.0-3.7cm) IVSs 1.1 cm LVOT diam 2.1 (1.8-2.4cm) LVDs 3.4 (2.5-4.0cm) PWs 1.1 cm Deformation Strain Apical 4 -20.0 % Apical 2 -24.0 % Apical 3 -24.0 % Global Strain -23.0 % M-Mode Dimensions EPSS 1.0 cm LA (MM) 5.0 (1.6-4.0cm) Ao Root(MM) 3.2 (2.0-3.7cm) Aortic Valve AoV Vmax 2.1 m/s Ao Peak GR 18.5 mmHg LVOT Vmax 1.6 m/s AoV VTI 0.4 m Ao Mean GR 10.5 mmHg LVOT VTI 0.28 m JANIE (VMAX) 2.4 cm2 JANIE (VTI) 2.4 cm2 Mitral Valve MV E Vmax 78.4 cm/s DECEL Time 160 ms MV A Vmax 85.6 cm/s P 1/2 T 31 ms E/A ratio 0.9 MVA (PHT) 7.0 cm2 TDI E/E' Medial 7.8 Medial E' Peak V 10.00 cm/s Pulmonary Valve PV Vmax 1.3 m/s Tricuspid Valve TR Vmax 2.8 m/s RAP (EST) 8 mmHg RVSP 38.4 mmHg TR Peak GR 30.4 mmHg Left Ventricle The left ventricle is normal size. GLS -23.0%. There is normal left ventricular wall thickness. LVEF is 60-65%. 3D volume EF 67%. The left ventricular diastolic function is normal. Right Ventricle The right ventricle is normal size. The right ventricular systolic function is normal. Atria The left atrium size is normal. The right atrium is technically difficult to measure due to Large right atrial mass present, clinically appears as myxoma. Aortic Valve Aortic valve is trileaflet mildly thickened. No aortic regurgitation is present. There is no aortic valvular stenosis. Mitral Valve The mitral valve is normal in structure. There is no mitral valve regurgitation noted. There is no mitral valve stenosis. Tricuspid Valve The tricuspid valve is normal in structure. There is mild tricuspid valve regurgitation noted. Pulmonic Valve The pulmonary valve is normal in structure. There is trace of pulmonic valvular regurgitation. Great Vessels The aortic root is normal in size. IVC is not well visualized. Pericardium There is no pericardial effusion. Other Information Quality : Adequate Conclusion The left ventricle is normal size. LVEF is 60-65%. 3D volume EF 67%. The left ventricular diastolic function is normal. The right ventricle is normal size. The right ventricular systolic function is normal. The left atrium size is normal. The right atrium is technically difficult to measure due to Large right atrial mass present, clinically appears as myxoma. There is mild tricuspid valve regurgitation noted. There is mild tricuspid valve regurgitation noted. RVSP 35 mm Hg. There is no pericardial effusion. DICTATED BY: DAMIR NAYLOR MD DATE: 09/30/24 0908 REASON: swelling severe ORDERING PHYSICIAN: JONATHON GLORIA APRN PROCEDURE: SCROTUM - US SCROTUM & CONTENTS US SCROTUM & CONTENTS HISTORY: No additional history given. COMPARISON: None TECHNIQUE: Duplex scrotal ultrasound study was performed. FINDINGS: The right testes measures 3.4 x 2 x 2.2 cm. The left testes measures 3.4 x 2.2 x 2.1 cm. No evidence of intratesticular mass or abnormal calcification is seen. Normal flow is demonstrated in the testes and epididymides bilaterally. No hydroceles or varicocele is seen. There is scrotal wall edema with right measuring 2.4 cm and left measuring 2.6 cm in thickness. IMPRESSION: 1. No evidence of intratesticular mass is seen. 2. Normal flow is demonstrated of both testes. Scrotal wall swelling. Scrotal wall swelling DICTATED BY: SOHAIL CORONEL MD DATE: 09/30/24 0042 REASON: congestion ORDERING PHYSICIAN: JONATHON GLORIA DATA LEAD PROCEDURE: CXR1VW - CHEST 1VW CHEST 1VW HISTORY: Congestion COMPARISON: None FINDINGS: A frontal projection of the chest was obtained. No acute pulmonary infiltrates is seen. The heart is borderline enlarged. Degenerative changes are seen. Elevation of right hemidiaphragm is seen. IMPRESSION: 1. No acute pulmonary infiltrate is seen. DICTATED BY: SOHAIL CORONEL MD DATE: 09/29/24 1939 REASON: ascities, cirrhosis ORDERING PHYSICIAN: JONATHON GLORIA DATA LEAD PROCEDURE: ABD PEL WO - CT ABDOMEN/PELVIS W/O CONTRAST CT ABDOMEN/PELVIS W/O CONTRAST HISTORY: Ascites and cirrhosis COMPARISON: None TECHNIQUE: Multiple sequential axial images of the abdomen and pelvis were obtained from the dome of the diaphragm through symphysis pubis. Patient was not given contrast through intravenous route. Oral contrast was not given. FINDINGS: Tiny bilateral pleural effusions are seen. There is no evidence of parenchymal disease or pulmonary nodule of the visualized lower lungs. Degenerative changes of the thoracolumbar spine are present. The heart is not enlarged. Cirrhotic changes of the liver are noted. The liver has irregular contour. There is right hepatic mass measuring 9.2 x 8.1 cm. There is left renal atrophy. Liver measures 8.4 cm. Spleen is enlarged measuring 15 cm Spleen, adrenal glands and pancreas are unremarkable. There is no evidence of hydronephrosis bilaterally. No evidence of renal stone is seen. Fecal material is seen in the colon. There are normal size retroperitoneal and mesenteric lymph nodes. There is small ascites and anasarca. Atherosclerotic changes are present. Pelvic sidewalls are symmetric bilaterally. Bladder is well distended without wall thickening. IMPRESSION: 1. Cirrhotic liver with enlarged spleen . There is right hepatic mass measuring 9.2 x 8.1 cm. There is small ascites. Anasarca. CT was performed with one or more following dose reduction techniques: automated exposure control, adjustment of the mA and kv according to patient's size, or use of a iterative reconstruction technique. DICTATED BY: SOHAIL CORONEL MD DATE: 09/29/241944 ASSESSMENT: Acute kidney injury Anemia Acute hypoxic respiratory failure POA Severe liver cirrhosis requiring paracentesis POA Severe bilateral lower extremities edema POA Uncontrolled hypertension POA Possible acute complicated cystitis POA Leukocytosis WBC 16.9 due to above POA Severe liver cirrhosis per CT abdomen/pelvis POA Right hepatic mass measuring 9.2 x 8.[address] abdomen/pelvis Small ascites per CT abdomen/pelvis POA Anasarca per CT abdomen/pelvis POA Multifactorial anemia POA Severe malnutrition POA Electrolyte imbalance hyponatremia Na 133 POA PLAN: Labs, diagnostic, radiologic exams reviewed and interpreted by myself and supervising physician. We have reviewed external records in detail Discontinue Vancomycin due to worsening renal function, use alternative antibiotic. Considerable treatment for spontaneous bacterial peritonitis. Discussed with Dr. Stein Continue with diuretics and octreotide Follow up on liver biopsy results Require close monitoring of renal function and electrolytes Order CBC, CMP, and electrolytes in am Continue with antibiotics Renal diabetic diet BiPAP as necessary, for respiratory distress Monitor blood pressure adjust medication doses as needed Avoid hypotensive episodes May use Dilaudid 0.5 mg IV every 6 hours as needed for severe pain Monitor blood sugars Strict intake, output, and daily weight should be monitored Please renally adjust medications Avoid nephrotoxic and nonsteroidal drugs Avoid contrast if possible Will continue to monitor renal function, anemia, electrolytes Treatment plan discussed with patient Questions were answered We have discussed with the other team physicians in detail about the care plan We will continue to monitor the patient closely ATTESTATION BY PHYSICIAN I have seen and examined the patient. I reviewed the documentation, medical decision making, and treatment plan as noted by the mid-level provider above. I agree with the findings and plan of care. ALEJANDRA BARR MD, [facility] Oct 05, 2024 13:28
--- NOTE | 2024-10-05 15:20 | NUR ---
DISCUSSED PATIENT WITH DR. AWAD ASKED IF I COULD SPEAK TO PATIENT ABOUT AFTERCARE OPTIONS, INCLUDING PALLIATIVE CARE. IF PATIENT SEEMS AGREEABLE TO DISCUSSION, WILL REFER TO UTILIZATION MANAGEMENT MANAGER FOR MORE EXPLANATION RECEIVED ORDER TO DISCUSS WITH PATIENT. SPOKE WITH PATIENT AND SPOUSE AT BEDSIDE PATIENT VERY QUIET. UNABLE TO TELL IF UNDERSTOOD EXPLANATION OF WHY WE WERE TALKING TO HIM ABOUT AFTERCARE. SPOUSE AND PATIENT AFFIRMED THEY WERE TOLD THAT PT HAD LIVER CANCER BUT WOULD BE ABLE TO BE TREATED AN OUT PATIENT. PHYSIOLOGY OF CIRRHOSIS EXPLAINED W POOR UNDERSTANDING SPOUSE STATES THOUGHT PATIENT WAS DOING FINE BECAUSE THE NURSE BROUGHT HIM PILLS TODAY. STATES WOULD LIKE UTILIZATION MANAGEMENT MANAGER TO EXPLAIN HOSPICE ETC, AND WANTED SON AND DAUGHTER TO HEAR. STATES IT WILL BE VERY HARD FOR HER TO TAKE HIM HOME LIKE HE IS. ADVISED [facility]
[2024-10-05] MEDS ORDERED: [UNRECOGNIZED DRUG - OTHER] IV SCH (15:30)
[2024-10-05] MEDS ORDERED: CEFTAROLINE FOSAMIL ACETATE IV SCH (15:30)
[2024-10-05] MEDS: metRONIDazole 500 MG TABLET PO SCH (15:37)
--- NOTE | 2024-10-05 15:37 | NUR ---
HOSPICE EDUCATION Sw met with pt and . At this time, pt and wanting treatment options not hospice. will discuss with Dr Chante conner f/u appt. SAMIR Sunshine made aware
[2024-10-05] MEDS ORDERED: COMPOUND IV REFRIGERATED 1 EACH IVSOLN MISC PRN (16:30)
[2024-10-05] MEDS: CEFTAROLINE FOSAMIL ACETATE IV SCH (18:25)
[2024-10-05] MEDS: [UNRECOGNIZED DRUG - OTHER] IV SCH (18:25)
[2024-10-06] VITALS (8 sets, daily range): BP systolic 100–110; BP diastolic 55–63; PULSE 59–68; RESP 16–20; TEMP 97.9–98.9; O2SAT 94–98
[2024-10-06 05:50] LABS: BASOPHILS # (AUTO) 0.09 K/uL (0.00-0.20); BASOPHILS % (AUTO) 0.8 % (0.0-5.0); EOSINOPHILS # (AUTO) 0.93 K/uL (0.00-0.70); EOSINOPHILS % (AUTO) 8.1 % (0.0-8.0); HEMATOCRIT 28.8 % (42-54); IMMATURE GRANULOCYTE ABSOLUTE 0.67 K/uL (0-1); LYMPHOCYTES # (AUTO) 1.1 K/uL (1.0-4.8); LYMPHOCYTES % (AUTO) 9.3 % (21.0-51.0); MEAN CORPUSCULAR HGB CONC 33.7 g/dL (32.0-36.0); MONOCYTES # (AUTO) 1.1 K/uL (0.1-1.0); MONOCYTES % (AUTO) 9.1 % (3.0-13.0); NEUTROPHILS # (AUTO) 7.7 K/uL (1.8-7.7); NEUTROPHILS % (AUTO) 66.9 % (40.0-77.0); PLATELET COUNT (AUTO) 101 K/uL (130-400); RED BLOOD CELL COUNT(AUTO) 2.94 MIL/uL (4.50-6.20); RED CELL DISTRIBUTION WIDTH 17.4 % (11.0-15.5); WHITE BLOOD COUNT (AUTO) 11.5 K/uL (4.8-10.8)
[2024-10-06 06:14] LABS: ALBUMIN 1.8 g/dL (3.5-5.0); BILIRUBIN,TOTAL 3.5 mg/dL (0.2-1.0); CREATININE 2.4 mg/dL (0.5-1.3); POTASSIUM 3.1 mmol/L (3.5-5.1); TOTAL PROTEIN, SERUM 5.4 g/dL (6.0-8.3)
--- NOTE | 2024-10-06 08:27 | PN ---
[facility] PROGRESS NOTE Date of Service: Oct 06, 2024 Time of Service: 08:24 SUBJECTIVE: 09/30: Patient is a 59 year old M, with a PMH of liver cirrhosis and undiagnosed EDUAR, who presented to the ED with complaints of shortness of breath with exertion, abdominal distention, bilateral lower extremity edema, and swelling of scrotum. Patient states the scrotal swelling began one week ago and has been preventing him from walking. The patients CT abdomen/pelvis showed cirrhosis with enlarging spleen, and a right hepatic mass measuring 9.2 x 8.1 cm, small ascites. The patient is planned to get a paracentesis done today. The patient will be getting a liver biopsy tomorrow. Per GI, we will obtain AFP level. The patient complains of pain, rating it a 7/10 on the pain scale. The patient states he does not want to take Morphine. I spoke to pharmacy, and we agreed that the patient can receive 0.2 mg Dilaudid as needed every 6 hours for pain. The patient WBC count is 13.6, down from 16.9. Lactic acid 3.8. 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 We will continue to follow cardiology, oncology, and nephrology recommendations. 10/01: Patient was seen this morning at bedside. Patient is doing well. Patient denies chest pain, shortness of breath, nausea, vomiting, fever, chills, abdominal pain. The patient will receive scrotal support to aid in the management of swelling. The Patient will be getting a liver biopsy done today. Patient had a paracentesis done yesterday, where 6 L of ascitic fluid was removed. Cultures are pending. 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 We will wait for liver biopsy results, and AFP levels. Patients Creatinine is 2.8, up from 2.6. BUN is 42, up from 37. We will continue to appreciate Cardiology, Nephrology, and Oncology recommendations. 10/02/2024. Patient seen and examined along with RN. No new complaints. Continues to be on diuretics started on midodrine and Sandostatin. Biopsy resul ts are pending. 10/03/24 : pt seen and examined along with rn , no new complaints creatine stable 10/04/24: Patient was seen this morning at bedside. We will obtain a urine protein creatinine ratio. Patient continues to be on oral diuretics, midodrine, and Sandostatin. Biopsy results are pending. Patient to follow Dr. Sharif for treatment of hepatoma outpatient. We will continue to follow nephrology and Oncology recommendations. 10/05/24: Patient was seen this morning at bedside. Patient continued on oral diuretics, midodrine, and Sandostatin. Biopsy results are still pending. Patient will follow Dr. Sharif can work outpatient for treatment of hepatoma. Patient's potassium this morning was 3.0, with a magnesium of 1.7. I ordered 20 mEq of oral potassium replacement, due to patient's decreased GFR, and we will be rechecking the CMP in 4 hours. Potassium levels will be monitored and adjusted accordingly. Patient's WBC count increased to 12.9 from 9.5. Patient's scrotum is erythematous and warm to the touch. We will begin treatment for scrotal cellulitis with Flagyl, Vancomycin pharmacy dosed, and cefepime. Chest x-ray will be obtained due to leukocytosis. We will continue to monitor the patient. We will continue to follow Nephrology, GI, and Oncology recommendations. 10/06/24: Patient was seen this morning at bedside. Patient states he is feeling well. Patient continues on oral diuretics, nitrogen, Sandostatin, ceftaroline, Flagyl, and cefepime. Biopsy results are pending. Patient will follow Dr. Sharif and [place] outpatient for treatment of hepatoma. Patient's latest potassium was 3.1. Patient's WBC count is 11.5, down from 12.9. Patient's CRP is 46.2, down from 55.9. Patient's procalcitonin is 6.38, down from 6.55. Patient is afebrile, saturating well on room air. Urine output was 0.13 ml/kg/hr. Potassium has been replaced, and will be monitored. We will obtain a noncontrast ct of his chest to assess for malignancy. We will continue to monitor patient. REVIEW OF SYSTEMS CONSTITUTIONAL: Denies fevers, chills, or night sweats. No unintentional weight loss reported. NEUROLOGICAL: Denies headache, amaurosis fugax, motor weakness, sensory deficit, vertigo/spinning sensation, gait abnormalities, or tremors. ENT: No hearing loss, otalgia, otorrhea, rhinitis, rhinorrhea, hoarseness, or sore throat. CARDIOVASCULAR: Denies any exertional angina, dyspnea on exertion, orthopnea, paroxysmal nocturnal dyspnea, palpitations, life-threatening arrhythmias, claudication. PULMONARY: Denies any cough, phlegm/sputum, hemoptysis, pleuritic chest pain. Complains of shortness of breath on exertion SLEEP: Denies morning headaches, daytime somnolence or napping. Denies difficulty falling asleep, staying asleep, waking from sleep. Denies knowledge of snoring. GASTROINTESTINAL: Denies any type of dysphagia to either liquids or solids. Denies nausea, vomiting, pyrosis, early satiety, diarrhea, constipation, or changes in stool consistency or caliber. Denies coffee-ground emesis, hematemesis, hematochezia, or melanotic stools. Complains of abdominal pain. GENITOURINARY: Denies frequency, urgency, nocturia, hematuria or incontinence (Storage/Irritative symptoms.) Low urinary stream, straining to void, urinary intermittency or hesitancy, splitting of the voiding stream, terminal dribbling. Complains of scrotal pain ENDOCRINOLOGIC: Denies polyuria, polydipsia, polyphagia or heat/cold intolerances. HEMATOLOGIC: Denies thrombophilia/previous clots, or coagulopathy/bleeding disorders. ONCOLOGIC: Denies personal history of malignancy. DERMATOLOGIC: Denies rashes or pruritus. PSYCHIATRIC: Denies any suicidal or homicidal ideation. Denies hallucinations. PHYSICAL EXAM GENERAL APPEARANCE: The patient is awake, alert, and oriented, in no acute cardiopulmonary distress. NEUROLOGICAL: Cranial nerves II-XII grossly intact. Motor is 5/5 in bilateral upper and lower extremities proximal to distal. No sensory deficits. HEENT: Face is symmetric. Pupils are equal and reactive. Extraocular movements are intact. NECK: Supple. No JVD. No thyromegaly. No submental, submandibular, pre- /postauricular, occipital or supraclavicular lymphadenopathy. CHEST: Normal chest expansion. No Telemetry. LUNGS: Absence of any rales, rhonchi or any wheezing. CARDIOVASCULAR: Regular. S1 and S2 normal. No appreciable rubs, murmurs or gallops. ABDOMEN: Soft, nontender, and nondistended. There is no rebound, voluntary guarding, or rigidity. : Deferred. No Garnett. Severe scrotum swelling EXTREMITIES:and not cyanotic. No clubbing. Good capillary refill. Bilateral lower extremities edema plus four pitting SKIN: No skin breakdown. Vital Signs (last 8hr) Date Time Temp Pulse Resp B/P (MAP) Pulse Ox O2 Delivery O2 Flow Rate FiO2 10/06/24 07:49 98.4 65 18 102/57 94 10/06/24 04:00 98.4 66 18 106/55 99 Room Air LABS: Laboratory: Test 10/06/24 05:33 10/06/24 05:21 Range/Units White Blood Count 11.5 H 4.8-10.8 K/uL Red Blood Count 2.94 L 4.50-6.20 MIL/uL Hemoglobin 9.7 L 14.0-18.0 g/dL Hematocrit 28.8 L 42-54 % Mean Corpuscular Volume 98.0 79-99 fL Mean Corpuscular Hemoglobin 33.0 27.0-33.0 pg Mean Corpuscular Hemoglobin Concent 33.7 32.0-36.0 g/dL Red Cell Distribution Width 17.4 H 11.0-15.5 % Platelet Count 101 L 130-400 K/uL Mean Platelet Volume 10.0 7.5-10.5 fL Immature Granulocyte % (Auto) 5.8 H 0-1 % Neutrophils (%) (Auto) 66.9 40.0-77.0 % Lymphocytes (%) (Auto) 9.3 L 21.0-51.0 % Monocytes (%) (Auto) 9.1 3.0-13.0 % Eosinophils (%) (Auto) 8.1 H 0.0-8.0 % Basophils (%) (Auto) 0.8 0.0-5.0 % Neutrophils # (Auto) 7.7 1.8-7.7 K/uL Lymphocytes # (Auto) 1.1 1.0-4.8 K/uL Monocytes # (Auto) 1.1 H 0.1-1.0 K/uL Eosinophils # (Auto) 0.93 H 0.00-0.70 K/uL Basophils # (Auto) 0.09 0.00-0.20 K/uL Absolute Immature Granulocyte (auto 0.67 0-1 K/uL Nucleated Red Blood Cells 0.0 0.0-0.19 % Sodium Level 139 136-145 mmol/L Potassium Level 3.1 L 3.5-5.1 mmol/L Chloride Level 104 101-111 mmol/L Carbon Dioxide Level 25 21-32 mmol/L Blood Urea Nitrogen 46 H 7-18 mg/dL Creatinine 2.4 H 0.5-1.3 mg/dL Glomerular Filtration Rate Calc 31 >90 mL/min Random Glucose 102 70-105 mg/dL Total Calcium 7.9 L 8.5-10.1 mg/dL Phosphorus Level 3.0 2.5-4.9 mg/dL Magnesium Level 2.00 1.80-2.40 mg/dL Total Bilirubin 3.5 H 0.2-1.0 mg/dL Aspartate Amino Transf (AST/SGOT) 88 H 10-37 U/L Alanine Aminotransferase (ALT/SGPT) 26 12-78 U/L Alkaline Phosphatase 139 H 50-136 U/L C-Reactive Protein, Quantitative 46.20 H 0.5-3.0 mg/L Total Protein 5.4 L 6.0-8.3 g/dL Albumin 1.8 L 3.5-5.0 g/dL Procalcitonin 6.38 H 0.05-0.5 ng/mL Whole Blood Glucose 98 70-110 MG/DL Current Medications Medications (Trade) Dose Ordered Sig/Lionel Route PRN Reason Start Time Stop Time Status Last Admin Dose Admin Acetaminophen (TYLenol 325MG TAB) 650 mg Q4H PRN PO MILD PAIN (1-3) 09/29/24 17:30 10/29/24 17:29 09/30/24 11:30 650 MG Acetaminophen (TYLenol 325MG TAB) 650 mg Q6H PRN PO MILD PAIN (1-3) 09/29/24 17:30 09/29/24 17:41 DC Acetaminophen (TYLenol 325MG TAB) 650 mg Q6H PRN PO TEMPERATURE GREATER THAN 101.5 09/29/24 17:30 10/29/24 17:29 Al Hydroxide/Mg Hydroxide (MAALox PLUS 30ML) 30 ml Q6H PRN PO INDIGESTION 09/29/24 17:30 10/29/24 17:29 Albumin Human 50 ml @ 0 mls/hr Q8H6 IV 09/30/24 22:00 10/02/24 14:01 DC 10/02/24 13:19 100 MLS/HR Albumin Human 200 ml @ 0 mls/hr AD IV 09/30/24 13:00 09/30/24 13:18 DC Albumin Human 200 ml @ 0 mls/hr AD IV 09/30/24 13:30 09/30/24 14:18 DC 09/30/24 13:28 0 MLS/HR Cefepime HCl (MAXipime 2 gm vial) 2 gm Q24H IVPB 10/05/24 12:00 10/05/24 14:56 DC 10/05/24 13:15 2 GM Ceftaroline Fosamil 300 mg/ Sodium Chloride 50 ml @ 50 mls/hr Q12H IV 10/05/24 15:30 10/05/24 15:33 DC Ceftaroline Fosamil 300 mg/ Sodium Chloride 50 ml @ 50 mls/hr Q12H IV 10/05/24 16:30 10/15/24 16:29 10/06/24 04:47 50 MLS/HR Ceftriaxone Sodium 2 gm/ Sodium Chloride 100 ml @ 200 mls/hr Q24H IV 09/29/24 17:30 09/29/24 17:44 DC Ceftriaxone Sodium (Rocephin 2gm Inj) 2 gm Q24H IVPB 09/29/24 18:00 10/05/24 11:42 DC 10/04/24 18:35 2 GM Dextrose (D50w) 50 ml AD PRN IV HYPOGLYCEMIA PROTOCOL 09/29/24 17:30 10/29/24 17:29 Diphenhydramine HCl (BENAdryl INJ) 25 mg Q6H PRN IV SEVERE ITCHING/RASH 09/29/24 17:30 10/29/24 17:29 Famotidine (Pepcid 20mg Vial) 20 mg BID PRN IV NAUSEA/VOMITING 09/29/24 17:30 09/29/24 17:41 DC Famotidine (Pepcid 20mg Vial) 20 mg QODAY IV 09/30/24 09:00 10/30/24 08:59 10/04/24 09:10 20 MG Furosemide (LASix 40MG TAB) 40 mg BID PO 10/02/24 21:00 11/01/24 20:59 10/05/24 10:02 40 MG Furosemide (LASix 40MG VIAL) 40 mg Q12H IV 09/29/24 22:00 10/02/24 10:49 DC 10/02/24 10:36 40 MG Glucagon (Glucagon 1mg Kit) 1 mg AD PRN IM HYPOGLYCEMIA PROTOCOL 09/29/24 17:30 10/29/24 17:29 Guaifenesin/ Dextromethorphan (RobiTUSSin DM 200/20MG 10ML) 10 ml Q4H PRN PO COUGH 09/29/24 17:30 10/29/24 17:29 Heparin Sodium (Porcine) (HEParin 5,000 UNIT VIAL) 5,000 unit BID SQ 09/29/24 21:00 10/29/24 20:59 10/05/24 20:35 5,000 UNIT Hydralazine HCl (APRESOLine 20MG INJ) 10 mg Q6H PRN IV For:SBP above 160;DBP above 90 09/29/24 17:30 10/29/24 17:29 Hydromorphone HCl (DiLAUDid 0.5MG INJ) 0.2 mg Q6H PRN IVP SEVERE PAIN (7-10) 09/30/24 11:30 10/05/24 11:29 DC Insulin Human Regular (humuLIN R 100 UNIT/ML 3ML) INSULIN SLIDING SCAL... ACHS SQ 09/29/24 21:00 10/29/24 20:59 Ketorolac Tromethamine (toRADol) 15 mg Q8H PRN IV MODERATE PAIN (4-6) 09/29/24 17:30 10/02/24 11:47 DC Lactulose (Constulose 20gm/ 30ml Udcup) 20 gm BID PRN PO CONSTIPATION 09/29/24 17:30 10/29/24 17:29 Lactulose (Constulose 20gm/ 30ml Udcup) 20 gm BID PRN PO CONSTIPATION 09/29/24 22:00 09/29/24 21:34 DC Linezolid (Zyvox) 600 mg Q12H PO 10/05/24 12:00 10/05/24 11:51 DC Magnesium Sulfate 50 ml @ 0 mls/hr PROTOCOL PRN IV other 09/29/24 17:30 10/29/24 17:29 10/05/24 15:37 25 MLS/HR Metronidazole (flaGYL) 500 mg Q8H PO 10/05/24 12:00 10/15/24 11:59 10/06/24 04:47 500 MG Midodrine (PROAMatine 5 MG TABLET) 5 mg TID PO 10/02/24 14:00 11/01/24 13:59 10/05/24 20:34 5 MG Morphine Sulfate (morPHINE 2MG SYG) 1 mg Q4H PRN IVP SEVERE PAIN (7-10) 09/29/24 17:30 09/30/24 11:27 DC Nitroglycerin (Nitrostat) 0.4 mg PROTOCOL PRN SL CHEST PAIN 09/29/24 17:30 10/29/24 17:29 Octreotide Acetate (SandoSTATIN) 100 mcg Q8H6 SQ 09/30/24 22:00 10/30/24 21:59 10/06/24 05:49 100 MCG Ondansetron HCl (zoFRAN 4MG INJ) 4 mg Q6H PRN IV NAUSEA/VOMITING 09/29/24 17:30 10/29/24 17:29 Sodium Chloride 1,000 ml @ 70 mls/hr [id number] IV 09/29/24 17:30 09/29/24 21:30 DC Thiamine HCl (Vitamin B-1) 100 mg DAILY IVP 10/01/24 09:00 10/31/24 08:59 10/05/24 10:08 100 MG Vancomycin HCl 250 ml @ 125 mls/hr Q24H IV 10/06/24 12:30 10/05/24 14:51 DC Vancomycin HCl (Vancomycin Protocol) 1 each AD IV 10/05/24 12:30 10/05/24 14:57 DC Vitamin B Complex/ Vit C/Folic Acid (Nephrovite Tablet) 1 cap DAILY PO 10/01/24 09:00 10/31/24 08:59 10/05/24 10:02 1 CAP Zolpidem Tartrate (AmbIEN) 5 mg HS PRN PO INSOMNIA 09/29/24 17:30 10/29/24 17:29 DIAGNOSTICS / RADIOLOGY: [address] [address] IMAGING REPORT Signed PATIENT: DARSHAN KINNEY MR#: [id number] : 1965 SEX: M AGE: 59 LOCATION: 4DH ORDER 1141 STATUS: ADM IN REPORT#: [id number] SERVICE 1134 REASON: leukocytosis- evaluate for infectious source ORDERING PHYSICIAN: FEDERICO SUNSHINE MD PROCEDURE: [id number] - CHEST 2VWS PA AND LATERAL CHEST RADIOGRAPH INDICATION: leukocytosis- evaluate for infectious source COMPARISON: 10/09/2024 FINDINGS: Heart size is normal. The pulmonary vascularity and william appear normal. No abnormal pulmonary parenchymal opacity or consolidation identified. Right hemidiaphragm remains slightly elevated. No significant pleural effusion noted. No pneumothorax detected. IMPRESSION: No radiographic evidence for any acute cardiopulmonary process. DICTATED BY: VIRGINIA JEFFERY MD DATE: 10/05/24 132 ELECTRONICALLY SIGNED BY: VIRGINAI JEFFERY MD DATE: 10/05/24 1325 ASSESSMENT: Acute hypoxic respiratory failure POA Severe liver cirrhosis requiring paracentesis POA Severe bilateral lower extremities edema POA Uncontrolled hypertension POA Acute kidney injury TNP POA Possible acute complicated cystitis POA Leukocytosis WBC 16.9 due to above POA Severe liver cirrhosis per CT abdomen/pelvis POA Right hepatic mass measuring 9.2 x 8.[address] abdomen/pelvis Small ascites per CT abdomen/pelvis POA Anasarca per CT abdomen/pelvis POA Multifactorial anemia POA Severe malnutrition POA Electrolyte imbalance hyponatremia Na 133 POA] PLAN: Consults: Surveillance Analyst, residential specialist, oncologist, flat cutter Antibiotics: Ceftaroline, cefepime, metronidazole Tests: 2D echo, ultrasound scrotum, IR for thoracentesis, liver biopsy NEURO: Minimize central acting medications as possible. Fall Precautions. Well lighted room through the day and minimize interruptions through the night to prevent acute delirium. 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 Follow hemodynamics. Vital signs per facility protocol GI & NUTRITION: CT abdomen/pelvis shows cirrhotic liver with enlarged spleen. There is right hepatic mass measuring 9.2 x 8.1 cm. There small ascites. Anasarca IR thoracentesis removed 6L ascitic fluid. Cultures pending. Liver biopsy complete. We will follow up with biopsy results. AFP level elevated. Patient will follow Dr. Sharif outpatient for treatment of Hepatoma. CT chest without contrast Aspirations precautions KIDNEYS & ELECTROLYTES: Likely has hepatorenal syndrome- on midodrine, octreotide, and albumin per Nephrology. Urine protein/ creatinine ratio to be obtained. Strict monitoring of intake and output Daily weights Avoid nephrotoxic agents Monitor electrolytes and replace as needed Goal urine output of 30mL/hr or 0.5mL/kg/hr Medications to be dosed according to renal function. Avoid contrast if possible Continue to follow nephrology recommendations Potassium 3.0. We will continue to monitor Potassium and replace as needed. ENDOCRINE: Maintain blood glucose between 100-180 at all times. Insulin sliding scale for blood glucose management Hypoglycemia and hyperglycemia protocol in place INFECTIOUS DISEASE: Trend temperature, WBC and procalcitonin level Follow cultures, deescalate antibiotics as soon as possible. HEMATOLOGY & COAGULATION: Monitor H&H. Keep Hgb > 7 Transfuse 1 unit of PRBC for Hgb < 7 Transfuse 1 pack of platelets of platelets < 20, 000 Watch for any signs and symptoms of bleeding SKIN: Ultrasound scrotum showed scrotal wall swelling. Pressure ulcer prevention per facility protocol Specialty mattress as needed Scrotum appears erythematous and warm to the touch. Started Flagyl, Vancomycin dosed by pharmacy, Cefepime for scrotal cellulitis and leukocytosis. Treatment plan discussed with patient and family at the bedside Rehab: PT/OT GI: PPI DVT: KYLAH's FEDERICO SUNSHINE MD Oct 06, 2024 08:27
--- NOTE | 2024-10-06 09:15 | PN ---
GASTROENTEROLOGY PROGRESS NOTE Date of Visit: Oct 06, 2024 Time of Visit: 09:14 Events / Notes: [No acute events overnight. patient is s/p liver biopsy. Review of Systems: CONSTITUTIONAL: No malaise or change in sensation of wellbeing. ENMT: No rhinorrhea, otorrhea, sinus pain, ear ache. CARDIOVASCULAR: No angina, palpitations, orthopnea or paroxysmal dyspnea. RESPIRATORY: No SOB. GASTROINTESTINAL: No abdominal pain, nausea, vomiting, diarrhea, hematemesis, melena or change in the patient's habitual bowel movements consistency/number. GENITOURINARY: No dysuria, hematuria or change in bladder continence. MUSCULOSKELETAL: No new muscle pain or decrease in muscular strength. No new joint swelling, redness or tenderness. SKIN: No new rash. Physical Exam: GEN: Awake, alert, oriented in person, time and place, and in no acute distress. HEENT: No sinus tenderness. Tympanic membranes were not examined. No rhinorrhea. Oral pharyngeal mucosa is pink, moist and within normal limits. Neck is supple with no cervical lymphadenopathy, thyromegaly or JVD. CHEST: Inspection, palpation and percussion of the chest were unremarkable. Lung auscultation revealed normal breath sounds bilaterally. CARDIAC: PMI is within normal limits. Heart sounds are regular. Normal S1, S2. No gallop or murmur. ABD: Soft, non-tender and not distended. No peritoneal signs on palpation. No organomegaly. Normal bowel sounds. EXT: No cyanosis or clubbing. No edema. SKIN: Intact. No rashes. JOINTS: No evidence of synovitis or acute arthritis. NEURO: Alert and oriented to name, place and person. Cranial nerve examination is unremarkable. No focal motor deficits. Normal speech. Gait is normal. Strength is normal. Vital Signs (last 8hr) Date Time Temp Pulse Resp B/P (MAP) Pulse Ox O2 Delivery O2 Flow Rate FiO2 10/06/24 07:49 98.4 65 18 102/57 94 10/06/24 04:00 98.4 66 18 106/55 99 Room Air Laboratory: [ ] Laboratory: Test 10/06/24 08:23 10/06/24 05:33 10/06/24 05:21 Range/Units Ammonia 51 H 11-32 umol/L White Blood Count 11.5 H 4.8-10.8 K/uL Red Blood Count 2.94 L 4.50-6.20 MIL/uL Hemoglobin 9.7 L 14.0-18.0 g/dL Hematocrit 28.8 L 42-54 % Mean Corpuscular Volume 98.0 79-99 fL Mean Corpuscular Hemoglobin 33.0 27.0-33.0 pg Mean Corpuscular Hemoglobin Concent 33.7 32.0-36.0 g/dL Red Cell Distribution Width 17.4 H 11.0-15.5 % Platelet Count 101 L 130-400 K/uL Mean Platelet Volume 10.0 7.5-10.5 fL Immature Granulocyte % (Auto) 5.8 H 0-1 % Neutrophils (%) (Auto) 66.9 40.0-77.0 % Lymphocytes (%) (Auto) 9.3 L 21.0-51.0 % Monocytes (%) (Auto) 9.1 3.0-13.0 % Eosinophils (%) (Auto) 8.1 H 0.0-8.0 % Basophils (%) (Auto) 0.8 0.0-5.0 % Neutrophils # (Auto) 7.7 1.8-7.7 K/uL Lymphocytes # (Auto) 1.1 1.0-4.8 K/uL Monocytes # (Auto) 1.1 H 0.1-1.0 K/uL Eosinophils # (Auto) 0.93 H 0.00-0.70 K/uL Basophils # (Auto) 0.09 0.00-0.20 K/uL Absolute Immature Granulocyte (auto 0.67 0-1 K/uL Nucleated Red Blood Cells 0.0 0.0-0.19 % Sodium Level 139 136-145 mmol/L Potassium Level 3.1 L 3.5-5.1 mmol/L Chloride Level 104 101-111 mmol/L Carbon Dioxide Level 25 21-32 mmol/L Blood Urea Nitrogen 46 H 7-18 mg/dL Creatinine 2.4 H 0.5-1.3 mg/dL Glomerular Filtration Rate Calc 31 >90 mL/min Random Glucose 102 70-105 mg/dL Total Calcium 7.9 L 8.5-10.1 mg/dL Phosphorus Level 3.0 2.5-4.9 mg/dL Magnesium Level 2.00 1.80-2.40 mg/dL Total Bilirubin 3.5 H 0.2-1.0 mg/dL Aspartate Amino Transf (AST/SGOT) 88 H 10-37 U/L Alanine Aminotransferase (ALT/SGPT) 26 12-78 U/L Alkaline Phosphatase 139 H 50-136 U/L C-Reactive Protein, Quantitative 46.20 H 0.5-3.0 mg/L Total Protein 5.4 L 6.0-8.3 g/dL Albumin 1.8 L 3.5-5.0 g/dL Procalcitonin 6.38 H 0.05-0.5 ng/mL Whole Blood Glucose 98 70-110 MG/DL Current Medications Medications (Trade) Dose Ordered Sig/Lionel Route PRN Reason Start Time Stop Time Status Last Admin Dose Admin Acetaminophen (TYLenol 325MG TAB) 650 mg Q4H PRN PO MILD PAIN (1-3) 09/29/24 17:30 10/29/24 17:29 09/30/24 11:30 650 MG Acetaminophen (TYLenol 325MG TAB) 650 mg Q6H PRN PO MILD PAIN (1-3) 09/29/24 17:30 09/29/24 17:41 DC Acetaminophen (TYLenol 325MG TAB) 650 mg Q6H PRN PO TEMPERATURE GREATER THAN 101.5 09/29/24 17:30 10/29/24 17:29 Al Hydroxide/Mg Hydroxide (MAALox PLUS 30ML) 30 ml Q6H PRN PO INDIGESTION 09/29/24 17:30 10/29/24 17:29 Albumin Human 50 ml @ 0 mls/hr Q8H6 IV 09/30/24 22:00 10/02/24 14:01 DC 10/02/24 13:19 100 MLS/HR Albumin Human 200 ml @ 0 mls/hr AD IV 09/30/24 13:00 09/30/24 13:18 DC Albumin Human 200 ml @ 0 mls/hr AD IV 09/30/24 13:30 09/30/24 14:18 DC 09/30/24 13:28 0 MLS/HR Cefepime HCl (MAXipime 2 gm vial) 2 gm Q24H IVPB 10/05/24 12:00 10/05/24 14:56 DC 10/05/24 13:15 2 GM Ceftaroline Fosamil 300 mg/ Sodium Chloride 50 ml @ 50 mls/hr Q12H IV 10/05/24 15:30 10/05/24 15:33 DC Ceftaroline Fosamil 300 mg/ Sodium Chloride 50 ml @ 50 mls/hr Q12H IV 10/05/24 16:30 10/15/24 16:29 10/06/24 04:47 50 MLS/HR Ceftriaxone Sodium 2 gm/ Sodium Chloride 100 ml @ 200 mls/hr Q24H IV 09/29/24 17:30 09/29/24 17:44 DC Ceftriaxone Sodium (Rocephin 2gm Inj) 2 gm Q24H IVPB 09/29/24 18:00 10/05/24 11:42 DC 10/04/24 18:35 2 GM Dextrose (D50w) 50 ml AD PRN IV HYPOGLYCEMIA PROTOCOL 09/29/24 17:30 10/29/24 17:29 Diphenhydramine HCl (BENAdryl INJ) 25 mg Q6H PRN IV SEVERE ITCHING/RASH 09/29/24 17:30 10/29/24 17:29 Famotidine (Pepcid 20mg Vial) 20 mg BID PRN IV NAUSEA/VOMITING 09/29/24 17:30 09/29/24 17:41 DC Famotidine (Pepcid 20mg Vial) 20 mg QODAY IV 09/30/24 09:00 10/30/24 08:59 10/06/24 08:59 20 MG Furosemide (LASix 40MG TAB) 40 mg BID PO 10/02/24 21:00 11/01/24 20:59 10/06/24 08:58 40 MG Furosemide (LASix 40MG VIAL) 40 mg Q12H IV 09/29/24 22:00 10/02/24 10:49 DC 10/02/24 10:36 40 MG Glucagon (Glucagon 1mg Kit) 1 mg AD PRN IM HYPOGLYCEMIA PROTOCOL 09/29/24 17:30 10/29/24 17:29 Guaifenesin/ Dextromethorphan (RobiTUSSin DM 200/20MG 10ML) 10 ml Q4H PRN PO COUGH 09/29/24 17:30 10/29/24 17:29 Heparin Sodium (Porcine) (HEParin 5,000 UNIT VIAL) 5,000 unit BID SQ 09/29/24 21:00 10/29/24 20:59 10/06/24 09:00 5,000 UNIT Hydralazine HCl (APRESOLine 20MG INJ) 10 mg Q6H PRN IV For:SBP above 160;DBP above 90 09/29/24 17:30 10/29/24 17:29 Hydromorphone HCl (DiLAUDid 0.5MG INJ) 0.2 mg Q6H PRN IVP SEVERE PAIN (7-10) 09/30/24 11:30 10/05/24 11:29 DC Insulin Human Regular (humuLIN R 100 UNIT/ML 3ML) INSULIN SLIDING SCAL... ACHS SQ 09/29/24 21:00 10/29/24 20:59 Ketorolac Tromethamine (toRADol) 15 mg Q8H PRN IV MODERATE PAIN (4-6) 09/29/24 17:30 10/02/24 11:47 DC Lactulose (Constulose 20gm/ 30ml Udcup) 20 gm BID PRN PO CONSTIPATION 09/29/24 17:30 10/29/24 17:29 Lactulose (Constulose 20gm/ 30ml Udcup) 20 gm BID PRN PO CONSTIPATION 09/29/24 22:00 09/29/24 21:34 DC Linezolid (Zyvox) 600 mg Q12H PO 10/05/24 12:00 10/05/24 11:51 DC Magnesium Sulfate 50 ml @ 0 mls/hr PROTOCOL PRN IV other 09/29/24 17:30 10/29/24 17:29 10/05/24 15:37 25 MLS/HR Metronidazole (flaGYL) 500 mg Q8H PO 10/05/24 12:00 10/15/24 11:59 10/06/24 04:47 500 MG Midodrine (PROAMatine 5 MG TABLET) 5 mg TID PO 10/02/24 14:00 11/01/24 13:59 10/06/24 08:58 5 MG Morphine Sulfate (morPHINE 2MG SYG) 1 mg Q4H PRN IVP SEVERE PAIN (7-10) 09/29/24 17:30 09/30/24 11:27 DC Nitroglycerin (Nitrostat) 0.4 mg PROTOCOL PRN SL CHEST PAIN 09/29/24 17:30 10/29/24 17:29 Octreotide Acetate (SandoSTATIN) 100 mcg Q8H6 SQ 09/30/24 22:00 10/30/24 21:59 10/06/24 05:49 100 MCG Ondansetron HCl (zoFRAN 4MG INJ) 4 mg Q6H PRN IV NAUSEA/VOMITING 09/29/24 17:30 10/29/24 17:29 Sodium Chloride 1,000 ml @ 70 mls/hr [id number] IV 09/29/24 17:30 09/29/24 21:30 DC Thiamine HCl (Vitamin B-1) 100 mg DAILY IVP 10/01/24 09:00 10/31/24 08:59 10/06/24 08:59 100 MG Vancomycin HCl 250 ml @ 125 mls/hr Q24H IV 10/06/24 12:30 10/05/24 14:51 DC Vancomycin HCl (Vancomycin Protocol) 1 each AD IV 10/05/24 12:30 10/05/24 14:57 DC Vitamin B Complex/ Vit C/Folic Acid (Nephrovite Tablet) 1 cap DAILY PO 10/01/24 09:00 10/31/24 08:59 10/06/24 08:58 1 CAP Zolpidem Tartrate (AmbIEN) 5 mg HS PRN PO INSOMNIA 09/29/24 17:30 10/29/24 17:29 Diagnostics / Radiology: [COPY/PASTE HERE IF NO REPORTS PLEASE DELETE SECTION] Assessment: Liver mass Ascites Cirrhosis Plan: Await biopsy results Follow oncology recommendations LEONORA BLEDSOE [employer]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
--- NOTE | 2024-10-06 11:15 | PN ---
LOCATION: [facility]. SUBJECTIVE: The patient remained stable overnight. He is short of breath, distended. He is awake, alert, but clinically much better than admission. I did talk to the family and the patient at length about his oncology situation. PHYSICAL EXAMINATION: GENERAL: Shows an elderly man. VITAL SIGNS: Blood pressure 106/55, pulse 66, respirations 20. HEENT: Benign. CHEST: Showed decreased breath sounds. HEART: Regular rate and rhythm. ABDOMEN: Soft with massive swelling. GENITOURINARY: He has got scrotal cellulitis. EXTREMITIES: Show edema. NEUROLOGIC: Alert and oriented. LABORATORY DATA: CBC, WBC ____, platelets 101,000. Chemistries, creatinine 2.4. IMPRESSION AND PLAN: Cirrhosis with shortness of breath, volume overload, incidentally discovered hepatoma, advanced cirrhosis of the liver, ascites, worsening renal failure, scrotal cellulitis. Continue antibiotics. Continue medical management. Family is interested in palliative treatment. If he gets stable from his renal failure and other issues, he can be discharged to our clinic. TID: [id number] RECEIPT: [id number]
[2024-10-06] MEDS: PoTASSium chloRIDE 20MEQ ER 20 MEQ ERTAB PO ONE ×2 (12:21→13:26)
[2024-10-06] MEDS ORDERED: VANCOMYCIN 1G/250ML KIT 250 ML IV SCH (12:30)
--- NOTE | 2024-10-06 13:19 | PN ---
NEPHROLOGY PROGRESS NOTE Date/Time Patient Seen: Oct 06, 2024 SUBJECTIVE: This is a 59-year-old male with a past medical history of liver cirrhosis, diagnosed obstructive sleep apnea. He presented to the emergency with complaints of shortness of breath on exertion, abdominal distention, bilateral lower extremity edema and scrotal swelling. CT of the abdomen and pelvis showed cirrhotic liver with enlarged spleen. Right hepatic mass measuring 9.2 x 8.1 cm. There is small ascites. Anasarca Echocardiogram showed LVEF of 60-65%. 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 S/p paracentesis with 6 L removed. He was noted with worsening renal failure We have been consulted for renal failure Renal function remains elevated Electrolytes are stable. He continues on albumin and octreotide. S/p liver biopsy, pending pathology results Continue with leukocytosis He was started on Flagyl, vancomycin and cefepime for scrotal cellulitis. Pending CT chest for evaluation of further malignancy He was seen in the medical floor, in no acute distress Family at the bedside Prognosis remains guarded REVIEW OF SYSTEMS: GENERAL: Positive for shortness of breath, lower extremity edema and abdominal distention NEUROLOGIC: Negative for any blurry vision, blind spots, double vision, facial asymmetry, dysphagia, dysarthria, hemiparesis, hemisensory deficits, vertigo, ataxia. HEENT: Negative for any head trauma, neck trauma, neck stiffness, photophobia, phonophobia, sinusitis, rhinitis. CARDIAC: Negative for any chest pain, dyspnea on exertion, paroxysmal nocturnal dyspnea, peripheral edema. PULMONARY: Negative for any shortness of breath, wheezing, COPD, or TB exposure. GASTROINTESTINAL: Negative for any abdominal pain, nausea, vomiting, bright red blood per rectum, melena. GENITOURINARY: Negative for any dysuria, hematuria, incontinence. INTEGUMENTARY: Negative for any rashes, cuts, insect bites. RHEUMATOLOGIC: Negative for any joint pains, photosensitive rashes, history of vasculitis or kidney problems. HEMATOLOGIC: Negative for any abnormal bruising, frequent infections or bleeding. PHYSICAL EXAM: GENERAL: Alert and oriented x 3. No acute distress. Well-nourished. EYES: EOMI. Anicteric. HENT: Moist mucous membranes. No scleral icterus. No cervical lymphadenopathy. LUNGS: Clear to auscultation bilaterally. No accessory muscle use. CARDIOVASCULAR: Regular rate and rhythm. No murmur. No JVD. ABDOMEN: Soft, non-tender and non-distended. No palpable masses. EXTREMITIES: 2+ edema. Non-tender. SKIN: No rashes or lesions. Warm. NEUROLOGIC: No focal neurological deficits. CN II-XII grossly intact, but not individually tested. PSYCHIATRIC: Cooperative. Appropriate mood and affect. LABORATORY: [ ] Hematology Labs: Test 10/06/24 05:33 Range/Units White Blood Count 11.5 H 4.8-10.8 K/uL Red Blood Count 2.94 L 4.50-6.20 MIL/uL Hemoglobin 9.7 L 14.0-18.0 g/dL Hematocrit 28.8 L 42-54 % Mean Corpuscular Volume 98.0 79-99 fL Mean Corpuscular Hemoglobin 33.0 27.0-33.0 pg Mean Corpuscular Hemoglobin Concent 33.7 32.0-36.0 g/dL Red Cell Distribution Width 17.4 H 11.0-15.5 % Platelet Count 101 L 130-400 K/uL Mean Platelet Volume 10.0 7.5-10.5 fL Immature Granulocyte % (Auto) 5.8 H 0-1 % Neutrophils (%) (Auto) 66.9 40.0-77.0 % Lymphocytes (%) (Auto) 9.3 L 21.0-51.0 % Monocytes (%) (Auto) 9.1 3.0-13.0 % Eosinophils (%) (Auto) 8.1 H 0.0-8.0 % Basophils (%) (Auto) 0.8 0.0-5.0 % Neutrophils # (Auto) 7.7 1.8-7.7 K/uL Lymphocytes # (Auto) 1.1 1.0-4.8 K/uL Monocytes # (Auto) 1.1 H 0.1-1.0 K/uL Eosinophils # (Auto) 0.93 H 0.00-0.70 K/uL Basophils # (Auto) 0.09 0.00-0.20 K/uL Absolute Immature Granulocyte (auto 0.67 0-1 K/uL Nucleated Red Blood Cells 0.0 0.0-0.19 % Chemistry Labs: Test 10/06/24 11:26 10/06/24 08:23 10/06/24 05:33 Range/Units Whole Blood Glucose 129 H 70-110 MG/DL Ammonia 51 H 11-32 umol/L Sodium Level 139 136-145 mmol/L Potassium Level 3.1 L 3.5-5.1 mmol/L Chloride Level 104 101-111 mmol/L Carbon Dioxide Level 25 21-32 mmol/L Blood Urea Nitrogen 46 H 7-18 mg/dL Creatinine 2.4 H 0.5-1.3 mg/dL Glomerular Filtration Rate Calc 31 >90 mL/min Random Glucose 102 70-105 mg/dL Total Calcium 7.9 L 8.5-10.1 mg/dL Phosphorus Level 3.0 2.5-4.9 mg/dL Magnesium Level 2.00 1.80-2.40 mg/dL Total Bilirubin 3.5 H 0.2-1.0 mg/dL Aspartate Amino Transf (AST/SGOT) 88 H 10-37 U/L Alanine Aminotransferase (ALT/SGPT) 26 12-78 U/L Alkaline Phosphatase 139 H 50-136 U/L C-Reactive Protein, Quantitative 46.20 H 0.5-3.0 mg/L Total Protein 5.4 L 6.0-8.3 g/dL Albumin 1.8 L 3.5-5.0 g/dL Procalcitonin 6.38 H 0.05-0.5 ng/mL DIAGNOSTICS / RADIOLOGY: REASON: leukocytosis- evaluate for infectious source ORDERING PHYSICIAN: FEDERICO SUNSHINE MD PROCEDURE: CXR2VW - CHEST 2VWS PA AND LATERAL CHEST RADIOGRAPH INDICATION: leukocytosis- evaluate for infectious source COMPARISON: 10/09/2024 FINDINGS: Heart size is normal. The pulmonary vascularity and william appear normal. No abnormal pulmonary parenchymal opacity or consolidation identified. Right hemidiaphragm remains slightly elevated. No significant pleural effusion noted. No pneumothorax detected. IMPRESSION: No radiographic evidence for any acute cardiopulmonary process. DICTATED BY: VIRGINIA JEFFERY MD DATE: 10/05/24 1321 REASON: LIVER MASS ORDERING PHYSICIAN: RONEN LINTON MD PROCEDURE: BX LIVER - US BIOPSY LIVER IR US BIOPSY LIVER IR REASON: LIVER MASS COMPARISON: None TECHNIQUE: Ultrasound-guided of right lobe hepatic mass. FINDINGS: Ultrasound demonstrates a large right lower lobe hepatic mass. PROCEDURE: Informed consent obtained from patient following explanation of risk, benefits, complications. Timeout performed by radiology nursing staff. Patient received intravenous titrated doses of Versed and fentanyl administered by radiology nursing personnel with continuous monitoring of the vital signs. 10 mL of 1% lidocaine subcutaneous was administered for local anesthesia. Under direct ultrasound guidance, needle was advanced into the right lobe of liver hepatic mass. A total of 5 specimen obtained with 18-gauge core biopsy. Needle removed. Hemostasis obtained with direct pressure. Sterile dressing applied. Patient tolerated procedure well without evidence of complication. IMPRESSION: Ultrasound-guided biopsy of right lobe liver mass. DICTATED BY: BENITO SPEARS DO DATE: 10/03/24 1400 REASON: chf ORDERING PHYSICIAN: JONATHON GLORIA APRN PROCEDURE: ECHO CMP - ECHO 2-D COMPLETE APPROVED REPORT EXAM: Two-dimensional and M-mode echocardiogram with Doppler and color Doppler. INDICATION ICD: Congestive heart failure 2D Dimensions RVDd 3.8 cm LVEF(%) 60.5 (>50%) LVEF(%, simp.) 67 % IVSd 0.7 (0.7-1.1cm) FS(%) 32 % LA ESV INDEX (BP) 30.44 mL/m2 LVDd 5.0 (3.8-5.6cm) LA (2D) 4.5 (1.6-4.0cm) PWd 0.8 (0.7-1.1cm) Ao Root(2D) 3.1 (2.0-3.7cm) IVSs 1.1 cm LVOT diam 2.1 (1.8-2.4cm) LVDs 3.4 (2.5-4.0cm) PWs 1.1 cm Deformation Strain Apical 4 -20.0 % Apical 2 -24.0 % Apical 3 -24.0 % Global Strain -23.0 % M-Mode Dimensions EPSS 1.0 cm LA (MM) 5.0 (1.6-4.0cm) Ao Root(MM) 3.2 (2.0-3.7cm) Aortic Valve AoV Vmax 2.1 m/s Ao Peak GR 18.5 mmHg LVOT Vmax 1.6 m/s AoV VTI 0.4 m Ao Mean GR 10.5 mmHg LVOT VTI 0.28 m JANIE (VMAX) 2.4 cm2 JANIE (VTI) 2.4 cm2 Mitral Valve MV E Vmax 78.4 cm/s DECEL Time 160 ms MV A Vmax 85.6 cm/s P 1/2 T 31 ms E/A ratio 0.9 MVA (PHT) 7.0 cm2 TDI E/E' Medial 7.8 Medial E' Peak V 10.00 cm/s Pulmonary Valve PV Vmax 1.3 m/s Tricuspid Valve TR Vmax 2.8 m/s RAP (EST) 8 mmHg RVSP 38.4 mmHg TR Peak GR 30.4 mmHg Left Ventricle The left ventricle is normal size. GLS -23.0%. There is normal left ventricular wall thickness. LVEF is 60-65%. 3D volume EF 67%. The left ventricular diastolic function is normal. Right Ventricle The right ventricle is normal size. The right ventricular systolic function is normal. Atria The left atrium size is normal. The right atrium is technically difficult to measure due to Large right atrial mass present, clinically appears as myxoma. Aortic Valve Aortic valve is trileaflet mildly thickened. No aortic regurgitation is present. There is no aortic valvular stenosis. Mitral Valve The mitral valve is normal in structure. There is no mitral valve regurgitation noted. There is no mitral valve stenosis. Tricuspid Valve The tricuspid valve is normal in structure. There is mild tricuspid valve regurgitation noted. Pulmonic Valve The pulmonary valve is normal in structure. There is trace of pulmonic valvular regurgitation. Great Vessels The aortic root is normal in size. IVC is not well visualized. Pericardium There is no pericardial effusion. Other Information Quality : Adequate Conclusion The left ventricle is normal size. LVEF is 60-65%. 3D volume EF 67%. The left ventricular diastolic function is normal. The right ventricle is normal size. The right ventricular systolic function is normal. The left atrium size is normal. The right atrium is technically difficult to measure due to Large right atrial mass present, clinically appears as myxoma. There is mild tricuspid valve regurgitation noted. There is mild tricuspid valve regurgitation noted. RVSP 35 mm Hg. There is no pericardial effusion. DICTATED BY: DAMIR NAYLOR MD DATE: 09/30/24 0908 REASON: swelling severe ORDERING PHYSICIAN: JONATHON GLORIA APRN PROCEDURE: SCROTUM - US SCROTUM & CONTENTS US SCROTUM & CONTENTS HISTORY: No additional history given. COMPARISON: None TECHNIQUE: Duplex scrotal ultrasound study was performed. FINDINGS: The right testes measures 3.4 x 2 x 2.2 cm. The left testes measures 3.4 x 2.2 x 2.1 cm. No evidence of intratesticular mass or abnormal calcification is seen. Normal flow is demonstrated in the testes and epididymides bilaterally. No hydroceles or varicocele is seen. There is scrotal wall edema with right measuring 2.4 cm and left measuring 2.6 cm in thickness. IMPRESSION: 1. No evidence of intratesticular mass is seen. 2. Normal flow is demonstrated of both testes. Scrotal wall swelling. Scrotal wall swelling DICTATED BY: SOHAIL CORONEL MD DATE: 09/30/24 0042 REASON: congestion ORDERING PHYSICIAN: JONATHON GLORIA DESKTOP SUPPORT ENGINEER PROCEDURE: CXR1VW - CHEST 1VW CHEST 1VW HISTORY: Congestion COMPARISON: None FINDINGS: A frontal projection of the chest was obtained. No acute pulmonary infiltrates is seen. The heart is borderline enlarged. Degenerative changes are seen. Elevation of right hemidiaphragm is seen. IMPRESSION: 1. No acute pulmonary infiltrate is seen. DICTATED BY: SOHAIL CORONEL MD DATE: 09/29/24 1939 REASON: ascities, cirrhosis ORDERING PHYSICIAN: JONATHON GLORIA DESKTOP SUPPORT ENGINEER PROCEDURE: ABD PEL WO - CT ABDOMEN/PELVIS W/O CONTRAST CT ABDOMEN/PELVIS W/O CONTRAST HISTORY: Ascites and cirrhosis COMPARISON: None TECHNIQUE: Multiple sequential axial images of the abdomen and pelvis were obtained from the dome of the diaphragm through symphysis pubis. Patient was not given contrast through intravenous route. Oral contrast was not given. FINDINGS: Tiny bilateral pleural effusions are seen. There is no evidence of parenchymal disease or pulmonary nodule of the visualized lower lungs. Degenerative changes of the thoracolumbar spine are present. The heart is not enlarged. Cirrhotic changes of the liver are noted. The liver has irregular contour. There is right hepatic mass measuring 9.2 x 8.1 cm. There is left renal atrophy. Liver measures 8.4 cm. Spleen is enlarged measuring 15 cm Spleen, adrenal glands and pancreas are unremarkable. There is no evidence of hydronephrosis bilaterally. No evidence of renal stone is seen. Fecal material is seen in the colon. There are normal size retroperitoneal and mesenteric lymph nodes. There is small ascites and anasarca. Atherosclerotic changes are present. Pelvic sidewalls are symmetric bilaterally. Bladder is well distended without wall thickening. IMPRESSION: 1. Cirrhotic liver with enlarged spleen . There is right hepatic mass measuring 9.2 x 8.1 cm. There is small ascites. Anasarca. CT was performed with one or more following dose reduction techniques: automated exposure control, adjustment of the mA and kv according to patient's size, or use of a iterative reconstruction technique. DICTATED BY: SOHAIL CORONEL MD DATE: 09/29/241944 ASSESSMENT: Acute kidney injury Anemia Acute hypoxic respiratory failure POA Severe liver cirrhosis requiring paracentesis POA Severe bilateral lower extremities edema POA Uncontrolled hypertension POA Possible acute complicated cystitis POA Leukocytosis WBC 16.9 due to above POA Severe liver cirrhosis per CT abdomen/pelvis POA Right hepatic mass measuring 9.2 x 8.[address] abdomen/pelvis Small ascites per CT abdomen/pelvis POA Anasarca per CT abdomen/pelvis POA Multifactorial anemia POA Severe malnutrition POA Electrolyte imbalance hyponatremia Na 133 POA PLAN: Labs, diagnostic, radiologic exams reviewed and interpreted by myself and supervising physician. We have reviewed external records in detail Pending CT chest Continue with diuretics and octreotide Follow up on liver biopsy results Require close monitoring of renal function and electrolytes Order CBC, CMP, and electrolytes in am Continue with antibiotics Renal diabetic diet BiPAP as necessary, for respiratory distress Monitor blood pressure adjust medication doses as needed Avoid hypotensive episodes May use Dilaudid 0.5 mg IV every 6 hours as needed for severe pain Monitor blood sugars Strict intake, output, and daily weight should be monitored Please renally adjust medications Avoid nephrotoxic and nonsteroidal drugs Avoid contrast if possible Will continue to monitor renal function, anemia, electrolytes Treatment plan discussed with patient Questions were answered We have discussed with the other team physicians in detail about the care plan We will continue to monitor the patient closely ATTESTATION BY PHYSICIAN I have seen and examined the patient. I reviewed the documentation, medical decision making, and treatment plan as noted by the mid-level provider above. I agree with the findings and plan of care. ALEJANDRA BARR MD, [facility] Oct 06, 2024 13:19
--- NOTE | 2024-10-06 16:06 | HMCIMG ---
CT CHEST WITHOUT CONTRAST INDICATION: Liver mass, evaluate for malignancy TECHNIQUE: Routine axial images using 5 mm slice thickness were acquired from the lung apices to the bases without the administration of IV contrast.Coronal and sagittal reformatted images acquired for interpretation. CT was performed with one or more of the following dose reduction techniques: Automated exposure control, adjustment of the mA and/or kV according to patient size, or use of iterative reconstruction technique. COMPARISON: None FINDINGS: The heart size is normal. Coronary arterial wall calcific plaque noted. No pericardial effusion noted. Mild calcific plaque is present along the aortic arch and thoracic aortic walker without aneurysmal dilation. The trachea and airways are patent. 8 mm nodule within the posteroinferolateral margin of the right upper lobe, and adjacent to the right major oblique fissure, which may is nominally thickened at the same level. No axillary, hilar, or mediastinal lymphadenopathy. No pleural effusion or pneumothorax identified. Please refer to be 09/29/2024 CT abdomen and pelvis for further details, including biopsy results. Visible osseous structures are intact. IMPRESSION: 1. Solitary 8 mm right upper lobe nodule. Remainder of the lungs are clear. Please see below for recommendations. 2. Arteriosclerotic disease as described. 3. Please refer to be 09/29/2024 CT abdomen and pelvis for further details regarding large right hepatic lobe mass superimposed upon cirrhotic liver and associated abdominal ascites, including biopsy results. 2017 Guidelines for Management of Incidental Pulmonary Nodules Detected on CT images: Fleischner Society (Radiology 2017). Single Nodule: LOW RISK PATIENT: <6 mm: No follow-up required. 6-8 mm: Follow-up CT at 6-12 months, then CT at 18-24 months. >8 mm: Consider follow-up CT at 3 months, PET/CT , or tissue sampling. HIGH RISK PATIENT: <6 mm: Optional CT at 12 months. (Certain patients at high risk with suspicious nodule morphology, upper lobe location, or both may warrant 12 month follow-up). 6-8 mm: Follow-up CT at 6-12 months, then CT at 18-24 months. >8 mm: Consider follow-up CT at 3 months, PET/CT , or tissue sampling.
[2024-10-07] VITALS: BP 104/58; PULSE 64; RESP 17; TEMP 98.8
[2024-10-07 03:40] LABS: BASOPHILS # (AUTO) 0.11 K/uL (0.00-0.20); EOSINOPHILS # (AUTO) 0.85 K/uL (0.00-0.70); EOSINOPHILS % (AUTO) 8.1 % (0.0-8.0); HEMATOCRIT 28.6 % (42-54); IMMATURE GRANULOCYTE ABSOLUTE 0.65 K/uL (0-1); LYMPHOCYTES # (AUTO) 1.1 K/uL (1.0-4.8); LYMPHOCYTES % (AUTO) 10.7 % (21.0-51.0); MEAN CORPUSCULAR HEMOGLOBIN 33.9 pg (27.0-33.0); MEAN CORPUSCULAR HGB CONC 34.3 g/dL (32.0-36.0); MONOCYTES # (AUTO) 1.1 K/uL (0.1-1.0); NEUTROPHILS # (AUTO) 6.7 K/uL (1.8-7.7); PLATELET COUNT (AUTO) 109 K/uL (130-400); RED BLOOD CELL COUNT(AUTO) 2.89 MIL/uL (4.50-6.20); RED CELL DISTRIBUTION WIDTH 17.5 % (11.0-15.5); WHITE BLOOD COUNT (AUTO) 10.5 K/uL (4.8-10.8)
--- NOTE | 2024-10-07 03:48 | NUR ---
nurse note patient alert and oriented times 3. at bedside. plan of care discussed with them and they verbalized understanding. patient having moderate yellow fluid on his right abdomen incision. I changed his dressing twice with gauze pads and tegaderm. The patient is ambulatory. He has no pain, shortness of breath, nausea, or vomiting tonight. He has slept about 6 hours tonight. Call light within reach, bed alarm on, 2 side rails up. will continue to monitor patient.
[2024-10-07 04:00] VITALS: BP 102/59; PULSE 63; RESP 17; TEMP 98.7
[2024-10-07 04:00] LABS: ALANINE AMINOTRANSFERASE 26 U/L (12-78); ALBUMIN 1.8 g/dL (3.5-5.0); AMMONIA < 10 umol/L (11-32); ASPARTATE AMINOTRANSFERASE 92 U/L (10-37); BILIRUBIN,TOTAL 3.7 mg/dL (0.2-1.0); CARBON DIOXIDE 24 mmol/L (21-32); CREATININE 2.5 mg/dL (0.5-1.3); GLOMERULAR FILTR. RATE CALC 29 mL/min (>90); GLUCOSE,RANDOM 101 mg/dL (70-105); TOTAL PROTEIN, SERUM 5.3 g/dL (6.0-8.3); UREA NITROGEN, BLOOD 44 mg/dL (7-18)
[2024-10-07 04:08] LABS: CHLORIDE 98 mmol/L (101-111); POTASSIUM 3.3 mmol/L (3.5-5.1); SODIUM SERUM 132 mmol/L (136-145)
[2024-10-07 08:08] VITALS: BP 101/56; PULSE 60; RESP 18; TEMP 98.1
--- NOTE | 2024-10-07 08:09 | PN ---
LOCATION: 423. SUBJECTIVE: The patient remained stable overnight. Had a CAT scan of the chest, which showed a pulmonary metastasis. He is awake, alert. No change in his condition. is at the bedside. He has been diuresed, followed by Nephrology for worsening renal failure. PHYSICAL EXAMINATION: GENERAL: Shows an elderly man. VITAL SIGNS: Blood pressure 102/59, pulse 63, and respirations 20. CHEST: Showed decreased breath sounds. HEART: Regular rate and rhythm. ABDOMEN: Soft. EXTREMITIES: Show edema. GENITOURINARY: He has got scrotal cellulitis. NEUROLOGIC: Awake and alert. IMPRESSION: Renal failure, advanced cirrhosis of the liver, hepatoma, right atrial myxoma, renal failure, cellulitis, etc. PLAN: Continue management per the hospitalist team. He can go home when cleared by them. I told he and his , I would be happy to see him in the clinic this week once he is discharged. TID: [id number] RECEIPT: [id number]
[2024-10-07 08:43] VITALS: O2SAT 94
[2024-10-07 09:09] LABS: INR 1.25 (0.85-1.15)
[2024-10-07 09:11] LABS: PARTIAL THROMBOPLASTIN TIME 44.1 SEC (26.3-35.5)
--- NOTE | 2024-10-07 09:17 | PN ---
GASTROENTEROLOGY PROGRESS NOTE Date of Visit: Oct 07, 2024 Time of Visit: 09:17 Events / Notes: [No acute events overnight. patient is s/p liver biopsy. Review of Systems: CONSTITUTIONAL: No malaise or change in sensation of wellbeing. ENMT: No rhinorrhea, otorrhea, sinus pain, ear ache. CARDIOVASCULAR: No angina, palpitations, orthopnea or paroxysmal dyspnea. RESPIRATORY: No SOB. GASTROINTESTINAL: No abdominal pain, nausea, vomiting, diarrhea, hematemesis, melena or change in the patient's habitual bowel movements consistency/number. GENITOURINARY: No dysuria, hematuria or change in bladder continence. MUSCULOSKELETAL: No new muscle pain or decrease in muscular strength. No new joint swelling, redness or tenderness. SKIN: No new rash. Physical Exam: GEN: Awake, alert, oriented in person, time and place, and in no acute distress. HEENT: No sinus tenderness. Tympanic membranes were not examined. No rhinorrhea. Oral pharyngeal mucosa is pink, moist and within normal limits. Neck is supple with no cervical lymphadenopathy, thyromegaly or JVD. CHEST: Inspection, palpation and percussion of the chest were unremarkable. Lung auscultation revealed normal breath sounds bilaterally. CARDIAC: PMI is within normal limits. Heart sounds are regular. Normal S1, S2. No gallop or murmur. ABD: Soft, non-tender and not distended. No peritoneal signs on palpation. No organomegaly. Normal bowel sounds. EXT: No cyanosis or clubbing. No edema. SKIN: Intact. No rashes. JOINTS: No evidence of synovitis or acute arthritis. NEURO: Alert and oriented to name, place and person. Cranial nerve examination is unremarkable. No focal motor deficits. Normal speech. Gait is normal. Strength is normal. Vital Signs (last 8hr) Date Time Temp Pulse Resp B/P (MAP) Pulse Ox O2 Delivery O2 Flow Rate FiO2 10/07/24 08:08 98.1 60 18 101/56 99 10/07/24 04:00 98.8 63 17 102/59 97 Room Air Laboratory: [ ] Laboratory: Test 10/07/24 08:43 10/07/24 05:27 10/07/24 03:13 10/06/24 05:33 Range/Units Prothrombin Time 13.0 H 9.6-11.6 SEC Prothromb Time International Ratio 1.25 H 0.85-1.15 Activated Partial Thromboplast Time 44.1 H 26.3-35.5 SEC Whole Blood Glucose 81 70-110 MG/DL White Blood Count 10.5 4.8-10.8 K/uL Red Blood Count 2.89 L 4.50-6.20 MIL/uL Hemoglobin 9.8 L 14.0-18.0 g/dL Hematocrit 28.6 L 42-54 % Mean Corpuscular Volume 99.0 79-99 fL Mean Corpuscular Hemoglobin 33.9 H 27.0-33.0 pg Mean Corpuscular Hemoglobin Concent 34.3 32.0-36.0 g/dL Red Cell Distribution Width 17.5 H 11.0-15.5 % Platelet Count 109 L 130-400 K/uL Mean Platelet Volume 10.4 7.5-10.5 fL Immature Granulocyte % (Auto) 6.2 H 0-1 % Neutrophils (%) (Auto) 64.0 40.0-77.0 % Lymphocytes (%) (Auto) 10.7 L 21.0-51.0 % Monocytes (%) (Auto) 10.0 3.0-13.0 % Eosinophils (%) (Auto) 8.1 H 0.0-8.0 % Basophils (%) (Auto) 1.0 0.0-5.0 % Neutrophils # (Auto) 6.7 1.8-7.7 K/uL Lymphocytes # (Auto) 1.1 1.0-4.8 K/uL Monocytes # (Auto) 1.1 H 0.1-1.0 K/uL Eosinophils # (Auto) 0.85 H 0.00-0.70 K/uL Basophils # (Auto) 0.11 0.00-0.20 K/uL Absolute Immature Granulocyte (auto 0.65 0-1 K/uL Nucleated Red Blood Cells 0.0 0.0-0.19 % Sodium Level 132 L 136-145 mmol/L Potassium Level 3.3 L 3.5-5.1 mmol/L Chloride Level 98 L 101-111 mmol/L Carbon Dioxide Level 24 21-32 mmol/L Blood Urea Nitrogen 44 H 7-18 mg/dL Creatinine 2.5 H 0.5-1.3 mg/dL Glomerular Filtration Rate Calc 29 >90 mL/min Random Glucose 101 70-105 mg/dL Total Calcium 7.7 L 8.5-10.1 mg/dL Total Bilirubin 3.7 H 0.2-1.0 mg/dL Aspartate Amino Transf (AST/SGOT) 92 H 10-37 U/L Alanine Aminotransferase (ALT/SGPT) 26 12-78 U/L Alkaline Phosphatase 132 50-136 U/L Ammonia < 10 #L 11-32 umol/L C-Reactive Protein, Quantitative 42.50 H 0.5-3.0 mg/L Total Protein 5.3 L 6.0-8.3 g/dL Albumin 1.8 L 3.5-5.0 g/dL Procalcitonin 6.20 H 0.05-0.5 ng/mL Phosphorus Level 3.0 2.5-4.9 mg/dL Magnesium Level 2.00 1.80-2.40 mg/dL Current Medications Medications (Trade) Dose Ordered Sig/Lionel Route PRN Reason Start Time Stop Time Status Last Admin Dose Admin Acetaminophen (TYLenol 325MG TAB) 650 mg Q4H PRN PO MILD PAIN (1-3) 09/29/24 17:30 10/29/24 17:29 09/30/24 11:30 650 MG Acetaminophen (TYLenol 325MG TAB) 650 mg Q6H PRN PO MILD PAIN (1-3) 09/29/24 17:30 09/29/24 17:41 DC Acetaminophen (TYLenol 325MG TAB) 650 mg Q6H PRN PO TEMPERATURE GREATER THAN 101.5 09/29/24 17:30 10/29/24 17:29 Al Hydroxide/Mg Hydroxide (MAALox PLUS 30ML) 30 ml Q6H PRN PO INDIGESTION 09/29/24 17:30 10/29/24 17:29 Albumin Human 50 ml @ 0 mls/hr Q8H6 IV 09/30/24 22:00 10/02/24 14:01 DC 10/02/24 13:19 100 MLS/HR Albumin Human 200 ml @ 0 mls/hr AD IV 09/30/24 13:00 09/30/24 13:18 DC Albumin Human 200 ml @ 0 mls/hr AD IV 09/30/24 13:30 09/30/24 14:18 DC 09/30/24 13:28 0 MLS/HR Cefepime HCl (MAXipime 2 gm vial) 2 gm Q24H IVPB 10/05/24 12:00 10/05/24 14:56 DC 10/05/24 13:15 2 GM Ceftaroline Fosamil 300 mg/ Sodium Chloride 50 ml @ 50 mls/hr Q12H IV 10/05/24 15:30 10/05/24 15:33 DC Ceftaroline Fosamil 300 mg/ Sodium Chloride 50 ml @ 50 mls/hr Q12H IV 10/05/24 16:30 10/15/24 16:29 10/07/24 02:57 50 MLS/HR Ceftriaxone Sodium 2 gm/ Sodium Chloride 100 ml @ 200 mls/hr Q24H IV 09/29/24 17:30 09/29/24 17:44 DC Ceftriaxone Sodium (Rocephin 2gm Inj) 2 gm Q24H IVPB 09/29/24 18:00 10/05/24 11:42 DC 10/04/24 18:35 2 GM Dextrose (D50w) 50 ml AD PRN IV HYPOGLYCEMIA PROTOCOL 09/29/24 17:30 10/29/24 17:29 Diphenhydramine HCl (BENAdryl INJ) 25 mg Q6H PRN IV SEVERE ITCHING/RASH 09/29/24 17:30 10/29/24 17:29 Famotidine (Pepcid 20mg Vial) 20 mg BID PRN IV NAUSEA/VOMITING 09/29/24 17:30 09/29/24 17:41 DC Famotidine (Pepcid 20mg Vial) 20 mg QODAY IV 09/30/24 09:00 10/30/24 08:59 10/07/24 08:43 20 MG Furosemide (LASix 40MG TAB) 40 mg BID PO 10/02/24 21:00 11/01/24 20:59 10/07/24 08:42 40 MG Furosemide (LASix 40MG VIAL) 40 mg Q12H IV 09/29/24 22:00 10/02/24 10:49 DC 10/02/24 10:36 40 MG Glucagon (Glucagon 1mg Kit) 1 mg AD PRN IM HYPOGLYCEMIA PROTOCOL 09/29/24 17:30 10/29/24 17:29 Guaifenesin/ Dextromethorphan (RobiTUSSin DM 200/20MG 10ML) 10 ml Q4H PRN PO COUGH 09/29/24 17:30 10/29/24 17:29 Heparin Sodium (Porcine) (HEParin 5,000 UNIT VIAL) 5,000 unit BID SQ 09/29/24 21:00 10/29/24 20:59 10/07/24 08:54 5,000 UNIT Hydralazine HCl (APRESOLine 20MG INJ) 10 mg Q6H PRN IV For:SBP above 160;DBP above 90 09/29/24 17:30 10/29/24 17:29 Hydromorphone HCl (DiLAUDid 0.5MG INJ) 0.2 mg Q6H PRN IVP SEVERE PAIN (7-10) 09/30/24 11:30 10/05/24 11:29 DC Insulin Human Regular (humuLIN R 100 UNIT/ML 3ML) INSULIN SLIDING SCAL... ACHS SQ 09/29/24 21:00 10/29/24 20:59 Ketorolac Tromethamine (toRADol) 15 mg Q8H PRN IV MODERATE PAIN (4-6) 09/29/24 17:30 10/02/24 11:47 DC Lactulose (Constulose 20gm/ 30ml Udcup) 20 gm BID PRN PO CONSTIPATION 09/29/24 17:30 10/29/24 17:29 Lactulose (Constulose 20gm/ 30ml Udcup) 20 gm BID PRN PO CONSTIPATION 09/29/24 22:00 09/29/24 21:34 DC Linezolid (Zyvox) 600 mg Q12H PO 10/05/24 12:00 10/05/24 11:51 DC Magnesium Sulfate 50 ml @ 0 mls/hr PROTOCOL PRN IV other 09/29/24 17:30 10/29/24 17:29 10/05/24 15:37 25 MLS/HR Metronidazole (flaGYL) 500 mg Q8H PO 10/05/24 12:00 10/15/24 11:59 10/07/24 02:57 500 MG Midodrine (PROAMatine 5 MG TABLET) 5 mg TID PO 10/02/24 14:00 11/01/24 13:59 10/07/24 08:43 5 MG Morphine Sulfate (morPHINE 2MG SYG) 1 mg Q4H PRN IVP SEVERE PAIN (7-10) 09/29/24 17:30 09/30/24 11:27 DC Nitroglycerin (Nitrostat) 0.4 mg PROTOCOL PRN SL CHEST PAIN 09/29/24 17:30 10/29/24 17:29 Octreotide Acetate (SandoSTATIN) 100 mcg Q8H6 SQ 09/30/24 22:00 10/30/24 21:59 10/07/24 05:29 100 MCG Ondansetron HCl (zoFRAN 4MG INJ) 4 mg Q6H PRN IV NAUSEA/VOMITING 09/29/24 17:30 10/29/24 17:29 Sodium Chloride 1,000 ml @ 70 mls/hr [id number] IV 09/29/24 17:30 09/29/24 21:30 DC Thiamine HCl (Vitamin B-1) 100 mg DAILY IVP 10/01/24 09:00 10/31/24 08:59 10/07/24 08:43 100 MG Vancomycin HCl 250 ml @ 125 mls/hr Q24H IV 10/06/24 12:30 10/05/24 14:51 DC Vancomycin HCl (Vancomycin Protocol) 1 each AD IV 10/05/24 12:30 10/05/24 14:57 DC Vitamin B Complex/ Vit C/Folic Acid (Nephrovite Tablet) 1 cap DAILY PO 10/01/24 09:00 10/31/24 08:59 10/07/24 08:42 1 CAP Zolpidem Tartrate (AmbIEN) 5 mg HS PRN PO INSOMNIA 09/29/24 17:30 10/29/24 17:29 Diagnostics / Radiology: [COPY/PASTE HERE IF NO REPORTS PLEASE DELETE SECTION] Assessment: Liver mass Ascites Cirrhosis Plan: Await biopsy results Follow oncology recommendations LEONORA BLEDSOE [employer] TECH[employer]IAN Oct 07, 2024 09:17
--- NOTE | 2024-10-07 09:54 | PN ---
[facility] PROGRESS NOTE Date of Service: Oct 07, 2024 Time of Service: 09:51 SUBJECTIVE: 09/30: Patient is a 59 year old M, with a PMH of liver cirrhosis and undiagnosed EDUAR, who presented to the ED with complaints of shortness of breath with exertion, abdominal distention, bilateral lower extremity edema, and swelling of scrotum. Patient states the scrotal swelling began one week ago and has been preventing him from walking. The patients CT abdomen/pelvis showed cirrhosis with enlarging spleen, and a right hepatic mass measuring 9.2 x 8.1 cm, small ascites. The patient is planned to get a paracentesis done today. The patient will be getting a liver biopsy tomorrow. Per GI, we will obtain AFP level. The patient complains of pain, rating it a 7/10 on the pain scale. The patient states he does not want to take Morphine. I spoke to pharmacy, and we agreed that the patient can receive 0.2 mg Dilaudid as needed every 6 hours for pain. The patient WBC count is 13.6, down from 16.9. Lactic acid 3.8. 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 We will continue to follow cardiology, oncology, and nephrology recommendations. 10/01: Patient was seen this morning at bedside. Patient is doing well. Patient denies chest pain, shortness of breath, nausea, vomiting, fever, chills, abdominal pain. The patient will receive scrotal support to aid in the management of swelling. The Patient will be getting a liver biopsy done today. Patient had a paracentesis done yesterday, where 6 L of ascitic fluid was removed. Cultures are pending. 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 We will wait for liver biopsy results, and AFP levels. Patients Creatinine is 2.8, up from 2.6. BUN is 42, up from 37. We will continue to appreciate Cardiology, Nephrology, and Oncology recommendations. 10/02/2024. Patient seen and examined along with RN. No new complaints. Continues to be on diuretics started on midodrine and Sandostatin. Biopsy resul ts are pending. 10/03/24 : pt seen and examined along with rn , no new complaints creatine stable 10/04/24: Patient was seen this morning at bedside. We will obtain a urine protein creatinine ratio. Patient continues to be on oral diuretics, midodrine, and Sandostatin. Biopsy results are pending. Patient to follow Dr. Sharif for treatment of hepatoma outpatient. We will continue to follow nephrology and Oncology recommendations. 10/05/24: Patient was seen this morning at bedside. Patient continued on oral diuretics, midodrine, and Sandostatin. Biopsy results are still pending. Patient will follow Dr. Sharif can work outpatient for treatment of hepatoma. Patient's potassium this morning was 3.0, with a magnesium of 1.7. I ordered 20 mEq of oral potassium replacement, due to patient's decreased GFR, and we will be rechecking the CMP in 4 hours. Potassium levels will be monitored and adjusted accordingly. Patient's WBC count increased to 12.9 from 9.5. Patient's scrotum is erythematous and warm to the touch. We will begin treatment for scrotal cellulitis with Flagyl, Vancomycin pharmacy dosed, and cefepime. Chest x-ray will be obtained due to leukocytosis. We will continue to monitor the patient. We will continue to follow Nephrology, GI, and Oncology recommendations. 10/06/24: Patient was seen this morning at bedside. Patient states he is feeling well. Patient continues on oral diuretics, Sandostatin, ceftaroline, Flagyl, and cefepime. Biopsy results are pending. Patient will follow Dr. Sharif as outpatient for treatment of hepatoma. Patient's latest potassium was 3.1. Patient's WBC count is 11.5, down from 12.9. Patient's CRP is 46.2, down from 55.9. Patient's procalcitonin is 6.38, down from 6.55. Patient is afebrile, saturating well on room air. Urine output was 0.13 ml/kg/hr. Potassium has been replaced, and will be monitored. We will obtain a noncontrast ct of his chest to assess for malignancy. We will continue to monitor patient. 10/07/24: Patient was seen this morning at bedside. Patient is feeling well. Patient continues on oral diuretics, Sandostatin, ceftaroline, Flagyl, and cefepime. Biopsy results are pending. Patient's WBC count is trending down to 10.5. Patient's inflammatory markers are trending down. Patient's CT chest showed a solitary 8 mm right upper lobe nodule. Patient will be followed outpatient with Dr. Sharif. Patient continues on IV antibiotics for scrotal cellulitis. Scrotum is erythematous with areas of desquamation, consistent with resolving scrotal cellulitis. Improving from prior exam. We will continue IV fluids and follow nephrology recommendations. REVIEW OF SYSTEMS CONSTITUTIONAL: Denies fevers, chills, or night sweats. No unintentional weight loss reported. NEUROLOGICAL: Denies headache, amaurosis fugax, motor weakness, sensory deficit, vertigo/spinning sensation, gait abnormalities, or tremors. ENT: No hearing loss, otalgia, otorrhea, rhinitis, rhinorrhea, hoarseness, or sore throat. CARDIOVASCULAR: Denies any exertional angina, dyspnea on exertion, orthopnea, paroxysmal nocturnal dyspnea, palpitations, life-threatening arrhythmias, claudication. PULMONARY: Denies any cough, phlegm/sputum, hemoptysis, pleuritic chest pain. Complains of shortness of breath on exertion SLEEP: Denies morning headaches, daytime somnolence or napping. Denies diffic ulty falling asleep, staying asleep, waking from sleep. Denies knowledge of snoring. GASTROINTESTINAL: Denies any type of dysphagia to either liquids or solids. Denies nausea, vomiting, pyrosis, early satiety, diarrhea, constipation, or changes in stool consistency or caliber. Denies coffee-ground emesis, hematemesis, hematochezia, or melanotic stools. Complains of abdominal pain. GENITOURINARY: Denies frequency, urgency, nocturia, hematuria or incontinence (Storage/Irritative symptoms.) Low urinary stream, straining to void, urinary intermittency or hesitancy, splitting of the voiding stream, terminal dribbling. Complains of scrotal pain ENDOCRINOLOGIC: Denies polyuria, polydipsia, polyphagia or heat/cold intolerances. HEMATOLOGIC: Denies thrombophilia/previous clots, or coagulopathy/bleeding disorders. ONCOLOGIC: Denies personal history of malignancy. DERMATOLOGIC: Denies rashes or pruritus. PSYCHIATRIC: Denies any suicidal or homicidal ideation. Denies hallucinations. PHYSICAL EXAM GENERAL APPEARANCE: The patient is awake, alert, and oriented, in no acute cardiopulmonary distress. NEUROLOGICAL: Cranial nerves II-XII grossly intact. Motor is 5/5 in bilateral upper and lower extremities proximal to distal. No sensory deficits. HEENT: Face is symmetric. Pupils are equal and reactive. Extraocular movements are intact. NECK: Supple. No JVD. No thyromegaly. No submental, submandibular, pre- /postauricular, occipital or supraclavicular lymphadenopathy. CHEST: Normal chest expansion. No Telemetry. LUNGS: Absence of any rales, rhonchi or any wheezing. CARDIOVASCULAR: Regular. S1 and S2 normal. No appreciable rubs, murmurs or gallops. ABDOMEN: Soft, nontender, and nondistended. There is no rebound, voluntary guarding, or rigidity. : Deferred. No Garnett. Severe scrotum swelling EXTREMITIES:and not cyanotic. No clubbing. Good capillary refill. Bilateral lower extremities edema plus four pitting SKIN: No skin breakdown. Vital Signs (last 8hr) Date Time Temp Pulse Resp B/P (MAP) Pulse Ox O2 Delivery O2 Flow Rate FiO2 10/07/24 08:08 98.1 60 18 101/56 99 10/07/24 04:00 98.8 63 17 102/59 97 Room Air LABS: Laboratory: Test 10/07/24 08:43 10/07/24 05:27 10/07/24 03:13 10/06/24 05:33 Range/Units Prothrombin Time 13.0 H 9.6-11.6 SEC Prothromb Time International Ratio 1.25 H 0.85-1.15 Activated Partial Thromboplast Time 44.1 H 26.3-35.5 SEC Whole Blood Glucose 81 70-110 MG/DL White Blood Count 10.5 4.8-10.8 K/uL Red Blood Count 2.89 L 4.50-6.20 MIL/uL Hemoglobin 9.8 L 14.0-18.0 g/dL Hematocrit 28.6 L 42-54 % Mean Corpuscular Volume 99.0 79-99 fL Mean Corpuscular Hemoglobin 33.9 H 27.0-33.0 pg Mean Corpuscular Hemoglobin Concent 34.3 32.0-36.0 g/dL Red Cell Distribution Width 17.5 H 11.0-15.5 % Platelet Count 109 L 130-400 K/uL Mean Platelet Volume 10.4 7.5-10.5 fL Immature Granulocyte % (Auto) 6.2 H 0-1 % Neutrophils (%) (Auto) 64.0 40.0-77.0 % Lymphocytes (%) (Auto) 10.7 L 21.0-51.0 % Monocytes (%) (Auto) 10.0 3.0-13.0 % Eosinophils (%) (Auto) 8.1 H 0.0-8.0 % Basophils (%) (Auto) 1.0 0.0-5.0 % Neutrophils # (Auto) 6.7 1.8-7.7 K/uL Lymphocytes # (Auto) 1.1 1.0-4.8 K/uL Monocytes # (Auto) 1.1 H 0.1-1.0 K/uL Eosinophils # (Auto) 0.85 H 0.00-0.70 K/uL Basophils # (Auto) 0.11 0.00-0.20 K/uL Absolute Immature Granulocyte (auto 0.65 0-1 K/uL Nucleated Red Blood Cells 0.0 0.0-0.19 % Sodium Level 132 L 136-145 mmol/L Potassium Level 3.3 L 3.5-5.1 mmol/L Chloride Level 98 L 101-111 mmol/L Carbon Dioxide Level 24 21-32 mmol/L Blood Urea Nitrogen 44 H 7-18 mg/dL Creatinine 2.5 H 0.5-1.3 mg/dL Glomerular Filtration Rate Calc 29 >90 mL/min Random Glucose 101 70-105 mg/dL Total Calcium 7.7 L 8.5-10.1 mg/dL Total Bilirubin 3.7 H 0.2-1.0 mg/dL Aspartate Amino Transf (AST/SGOT) 92 H 10-37 U/L Alanine Aminotransferase (ALT/SGPT) 26 12-78 U/L Alkaline Phosphatase 132 50-136 U/L Ammonia < 10 #L 11-32 umol/L C-Reactive Protein, Quantitative 42.50 H 0.5-3.0 mg/L Total Protein 5.3 L 6.0-8.3 g/dL Albumin 1.8 L 3.5-5.0 g/dL Procalcitonin 6.20 H 0.05-0.5 ng/mL Phosphorus Level 3.0 2.5-4.9 mg/dL Magnesium Level 2.00 1.80-2.40 mg/dL Current Medications Medications (Trade) Dose Ordered Sig/Lionel Route PRN Reason Start Time Stop Time Status Last Admin Dose Admin Acetaminophen (TYLenol 325MG TAB) 650 mg Q4H PRN PO MILD PAIN (1-3) 09/29/24 17:30 10/29/24 17:29 09/30/24 11:30 650 MG Acetaminophen (TYLenol 325MG TAB) 650 mg Q6H PRN PO MILD PAIN (1-3) 09/29/24 17:30 09/29/24 17:41 DC Acetaminophen (TYLenol 325MG TAB) 650 mg Q6H PRN PO TEMPERATURE GREATER THAN 101.5 09/29/24 17:30 10/29/24 17:29 Al Hydroxide/Mg Hydroxide (MAALox PLUS 30ML) 30 ml Q6H PRN PO INDIGESTION 09/29/24 17:30 10/29/24 17:29 Albumin Human 50 ml @ 0 mls/hr Q8H6 IV 09/30/24 22:00 10/02/24 14:01 DC 10/02/24 13:19 100 MLS/HR Albumin Human 200 ml @ 0 mls/hr AD IV 09/30/24 13:00 09/30/24 13:18 DC Albumin Human 200 ml @ 0 mls/hr AD IV 09/30/24 13:30 09/30/24 14:18 DC 09/30/24 13:28 0 MLS/HR Cefepime HCl (MAXipime 2 gm vial) 2 gm Q24H IVPB 10/05/24 12:00 10/05/24 14:56 DC 10/05/24 13:15 2 GM Ceftaroline Fosamil 300 mg/ Sodium Chloride 50 ml @ 50 mls/hr Q12H IV 10/05/24 15:30 10/05/24 15:33 DC Ceftaroline Fosamil 300 mg/ Sodium Chloride 50 ml @ 50 mls/hr Q12H IV 10/05/24 16:30 10/15/24 16:29 10/07/24 02:57 50 MLS/HR Ceftriaxone Sodium 2 gm/ Sodium Chloride 100 ml @ 200 mls/hr Q24H IV 09/29/24 17:30 09/29/24 17:44 DC Ceftriaxone Sodium (Rocephin 2gm Inj) 2 gm Q24H IVPB 09/29/24 18:00 10/05/24 11:42 DC 10/04/24 18:35 2 GM Dextrose (D50w) 50 ml AD PRN IV HYPOGLYCEMIA PROTOCOL 09/29/24 17:30 10/29/24 17:29 Diphenhydramine HCl (BENAdryl INJ) 25 mg Q6H PRN IV SEVERE ITCHING/RASH 09/29/24 17:30 10/29/24 17:29 Famotidine (Pepcid 20mg Vial) 20 mg BID PRN IV NAUSEA/VOMITING 09/29/24 17:30 09/29/24 17:41 DC Famotidine (Pepcid 20mg Vial) 20 mg QODAY IV 09/30/24 09:00 10/30/24 08:59 10/07/24 08:43 20 MG Furosemide (LASix 40MG TAB) 40 mg BID PO 10/02/24 21:00 11/01/24 20:59 10/07/24 08:42 40 MG Furosemide (LASix 40MG VIAL) 40 mg Q12H IV 09/29/24 22:00 10/02/24 10:49 DC 10/02/24 10:36 40 MG Glucagon (Glucagon 1mg Kit) 1 mg AD PRN IM HYPOGLYCEMIA PROTOCOL 09/29/24 17:30 10/29/24 17:29 Guaifenesin/ Dextromethorphan (RobiTUSSin DM 200/20MG 10ML) 10 ml Q4H PRN PO COUGH 09/29/24 17:30 10/29/24 17:29 Heparin Sodium (Porcine) (HEParin 5,000 UNIT VIAL) 5,000 unit BID SQ 09/29/24 21:00 10/29/24 20:59 10/07/24 08:54 5,000 UNIT Hydralazine HCl (APRESOLine 20MG INJ) 10 mg Q6H PRN IV For:SBP above 160;DBP above 90 09/29/24 17:30 10/29/24 17:29 Hydromorphone HCl (DiLAUDid 0.5MG INJ) 0.2 mg Q6H PRN IVP SEVERE PAIN (7-10) 09/30/24 11:30 10/05/24 11:29 DC Insulin Human Regular (humuLIN R 100 UNIT/ML 3ML) INSULIN SLIDING SCAL... ACHS SQ 09/29/24 21:00 10/29/24 20:59 Ketorolac Tromethamine (toRADol) 15 mg Q8H PRN IV MODERATE PAIN (4-6) 09/29/24 17:30 10/02/24 11:47 DC Lactulose (Constulose 20gm/ 30ml Udcup) 20 gm BID PRN PO CONSTIPATION 09/29/24 17:30 10/29/24 17:29 Lactulose (Constulose 20gm/ 30ml Udcup) 20 gm BID PRN PO CONSTIPATION 09/29/24 22:00 09/29/24 21:34 DC Linezolid (Zyvox) 600 mg Q12H PO 10/05/24 12:00 10/05/24 11:51 DC Magnesium Sulfate 50 ml @ 0 mls/hr PROTOCOL PRN IV other 09/29/24 17:30 10/29/24 17:29 10/05/24 15:37 25 MLS/HR Metronidazole (flaGYL) 500 mg Q8H PO 10/05/24 12:00 10/15/24 11:59 10/07/24 02:57 500 MG Midodrine (PROAMatine 5 MG TABLET) 5 mg TID PO 10/02/24 14:00 11/01/24 13:59 10/07/24 08:43 5 MG Morphine Sulfate (morPHINE 2MG SYG) 1 mg Q4H PRN IVP SEVERE PAIN (7-10) 09/29/24 17:30 09/30/24 11:27 DC Nitroglycerin (Nitrostat) 0.4 mg PROTOCOL PRN SL CHEST PAIN 09/29/24 17:30 10/29/24 17:29 Octreotide Acetate (SandoSTATIN) 100 mcg Q8H6 SQ 09/30/24 22:00 10/30/24 21:59 10/07/24 05:29 100 MCG Ondansetron HCl (zoFRAN 4MG INJ) 4 mg Q6H PRN IV NAUSEA/VOMITING 09/29/24 17:30 10/29/24 17:29 Sodium Chloride 1,000 ml @ 70 mls/hr [id number] IV 09/29/24 17:30 09/29/24 21:30 DC Thiamine HCl (Vitamin B-1) 100 mg DAILY IVP 10/01/24 09:00 10/31/24 08:59 10/07/24 08:43 100 MG Vancomycin HCl 250 ml @ 125 mls/hr Q24H IV 10/06/24 12:30 10/05/24 14:51 DC Vancomycin HCl (Vancomycin Protocol) 1 each AD IV 10/05/24 12:30 10/05/24 14:57 DC Vitamin B Complex/ Vit C/Folic Acid (Nephrovite Tablet) 1 cap DAILY PO 10/01/24 09:00 10/31/24 08:59 10/07/24 08:42 1 CAP Zolpidem Tartrate (AmbIEN) 5 mg HS PRN PO INSOMNIA 09/29/24 17:30 10/29/24 17:29 DIAGNOSTICS / RADIOLOGY: [place] [address] IMAGING REPORT Signed PATIENT: DARSHAN KINNEY MR#: [id number] : 1965 SEX: M AGE: 59 LOCATION: [facility] ORDER STATUS: ADM IN REPORT#: [id number] SERVICE 1225 REASON: liver mass, rule out malignancy ORDERING PHYSICIAN: FEDERICO SUNSHINE MD PROCEDURE: CHEST WO - CT CHEST W/O CONTRAST CT CHEST WITHOUT CONTRAST INDICATION: Liver mass, evaluate for malignancy TECHNIQUE: Routine axial images using 5 mm slice thickness were acquired from the lung apices to the bases without the administration of IV contrast.Coronal and sagittal reformatted images acquired for interpretation. CT was performed with one or more of the following dose reduction techniques: Automated exposure control, adjustment of the mA and/or kV according to patient size, or use of iterative reconstruction technique. COMPARISON: None FINDINGS: The heart size is normal. Coronary arterial wall calcific plaque noted. No pericardial effusion noted. Mild calcific plaque is present along the aortic arch and thoracic aortic walker without aneurysmal dilation. The trachea and airways are patent. 8 mm nodule within the posteroinferolateral margin of the right upper lobe, and adjacent to the right major oblique fissure, which may is nominally thickened at the same level. No axillary, hilar, or mediastinal lymphadenopathy. No pleural effusion or pneumothorax identified. Please refer to be 09/29/2024 CT abdomen and pelvis for further details, including biopsy results. Visible osseous structures are intact. IMPRESSION: 1. Solitary 8 mm right upper lobe nodule. Remainder of the lungs are clear. Please see below for recommendations. 2. Arteriosclerotic disease as described. 3. Please refer to be 09/29/2024 CT abdomen and pelvis for further details regarding large right hepatic lobe mass superimposed upon cirrhotic liver and associated abdominal ascites, including biopsy results. 2017 Guidelines for Management of Incidental Pulmonary Nodules Detected on CT images: Fleischner Society (Radiology 2017). Single Nodule: LOW RISK PATIENT: <6 mm: No follow-up required. 6-8 mm: Follow-up CT at 6-12 months, then CT at 18-24 months. >8 mm: Consider follow-up CT at 3 months, PET/CT , or tissue sampling. HIGH RISK PATIENT: <6 mm: Optional CT at 12 months. (Certain patients at high risk with suspicious nodule morphology, upper lobe location, or both may warrant 12 month follow-up). 6-8 mm: Follow-up CT at 6-12 months, then CT at 18-24 months. >8 mm: Consider follow-up CT at 3 months, PET/CT , or tissue sampling. DICTATED BY: VIRGINIA JFEFERY MD DATE: 10/06/24 1600 ELECTRONICALLY SIGNED BY: VIRGINIA JEFFERY MD DATE: 10/06/24 1606 ASSESSMENT: Acute hypoxic respiratory failure POA Severe liver cirrhosis requiring paracentesis POA Severe bilateral lower extremities edema POA Uncontrolled hypertension POA Acute kidney injury TNP POA Possible acute complicated cystitis POA Leukocytosis WBC 16.9 due to above POA Severe liver cirrhosis per CT abdomen/pelvis POA Right hepatic mass measuring 9.2 x 8.[address] abdomen/pelvis Small ascites per CT abdomen/pelvis POA Anasarca per CT abdomen/pelvis POA Multifactorial anemia POA Severe malnutrition POA Electrolyte imbalance hyponatremia Na 133 POA] PLAN: Consults: Insulation Cutter And Former, 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 NEURO: Minimize central acting medications as possible. Fall Precautions. Well lighted room through the day and minimize interruptions through the night to prevent acute delirium. 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 Follow hemodynamics. Vital signs per facility protocol GI & NUTRITION: CT abdomen/pelvis shows cirrhotic liver with enlarged spleen. There is right hepatic mass measuring 9.2 x 8.1 cm. There small ascites. Anasarca IR thoracentesis removed 6L ascitic fluid. Cultures pending. Liver biopsy complete. We will follow up with biopsy results. AFP level elevated. Patient will follow Dr. Sharif outpatient for treatment of Hepatoma. CT chest without contrast Aspirations precautions KIDNEYS & ELECTROLYTES: Likely has hepatorenal syndrome- on midodrine, octreotide, and albumin per Nephrology. Urine protein/ creatinine ratio to be obtained. Strict monitoring of intake and output Daily weights Avoid nephrotoxic agents Monitor electrolytes and replace as needed Goal urine output of 30mL/hr or 0.5mL/kg/hr Medications to be dosed according to renal function. Avoid contrast if possible Continue to follow nephrology recommendations Potassium 3.0. We will continue to monitor Potassium and replace as needed. ENDOCRINE: Maintain blood glucose between 100-180 at all times. Insulin sliding scale for blood glucose management Hypoglycemia and hyperglycemia protocol in place INFECTIOUS DISEASE: Trend temperature, WBC and procalcitonin level Follow cultures, deescalate antibiotics as soon as possible. HEMATOLOGY & COAGULATION: Monitor H&H. Keep Hgb > 7 Transfuse 1 unit of PRBC for Hgb < 7 Transfuse 1 pack of platelets of platelets < 20, 000 Watch for any signs and symptoms of bleeding SKIN: Ultrasound scrotum showed scrotal wall swelling. Pressure ulcer prevention per facility protocol Specialty mattress as needed Scrotum appears erythematous and warm to the touch. Started Flagyl, Vancomycin dosed by pharmacy, Cefepime for scrotal cellulitis and leukocytosis. Treatment plan discussed with patient and family at the bedside Rehab: PT/OT GI: PPI DVT: KYLAH's FEDERICO SUNSHINE MD Oct 07, 2024 09:54
[2024-10-07 12:00] VITALS: BP 110/55; PULSE 63; RESP 16; TEMP 97.6
--- NOTE | 2024-10-07 12:38 | PN ---
NEPHROLOGY PROGRESS NOTE Date/Time Patient Seen: Oct 07, 2024 SUBJECTIVE: This is a 59-year-old male with a past medical history of liver cirrhosis, diagnosed obstructive sleep apnea. He presented to the emergency with complaints of shortness of breath on exertion, abdominal distention, bilateral lower extremity edema and scrotal swelling. CT of the abdomen and pelvis showed cirrhotic liver with enlarged spleen. Right hepatic mass measuring 9.2 x 8.1 cm. There is small ascites. Anasarca Echocardiogram showed LVEF of 60-65%. 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 S/p paracentesis with 6 L removed. He was noted with worsening renal failure We have been consulted for renal failure Renal function is stable Electrolytes are stable. He continues on albumin and octreotide. S/p liver biopsy, pending pathology results He was seen in the medical floor, in no acute distress Family at the bedside Prognosis remains guarded REVIEW OF SYSTEMS: GENERAL: Positive for shortness of breath, lower extremity edema and abdominal distention NEUROLOGIC: Negative for any blurry vision, blind spots, double vision, facial asymmetry, dysphagia, dysarthria, hemiparesis, hemisensory deficits, vertigo, ataxia. HEENT: Negative for any head trauma, neck trauma, neck stiffness, photophobia, phonophobia, sinusitis, rhinitis. CARDIAC: Negative for any chest pain, dyspnea on exertion, paroxysmal nocturnal dyspnea, peripheral edema. PULMONARY: Negative for any shortness of breath, wheezing, COPD, or TB exposure. GASTROINTESTINAL: Negative for any abdominal pain, nausea, vomiting, bright red blood per rectum, melena. GENITOURINARY: Negative for any dysuria, hematuria, incontinence. INTEGUMENTARY: Negative for any rashes, cuts, insect bites. RHEUMATOLOGIC: Negative for any joint pains, photosensitive rashes, history of vasculitis or kidney problems. HEMATOLOGIC: Negative for any abnormal bruising, frequent infections or bleeding. PHYSICAL EXAM: GENERAL: Alert and oriented x 3. No acute distress. Well-nourished. EYES: EOMI. Anicteric. HENT: Moist mucous membranes. No scleral icterus. No cervical lymphadenopathy. LUNGS: Clear to auscultation bilaterally. No accessory muscle use. CARDIOVASCULAR: Regular rate and rhythm. No murmur. No JVD. ABDOMEN: Soft, non-tender and non-distended. No palpable masses. EXTREMITIES: 2+ edema. Non-tender. SKIN: No rashes or lesions. Warm. NEUROLOGIC: No focal neurological deficits. CN II-XII grossly intact, but not individually tested. PSYCHIATRIC: Cooperative. Appropriate mood and affect. LABORATORY: [ ] Hematology Labs: Test 10/07/24 03:13 Range/Units White Blood Count 10.5 4.8-10.8 K/uL Red Blood Count 2.89 L 4.50-6.20 MIL/uL Hemoglobin 9.8 L 14.0-18.0 g/dL Hematocrit 28.6 L 42-54 % Mean Corpuscular Volume 99.0 79-99 fL Mean Corpuscular Hemoglobin 33.9 H 27.0-33.0 pg Mean Corpuscular Hemoglobin Concent 34.3 32.0-36.0 g/dL Red Cell Distribution Width 17.5 H 11.0-15.5 % Platelet Count 109 L 130-400 K/uL Mean Platelet Volume 10.4 7.5-10.5 fL Immature Granulocyte % (Auto) 6.2 H 0-1 % Neutrophils (%) (Auto) 64.0 40.0-77.0 % Lymphocytes (%) (Auto) 10.7 L 21.0-51.0 % Monocytes (%) (Auto) 10.0 3.0-13.0 % Eosinophils (%) (Auto) 8.1 H 0.0-8.0 % Basophils (%) (Auto) 1.0 0.0-5.0 % Neutrophils # (Auto) 6.7 1.8-7.7 K/uL Lymphocytes # (Auto) 1.1 1.0-4.8 K/uL Monocytes # (Auto) 1.1 H 0.1-1.0 K/uL Eosinophils # (Auto) 0.85 H 0.00-0.70 K/uL Basophils # (Auto) 0.11 0.00-0.20 K/uL Absolute Immature Granulocyte (auto 0.65 0-1 K/uL Nucleated Red Blood Cells 0.0 0.0-0.19 % Chemistry Labs: Test 10/07/24 11:33 10/07/24 03:13 10/06/24 05:33 Range/Units Whole Blood Glucose 115 H 70-110 MG/DL Sodium Level 132 L 136-145 mmol/L Potassium Level 3.3 L 3.5-5.1 mmol/L Chloride Level 98 L 101-111 mmol/L Carbon Dioxide Level 24 21-32 mmol/L Blood Urea Nitrogen 44 H 7-18 mg/dL Creatinine 2.5 H 0.5-1.3 mg/dL Glomerular Filtration Rate Calc 29 >90 mL/min Random Glucose 101 70-105 mg/dL Total Calcium 7.7 L 8.5-10.1 mg/dL Total Bilirubin 3.7 H 0.2-1.0 mg/dL Aspartate Amino Transf (AST/SGOT) 92 H 10-37 U/L Alanine Aminotransferase (ALT/SGPT) 26 12-78 U/L Alkaline Phosphatase 132 50-136 U/L Ammonia < 10 #L 11-32 umol/L C-Reactive Protein, Quantitative 42.50 H 0.5-3.0 mg/L Total Protein 5.3 L 6.0-8.3 g/dL Albumin 1.8 L 3.5-5.0 g/dL Procalcitonin 6.20 H 0.05-0.5 ng/mL Phosphorus Level 3.0 2.5-4.9 mg/dL Magnesium Level 2.00 1.80-2.40 mg/dL Coagulation Labs: Test 10/07/24 08:43 Range/Units Prothrombin Time 13.0 H 9.6-11.6 SEC Prothromb Time International Ratio 1.25 H 0.85-1.15 Activated Partial Thromboplast Time 44.1 H 26.3-35.5 SEC DIAGNOSTICS / RADIOLOGY: REASON: liver mass, rule out malignancy ORDERING PHYSICIAN: FEDERICO SUNSHINE MD PROCEDURE: CHEST WO - CT CHEST W/O CONTRAST CT CHEST WITHOUT CONTRAST INDICATION: Liver mass, evaluate for malignancy TECHNIQUE: Routine axial images using 5 mm slice thickness were acquired from the lung apices to the bases without the administration of IV contrast.Coronal and sagittal reformatted images acquired for interpretation. CT was performed with one or more of the following dose reduction techniques: Automated exposure control, adjustment of the mA and/or kV according to patient size, or use of iterative reconstruction technique. COMPARISON: None FINDINGS: The heart size is normal. Coronary arterial wall calcific plaque noted. No pericardial effusion noted. Mild calcific plaque is present along the aortic arch and thoracic aortic walker without aneurysmal dilation. The trachea and airways are patent. 8 mm nodule within the posteroinferolateral margin of the right upper lobe, and adjacent to the right major oblique fissure, which may is nominally thickened at the same level. No axillary, hilar, or mediastinal lymphadenopathy. No pleural effusion or pneumothorax identified. Please refer to be 09/29/2024 CT abdomen and pelvis for further details, including biopsy results. Visible osseous structures are intact. IMPRESSION: 1. Solitary 8 mm right upper lobe nodule. Remainder of the lungs are clear. Please see below for recommendations. 2. Arteriosclerotic disease as described. 3. Please refer to be 09/29/2024 CT abdomen and pelvis for further details regarding large right hepatic lobe mass superimposed upon cirrhotic liver and associated abdominal ascites, including biopsy results. 2017 Guidelines for Management of Incidental Pulmonary Nodules Detected on CT images: Fleischner Society (Radiology 2017). Single Nodule: LOW RISK PATIENT: <6 mm: No follow-up required. 6-8 mm: Follow-up CT at 6-12 months, then CT at 18-24 months. >8 mm: Consider follow-up CT at 3 months, PET/CT , or tissue sampling. HIGH RISK PATIENT: <6 mm: Optional CT at 12 months. (Certain patients at high risk with suspicious nodule morphology, upper lobe location, or both may warrant 12 month follow-up). 6-8 mm: Follow-up CT at 6-12 months, then CT at 18-24 months. >8 mm: Consider follow-up CT at 3 months, PET/CT , or tissue sampling. DICTATED BY: VIRGINIA JEFFERY MD DATE: 10/06/24 1600 REASON: leukocytosis- evaluate for infectious source ORDERING PHYSICIAN: FEDERICO SUNSHINE MD PROCEDURE: CXR2VW - CHEST 2VWS PA AND LATERAL CHEST RADIOGRAPH INDICATION: leukocytosis- evaluate for infectious source COMPARISON: 10/09/2024 FINDINGS: Heart size is normal. The pulmonary vascularity and william appear normal. No abnormal pulmonary parenchymal opacity or consolidation identified. Right hemidiaphragm remains slightly elevated. No significant pleural effusion noted. No pneumothorax detected. IMPRESSION: No radiographic evidence for any acute cardiopulmonary process. DICTATED BY: VIRGINIA JEFFERY MD DATE: 10/05/24 1321 REASON: LIVER MASS ORDERING PHYSICIAN: RONEN LINTON MD PROCEDURE: BX LIVER - US BIOPSY LIVER IR US BIOPSY LIVER IR REASON: LIVER MASS COMPARISON: None TECHNIQUE: Ultrasound-guided of right lobe hepatic mass. FINDINGS: Ultrasound demonstrates a large right lower lobe hepatic mass. PROCEDURE: Informed consent obtained from patient following explanation of risk, benefits, complications. Timeout performed by radiology nursing staff. Patient received intravenous titrated doses of Versed and fentanyl administered by radiology nursing personnel with continuous monitoring of the vital signs. 10 mL of 1% lidocaine subcutaneous was administered for local anesthesia. Under direct ultrasound guidance, needle was advanced into the right lobe of liver hepatic mass. A total of 5 specimen obtained with 18-gauge core biopsy. Needle removed. Hemostasis obtained with direct pressure. Sterile dressing applied. Patient tolerated procedure well without evidence of complication. IMPRESSION: Ultrasound-guided biopsy of right lobe liver mass. DICTATED BY: BENITO SPEARS DO DATE: 10/03/24 1400 REASON: chf ORDERING PHYSICIAN: JONATHON GLORIA APRN PROCEDURE: ECHO [facility] - ECHO 2-D COMPLETE APPROVED REPORT EXAM: Two-dimensional and M-mode echocardiogram with Doppler and color Doppler. INDICATION ICD: Congestive heart failure 2D Dimensions RVDd 3.8 cm LVEF(%) 60.5 (>50%) LVEF(%, simp.) 67 % IVSd 0.7 (0.7-1.1cm) FS(%) 32 % LA ESV INDEX (BP) 30.44 mL/m2 LVDd 5.0 (3.8-5.6cm) LA (2D) 4.5 (1.6-4.0cm) PWd 0.8 (0.7-1.1cm) Ao Root(2D) 3.1 (2.0-3.7cm) IVSs 1.1 cm LVOT diam 2.1 (1.8-2.4cm) LVDs 3.4 (2.5-4.0cm) PWs 1.1 cm Deformation Strain Apical 4 -20.0 % Apical 2 -24.0 % Apical 3 -24.0 % Global Strain -23.0 % M-Mode Dimensions EPSS 1.0 cm LA (MM) 5.0 (1.6-4.0cm) Ao Root(MM) 3.2 (2.0-3.7cm) Aortic Valve AoV Vmax 2.1 m/s Ao Peak GR 18.5 mmHg LVOT Vmax 1.6 m/s AoV VTI 0.4 m Ao Mean GR 10.5 mmHg LVOT VTI 0.28 m JANIE (VMAX) 2.4 cm2 JANIE (VTI) 2.4 cm2 Mitral Valve MV E Vmax 78.4 cm/s DECEL Time 160 ms MV A Vmax 85.6 cm/s P 1/2 T 31 ms E/A ratio 0.9 MVA (PHT) 7.0 cm2 TDI E/E' Medial 7.8 Medial E' Peak V 10.00 cm/s Pulmonary Valve PV Vmax 1.3 m/s Tricuspid Valve TR Vmax 2.8 m/s RAP (EST) 8 mmHg RVSP 38.4 mmHg TR Peak GR 30.4 mmHg Left Ventricle The left ventricle is normal size. GLS -23.0%. There is normal left ventricular wall thickness. LVEF is 60-65%. 3D volume EF 67%. The left ventricular diastolic function is normal. Right Ventricle The right ventricle is normal size. The right ventricular systolic function is normal. Atria The left atrium size is normal. The right atrium is technically difficult to measure due to Large right atrial mass present, clinically appears as myxoma. Aortic Valve Aortic valve is trileaflet mildly thickened. No aortic regurgitation is present. There is no aortic valvular stenosis. Mitral Valve The mitral valve is normal in structure. There is no mitral valve regurgitation noted. There is no mitral valve stenosis. Tricuspid Valve The tricuspid valve is normal in structure. There is mild tricuspid valve regurgitation noted. Pulmonic Valve The pulmonary valve is normal in structure. There is trace of pulmonic valvular regurgitation. Great Vessels The aortic root is normal in size. IVC is not well visualized. Pericardium There is no pericardial effusion. Other Information Quality : Adequate Conclusion The left ventricle is normal size. LVEF is 60-65%. 3D volume EF 67%. The left ventricular diastolic function is normal. The right ventricle is normal size. The right ventricular systolic function is normal. The left atrium size is normal. The right atrium is technically difficult to measure due to Large right atrial mass present, clinically appears as myxoma. There is mild tricuspid valve regurgitation noted. There is mild tricuspid valve regurgitation noted. RVSP 35 mm Hg. There is no pericardial effusion. DICTATED BY: DAMIR NAYLOR MD DATE: 09/30/24907 REASON: swelling severe ORDERING PHYSICIAN: JONATHON GLORIA [employer] PROCEDURE: SCROTUM - US SCROTUM & CONTENTS US SCROTUM & CONTENTS HISTORY: No additional history given. COMPARISON: None TECHNIQUE: Duplex scrotal ultrasound study was performed. FINDINGS: The right testes measures 3.4 x 2 x 2.2 cm. The left testes measures 3.4 x 2.2 x 2.1 cm. No evidence of intratesticular mass or abnormal calcification is seen. Normal flow is demonstrated in the testes and epididymides bilaterally. No hydroceles or varicocele is seen. There is scrotal wall edema with right measuring 2.4 cm and left measuring 2.6 cm in thickness. IMPRESSION: 1. No evidence of intratesticular mass is seen. 2. Normal flow is demonstrated of both testes. Scrotal wall swelling. Scrotal wall swelling DICTATED BY: SOHAIL CORONEL MD DATE: 09/30/24 0042 REASON: congestion ORDERING PHYSICIAN: JONATHON GLORIA [employer] PROCEDURE: CXR1VW - CHEST 1VW CHEST 1VW HISTORY: Congestion COMPARISON: None FINDINGS: A frontal projection of the chest was obtained. No acute pulmonary infiltrates is seen. The heart is borderline enlarged. Degenerative changes are seen. Elevation of right hemidiaphragm is seen. IMPRESSION: 1. No acute pulmonary infiltrate is seen. DICTATED BY: SOHAIL CORONEL MD DATE: 09/29/241938 REASON: ascities, cirrhosis ORDERING PHYSICIAN: JONAHTON GLORIA [employer] PROCEDURE: ABD PEL WO - CT ABDOMEN/PELVIS W/O CONTRAST CT ABDOMEN/PELVIS W/O CONTRAST HISTORY: Ascites and cirrhosis COMPARISON: None TECHNIQUE: Multiple sequential axial images of the abdomen and pelvis were obtained from the dome of the diaphragm through symphysis pubis. Patient was not given contrast through intravenous route. Oral contrast was not given. FINDINGS: Tiny bilateral pleural effusions are seen. There is no evidence of parenchymal disease or pulmonary nodule of the visualized lower lungs. Degenerative changes of the thoracolumbar spine are present. The heart is not enlarged. Cirrhotic changes of the liver are noted. The liver has irregular contour. There is right hepatic mass measuring 9.2 x 8.1 cm. There is left renal atrophy. Liver measures 8.4 cm. Spleen is enlarged measuring 15 cm Spleen, adrenal glands and pancreas are unremarkable. There is no evidence of hydronephrosis bilaterally. No evidence of renal stone is seen. Fecal material is seen in the colon. There are normal size retroperitoneal and mesenteric lymph nodes. There is small ascites and anasarca. Atherosclerotic changes are present. Pelvic sidewalls are symmetric bilaterally. Bladder is well distended without wall thickening. IMPRESSION: 1. Cirrhotic liver with enlarged spleen . There is right hepatic mass measuring 9.2 x 8.1 cm. There is small ascites. Anasarca. CT was performed with one or more following dose reduction techniques: automated exposure control, adjustment of the mA and kv according to patient's size, or use of a iterative reconstruction technique. DICTATED BY: SOHAIL CORONEL MD DATE: 09/29/241944 ASSESSMENT: Acute kidney injury Anemia Acute hypoxic respiratory failure POA Severe liver cirrhosis requiring paracentesis POA Severe bilateral lower extremities edema POA Uncontrolled hypertension POA Possible acute complicated cystitis POA Leukocytosis WBC 16.9 due to above POA Severe liver cirrhosis per CT abdomen/pelvis POA Right hepatic mass measuring 9.2 x 8.[address] abdomen/pelvis Small ascites per CT abdomen/pelvis POA Anasarca per CT abdomen/pelvis POA Multifactorial anemia POA Severe malnutrition POA Electrolyte imbalance hyponatremia Na 133 POA PLAN: Labs, diagnostic, radiologic exams reviewed and interpreted by myself and supervising physician. We have reviewed external records in detail Nephrology standpoint, patient may be discharged Follow up in the renal clinic in 1-2 weeks Follow up with Oncology Follow up on liver biopsy results Require close monitoring of renal function and electrolytes Continue with antibiotics Renal diabetic diet BiPAP as necessary, for respiratory distress Monitor blood pressure adjust medication doses as needed Avoid hypotensive episodes May use Dilaudid 0.5 mg IV every 6 hours as needed for severe pain Monitor blood sugars Strict intake, output, and daily weight should be monitored Please renally adjust medications Avoid nephrotoxic and nonsteroidal drugs Avoid contrast if possible Will continue to monitor renal function, anemia, electrolytes Treatment plan discussed with patient Questions were answered We have discussed with the other team physicians in detail about the care plan We will continue to monitor the patient closely ATTESTATION BY PHYSICIAN I have seen and examined the patient. I reviewed the documentation, medical decision making, and treatment plan as noted by the mid-level provider above. I agree with the findings and plan of care. ALEJANDRA BARR MD, [facility] ANALYST Oct 07, 2024 12:38
--- NOTE | 2024-10-07 12:58 | NUR ---
Physical Therapy Endorsed pt to nursing Patient is able to ambulate with no LOB; he will be discharged from PT roster Addendum: 10/07/24 at 1302 by MAGDI DRUMMOND PTA PT Amended: Links added.
[2024-10-07] MEDS ORDERED: BUME1TAB7 PO (15:02)
[2024-10-07] MEDS ORDERED: PANT40TA55 PO (15:06)
[2024-10-07] MEDS ORDERED: miDODRine HCL 5 MG TABLET PO (15:06)
[2024-10-07] MEDS ORDERED: DOXY100C5 PO (15:08)
--- NOTE | 2024-10-07 15:16 | DS ---
Discharge Summary Hospital Course Summary: Patient is a 59 year old male, with a past medical history of liver cirrhosis and undiagnosed EDUAR, who presented to the Emergency Department with complaints of shortness of breath with exertion, abdominal distention, bilateral lower extremity edema, and swelling of the scrotum. A CT abdomen/pelvis revealed cirrhosis with splenomegaly, and a right hepatic mass measuring 9.2 x 8.1 cm, with small ascites and anasarca. Oncology was consulted for further evaluation. On admission, the patient was noted to have impaired renal function, prompting a nephrology consult. The patient was admitted, and a paracentesis was preformed, yielding 6L of ascitic fluid, which was sent for culture. Following the paracentesis, a liver biopsy and AFP level were obtained. An echocardiogram demonstrated an ejection fraction of 60-65%, with a large right atrial mass present, clinically appearing as a myxoma. Cardiology was consulted for further assessment.The patient was initiated on appropriate pharmacological therapy from the nephrology team. The consulting oncologist, Dr. Linton, advised that treatment for the hepatoma be pursued on an outpatient basis. The patients scrotum was evaluated, and a diagnosis of scrotal cellulitis was made based on the findings and elevated inflammatory markers. Appropriate antimicrobial therapy was initiated, including empiric intravenous antibiotics to ensure adequate coverage. The patient demonstrated improvement in the scrotal cellulitis, with corresponding improvements in inflammatory markers. He was evaluated and cleared for discharge by the nephrology, oncology, and cardiology teams. The patient was discharged on appropraite antibiotics, with instructions to follow up with nephrology and oncology in the outpatient setting within one week upon discharge. Public Opinion Survey Taker(s): Oncology Cardiology Nephrology Procedure(s): [address] [address] IMAGING REPORT Signed PATIENT: DARSHAN KINNEY MR#: [id number] : 1965 SEX: M AGE: 59 LOCATION: [facility] ORDER STATUS: ADM IN REPORT#: [id number] SERVICE 1225 REASON: liver mass, rule out malignancy ORDERING PHYSICIAN: FEDERICO SUNSHINE MD PROCEDURE: CHEST WO - CT CHEST W/O CONTRAST CT CHEST WITHOUT CONTRAST INDICATION: Liver mass, evaluate for malignancy TECHNIQUE: Routine axial images using 5 mm slice thickness were acquired from the lung apices to the bases without the administration of IV contrast.Coronal and sagittal reformatted images acquired for interpretation. CT was performed with one or more of the following dose reduction techniques: Automated exposure control, adjustment of the mA and/or kV according to patient size, or use of iterative reconstruction technique. COMPARISON: None FINDINGS: The heart size is normal. Coronary arterial wall calcific plaque noted. No pericardial effusion noted. Mild calcific plaque is present along the aortic arch and thoracic aortic walker without aneurysmal dilation. The trachea and airways are patent. 8 mm nodule within the posteroinferolateral margin of the right upper lobe, and adjacent to the right major oblique fissure, which may is nominally thickened at the same level. No axillary, hilar, or mediastinal lymphadenopathy. No pleural effusion or pneumothorax identified. Please refer to be 09/29/2024 CT abdomen and pelvis for further details, including biopsy results. Visible osseous structures are intact. IMPRESSION: 1. Solitary 8 mm right upper lobe nodule. Remainder of the lungs are clear. Please see below for recommendations. 2. Arteriosclerotic disease as described. 3. Please refer to be 09/29/2024 CT abdomen and pelvis for further details regarding large right hepatic lobe mass superimposed upon cirrhotic liver and associated abdominal ascites, including biopsy results. 2017 Guidelines for Management of Incidental Pulmonary Nodules Detected on CT images: Fleischner Society (Radiology 2017). Single Nodule: LOW RISK PATIENT: <6 mm: No follow-up required. 6-8 mm: Follow-up CT at 6-12 months, then CT at 18-24 months. >8 mm: Consider follow-up CT at 3 months, PET/CT , or tissue sampling. HIGH RISK PATIENT: <6 mm: Optional CT at 12 months. (Certain patients at high risk with suspicious nodule morphology, upper lobe location, or both may warrant 12 month follow-up). 6-8 mm: Follow-up CT at 6-12 months, then CT at 18-24 months. >8 mm: Consider follow-up CT at 3 months, PET/CT , or tissue sampling. DICTATED BY: VIRGINIA JEFFERY MD DATE: 10/06/24 1600 ELECTRONICALLY SIGNED BY: VIRGINIA JEFFERY MD DATE: 10/06/24 [address] [address] [id number] IMAGING REPORT Signed PATIENT: DARSHAN KINNEY MR#: [id number] : 1965 SEX: M AGE: 59 LOCATION: 4DH ORDER 1141 STATUS: ADM IN REPORT#: [id number] SERVICE 1135 REASON: leukocytosis- evaluate for infectious source ORDERING PHYSICIAN: FEDERICO SUNSHINE MD PROCEDURE: CXR2VW - CHEST 2VWS PA AND LATERAL CHEST RADIOGRAPH INDICATION: leukocytosis- evaluate for infectious source COMPARISON: 10/09/2024 FINDINGS: Heart size is normal. The pulmonary vascularity and william appear normal. No abnormal pulmonary parenchymal opacity or consolidation identified. Right hemidiaphragm remains slightly elevated. No significant pleural effusion noted. No pneumothorax detected. IMPRESSION: No radiographic evidence for any acute cardiopulmonary process. DICTATED BY: VIRGINIA JEFFERY MD DATE: 10/05/24 1321 ELECTRONICALLY SIGNED BY: VIRGINIA JEFFERY MD DATE: 10/05/[address] [id number] IMAGING REPORT Signed PATIENT: DARSHAN KINNEY MR#: [id number] : 1965 SEX: M AGE: 59 LOCATION: 4DH ORDER 0823 STATUS: ADM IN [facility] REPORT#: [id number] SERVICE 1200 REASON: LIVER MASS ORDERING PHYSICIAN: RONEN LINTON MD PROCEDURE: BX LIVER - US BIOPSY LIVER IR US BIOPSY LIVER IR REASON: LIVER MASS COMPARISON: None TECHNIQUE: Ultrasound-guided of right lobe hepatic mass. FINDINGS: Ultrasound demonstrates a large right lower lobe hepatic mass. PROCEDURE: Informed consent obtained from patient following explanation of risk, benefits, complications. Timeout performed by radiology nursing staff. Patient received intravenous titrated doses of Versed and fentanyl administered by radiology nursing personnel with continuous monitoring of the vital signs. 10 mL of 1% lidocaine subcutaneous was administered for local anesthesia. Under direct ultrasound guidance, needle was advanced into the right lobe of liver hepatic mass. A total of 5 specimen obtained with 18-gauge core biopsy. Needle removed. Hemostasis obtained with direct pressure. Sterile dressing applied. Patient tolerated procedure well without evidence of complication. IMPRESSION: Ultrasound-guided biopsy of right lobe liver mass. DICTATED BY: BENITO SPEARS DO DATE: 10/03/24 1400 ELECTRONICALLY SIGNED BY: BENITO SPEARS [facility] [address] [place] [phone] IMAGING REPORT Signed PATIENT: DARSHAN KINNEY MR#: [id number] : 1965 SEX: M AGE: 59 LOCATION: 4DH ORDER 0801 STATUS: ADM IN REPORT#: [id number] SERVICE 0800 REASON: ASCITES ORDERING PHYSICIAN: JONATHON GLORIA CIRCUS AGENT PROCEDURE: PARA ABD - US ABDOMINAL PARACENTESIS IR US ABDOMINAL PARACENTESIS IR HISTORY: Ascites COMPARISON: None TECHNIQUE: Informed consent was obtained. Risks and benefits were explained to the patient. A timeout was performed. Patient was prepped and draped in a sterile fashion. Local anesthetics was given as required. Under ultrasound guidance, ascites fluid was localized. Paracentesis was performed. 6 L of fluid was aspirated. FINDINGS: Less than 2 cc blood loss is noted. Patient tolerated procedure without complication. Patient left the department in good condition. IMPRESSION: 1. Uncomplicated ultrasound-guided paracentesis. DICTATED BY: SOHAIL CORONEL MD DATE: 09/30/24 1537 ELECTRONICALLY SIGNED BY: SOHAIL CORONEL MD DATE: 09/30/24 1543 DATE: 10/03/[address] [place] [address] [place] [phone] IMAGING REPORT Signed PATIENT: DARSHAN KINNEY MR#: [id number] : 1965 SEX: M AGE: 59 LOCATION: 4DH ORDER 1733 STATUS: ADM IN [facility] REPORT#: [id number] SERVICE 1727 REASON: chf ORDERING PHYSICIAN: JONATHON GLORIA APRN PROCEDURE: ECHO CMP - ECHO 2-D COMPLETE APPROVED REPORT EXAM: Two-dimensional and M-mode echocardiogram with Doppler and color Doppler. INDICATION ICD: Congestive heart failure 2D Dimensions RVDd 3.8 cm LVEF(%) 60.5 (>50%) LVEF(%, simp.) 67 % IVSd 0.7 (0.7-1.1cm) FS(%) 32 % LA ESV INDEX (BP) 30.44 mL/m2 LVDd 5.0 (3.8-5.6cm) LA (2D) 4.5 (1.6-4.0cm) PWd 0.8 (0.7-1.1cm) Ao Root(2D) 3.1 (2.0-3.7cm) IVSs 1.1 cm LVOT diam 2.1 (1.8-2.4cm) LVDs 3.4 (2.5-4.0cm) PWs 1.1 cm Deformation Strain Apical 4 -20.0 % Apical 2 -24.0 % Apical 3 -24.0 % Global Strain -23.0 % M-Mode Dimensions EPSS 1.0 cm LA (MM) 5.0 (1.6-4.0cm) Ao Root(MM) 3.2 (2.0-3.7cm) Aortic Valve AoV Vmax 2.1 m/s Ao Peak GR 18.5 mmHg LVOT Vmax 1.6 m/s AoV VTI 0.4 m Ao Mean GR 10.5 mmHg LVOT VTI 0.28 m JANIE (VMAX) 2.4 cm2 JANIE (VTI) 2.4 cm2 Mitral Valve MV E Vmax 78.4 cm/s DECEL Time 160 ms MV A Vmax 85.6 cm/s P 1/2 T 31 ms E/A ratio 0.9 MVA (PHT) 7.0 cm2 TDI E/E' Medial 7.8 Medial E' Peak V 10.00 cm/s Pulmonary Valve PV Vmax 1.3 m/s Tricuspid Valve TR Vmax 2.8 m/s RAP (EST) 8 mmHg RVSP 38.4 mmHg TR Peak GR 30.4 mmHg Left Ventricle The left ventricle is normal size. GLS -23.0%. There is normal left ventricular wall thickness. LVEF is 60-65%. 3D volume EF 67%. The left ventricular diastolic function is normal. Right Ventricle The right ventricle is normal size. The right ventricular systolic function is normal. Atria The left atrium size is normal. The right atrium is technically difficult to measure due to Large right atrial mass present, clinically appears as myxoma. Aortic Valve Aortic valve is trileaflet mildly thickened. No aortic regurgitation is present. There is no aortic valvular stenosis. Mitral Valve The mitral valve is normal in structure. There is no mitral valve regurgitation noted. There is no mitral valve stenosis. Tricuspid Valve The tricuspid valve is normal in structure. There is mild tricuspid valve regurgitation noted. Pulmonic Valve The pulmonary valve is normal in structure. There is trace of pulmonic valvular regurgitation. Great Vessels The aortic root is normal in size. IVC is not well visualized. Pericardium There is no pericardial effusion. Other Information Quality : Adequate Conclusion The left ventricle is normal size. LVEF is 60-65%. 3D volume EF 67%. The left ventricular diastolic function is normal. The right ventricle is normal size. The right ventricular systolic function is normal. The left atrium size is normal. The right atrium is technically difficult to measure due to Large right atrial mass present, clinically appears as myxoma. There is mild tricuspid valve regurgitation noted. There is mild tricuspid valve regurgitation noted. RVSP 35 mm Hg. There is no pericardial effusion. DICTATED BY: DAMIR NAYLOR MD DATE: 09/30/24 0908 ELECTRONICALLY SIGNED BY: DAMIR NAYLOR MD DATE: 09/30/24 1314 [place] [address] IMAGING REPORT Signed PATIENT: DARSHAN KINNEY MR#: [id number] : 1965 SEX: M AGE: 59 LOCATION: 4DH ORDER 34 STATUS: ADM IN REPORT#: [id number] SERVICE 33 REASON: swelling severe ORDERING PHYSICIAN: JONATHON GLORIA APRN PROCEDURE: SCROTUM - US SCROTUM & CONTENTS US SCROTUM & CONTENTS HISTORY: No additional history given. COMPARISON: None TECHNIQUE: Duplex scrotal ultrasound study was performed. FINDINGS: The right testes measures 3.4 x 2 x 2.2 cm. The left testes measures 3.4 x 2.2 x 2.1 cm. No evidence of intratesticular mass or abnormal calcification is seen. Normal flow is demonstrated in the testes and epididymides bilaterally. No hydroceles or varicocele is seen. There is scrotal wall edema with right measuring 2.4 cm and left measuring 2.6 cm in thickness. IMPRESSION: 1. No evidence of intratesticular mass is seen. 2. Normal flow is demonstrated of both testes. Scrotal wall swelling. Scrotal wall swelling DICTATED BY: SOHAIL CORONEL MD DATE: 09/30/2441 ELECTRONICALLY SIGNED BY: SOHAIL CORONEL MD DATE: 09/30/[address] [address] IMAGING REPORT Signed PATIENT: DARSHAN KINNEY MR#: [id number] : 1965 SEX: M AGE: 59 LOCATION: 4DH ORDER 32 STATUS: ADM IN [facility] REPORT#: [id number] SERVICE 26 REASON: congestion ORDERING PHYSICIAN: JONATHON GLORIA APRN PROCEDURE: CXR1VW - CHEST 1VW CHEST 1VW HISTORY: Congestion COMPARISON: None FINDINGS: A frontal projection of the chest was obtained. No acute pulmonary infiltrates is seen. The heart is borderline enlarged. Degenerative changes are seen. Elevation of right hemidiaphragm is seen. IMPRESSION: 1. No acute pulmonary infiltrate is seen. DICTATED BY: SOHAIL CORONEL MD DATE: 09/29/241938 ELECTRONICALLY SIGNED BY: SOHAIL CORONEL MD DATE: 09/29/241942 [place] [address] IMAGING REPORT Signed PATIENT: DARSHAN KINNEY MR#: [id number] : 1965 SEX: M AGE: 59 LOCATION: 4DH ORDER 1733 STATUS: ADM IN REPORT#: [id number] SERVICE 8947 REASON: ascities, cirrhosis ORDERING PHYSICIAN: JONATHON GLORAI APRN PROCEDURE: ABD PEL WO - CT ABDOMEN/PELVIS W/O CONTRAST CT ABDOMEN/PELVIS W/O CONTRAST HISTORY: Ascites and cirrhosis COMPARISON: None TECHNIQUE: Multiple sequential axial images of the abdomen and pelvis were obtained from the dome of the diaphragm through symphysis pubis. Patient was not given contrast through intravenous route. Oral contrast was not given. FINDINGS: Tiny bilateral pleural effusions are seen. There is no evidence of parenchymal disease or pulmonary nodule of the visualized lower lungs. Degenerative changes of the thoracolumbar spine are present. The heart is not enlarged. Cirrhotic changes of the liver are noted. The liver has irregular contour. There is right hepatic mass measuring 9.2 x 8.1 cm. There is left renal atrophy. Liver measures 8.4 cm. Spleen is enlarged measuring 15 cm Spleen, adrenal glands and pancreas are unremarkable. There is no evidence of hydronephrosis bilaterally. No evidence of renal stone is seen. Fecal material is seen in the colon. There are normal size retroperitoneal and mesenteric lymph nodes. There is small ascites and anasarca. Atherosclerotic changes are present. Pelvic sidewalls are symmetric bilaterally. Bladder is well distended without wall thickening. IMPRESSION: 1. Cirrhotic liver with enlarged spleen . There is right hepatic mass measuring 9.2 x 8.1 cm. There is small ascites. Anasarca. CT was performed with one or more following dose reduction techniques: automated exposure control, adjustment of the mA and kv according to patient's size, or use of a iterative reconstruction technique. DICTATED BY: SOHAIL CORONEL MD DATE: 09/29/241944 ELECTRONICALLY SIGNED BY: SOHAIL CORONEL MD DATE: 09/29/241951 RUN DATE: 10/04/24 [facility] PAGE 1 RUN TIME: 4592 [address] [id number] Department of Laboratories CLIA # [id number] Liquefier: Harris Amaro DO Specimen Report PATIENT: DARSHAN KINNEY ACCT: [id number] LOC: [facility] U: [id number] AGE/SX: 59/M ROOM: 423 RE09/29/[address]: NAVI BETANCOURT MD : 1965 BED: 1 DIS: STATUS: ADM IN TLOC: SPEC: [id number] MABLE: 09/30/24-1199 STATUS: COMP REQ: [id number] RECD: 09/30/24-[address]: SOHAIL CORONEL MD SOURCE: ASC FLD ENTR: 09/30/24-[address]: ALEJANDRA BURNETTE MD SPDESC: ABDOMINAL NAVI BETANCOURT MD, NICOLE M MD SELF,REFERRAL [facility] MD ORDERED: BODY FLUID CULT COMMENTS: Has specimen been collected/obtained? Y 6.0 Liters ---- -------- Procedure Result Pete Date-Time GRAM STAIN Final 09/30/24-1952 NO ORGANISM SEEN RARE WHITE BLOOD CELLS SEEN REPORT BODY FLUID CULT Final 10/04/24-1122 [facility] COLONY DESCRIPTION: REPORT 1: NO GROWTH AT 24-35 HOURS; STUDIES TO CONTINUE REPORT 2: NO GROWTH AT 48-59 HOURS; STUDIES TO CONTINUE REPORT 3: NO GROWTH AT 72-96 HOURS Test(s) performed by: [facility] [address] [place] [address] @ [facility] Test Performed at: [facility] [address], [place], [place] [employer] Feeder: Howard Iglesias D.O. END OF REPORT RUN DATE: 10/04/24 [facility] 1 RUN TIME: [address] [address] Department of Laboratories CLIA # [id number] Liquefier: Harris Amaro DO Specimen Report PATIENT: DARSHAN KINNEY ACCT: [id number] LOC: [facility] U: [id number] AGE/SX: 59/M ROOM: 423 RE09/29/[address]: NAVI BETANCOURT MD : 1965 BED: 1 DIS: STATUS: ADM IN TLOC: SPEC: [id number] MABLE: 09/29/24 STATUS: COMP REQ: [id number] RECD: 09/29/[address] [facility] [address]: JONATHON GLORIA APRN SOURCE: BLOOD ENTR: 09/29/[address] [facility] [address]: NAVI BETANCOURT MD SPDESC: SELF,REFERRAL ORDERED: BLOOD CULTURE COMMENTS: What is the Source? BLOOD PT IN CT @1700 PT MOVED UP STAIRS AFTER CT Procedure Result Pete Date-Time BLOOD CULT Final 10/04/24 NO GROWTH AFTER 5 DAYS END OF REPORT RUN DATE: 10/04/24 [facility] [address] 1 RUN TIME: 2007 [address] [address], [place] [address] Department of Laboratories CLIA # [id number] Liquefier: Harris Amaro DO Specimen Report PATIENT: DARSHAN KINNEY ACCT: [id number] LOC: [facility] U: [id number] AGE/SX: 59/M ROOM: [facility] RE09/29/[address]: NAVI BETANCOURT MD : 1965 BED: 1 DIS: STATUS: ADM IN TLOC: SPEC: [id number] MABLE: 09/29/24 STATUS: COMP REQ: [id number] RECD: 09/29/24-[address]: JONATHON GLORIA APRN SOURCE: BLOOD ENTR: 09/29/[address] [facility] [address]: NAVI BETANCOURT MD [facility]: SELF,REFERRAL ORDERED: BLOOD CULTURE COMMENTS: What is the Source? BLOOD Procedure Result Pete Date-Time BLOOD CULT Final 10/04/24 NO GROWTH AFTER 5 DAYS END OF REPORT Assessment/Plan: ASSESSMENT: Acute hypoxic respiratory failure POA Severe liver cirrhosis requiring paracentesis POA Severe bilateral lower extremities edema POA Uncontrolled hypertension POA Acute kidney injury TNP POA Possible acute complicated cystitis POA Leukocytosis WBC 16.9 due to above POA Severe liver cirrhosis per CT abdomen/pelvis POA Right hepatic mass measuring 9.2 x 8.[address] abdomen/pelvis Small ascites per CT abdomen/pelvis POA Anasarca per CT abdomen/pelvis POA Multifactorial anemia POA Severe malnutrition POA Electrolyte imbalance hyponatremia Na 133 POA] Discharge Instructions: Follow up appointments: patient to follow up with license inspector, Dr. Burnette and Oncologist, Dr. Linton, and Primary care physician within 1 week upon discharge. Procedures: Paracentesis Imaging: Report attached to summary. Microbiology: Report attached to summary. Activity: Ad kyle Home medications: n/a New medications: Midodrine, Bumex, Protonix, Doxycycline Teaching: We reinforced the importance of compliance with follow up appointments and medication compliance. Advised patient to follow up with license inspector and oncologist within 1 week upon discharge, as well as their primary care physician within 1 week upon discharge. Emergency instructions: The patient was instructed to present to the nearest emergency department or call 911 should their symptoms worsen or return. New Medications: Bumetanide (Bumex) 1 Mg Tab 1 MG PO BID for 20 Days, #40 TAB Doxycycline Hyclate (Doxycycline Hyclate) 100 Mg Capsule 100 MG PO BID for 7 Days, #14 CAP Pantoprazole Sodium (Protonix) 40 Mg Ectab 40 MG PO DAILY for 30 Days, #30 TAB.EC [miDODRine HCL 5 MG TABLET] () 5 MG TABLET 5 MG PO TID for 20 Days, #60 0 Refills FEDERICO SUNSHINE MD Oct 07, 2024 15:16
[2024-10-07 16:00] VITALS: BP 116/59; PULSE 59; RESP 21; TEMP 97.4
--- NOTE | 2024-10-07 17:26 | NUR ---
DISCHARGE PATIENT DISCHARGED HOME. PERIPHERAL IV DISCONTINUED. DISCHARGE INSTRUCTIONS GIVEN PRESCRIPTIONS GIVEN. PATIENT AWARE TO FOLLOW UP WITH DR. ORTIZ. APPOINTMENT SCHEDULED. PATIENT AWARE TO FOLLOW UP WITH DR. BARR. APPOINTMENT SCHEDULED. ALL QUESTIONS ANSWERED.
== END 2024-10-07 17:35 | disposition home or self-care (01) | DRG 432 ==
LOC: EDH 14:13 → EDHIP 14:14 → 4DH 19:00
PROVIDERS: ADMIT Internal Medicine; ATTEND Internal Medicine
PROC: 0W9G3ZZ Drainage of Peritoneal Cavity, Percutaneous Approach (ICD-10-PCS; principal; 2024-09-30)
PROC: 0FB23ZX Excision of Left Lobe Liver, Percutaneous Approach, Diagnostic (ICD-10-PCS; 2024-10-01)
DX: K74.60 Unspecified cirrhosis of liver (principal); E43 Unspecified severe protein-calorie malnutrition; J96.01 Acute respiratory failure with hypoxia; N17.9 Acute kidney failure, unspecified; E87.1 Hypo-osmolality and hyponatremia; N30.00 Acute cystitis without hematuria; I13.0 Hypertensive heart and chronic kidney disease with heart failure and stage 1 through stage 4 chronic kidney disease, or unspecified chronic kidney disease; N18.4 Chronic kidney disease, stage 4 (severe); R18.8 Other ascites; Z68.41 Body mass index [BMI] 40.0-44.9, adult; D15.1 Benign neoplasm of heart; D64.9 Anemia, unspecified; E11.22 Type 2 diabetes mellitus with diabetic chronic kidney disease; G47.33 Obstructive sleep apnea (adult) (pediatric); I50.9 Heart failure, unspecified; N49.2 Inflammatory disorders of scrotum; N50.89 Other specified disorders of the male genital organs; R62.7 Adult failure to thrive
CPT/HCPCS: 36415; 47000; 49083; 71045; 71046; 71250; 74176; 76376; 76870; 76942; 80048; 80051; 80053; 80074; 80076; 81001; 81003; 82105; 82140; 82550; 82570; 82728; 82948; 83036; 83540; 83550; 83605; 83735; 83880; 83935; 84100; 84132; 84145; 84443; 84550; 85025; 85610; 85730; 86140; 87040; 87071; 87205; 89051; 93306; 93356; 96372; 96374; 99152; 99153; 99285; C1729; G0378; J0692; J0696; J0712; J1644; J1940; J2250; J2354; J3010; J3411; J3475; J3490; P9046; P9047; C2615; G0500; J3370